=== PATIENT | male | born 1955 | race Caucasian/White ===

== ENCOUNTER 2023-02-17 13:49 | Outpatient (OUT) | payer MEDICARE, BC, SELFPAY ==
--- NOTE | 2023-02-17 | XR_ITS ---
The [place] [id number] Patient Name: PING KAYE MRN: [id number] date: 1955 Sex: M Assigned Patient Location: [facility] Current Patient Location: [facility] Accession/Order Number: [id number] Exam Date: 02/17/2023 14:57 Report Date: 02/17/2023 16:29 At the request of: LETTY GUEVARA Procedure: XR ankle LT min 3V Exam: Radiographs: XR ankle LT min 3V, XR foot LT min 3V Reason for exam: LEFT ANKLE PAIN Comparison: Plain films dated 07/27/2017 XR/XR ankle LT min 3V IMPRESSION: Left ankle soft tissue swelling. Small fragmented Achilles calcaneal spur. Mild degenerative changes scattered throughout the left foot. Remainder of the left foot and ankle radiographs is unremarkable. Electronically authenticated by: FAISAL BIRMINGHAM Date: 02/17/2023 16:29
--- NOTE | 2023-02-17 | XR_ITS ---
The [address] [address] Patient Name: PING KAYE MRN: [id number] date: 1955 Sex: M Assigned Patient Location: [facility] Current Patient Location: [facility] Accession/Order Number: [id number] Exam Date: 02/17/2023 14:57 Report Date: 02/17/2023 16:29 At the request of: LETTY GUVEARA Procedure: XR foot LT min 3V Exam: Radiographs: XR ankle LT min 3V, XR foot LT min 3V Reason for exam: LEFT ANKLE PAIN Comparison: Plain films dated 07/27/2017 XR/XR foot LT min 3V IMPRESSION: Left ankle soft tissue swelling. Small fragmented Achilles calcaneal spur. Mild degenerative changes scattered throughout the left foot. Remainder of the left foot and ankle radiographs is unremarkable. Electronically authenticated by: FAISAL BIRMINGHAM Date: 02/17/2023 16:29
== END 2023-02-17 13:50 | disposition home or self-care (01) ==
PROVIDERS: Visit Provider Podiatrist Foot & Ankle Surgery
DX: M25.572 Pain in left ankle and joints of left foot (principal); M25.472 Effusion, left ankle; M77.32 Calcaneal spur, left foot
CPT/HCPCS: 73610; 73630

== ENCOUNTER 2023-11-10 13:43 | Outpatient (OUT) | payer MEDICARE, BC, SELFPAY ==
--- NOTE | 2023-11-10 | XR_ITS ---
[address] [address] Patient Name: PING KAYE MRN: [id number] date: 1955 Sex: M Assigned Patient Location: Current Patient Location: Accession/Order Number: [id number] Exam Date: 11/10/2023 13:44 Report Date: 11/11/2023 09:33 At the request of: LETTY GUEVARA Procedure: XR ankle LT min 3V PROCEDURE: XR ankle LT min 3V COMPARISON: 02/17/2023 HISTORY: LEFT ANKLE PAIN FINDINGS: BONES:No acute fracture or dislocation. Enthesopathic spurring of the calcaneus at the Achilles insertion. Mild degenerative change SOFT TISSUES:Mild soft tissue swelling EFFUSION:None visible. OTHER: Negative. XR/XR ankle LT min 3V IMPRESSION: Mild soft tissue swelling and degenerative change Electronically authenticated by: CANDIS GILLIAM Date: 11/11/2023 09:33
== END 2023-11-10 13:44 | disposition home or self-care (01) ==
LOC: EC 13:43
PROVIDERS: Visit Provider Podiatrist Foot & Ankle Surgery
DX: M25.572 Pain in left ankle and joints of left foot (principal)
CPT/HCPCS: 73610

== ENCOUNTER 2023-11-23 13:54 | Outpatient (OUT) | payer MEDICARE, BC, SELFPAY ==
--- NOTE | 2023-11-23 13:59 | MR_ITS ---
The [address] [address] Patient Name: PING KAYE MRN: [id number] date: 1955 Sex: M Assigned Patient Location: MRI Current Patient Location: Accession/Order Number: [id number] Exam Date: 11/23/2023 15:00 Report Date: 11/25/2023 09:07 At the request of: LETTY GUEVARA Procedure: MR ankle LT wo con EXAM: MR ankle LT wo con REASON FOR EXAM: Ankle Impingement. TECHNIQUE: Multiplanar, multisequence imaging of the left ankle was performed without contrast COMPARISON: Radiographs 11/10/2023. FINDINGS: Mild fusiform thickening and intermediate signal the Achilles tendon with distal Achilles enthesophytes is consistent with tendinosis. No tear. The plantar fascia is mildly thickened with intermediate signal consistent with fasciopathy. No tear is evident. Laterally, the visualized peroneal tendons demonstrate thickening and intermediate signal consistent with tendinosis. Increased signal within the peroneus longus tendon distal to the peroneal tubercle potentially reflect partial tearing. A complete rupture is not evident. This is incompletely characterized. Thickening and intermediate signal the anterior talofibular and calcaneofibular ligaments is consistent with prior lateral ligamentous injury. No evidence of acute lateral ligamentous injury. Medially, the medial flexor tendons demonstrate normal thickness and signal without tendinosis or tear. The deep deltoid ligament appears grossly intact. The Lisfranc ligament is intact. Anteriorly, the anterior extensor tendons demonstrate normal thickness and signal without tendinosis or tear. The bone marrow signal is without fracture. The talar dome is congruent. The subtalar joints intact. The sinus tarsi is mildly edematous. The midfoot is congruent with mild to moderate osteoarthritis, most notable at the naviculocuneiform articulation. The visualized plantar musculature demonstrates normal bulk and signal. Remaining soft tissues are unremarkable. MR/MR ankle LT wo con IMPRESSION: 1. Peroneal tendinosis with suspicion of intrasubstance partial tearing distal to the peroneal tubercle. This is incompletely imaged. 2. 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 3. Plantar fasciopathy without tear. 4. Sequela of prior lateral ligamentous injury. No evidence of acute ligamentous injury. 5. Moderate midfoot osteoarthritis Electronically authenticated by: MILAGRO CEDILLO Date: 11/25/2023 09:07
== END 2023-11-23 13:55 | disposition home or self-care (01) ==
LOC: MRI 13:54
PROVIDERS: Visit Provider Podiatrist Foot & Ankle Surgery
DX: M25.872 Other specified joint disorders, left ankle and foot (principal); M76.72 Peroneal tendinitis, left leg; M76.62 Achilles tendinitis, left leg; M72.2 Plantar fascial fibromatosis
CPT/HCPCS: 73721

== ENCOUNTER 2024-03-07 10:24 | Outpatient (OUT) | payer MEDICARE, BC, SELFPAY ==
--- NOTE | 2024-03-07 10:33 | XR_ITS ---
The [address] [address] Patient Name: PING KAYE MRN: [id number] date: 1955 Sex: M Assigned [facility] Current Patient Location: Accession/Order Number: [id number] Exam Date: 03/07/2024 11:28 Report Date: 03/08/2024 13:16 At the request of: LETTY GUEVARA Procedure: XR chest 2V EXAMINATION: XR chest 2V HISTORY: Preop exam COMPARISON: XR chest 11/28/2020 FINDINGS: LUNGS: No significant pulmonary parenchymal abnormalities. VASCULATURE: No increased pulmonary vasculature. PLEURA: No pneumothorax, effusion, or pleural thickening. CARDIAC: No cardiomegaly or cardiac silhouette abnormality. MEDIASTINUM: No visible mass or adenopathy. BONES: No fracture or visible bone lesion. OTHER: [Loop recorder projecting over the lower left chest. XR/XR chest 2V IMPRESSION: 1. No acute cardiopulmonary process. Electronically authenticated by: LOYD KAUR Date: 03/08/2024 13:16
--- OUTSIDE RECORDS SUMMARY | 2024-03-07 10:42 | XMS_ITS | CCD ---
Author Organization [facility] [employer] Care Team Providers Care Managed Care Nurse Name Role Phone Da Elmer BCameron Unavailable Unavailable Unavailable Unavailable MARIANELA NORWOOD Unavailable Unavailabl e JOHNSON, ELMER BCameron Unavailable Unavailable DEVI URRUTIA Unavailable Unavailable DA ELMER BCameron Unavailable Unavailable DINESH ELIZABETH Unavailable Unavail able HERNAN FERNÁNDEZ Unavailable Unavailable JOHNSON ELMER BCameron Unavailable Unavailable MICHAELA BLACKWELL Unavailable Unavailable JOHNSON, ELMER BCameron Unavailable Unavailable JOHNSON, ELMER BCameron Unavailable Unavailable Unavailable Primary Care Provider Unavailabl e Da, Elmer BCameron Primary Care Provider [place] DO, Sandro A Primary Care Provider Tiffanie DO, Sandro A Primary Care Provider [phone] Claude Amos MD Unavailable Claude Amos MD Unavailable [place] DO, Sandro A Primary Care Provider Kristen Curtis Primary Care Physician Unavaila Kristen Maya Unavailable Unavailable Kristen Curtis Primary Care Physician Unavaila ble Tiffanie DO, Sandro A Primary Care Provider [phone] Tiffanie DO, Sandro A Primary Care Provider [phone] Markus Ramos MD Attending Unavaila ble Alice SIEGEL, Constantin Quintanilla Referring Unavail able Tiffanie DO, Sandro Hernandez Primary Care Unava ilable Tiffanie DO, Sandro Coronadoony Primary Care Unava ilable Emmanuel SY, Martín Russell Attending Unavailab le [place] DO, Sandro Hernandez Primary Care Unava ilable Emmanuel SY, Martín Russell Attending Unavailab le [place] DO, [facility] Unava ilable Emmanuel DPM, Martín Russell Attending Unavailab le Tiffanie DO, [facility] Care Unava ilable Emmanuel DPM, Martín Russell Attending Unavailab le Tiffanie DO, [facility] Care Unava ilable Emmanuel DPM, Martín Russell Attending Unavailab le [place] DO, [facility] Care Unava ilable Emmanuel DPM, Martín Russell Attending Unavailab le Tiffanie DO, Sandro Hernandez Attending Unava ilable Tiffanie DO, [facility] Unava ilable Emmanuel DPM, Martín Russell Attending Unavailab le Tiffanie DO, [facility] Unava ilable Tiffanie DO, Sandro Hernandez Attending Unava ilable [place] DO, [facility] Unava ilable [place] DO, Sandro Hernandez Attending Unava ilable Tiffanie DO, [facility] Unava ilable Tiffanie DO, Sandro Hernandez Attending Unava ilable [place] [employer] 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, Jacey Castillo Attending Unavailable [place] DO, [facility] Unava ilable [place] DO, Sandro Hernandez Attending Unava ilable [place] DO, [facility] Unava ilable Tiffanie DO, [facility] Unava ilable Tiffanie DO, Sandro Hernandez Attending Unava ilable Tiffanie DO, [facility] Unava ilable Tiffanie DO, Sandro Hernandez Attending Unava ilable Tiffanie DO, [facility] Unava ilable [place] DO, Sandro Hernandez Attending Unava ilable [place] DO, [facility] Primary Care Provider Julian Botello Attending Unavailable [place], Sandro A Referring Unavailable Tiffanie, Sandro A Primary Care Unavailable TIFFANIE, SANDRO A Primary Care Unavailable AUGOSTINCLAUDE Thurston Referring Unavailable AUGOSTINI, CLAUDE Wallace Attending Unavailable TIFFANIE, SANDRO A Primary Care Unavailable SELF, SELF Referring Unavailable AUGOSTINI, CLAUDE Wallace Attending Unavailable TIFFANIE, SANDRO A Primary Care Unavailable SELF, SELF Referring Unavailable AUGOSTINKarena, CLAUDE Wallace Referring Unavailable TIFFANIE, SANDRO A Primary Care Unavailable AUGOSTINI, CLAUDE Wallace Referring Unavailable TIFFANIE, SANDRO A Primary Care Unavailable TIFFANIE, SANDRO A Primary Care Unavailable SELF, SELF Referring Unavailable SCARLETTEKRISTEN K Attending Unavailable MEASEKRISTEN K Attending Unavailable TIFFANIE, SANDRO A Primary Care Unavailable SELF, SELF Referring Unavailable JOHNNIECLAUDE S Referring Unavailable Julian Botello PA-C Unavailable Unavailable TIFFANIE, SANDRO A Primary Care Unavailable JULIAN BOTELLO Referring Unavailable TIFFANIE, SANDRO A Primary Care Unavailable JULIAN BOTELLO Referring Unavailable TIFFANIE, SANDRO A Primary Care Unavailable JULIAN BOTELLO. Referring Unavailable TIFFANIE, SANDRO A Primary Care Unavailable HIGHLANDER, PETER D Referring Unavailable TIFFANIE, SANDRO A Referring Unavailable TIFFANIE, SANDRO A Primary Care Unavailable TIFFANIE, SANDRO A Referring Unavailable TIFFANIE, SANDRO A Primary Care Unavailable TIFFANIE, SANDRO A Primary Care Unavailable [facility] Referring Unavailable HIGHLANDER, PETER D Referring Unavailable TIFFANIE, SANDRO A Primary Care Unavailable TIFFANIE, SANDRO A Primary Care Unavailable JULIAN BOTELLO. Referring Unavailable TIFFANIE, SANDRO A Primary Care Unavailable HIGHLANDER, PETER D Referring Unavailable TIFFANIE, SANDRO A Primary Care Unavailable HIGHLANDER, PETER D Referring Unavailable TIFFANIE, SANDRO A Primary Care Unavailable HIGHLANDER, PETER D Referring Unavailable TIFFANIE, SANDRO A Primary Care Unavailable JULIAN BOTELLO. Referring Unavailable TIFFANIE, SANDRO A Primary Care Unavailable JULIAN BOTELLO. Referring Unavailable TIFFANIE, SANDRO A Primary Care Unavailable JULIAN BOTELLO. Referring Unavailable HIGHLANDER, PETER D Referring Unavailable TIFFANIE, SANDRO A Primary Care Unavailable JULIAN BOTELLO. Referring Unavailable TIFFANIE, SANDRO A Primary Care Unavailable TIFFANIE, SANDRO A Primary Care Unavailable HIGHLANDER, PETER D Referring Unavailable JULIAN BOTELLO. Referring Unavailable TIFFANIE, SANDRO A Primary Care Unavailable JULIAN BOTELLO. Referring Unavailable TIFFANIE, SANDRO A Primary Care Unavailable TIFFANIE, SANDRO A Primary Care Unavailable HIGHLANDER, PETER D Referring Unavailable TIFFANIE, SANDRO A Primary Care Unavailable HIGHLANDER, PETER D Referring Unavailable TIFFANIE, SANDRO A Primary Care Unavailable JULIAN BOTELLO. Referring Unavailable Allergies Allergy Classification Reported Allergen(s) Allergy Type Date of Onset Reaction(s) Facility (20 sources) nitroglycerin; Translations: [NITROGLYCERIN] Propensity to adverse reactions to drug 12-13-19 14 Other (See Comments), Hypotension [facility] (13 sources) Penicillins; Translations: [PENICILLINS] Propensity to adverse reactions to drug 12-13-19 14 [facility] (1 source) Penicillins Propensity to adverse reactions to drug 12-13-19 14 [facility] (9 sources) Nitroglycerin Propensity to adverse reactions to drug 12-13-19 14 Hypotension [facility] Work Phone: (9 sources) Penicillins Propensity to adverse reactions to drug 12-13-19 14 [facility] (20 sources) Penicillins Propensity to adverse reactions to drug 12-13-19 14 [facility] Work Phone: (3 sources) Sulfamethoxazole / Trimethoprim; Translations: [Bactrim] Drug Allergy [facility] (20 sources) Sulfamethoxazole / Trimethoprim Drug Allergy 11-07-19 23 [facility] (1 source) Penicillin; Translations: [penicillin] Drug Allergy [facility] Repository Medications Current Medications Medication Drug Class(es) Dates Sig (Normalized) Sig (Original) allopurinol 300 mg oral tablet (20 sources) Xanthine Oxidase Inhibitor Start: 06-12-2020 take 1 tablet by mouth once daily allopurinol (ZYLOPRIM) 300 MG tablet Take 1 tablet by mouth daily 90 tablet 1 12/20/2023 Active atorvastatin 40 mg oral tablet (20 sources) HMG-CoA Reductase Inhibitor Start: 05-24-2015 take 1 tablet by mouth once daily atorvastatin (LIPITOR) 40 MG tablet Take 1 tablet by mouth daily 07/22/2022 Active clobetasol propionate 0.5 mg/ml medicated shampoo (14 sources) Corticosteroid Start: 09-23-2023 Clobetasol Propionate 0.05 % SHAM apply TO SCALP AND RUB IN WELL LEAVE 3-5 MINUTES BEFORE WASHING OUT 09/23/2023 Active diclofenac sodium 0.01 mg/mg topical gel (14 sources) Nonsteroidal Anti-inflammatory Drug Start: 01-17-2024 ARTHRITIS PAIN RELIEVER 1 % GEL Apply 1 g topically 4 times daily as needed for Pain 01/17/2024 Active doxycycline hyclate 100 mg oral tablet (14 sources) Tetracycline-class Drug Start: 11-23-2023 take 1 tablet by mouth twice daily doxycycline hyclate (VIBRA-TABS) 100 MG tablet Take 1 tablet by mouth 2 times daily 11/23/2023 Active esomeprazole 20 mg delayed release oral capsule (2 sources) Proton Pump Inhibitor esomeprazole (NEXIUM) 20 MG capsule Take 20 mg by mouth. 0 Active glimepiride 2 mg oral tablet (20 sources) Sulfonylurea Start: 06-12-2020 take 1 tablet by mouth once daily glimepiride (AMARYL) 2 MG tablet Take 1 tablet by mouth daily 90 tablet 3 01/17/2024 Active hydroCHLOROthiazide 25 mg / losartan potassium 100 mg oral tablet (20 sources) Thiazide Diuretic, Angiotensin 2 Receptor [place] Start: 05-20-2020 take 1 tablet by mouth once daily losartan-hydroCH LOROthiazide (HYZAAR) 100-25 MG per tablet Take 1 tablet by mouth daily 05/20/2020 Active nitrofurantoin, macrocrystals 25 mg / nitrofurantoin, monohydrate 75 mg oral capsule (1 source) Nitrofuran Antibacterial Start: 01-27-2024 End: 02-03-2024 take 1 capsule by mouth twice daily nitrofurantoin, macrocrystal-mon ohydrate, (MACROBID) 100 MG capsule Take 1 capsule by mouth 2 times daily for 7 days 14 capsule 01/27/2024 02/03/2024 Active oxybutynin chloride 5 mg oral tablet (20 sources) Cholinergic Muscarinic Antagonist Start: 12-27-2023 take 1 tablet by mouth once daily oxyBUTYnin (DITROPAN) 5 MG tablet Take 1 tablet by mouth daily 90 tablet 1 12/27/2023 Active Start: 12-17-2022 take 1 tablet by astrid th once daily oxybutynin (DITROPAN-XL) 10 MG extended release tablet Take 1 tablet by mouth daily 0 12/17/2022 Active take 1 tablet by astrid th once daily oxybutynin chloride ER 5 mg tablet,extended release 24 hr take 1 tablet (5 mg) by oral route once daily phentermine hydrochloride 37.5 mg oral tablet (15 sources) Sympathomimetic Amine Anorectic Start: 02-03-2024 End: 05-03-2024 take 1 tablet by mouth once daily before breakfast phentermine (ADIPEX-P) 37.5 MG tablet Indications: Obesity (BMI 30-39.9) Take 1 tablet by mouth every morning (before breakfast) for 90 days. Max Daily Amount: 37.5 mg 30 tablet 2 02/03/2024 05/03/2024 Active Start: 09-10-2023 take 1 tablet by astrid th once daily before breakfast phentermine (ADIPEX-P) 37.5 MG tablet Take 1 tablet by mouth every morning (before breakfast). 09/10/2023 Active microencapsulated potassium chloride 20 meq extended release oral tablet (20 sources) Start: 11-06-2022 take 1 tablet by mouth once daily potassium chloride (KLOR-CON M) 20 MEQ extended release tablet Take 1 tablet by mouth daily 11/11/2022 Active Start: 07-28-2021 End: 06-14-2022 take 1 tablet by mouth once daily potassium chloride (KLOR-CON M) 20 MEQ extended release tablet Take 1 tablet by mouth daily 11/11/2022 Active Start: 06-17-2020 take 1 tablet by astrid th once daily potassium chloride (KLOR-CON M) 20 MEQ TBCR extended release tablet Take 1 tablet by mouth daily 0 06/17/2020 Active Start: 03-15-2020 take 1 tablet by astrid th once daily potassium chloride 20 MEQ Tab CR tablet Take 1 tablet by mouth daily. 30 tablet 5 03/15/2020 Active rivaroxaban 20 mg oral tablet (20 sources) Factor Xa Inhibitor Start: 03-11-2017 End: 11-05-2023 take 1 tablet by mouth once daily XARELTO 20 MG TABS tablet Take 1 tablet by mouth daily 07/16/2020 Active semaglutide 7 mg oral tablet (5 sources) Start: 12-15-2022 take 1 tablet by mouth once daily RYBELSUS 7 MG TABS TAKE ONE TABLET BY MOUTH EVERY DAY 30 minutes BEFORE FIRST food beverage OR other oral medications 12/15/2022 Active sildenafil 20 mg oral tablet (14 sources) Phosphodiesterase 5 Inhibitor Start: 12-17-2023 take 1 tablet by mouth once daily sildenafil (REVATIO) 20 MG tablet Take 1 tablet by mouth daily 12/17/2023 Active SITagliptin 50 mg oral tablet (20 sources) Dipeptidyl Peptidase 4 Inhibitor Start: 07-16-2020 take 1 tablet by mouth once daily JANUVIA 50 MG tablet Take 1 tablet by mouth daily 07/16/2020 Active take 2 tablets by mouth once richard ly sitaGLIPtin 25 MG Tab Indications: NSVT (nonsustained ventricular tachycardia) , Lightheadedness Take 2 tablets by mouth daily. Active sitagliptin (Feb) 25 MG tablet Take 25 mg by mouth. 0 Active sotalol hydrochloride 160 mg oral tablet (20 sources) Antiarrhythmic Start: 12-24-2023 take 1 tablet by mouth once sotalol 160 MG tablet Indications: Paroxysmal atrial fibrillation , High risk medication use , Encounter for long-term (current) use of medications TAKE ONE TABLET BY MOUTH EVERY TWELVE HOURS 180 tablet 1 12/24/2023 Active Start: 11-08-2023 take 1 tablet by astrid th every twelve hours sotalol 160 MG tablet Indications: Paroxysmal atrial fibrillation , High risk medication use , Encounter for long-term (current) use of medications Take 1 tablet by mouth every 12 hours. 180 tablet 1 11/08/2023 Active Start: 07-02-2023 End: 11-05-2023 take 1 tablet by mouth once sotalol 160 MG tablet Renu cations: Paroxysmal atrial fibrillation , Encounter for long-term (current) use of medications take one tablet by mouth every twelve hours 180 tablet 1 07/02/2023 11/05/2023 Discontinued (Reorder) Start: 07-14-2022 take 1 tablet by astrid th every twelve hours sotalol 160 MG tablet Indications: Paroxysmal atrial fibrillation , Encounter for long-term (current) use of medications Take 1 tablet by mouth every 12 hours. 180 tablet 1 11/06/2022 Active Start: 05-28-2021 take 1 tablet by astrid th every twelve hours sotalol 160 MG tablet Indications: Paroxysmal atrial fibrillation , Encounter for long-term (current) use of medications Take 1 tablet by mouth every 12 hours. 180 tablet 2 05/28/2021 Active Start: 07-10-2020 take 1 tablet by astrid th every twelve hours sotalol 160 MG tablet Indications: Paroxysmal atrial fibrillation , Encounter for long-term (current) use of medications Take 1 tablet by mouth every 12 hours. 180 tablet 1 07/10/2020 Active Start: 07-09-2020 take 1 tablet by astrid th twice daily sotalol (BETAPACE) 160 MG tablet Take 1 tablet by mouth 2 times daily 07/09/2020 Active Start: 03-05-2017 sotalol (BETAP ARABELLA) 120 MG tablet Take 120 mg by mouth. 0 03/05/2017 Active Start: 03-05-2017 sotalol (BETAP ARABELLA) 120 MG tablet Take 120 mg by mouth. 03/05/2017 Active sulfamethoxazole 800 mg / trimethoprim 160 mg oral tablet (2 sources) Dihydrofolate Reductase Inhibitor Antibacterial, Sulfonamide Antimicrobial Start: 10-12-2022 End: 10-22-2022 take 1 tablet by mouth twice daily sulfamethoxazole-trimethoprim (BACTRIM DS;SEPTRA DS) 800-160 MG per tablet Take 1 tablet by mouth 2 times daily for 10 days 20 tablet 0 10/12/2022 10/22/2022 Active Start: 10-12-2022 End: 10-12-2022 sulfamethoxazole-trimethopri m (BACTRIM DS;SEPTRA DS) 800-160 MG per tablet 1 tablet tadalafil (15 sources) Phosphodiesterase 5 Inhibitor Ta dalafil (CIALIS PO) take by mouth as needed. Active Tadalafil (CIALI S PO) take by mouth as needed. 0 Active tamsulosin hydrochloride 0.4 mg oral capsule (20 sources) alpha-Adrenergic [place] Start: 12-20-2023 take 1 capsule by mouth once daily tamsulosin (FLOMAX) 0.4 MG capsule Take 1 capsule by mouth daily 90 capsule 3 12/20/2023 Active Start: 12-15-2022 take 1 capsule by mo ut once daily tamsulosin (FLOMAX) 0.4 MG capsule Take 1 capsule by mouth daily 12/15/2022 Active Start: 07-28-2021 End: 06-14-2022 take 1 capsule by mouth once daily tamsulosin (FLOMAX) 0.4 MG capsule TAKE ONE CAPSULE BY MOUTH EVERY DAY 0 07/28/2021 06/14/2022 Discontinued (LIST CLEANUP) valsartan 160 mg oral tablet (2 sources) Angiotensin 2 Receptor [place] valsartan (DIOVAN) 1 60 MG tablet Take 160 mg by mouth. 0 Active Completed/Discontinued Medications Medication Drug Class(es) Dates Sig (Normalized) Sig (Original) acetaminophen 325 mg / HYDROcodone bitartrate 5 mg oral tablet (1 source) Opioid Agonist Start: 06-14-2022 End: 06-14-2022 HYDROcodone-acetam inophen (NORCO) 5-325 MG per tablet 1 tablet Start: 06-14-2022 End: 06-14-2022 HYDROcodone-acetaminophen (N ORCO) 5-325 MG per tablet 1 tablet fluorouracil 50 mg/ml topical cream (2 sources) Nucleoside Metabolic Inhibitor Start: 02-18-2023 fluorouracil 5 % topical cream 02/18/2023 Apply very small amount to treatment sites on scalp once daily as directed 1000 ml sodium chloride 9 mg/ml injection (1 source) Start: 11-24-2021 End: 11-24-2021 sodium chloride 0.9% IV solution 500 mL Problems Active Problems Problem Classification Problem Date Documented Date Episodic/Chronic Acquired foot deformities (5 sources) Foot drop, left foot; Translations: [Foot drop, left foot] Onset: 01-28-2024 Episodic Allergic reactions (4 sources) Other skin changes due to chronic exposure to nonionizing radiation Onset: 02-15-2023 Episodic Cancer; other and unspecified primary (1 source) Carcinoma in situ, unspecified Onset: 03-25-2023 Chronic Cardiac dysrhythmias (20 sources) Atrial fibrillation; Translations: [Unspecified atrial fibrillation] Onset: 02-14-2014 02-14-2014 Chronic Diabetes mellitus without complication (20 sources) Type 2 diabetes mellitus without complications; Translations: [Diabetes mellitus] Onset: 02-14-2014 02-14-2014 Chronic Disorders of lipid metabolism (6 sources) Hyperlipidemia, unspecified; Translations: [Pure hypercholesterolemia, unspecified] Onset: 06-16-2017 12-14-2023 Chronic Esophageal disorders (2 sources) Gastro-esophageal reflux disease without esophagitis; Translations: [Gastro-esophageal reflux disease without esophagitis] Onset: 03-30-2017 Chronic Essential hypertension (20 sources) Essential (primary) hypertension; Translations: [Hypertensive disorder] Onset: 02-14-2014 02-14-2014 Chronic Genitourinary symptoms and ill-defined conditions (1 source) Urinary incontinence; Translations: [Unspecified urinary incontinence] 01-27-2024 Chronic Genitourinary symptoms and ill-defined conditions (5 sources) Urgent desire to urinate; Translations: [Urgency of urination] Onset: 03-03-2024 03-03-2024 Episodic Gout and other crystal arthropathies (2 sources) Gout, unspecified; Translations: [Gout, unspecified] Onset: 06-16-2017 Chronic Hyperplasia of prostate (4 sources) Benign prostatic hypertrophy with outflow obstruction; Translations: [Benign prostatic hyperplasia with lower urinary tract symptoms] Onset: 03-03-2024 03-03-2024 Chronic Neoplasms of unspecified nature or uncertain behavior (3 sources) Neoplasm of uncertain behavior of skin Onset: 02-15-2023 Episodic Osteoarthritis (17 sources) Degenerative joint disease of ankle AND/OR foot; Translations: [Primary osteoarthritis, left ankle and foot] Onset: 08-27-2022 04-02-2023 Chronic Other aftercare (1 source) Taking high risk medication; Translations: [Other longterm (current) drug therapy] 11-05-2023 Episodic Other aftercare (1 source) Long-term current use of drug therapy; Translations: [Other longterm (current) drug therapy] 11-05-2023 Episodic Other and ill-defined heart disease (3 sources) Heart disease, unspecified Chronic Other and unspecified benign neoplasm (1 source) Melanocytic nevi of trunk Onset: 03-25-2023 Episodic Other connective tissue disease (6 sources) Presence of right artificial knee joint Onset: 08-27-2022 Chronic Other non-traumatic joint disorders (1 source) Impingement syndrome of ankle; Translations: [Other specified joint disorders, left ankle and foot] 04-02-2023 Episodic Other non-traumatic joint disorders (1 source) Impingement of left ankle joint; Translations: [Other specified joint disorders, left ankle and foot] 04-08-2023 Episodic Other non-traumatic joint disorders (2 sources) Pain in left hip Episodic Other non-traumatic joint disorders (2 sources) Pain in left knee Episodic Other nutritional; endocrine; and metabolic disorders (1 source) Morbid obesity; Translations: [Morbid (severe) obesity due to excess calories] Onset: 02-14-2014 02-14-2014 Chronic Other nutritional; endocrine; and metabolic disorders (14 sources) Body mass index 40+ - severely obese; Translations: [Morbid (severe) obesity due to excess calories] Onset: 02-14-2014 02-14-2014 Chronic Other screening for suspected conditions (not mental disorders or infectious disease) (1 source) Patient encounter status; Translations: [Encounter for screening for malignant neoplasm of prostate] 12-14-2023 Episodic Other skin disorders (4 sources) Actinic keratosis Onset: 02-15-2023 Episodic Other skin disorders (1 source) Other seborrheic keratosis Onset: 03-25-2023 Episodic Residual codes; unclassified (15 sources) Obstructive sleep apnea syndrome; Translations: [Obstructive sleep apnea (adult) (pediatric)] Onset: 02-14-2014 02-14-2014 Chronic Spondylosis; intervertebral disc disorders; other back problems (2 sources) Other intervertebral disc degeneration, lumbar region; Translations: [Other intervertebral disc degeneration, lumbar region] Onset: 01-13-2017 Chronic Urinary tract infections (1 source) Acute cystitis; Translations: [Acute cystitis without hematuria] Episodic Past or Other Problems Problem Classification Problem Date Documented Date Episodic/Chronic Cardiac dysrhythmias (15 sources) Tachycardia; Translations: [Tachycardia, unspecified] Onset: 12-11-2013 12-11-2013 Episodic Medical examination/evaluatio n (2 sources) Encounter for other preprocedural examination; Translations: [Encounter for other preprocedural examination] Onset: 03-30-2017 Episodic Other aftercare (2 sources) 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; Translations: [Other longterm (current) drug therapy] Onset: 11-05-2023 Episodic Other and unspecified benign neoplasm (19 sources) History of polyp of colon; Translations: [Personal history of colonic polyps] Onset: 01-05-2023 01-05-2023 Episodic Other connective tissue disease (1 source) Radial styloid tenosynovitis; Translations: [Radial styloid tenosynovitis [de Quervain]] Episodic Other ear and sense organ disorders (2 sources) Tinnitus, bilateral; Translations: [Tinnitus, bilateral] Onset: 05-04-2017 Episodic Other non-traumatic joint disorders (3 sources) Knee pain; Translations: [Pain in right knee] Onset: 01-13-2017 Episodic Other non-traumatic joint disorders (2 sources) Other specified joint disorders, left ankle and foot; Translations: [Other specified joint disorders, left ankle and foot] Onset: 04-08-2023 Episodic Spondylosis; intervertebral disc disorders; other back problems (2 sources) Lumbago with sciatica, right side; Translations: [Lumbago with sciatica, right side] Onset: 01-13-2017 Episodic Unclassified (1 source) Acute midline low back pain with right-sided sciatica Unclassified (14 sources) Onset: 12-20-2023 12-20-2023 Results Test Name Value Interpretation Reference Range Facility Culture, Urineon 03-03-2024 [place] - SOURCE urine, clean catch Normal [facility] Comment on above: Order Comment: [place] - Source of Urine Collection? Urine clean catch\[id number]\Performed by [facility] [address] [place] [address] [place] - Source of Urine Collection? Urine clean catch [place] - Current Antibiotic Therapy? No Answer Given Performed By: #### C UR #### [facility] See Report [place] - URINE CULTURE No significant pathogens isolated. Growth likely represents skin terri or distal urethral terri. Abnormal [facility] Comment on above: Order Comment: [place] - Source of Urine Collection? Urine clean catch\[id number]\Performed by [facility] [address] [place] [address] [place] - Source of Urine Collection? Urine clean catch [place] - Current Antibiotic Therapy? No Answer Given Performed By: #### C UR #### [facility] See Report URINE CULTUREon 03-03-2024 Bacteria identified Cx Nom (U) MICROBIOLOGY REPORT [facility], [address] [place] [address], [id number] PATIENT: KANA HADLEY LOCATION: [facility] - - : 1955 AGE: 69 SEX: M ADM: 03/03/24 Att. Physician: [facility] Order Id: [id number] Req. Physician: [facility] Source: urine, clean catch Site: Collected: 03/03/24 12:36 Current Antibiotics: not stated Antibiotics comment: --------- Sly Elizabeth M M E N T S - [place] - Source of Urine Collection? Urine clean catch STATUS OF ORDERED AND REPORTED TESTS URINE CULTURE FINAL 03/05/24 URINE CULTURE FINAL 03/05/24 07:28 03/05/24 No significant pathogens isolated. Growth likely represents skin terri or distal urethral terri. Organism 00 Growth of Contaminants [facility] Urinalysis with Reflex to Cu ltureon 03-03-2024 BACTERIA, URINE None Seen [facility] Bilirubin, Urine Negative Negative [facility] Blood, Urine Negative Negative [facility] Clarity, UA Clear [facility] Color, UA Yellow [facility] Culture Indicated? No [facility] Glucose, Ur Negative Negative mg/dL [facility] Ketones Ql (U) Negative Negative mg/dL [facility] Leukocyte esterase Test strip Ql (U) Negative Negative [facility] Nitrate, UA Negative Negative [facility] pH (U) 5.5 [pH] 5.0 - 7.0 [facility] Protein, Ur (gm/dL) Negative Negative mg/dL [facility] RBC, UA None Seen #/HPF [facility] Specific [place], UA 1.020 1.005 - 1.030 [facility] Urobilinogen, Urine 0.2 E.U./dL NINF [facility] WBC, UA None Seen #/HPF [facility] Urinalysis, Complete reflex to cultureon 03-03-2024 BACT None Seen Normal [facility] Comment on above: Performed By: #### U COMP/WRCX #### [place] [address] Ph. [phone] CULTIND No Normal [facility] Comment on above: Performed By: #### U COMP/WRCX #### [address] [address] Ph. [phone] UBIL Negative Normal Negative [facility] Comment on above: Performed By: #### U COMP/WRCX #### [address] [place] [address] Ph. [phone] UBLO Negative Normal Negative [facility] Comment on above: Performed By: #### U COMP/WRCX #### [address] [address] Ph. [phone] UCLAR Clear Normal [facility] Comment on above: Performed By: #### U COMP/WRCX #### [place] [id number] Ph. [phone] UCOL Yellow Normal [facility] Comment on above: Performed By: #### U COMP/WRCX #### [address] [address] Ph. [phone] UGLU Negative Normal Negative [facility] Comment on above: Performed By: #### U COMP/WRCX #### [place] [id number] Ph. [phone] UKET Negative Normal Negative [facility] Comment on above: Performed By: #### U COMP/WRCX #### [address] [address] Ph. [phone] ULEU Negative Normal Negative [facility] Comment on above: Performed By: #### U COMP/WRCX #### [place] [id number] Ph. [phone] UNIT Negative Normal Negative [facility] Comment on above: Performed By: #### U COMP/WRCX #### [address] [address] Ph. [phone] UPH 5.5 Normal 5.0-7.0 [facility] Comment on above: Performed By: #### U COMP/WRCX #### [address] [address] Ph. [phone] UPRO Negative Normal Negative [facility] Comment on above: Performed By: #### U COMP/WRCX #### [place] [address] Ph. [phone] URBC None Seen Normal [facility] Comment on above: Performed By: #### U COMP/WRCX #### [place] [address] Ph. [phone] USG 1.020 Normal 1.005-1.030 [facility] Comment on above: Performed By: #### U COMP/WRCX #### [place] [address] Ph. [phone] UURO 0.2 E.U./dL Normal <2.0 [facility] Comment on above: Performed By: #### U COMP/WRCX #### [place] [address] Ph. [phone] UWBC None Seen Normal [facility] Comment on above: Performed By: #### U COMP/WRCX #### [place] [address] Ph. [phone] Culture, Urineon 01-27-2024 [place] - Organism 01 Enterococcus faecalis Abnormal [facility] Comment on above: Order Comment: [place] - Source of Urine Collection? Urine clean catch\[id number]\Performed by [facility] [address] [place] [address] [place] - Source of Urine Collection? Urine clean catch [place] - Current Antibiotic Therapy? No Answer Given Specify (ex-cath, midstream, cysto, etc)?->CCMS urine collection Performed By: #### C UR #### [facility] See Report [place] - SOURCE urine, clean catch Normal [facility] Comment on above: Order Comment: [place] - Source of Urine Collection? Urine clean catch\X0D0A\Performed by [facility] [address] [place] [address] [place] - Source of Urine Collection? Urine clean catch [place] - Current Antibiotic Therapy? No Answer Given Specify (ex-cath, midstream, cysto, etc)?->CCMS urine collection Performed By: #### C UR #### [facility] See Report [place] - URINE CULTURE [place] count: 10,000-50,000 CFU/mL Normal [facility] Comment on above: Order Comment: [place] - Source of Urine Collection? Urine clean catch\X0D0A\Performed by [facility] [address] [place] [id number] [place] - Source of Urine Collection? Urine clean catch [place] - Current Antibiotic Therapy? No Answer Given Specify (ex-cath, midstream, cysto, etc)?->CCMS urine collection Performed By: #### C UR #### [facility] See Report URINE CULTUREon 01-27-2024 Bacteria identified Cx Nom (U) MICROBIOLOGY REPORT [facility], [address] [place] [address], [id number] PATIENT: KANA HADLEY LOCATION: [facility] - - : 1955 AGE: 68 SEX: M ADM: 01/27/24 Att. Physician: PHYSICIAN, NON-STAFF Order Id: [id number] Req. Physician: PHYSICIAN, NON-STAFF Source: urine, clean catch Site: Collected: 01/27/24 14:10 Current Antibiotics: not stated Antibiotics comment: --------- C O M M E N T S - [place] - Source of Urine Collection? Urine clean catch STATUS OF ORDERED AND REPORTED TESTS URINE CULTURE FINAL 01/29/24 URINE CULTURE FINAL 01/29/24 08:06 Organism 01 Enterococcus faecalis - (Group D) [place] count: 10,000-50,000 CFU/mL Organism 01-strfae Antibiotic KILLIAN Intrp *Adult dosage Pk bld level Pk urine lev. Ampicillin <=2 S PO 500mg (fasting) 2.5-4.0 IV 2g q 6 h 100 Penicillin-G 2 S IV 2 MU/q 4-6hr. 20 Vancomycin 1 S IV 1000mg q 12 h 20-50 800 Nitrofurantoin <=16 S PO 100mg <1.0 15-46 S=Susceptible I=Intermediate R=Resistant Susceptibility is determined by comparing the KILLIAN of organism to the achievable blood or urine level of drug. Level at the site of infection should be a minimum of 5-10 times the KILLIAN. KILLIAN and blood and urine levels=mcg/ml.*Standa rd dosages from [place] Guide to Antimicrobial Therapy and assumes moderate infection in normal adult populations. For pts. with renal or liver disease consult PDR or pharmacist. [facility] Podiatry Office/Clinic Noteo n 01-17-2024 Podiatry Office/Clinic Note Chief Complaint DM Foot Care History of Present Illness Patient is a pleasant 68-year-old male who presents for follow-up of bilateral posterior tibial tendon dysfunction and flatfoot pain, left worse than right. Uses AFO and ASO. Relates the braces do help with extended periods of activity and his symptoms. Pain overall seems well-controlled. Sometimes gets up to a 5 out of 10 when he is very activity. He is very pleased with his care thus far. Patient presents follow-up of at risk diabetic footcare and for follow-up of thickened, painful toenails. They are unable to trim them themselves due to the thickness of them. They are getting sore in patient's shoes with ambulating. When the nails become thickened and elongated they are uncomfortable in socks and shoe gear, they are afraid to cut them themselves due to comorbidities and they do not want to create a wound or accidentally make themselves bleed. Patient is requesting that I cut/debride their nails today. No other complaints today. Primary CARE physician Dr. Sandro Moreno. Last visit November 29, 2023 per patient Review of Systems Constitutional Head Nose Mouth Throat Cardio/Respiratory Hematologic Chills: No Headache: No Shortness of Breath: No History of DVT: No Fever: No Sore Throat: No Chest Pain: No History of Claudication: No Ear Pain: No Palpitation: No History of Aneurysm: No History of Gangrene: No Genitourinary Musculoskeletal Psychiatric Vascular Burning: No Muscle Weakness: No Anxiety: No Blood Disorder: No Pain: No Joint Pain: No Depression: No Numbness: Yes Gastrointestinal Dermatology Rheumatologic Problems: No Rash: No History of Rheumatic Arthritis: No Pain: No Pruritus: No History of Gout: No History of Lupus: No Physical Exam Vitals & Measurements HR: 62 (Peripheral) BP: 122/72 HT: 180 cm WT: 129 kg WT: 129 kg (Dosing) BMI: 39.81 Musculoskeletal: Extrinsic and intrinsic musculature of the foot are grossly normal with strengths of 5/5 all movers of the foot and ankle with exception of Posterior Tibial Tendon which was noted to have decreased strength with pain on active inversion of the foot noted. Negative pain on palpation to the navicular tuberosity of bilateral foot. Negative pain to palpation along the course of the posterior tibial tendon infra malleoli bilateral foot. Negative pain on palpation to the bilateral sinus tarsi. No pain on palpation to the bilateral medial or lateral calcaneal tubercle or achilles tendon. No pain on palpation to the lateral squeeze of the bilateral calcaneus. Range of motion of the bilateral ankle Joint was noted to be without pain or crepitus, but contracture of achilles tendon was noted bilateral with 0-5 degrees of dorsiflexion noted and very tight clinically, painful at the Gastrocnemius and Achilles area when foot passed 90 degrees to the leg from 0-5 degrees of ankle dorsiflexion. Range of motion of the bilateral subtalar joint was noted to be decreased without pain or crepitus Calcaneus is in valgus compared to lower leg when weight bearing. Further seen upon weight bearing was decreased height of the medial longitudinal arch of bilateral feet, Positive too many toes sign on bilateral foot. Able to perform double limb heel rise without pain bilateral. Single limb heel rise is difficult and painful bilateral Heels do invert when heel limb rise test done Negative pain to palpation along the course of the plantar fascia and with engagement of windlass mechanism. Negative pain with resisted inversion bilateral. Pain to palpation nail units as below. Vascular: Pulses palpable +2/4 Dorsalis Pedis and Posterior Tibial arteries bilateral. Capillary fill time brisk, approximately 3 seconds bilateral toes. Negative for significant edema in either lower extremity. Skin temp warm to cool proximal to distal bilateral. Neurological: Gross, protective, and epicritic sensation intact bilateral. Achilles and Patellar reflexes within normal limits 2/4 bilateral Negative babinski with hallux downgoing. Negative tinels/valliex upon neural light percussion tibial nerve. Dermatologic: Skin intact in total, no ulcerations or abrasions noted Negative for overt rashes or irregular pigmented lesions. No erythema, ecchymosis, macerations or other lesions. Nails 1 through 5 bilateral are thickened, elongated, discolored yellow with subungual debris. Additional Vitals BP Position/Location: Sitting, Right arm Assessment/Plan 1. Onychomycosis -Evaluation and Management was extensive at this visit with time spent with patient dedicated to discussion of pathogenesis and treatment options for patient's problems including neurologic exam, shoe gear inspection and recommendations, conservative care continuing, antifungal therapy oral vs topical, and problematic nail excision vs matrixectomy -Sharp debridement of painful mycotic nails one through 5 from bilateral (more content not included)... Normal [facility] CBC with Auto Differentialon 12-14-2023 Basophils (Bld) [#/Vol] 0.0 10*3/uL [facility] Basophils/100 WBC (Bld) 0 % 0 - 1 % [facility] Eosinophils Absolute 0.2 [facility] Eosinophils/100 WBC (Bld) 2 % 0 - 5 % [facility] Erythrocyte distribution width (RBC) [Ratio] 13.1 % 11.5 - 14.5 % [facility] Hematocrit (Bld) [Volume fraction] 43.2 % 42.0 - 52.0 % [facility] Hemoglobin (Bld) [Mass/Vol] 14.8 g/dL 13.5 - 17.5 g/dL [facility] Interpretation and review of laboratory results Abnormal [facility] Lymphocytes Absolute 2.0 [facility] Lymphocytes/100 WBC (Bld) 28 % 20 - 40 % [facility] MCH (RBC) [Entitic mass] 32.7 pg 27.0 - 35.0 pg [facility] MCHC (RBC) [Mass/Vol] 34.3 g/dL 32.0 - 36.0 g/dL [facility] MCV (RBC) [Entitic vol] 95.4 fL 80.0 - 100.0 fL [facility] Monocytes Absolute 0.6 [facility] Monocytes/100 WBC (Bld) 9 % 1 - 15 % [facility] Neutrophils Absolute 4.3 [facility] Neutrophils/100 WBC (Bld) 61 % 50 - 70 % [facility] Platelet mean volume (Bld) [Entitic vol] 9.9 fL 9.4 - 12.3 fL [facility] Platelets (Bld) [#/Vol] 157 10*3/uL [facility] RBC (Bld) [#/Vol] 4.53 10*6/uL [facility] WBC (Bld) [#/Vol] 7.1 10*3/uL [facility] Complete Blood Count with Au to Diffon 12-14-2023 BASO# BASO#: 0.0 Normal 0.0-0.1 [facility] Comment on above: Performed By: #### A 1C, CBCAD #### [place] [address] Ph. [phone] BASO% BASO%: 0 Normal 0-1 [facility] Comment on above: Performed By: #### A 1C, CBCAD #### [place] [address] Ph. [phone] Eosinophils (Bld) [#/Vol] 0.2 10*3/uL Normal 0.0-0.5 [facility] Comment on above: Performed By: #### A 1C, CBCAD #### [place] [address] Ph. [phone] Eosinophils/100 WBC (Bld) 2 % Normal 0-5 [facility] Comment on above: Performed By: #### A 1C, CBCAD #### [place] [address] Ph. [phone] Erythrocyte distribution width (RBC) [Ratio] 13.1 % Normal 11.5-14.5 [facility] Comment on above: Performed By: #### A 1C, CBCAD #### [place] [address] Ph. [phone] Hematocrit (Bld) [Volume fraction] 43.2 % Normal 42.0-52.0 [facility] Comment on above: Performed By: #### A 1C, CBCAD #### [place] [address] Ph. [phone] Hemoglobin (Bld) [Mass/Vol] 14.8 g/dL Normal 13.5-17.5 [facility] Comment on above: Performed By: #### A 1C, CBCAD #### [place] [address] Ph. [phone] Lymphocytes (Bld) [#/Vol] 2 10*3/uL Normal 1.0-4.0 [facility] Comment on above: Performed By: #### A 1C, CBCAD #### [place] [address] Ph. [phone] Lymphocytes/100 WBC (Bld) 28 % Normal 20-40 [facility] Comment on above: Performed By: #### A 1C, CBCAD #### [place] [address] Ph. [phone] MCH (RBC) [Entitic mass] 32.7 pg Normal 27.0-35.0 [facility] Comment on above: Performed By: #### A 1C, CBCAD #### [place] [address] Ph. [phone] MCHC (RBC) [Mass/Vol] 34.3 g/dL Normal 32.0-36.0 [facility] Comment on above: Performed By: #### A 1C, CBCAD #### [place] [address] Ph. [phone] MCV (RBC) [Entitic vol] 95.4 fL Normal 80.0-100.0 [facility] Comment on above: Performed By: #### A 1C, CBCAD #### [place] [address] Ph. [phone] Monocytes (Bld) [#/Vol] 0.6 10*3/uL Normal 0.3-1.0 [facility] Comment on above: Performed By: #### A 1C, CBCAD #### [address] [address] Ph. [phone] Monocytes/100 WBC (Bld) 9 % Normal 1-15 [facility] Comment on above: Performed By: #### A 1C, CBCAD #### [address] [address] Ph. [phone] Neutrophils (Bld) [#/Vol] 4.3 10*3/uL Normal 1.8-7.7 [facility] Comment on above: Performed By: #### A 1C, CBCAD #### [address] [address] Ph. [phone] Neutrophils/100 WBC (Bld) 61 % Normal 50-70 [facility] Comment on above: Performed By: #### A 1C, CBCAD #### [address] [address] Ph. [phone] Platelet mean volume (Bld) [Entitic vol] 9.9 fL Normal 9.4-12.3 [facility] Comment on above: Performed By: #### A 1C, CBCAD #### [address] [address] Ph. [phone] Platelets (Bld) [#/Vol] 157 10*3/uL Normal 150-450 [facility] Comment on above: Performed By: #### A 1C, CBCAD #### [address] [address] Ph. [phone] RBC (Bld) [#/Vol] 4.53 10*6/uL Low 4.70-6.10 [facility] Comment on above: Performed By: #### A 1C, CBCAD #### [address] [address] Ph. [phone] WBC (Bld) [#/Vol] 7.1 10*3/uL Normal 3.7-11.0 [facility] Comment on above: Performed By: #### A 1C, CBCAD #### [place] [address] [place] [address] Ph. [phone] Comprehensive Metabolic Pane edouard 12-14-2023 Albumin [Mass/Vol] 4.5 g/dL 3.5 - 5.0 g/dL [facility] ALP (Bld) [Catalytic activity/Vol] 80 U/L 38 - 126 U/L [facility] ALT [Catalytic activity/Vol] 31 U/L 0 - 50 U/L [facility] AST [Catalytic activity/Vol] 32 U/L 17 - 59 U/L [facility] Bilirubin [Mass/Vol] 1.0 mg/dL 0.2 - 1.3 mg/dL [facility] Calcium [Mass/Vol] 9.1 mg/dL 8.4 - 10. 2 mg/dL [facility] Chloride [Moles/Vol] 103 mmol/L [facility] CO2 [Moles/Vol] 30 mmol/L [facility] Creatinine [Mass/Vol] 0.90 mg/dL 0.66 - 1.25 mg/dL [facility] Est, Glom Filt Rate 92 - PINF [facility] Comment on above: GFR calculated using CKD-EPI (2020) formula. Stage 1 Kidney damage (e.g., protein in the urine) with normal GFR >=90 Stage 2 Kidney damage with mild decrease in GFR 60-89 Stage 3a Moderate decrease in GFR 45-59 Stage 3b Moderate decrease in GFR 30-44 Stage 4 Severe reduction in GFR 15-29 Stage 5 Kidney failure <15 Glucose [Mass/Vol] 171 mg/dL High 65 - 100 mg/dL [facility] Potassium [Moles/Vol] 3.8 mmol/L [facility] Protein [Mass/Vol] 7.3 g/dL 6.3 - 8.2 g/dL [facility] Sodium [Moles/Vol] 138 mmol/L [facility] Urea nitrogen (BldV) [Mass/Vol] 21 mg/dL High 9 - 20 mg/dL [facility] Fasting [facility] Albumin [Mass/Vol] 4.5 g/dL Normal 3.5-5.0 [facility] Comment on above: Order Comment: Fasti ng Performed By: #### P SHARDA HORN, CMP #### [place] [id number] Ph. [phone] ALP [Catalytic activity/Vol] 80 U/L Normal 38-126 [facility] Comment on above: Order Comment: Fasti ng Performed By: #### P SA LIPD, CMP #### [place] [address] Ph. [phone] ALT [Catalytic activity/Vol] 31 U/L Normal 0-50 [facility] Comment on above: Order Comment: Fasti ng Performed By: #### P SA LIPD, CMP #### [place] [address] Ph. [phone] AST [Catalytic activity/Vol] 32 U/L Normal 17-59 [facility] Comment on above: Order Comment: Fasti ng Performed By: #### P SA LIPD, CMP #### [place] [id number] Ph. [phone] Bilirubin [Mass/Vol] 1.0 mg/dL Normal 0.2-1.3 [facility] Comment on above: Order Comment: Fasti ng Performed By: #### P SA LIPD, CMP #### [place] [address] Ph. [phone] Calcium [Mass/Vol] 9.1 mg/dL Normal 8.4-10.2 [facility] Comment on above: Order Comment: Fasti ng Performed By: #### P SA LIPD, CMP #### [place] [id number] Ph. [phone] Chloride [Moles/Vol] 103 mmol/L Normal 98-107 [facility] Comment on above: Order Comment: Fasti ng Performed By: #### P SHARDA HORN, CMP #### [place] [address] Ph. [phone] CO2 [Moles/Vol] 30 mmol/L Normal 22-32 [facility] Comment on above: Order Comment: Fasti ng Performed By: #### P SACARMELLAD, CMP #### [place] [address] Ph. [phone] Creatinine [Mass/Vol] 0.90 mg/dL Normal 0.66-1.25 [facility] Comment on above: Order Comment: Fasti ng Performed By: #### P SHARDA HORN, CMP #### [place] [address] Ph. [phone] GFR/1.73 sq M.predicted among non-blacks MDRD (S/P/Bld) [Vol rate/Area] 92 mL/min/{1.73_m2} Normal >60 [facility] Comment on above: Order Comment: Fasti ng Result Comment: GFR calculated using CKD-EPI (2020) formula.\X0D0A\Stage 1 Kidney damage (e.g., protein in the urine) with normal GFR >=90\X0D0A\Stage 2 Kidney damage with mild decrease in GFR 60-89\X0D0A\Stage 3a Moderate decrease in GFR 45-59\X0D0A\Stage 3b Moderate decrease in GFR 30-44\X0D0A\Stage 4 Severe reduction in GFR 15-29\X0D0A\Stage 5 Kidney failure <15 Performed By: #### P SASHARDA, CMP #### [place] [address] Ph. [phone] Glucose [Mass/Vol] 171 mg/dL High 65-100 [facility] Comment on above: Order Comment: Fasti ng Performed By: #### P SA LIPD, CMP #### [place] [address] Ph. [phone] Potassium [Moles/Vol] 3.8 mmol/L Normal 3.6-5.0 [facility] Comment on above: Order Comment: Fasti ng Performed By: #### SHARDA Durán SA, CMP #### [address] [address] Ph. [phone] Protein [Mass/Vol] 7.3 g/dL Normal 6.3-8.2 [facility] Comment on above: Order Comment: Fasti ng Performed By: #### SHARDA Durán SA, CMP #### [address] [address] Ph. [phone] Sodium [Moles/Vol] 138 mmol/L Normal 135-145 [facility] Comment on above: Order Comment: Fasti ng Performed By: #### SHARDA Durán SA, CMP #### [address] [address] Ph. [phone] Urea nitrogen [Mass/Vol] 21 mg/dL High 9-20 [facility] Comment on above: Order Comment: Fasti ng Performed By: #### SHARDA Durán SA, CMP #### [address] [address] Ph. [phone] Hemoglobin A1Con 12-14-2023 Glucose [Mass/Vol] 128 mg/dL [facility] Comment on above: Estimated Average Glucose is a caluculated value from Hemoglobin A1C and is customer development representative of the average blood glucose level in the last 2-3 month period. HbA1c (Bld) [Mass fraction] 6.1 % High 4.0 - 5.6 % [facility] Comment on above: [place] [employer] guidelines indicate that patients with HgbA1C in the range of 5.7-6.4% are at increased risk for development of diabetes, and intervention by lifestyle modification may be beneficial. HgbA1C greater than or equal to 6.5% is considered diagnostic of diabetes. Hemoglobin A1c should not be used in patients with homozygous sickle cell trait, hemolytic anemia, or other hemolytic diseases and recent significant or chronic blood loss or blood transfusions. Alternative forms of testing such as glycated serum protein or glycated albumin should be considered for these patients. EAG 128 mg/dL Normal [facility] Comment on above: Result Comment: Shannan negro Average Glucose is a caluculated value from Hemoglobin A1C and is customer development representative of the average blood glucose level in the last 2-3 month period. Performed By: #### A 1C, CBCAD #### [place] [id number] Ph. [phone] HbA1c (Bld) [Mass fraction] 6.1 % High 4.0-5.6 [facility] Comment on above: Result Comment: [place] [employer] Association guidelines indicate that patients with HgbA1C in the range of 5.7-6.4% are at increased risk for development of diabetes, and intervention by lifestyle modification may be beneficial. HgbA1C greater than or equal to 6.5% is considered diagnostic of diabetes.\[id number]\Hemoglobin A1c should not be used in patients with homozygous sickle cell trait, hemolytic anemia, or other hemolytic diseases and recent significant or chronic blood loss or blood transfusions. Alternative forms of testing such as glycated serum protein or glycated albumin should be considered for these patients. Performed By: #### A 1C, CBCAD #### [place] [id number] Ph. [phone] Lipid Panelon 12-14-2023 Cholesterol [Mass/Vol] 133 mg/dL 100 - 200 mg/dL [facility] Comment on above: <200 mg/dL is recommended cholesterol level. Cholesterol in HDL [Mass/Vol] 40 mg/dL Low 40 - PINF mg/dL [facility] Cholesterol in LDL [Mass/Vol] 67 mg/dL 20 - 100 mg/dL [facility] CHOLESTEROL/HDL RELATIVE RISK 3 [facility] Triglyceride [Mass/Vol] 132 mg/dL 10 - 150 mg/dL [facility] Is Patient Fasting?/ # of Hours->Fasting 8 hrs [facility] Cholesterol [Mass/Vol] 133 mg/dL Normal 100-200 [facility] Comment on above: Order Comment: Is Pa tient Fasting?/# of Hours->Fasting 8 hrs Result Comment: <200 mg/dL is recommended cholesterol level. Performed By: #### P SA, LIPD, CMP #### [place] [address] Ph. [phone] Cholesterol in HDL [Mass/Vol] 40 mg/dL Low >40 [facility] Comment on above: Order Comment: Is Pa tient Fasting?/# of Hours->Fasting 8 hrs Performed By: #### P SA, LIPD, CMP #### [place] [id number] Ph. [phone] Cholesterol in LDL [Mass/Vol] 67 mg/dL Normal 20-100 [facility] Comment on above: Order Comment: Is Pa tient Fasting?/# of Hours->Fasting 8 hrs Performed By: #### P SA, LIPD, CMP #### [place] [address] Ph. [phone] Cholesterol.total/ Cholesterol in HDL [Mass ratio] 3 {ratio} Normal 1-5 [facility] Comment on above: Order Comment: Is Pa tient Fasting?/# of Hours->Fasting 8 hrs Performed By: #### P SA, LIPD, CMP #### [address] [address] Ph. [phone] Triglyceride [Mass/Vol] 132 mg/dL Normal 10-150 [facility] Comment on above: Order Comment: Is Pa tient Fasting?/# of Hours->Fasting 8 hrs Performed By: #### P SA, LIPD, CMP #### [address] [address] Ph. [phone] No Panel Informationon 12-13 Interpretation and review of laboratory results Abnormal [facility] PSA Screeningon 12-14-2023 [facility] CHEM 6 (LYTES, BUN CREA)on 0 11-05-2023 Anion gap [Moles/Vol] 15 mmol/L 7 - 17 mmol/L [facility] Chloride [Moles/Vol] 101 mmol/L 98 - 108 mmol/L [facility] CO2 [Moles/Vol] 31 mmol/L 21 - 31 mmol/L [facility] Creatinine [Mass/Vol] 0.77 mg/dL 0.70 - 1.30 mg/dL [facility] eGFR, CKD-EPI, Male - PINF [facility] Comment on above: Reported eGFR is bas ed on the CKD-EPI 2020 equation using creatinine, age, and sex. Potassium [Moles/Vol] 3.8 mmol/L 3.5 - 5.0 mmol/L [facility] Sodium [Moles/Vol] 143 mmol/L 135 - 145 mmol/L [facility] Urea nitrogen [Mass/Vol] 17 mg/dL 7 - 25 mg/dL [facility] Urea nitrogen/Creatinin e [Mass ratio] 22 mg/mg [facility] Anion gap [Moles/Vol] 15 mmol/L Normal 7-17 [facility] Comment on above: Performed By: #### C HM6 #### [facility] (DEFAULT) [address] [place] [id number] Chloride [Moles/Vol] 101 mmol/L Normal 98-108 [facility] Comment on above: Performed By: #### C HM6 #### [facility] (DEFAULT) [address] [place] [address] CO2 [Moles/Vol] 31 mmol/L Normal 21-31 [facility] Comment on above: Performed By: #### C HM6 #### [facility] (DEFAULT) [address] [place] [address] Creatinine [Mass/Vol] 0.77 mg/dL Normal 0.70-1.30 [facility] Comment on above: Performed By: #### C HM6 #### [facility] (DEFAULT) [address] [place] [address] eGFR, CKD-EPI, Male > Normal >=60 [facility] Comment on above: Result Comment: Repo rted eGFR is based on the CKD-EPI 2020 equation using creatinine, age, and sex. Performed By: #### C HM6 #### [facility] (DEFAULT) [address] [place] [address] Potassium [Moles/Vol] 3.8 mmol/L Normal 3.5-5.0 [facility] Comment on above: Performed By: #### C HM6 #### [facility] (DEFAULT) [address] [place] [address] Sodium [Moles/Vol] 143 mmol/L Normal 135-145 [facility] Comment on above: Performed By: #### C HM6 #### [facility] (DEFAULT) [address] [place] [address] Urea nitrogen [Mass/Vol] 17 mg/dL Normal 7-25 [facility] Comment on above: Performed By: #### C HM6 #### [facility] (DEFAULT) [address] [place] [address] Urea nitrogen/Creatinin e [Mass ratio] 22 mg/mg Normal [facility] Comment on above: Performed By: #### C HM6 #### [facility] (DEFAULT) [address] [place] [address] MAGNESIUMon 11-05-2023 Interpretation and review of laboratory results Normal [facility] Magnesium [Mass/Vol] 1.7 mg/dL 1.6 - 2.6 mg/dL [facility] Magnesium [Mass/Vol] 1.7 mg/dL Normal 1.6-2.6 [facility] Comment on above: Performed By: #### M GO #### [facility] (DEFAULT) [address] [place] [address] No Panel Informationon 11-04 [facility] Podiatry Office/Clinic Noteo n 11-01-2023 Podiatry Office/Clinic Note History of Present Illness Patient is a pleasant 68-year-old male who presents for follow-up of bilateral posterior tibial tendon dysfunction and flatfoot pain, left worse than right. He has obtained AFO. Uses it with extended periods of weightbearing activity. Also uses ASO. Relates most of the time he does not wear his brace. Pain overall seems well-controlled. Sometimes gets up to a 5 out of 10 when he is very activity. He is very pleased with his care thus far. Patient presents follow-up of at risk diabetic footcare and for follow-up of thickened, painful toenails. They are unable to trim them themselves due to the thickness of them. They are getting sore in patient's shoes with ambulating. When the nails become thickened and elongated they are uncomfortable in socks and shoe gear, they are afraid to cut them themselves due to comorbidities and they do not want to create a wound or accidentally make themselves bleed. Patient is requesting that I cut/debride their nails today. No other complaints today. Primary CARE physician Dr. Sandro Moreno. Last visit October 07, 2023 Review of Systems Constitutional Head Nose Mouth Throat Cardio/Respiratory Hematologic Chills: No Headache: No Shortness of Breath: No History of DVT: No Fever: No Sore Throat: No Chest Pain: No History of Claudication: No Ear Pain: No Palpitation: No History of Aneurysm: No History of Gangrene: No Genitourinary Musculoskeletal Psychiatric Vascular Burning: No Muscle Weakness: No Anxiety: No Blood Disorder: No Pain: No Joint Pain: No Depression: No Numbness: No Gastrointestinal Dermatology Rheumatologic Problems: No Rash: No History of Rheumatic Arthritis: No Pain: No Pruritus: No History of Gout: No History of Lupus: No Physical Exam Vitals & Measurements HR: 75 (Peripheral) BP: 134/74 Musculoskeletal: Extrinsic and intrinsic musculature of the foot are grossly normal with strengths of 5/5 all movers of the foot and ankle with exception of Posterior Tibial Tendon which was noted to have decreased strength with pain on active inversion of the foot noted. Negative pain on palpation to the navicular tuberosity of bilateral foot. Negative pain to palpation along the course of the posterior tibial tendon infra malleoli bilateral foot. Negative pain on palpation to the bilateral sinus tarsi. No pain on palpation to the bilateral medial or lateral calcaneal tubercle or achilles tendon. No pain on palpation to the lateral squeeze of the bilateral calcaneus. Range of motion of the bilateral ankle Joint was noted to be without pain or crepitus, but contracture of achilles tendon was noted bilateral with 0-5 degrees of dorsiflexion noted and very tight clinically, painful at the Gastrocnemius and Achilles area when foot passed 90 degrees to the leg from 0-5 degrees of ankle dorsiflexion. Range of motion of the bilateral subtalar joint was noted to be decreased without pain or crepitus Calcaneus is in valgus compared to lower leg when weight bearing. Further seen upon weight bearing was decreased height of the medial longitudinal arch of bilateral feet, Positive too many toes sign on bilateral foot. Able to perform double limb heel rise without pain bilateral. Single limb heel rise is difficult and painful bilateral Heels do invert when heel limb rise test done Negative pain to palpation along the course of the plantar fascia and with engagement of windlass mechanism. Negative pain with resisted inversion bilateral. Pain to palpation nail units as below. Vascular: Pulses palpable +2/4 Dorsalis Pedis and Posterior Tibial arteries bilateral. Capillary fill time brisk, approximately 3 seconds bilateral toes. Negative for significant edema in either lower extremity. Skin temp warm to cool proximal to distal bilateral. Neurological: Gross, protective, and epicritic sensation intact bilateral. Achilles and Patellar reflexes within normal limits 2/4 bilateral Negative babinski with hallux downgoing. Negative tinels/valliex upon neural light percussion tibial nerve. Dermatologic: Skin intact in total, no ulcerations or abrasions noted Negative for overt rashes or irregular pigmented lesions. No erythema, ecchymosis, macerations or other lesions. Nails 1 through 5 bilateral are thickened, elongated, discolored yellow with subungual debris. Additional Vitals No qualifying data available. Assessment/Plan 1. Onychomycosis -Evaluation and Management was extensive at this visit with time spent with patient dedicated to discussion of pathogenesis and treatment options for patient's problems including neurologic exam, shoe gear inspection and recommendations, conservative care continuing, antifungal therapy oral vs topical, and problematic nail excision vs matrixectomy -Sharp debridement of painful mycotic nails one through 5 from bilateral feet in length and thickness. -Due to patient's inability to s (more content not included)... Normal [facility] DEVICE EVALUATION (SCANNED)o n 10-29-2023 [facility] Radiology Study observation (narrative) [facility] Medicine Office/Clini c Noteon 10-07-2023 Family Medicine Office/Clinic Note Chief Complaint Adipex follow up History of Present Illness Jean Pierre presents today for follow-up of his weight loss with Adipex. He unfortunately was not able to lose any weight during this past 3 months. He already had seen a slowing of his weight loss the previous months as well. He did ask if there was an increased dose of the medication. Review of Systems General Adult ROS Fatigue: No Appetite change: No Weakness: No Weight gain: No Weight Loss: No Cardiovascular Chest pain/pressure: No Palpitations: No EENMT Nasal congestion: No Nasal discharge: No Gastrointestinal Abdominal pain: No Nausea: No Vomiting: No Genitourinary Hematologic/Lymphatic Musculoskeletal Neurological Psychiatric Suicidal Ideation: No Respiratory Cough: No Shortness_of_breath: No Skin Physical Exam Vitals & Measurements HR: 76 (Peripheral) BP: 112/72 SpO2: 96 HT: 180 cm WT: 126.5 kg WT: 126.5 kg (Dosing) BMI: 39.04 General: Alert and oriented, well nourished, no acute distress Lungs: Clear to auscultation and percussion, non-labored respiration Heart: Normal rate, regular rhythm, no murmur, gallop or edema Abdomen: Soft, non-tender, non-distended, normal bowel sounds, no masses Skin: Skin is warm, dry and pink, no rashes or lesions Additional Vitals BP Position/Location: Sitting, Left arm Assessment/Plan 1. Obesity Did not lose weight this 3 month cycle, but he did still avoid significant weight gain We discussed continuing for an additional 3 months vs taking a drug holiday and then restarting He would like to try for an additional 3 months and then if still no success will try the drug holiday Ordered: phentermine, 1 tabs, Oral, Daily, before breakfast, # 30 tabs, 2 Refill(s), Pharmacy: [facility] 2. Prediabetes Continue current medications 3. Hypertension Very well controlled Orders: sildenafil, 1 tabs, Oral, Daily, # 30 tabs, 2 Refill(s) Medical Decision Making Chronic conditions NOT treated during this visit that affected my overall medical decision making: [] Treatment plans discussed but not opted for at this time: [] Prescribed medication that requires intensive monitoring for toxicity: [] I have reviewed the patient?s medication list for medication interactions/contrain dications and/or for upcoming procedures: [yes or no] Time Spent with the Patient I have personally spent [] minutes on this date, directly related to today's patient visit, including pre and post visit work, for this date of service. Time listed does not include time spent on separately billable services. Physician Comments Follow-up 3 months or sooner as needed Medications and therapies have been reviewed. Plan of care has been discussed. All questions have been answered to the best of my abilities. Patient has stated understanding to the same. Problem List/Past Medical History Ongoing Atrial fibrillation ED (erectile dysfunction) Hydrocele Hypertension Prediabetes Varicocele Historical No qualifying data Procedure/Surgical History heart ablation APPENDECTOMY (02/08/1970) CARPAL TUNNEL SURGERY (2018) REVISION OF KNEE JOINT- right (2018) Colonoscopy (2019) Medications allopurinol 300 mg oral tablet, See Instructions, 3 refills, TAKE ONE TABLET BY MOUTH EVERY DAY atorvastatin 40 mg oral tablet, 40 mg= 1 tabs, Oral, Daily, 1 refills DME, See Instructions DME, See Instructions DME, See Instructions Durable Medical Equipment, See Instructions glimepiride 2 mg oral tablet, See Instructions, 3 refills, TAKE ONE TABLET BY MOUTH DAILY Januvia 50 mg oral tablet, 30 EA, TAKE ONE TABLET BY MOUTH DAILY Januvia 50 mg oral tablet, 50 mg= 1 tabs, Oral, Daily, 3 refills losartan-hydroCHLOROt hiazide 100 mg-25 mg oral tablet, See Instructions, 3 refills, TAKE 1 TABLET BY MOUTH ONCE DAILY oxybutynin 10 mg/24 hr oral tablet, extended release, 10 mg= 1 tabs, Oral, Daily, 1 refills phentermine 37.5 mg oral tablet, 37.5 mg= 1 tabs, Oral, Daily, 2 refills, before breakfast Potassium Chloride (Zpz-Wubp-Hxh M20) 20 mEq oral tablet, extended release, 20 mEq= 1 tabs, Oral, Daily, 2 refills Rybelsus 7 mg oral tablet, 7 mg= 1 tabs, Oral, Daily, take at least 30 minutes before first food, beverage, or other oral meds sildenafil 20 mg oral tablet, 20 mg= 1 tabs, Oral, Daily, 2 refills sotalol 160 mg oral tablet sulfamethoxazole-trim ethoprim 800 mg-160 mg oral tablet, 20 EA, Take 1 tablet by mouth 2 times daily for 10 days, Not taking tamsulosin 0.4 mg oral capsule, See Instructions, 3 refills, TAKE ONE CAPSULE BY MOUTH EVERY DAY Trimix 30-1-10 , See Instructions, 5 refills, inject 40 units into penis shaft for erectile dysfunction no more that 3/week Voltaren 1% topical gel, 1 fred, Topical, QID, 11 refills, Apply 1g per application Xarelto 20 mg oral tablet, 20 mg= 1 tabs, Oral, qPM Allergies nitroglycerin (drops blood pressure, d) penicillin (Hives) Social History Alcohol C (more content not included)... Normal [facility] Podiatry Office/Clinic Noteo n 08-30-2023 Podiatry Office/Clinic Note Chief Complaint At risk diabetic footcare, painful elongated toenails, follow-up left posterior tibial tendon dysfunction History of Present Illness Patient is a pleasant 68-year-old male who presents for follow-up of bilateral posterior tibial tendon dysfunction and flatfoot pain, left worse than right. He has obtained AFO. Uses it with extended periods of weightbearing activity. Also uses ASO. He relates this is more comfortable. His pain continues to improve he relates. He says he virtually has no pain at this time. He is very pleased with his care thus far. Patient presents follow-up of at risk diabetic footcare and for follow-up of thickened, painful toenails. They are unable to trim them themselves due to the thickness of them. They are getting sore in patient's shoes with ambulating. When the nails become thickened and elongated they are uncomfortable in socks and shoe gear, they are afraid to cut them themselves due to comorbidities and they do not want to create a wound or accidentally make themselves bleed. Patient is requesting that I cut/debride their nails today. No other complaints today. Primary CARE physician Dr. Sandro Moreno. Last visit June per patient Review of Systems Constitutional Head Nose Mouth Throat Cardio/Respiratory Hematologic Chills: No Headache: No Shortness of Breath: No History of DVT: No Fever: No Sore Throat: No Chest Pain: No History of Claudication: No Ear Pain: No Palpitation: No History of Aneurysm: No History of Gangrene: No Genitourinary Musculoskeletal Psychiatric Vascular Burning: No Muscle Weakness: No Anxiety: No Blood Disorder: No Pain: No Joint Pain: No Depression: No Numbness: No Gastrointestinal Dermatology Rheumatologic Problems: No Rash: No History of Rheumatic Arthritis: No Pain: No Pruritus: No History of Gout: No History of Lupus: No Physical Exam Vitals & Measurements HR: 68 (Peripheral) BP: 121/77 WT: 126.0 kg WT: 126.0 kg (Dosing) Musculoskeletal: Extrinsic and intrinsic musculature of the foot are grossly normal with strengths of 5/5 all movers of the foot and ankle with exception of Posterior Tibial Tendon which was noted to have decreased strength with pain on active inversion of the foot noted. Negative pain on palpation to the navicular tuberosity of bilateral foot. Negative pain to palpation along the course of the posterior tibial tendon infra malleoli bilateral foot. Negative pain on palpation to the bilateral sinus tarsi. No pain on palpation to the bilateral medial or lateral calcaneal tubercle or achilles tendon. No pain on palpation to the lateral squeeze of the bilateral calcaneus. Range of motion of the bilateral ankle Joint was noted to be without pain or crepitus, but contracture of achilles tendon was noted bilateral with 0-5 degrees of dorsiflexion noted and very tight clinically, painful at the Gastrocnemius and Achilles area when foot passed 90 degrees to the leg from 0-5 degrees of ankle dorsiflexion. Range of motion of the bilateral subtalar joint was noted to be decreased without pain or crepitus Calcaneus is in valgus compared to lower leg when weight bearing. Further seen upon weight bearing was decreased height of the medial longitudinal arch of bilateral feet, Positive too many toes sign on bilateral foot. Able to perform double limb heel rise without pain bilateral. Single limb heel rise is difficult and painful bilateral Heels do invert when heel limb rise test done Negative pain to palpation along the course of the plantar fascia and with engagement of windlass mechanism. Negative pain with resisted inversion bilateral. Pain to palpation nail units as below. Vascular: Pulses palpable +2/4 Dorsalis Pedis and Posterior Tibial arteries bilateral. Capillary fill time brisk, approximately 3 seconds bilateral toes. Negative for significant edema in either lower extremity. Skin temp warm to cool proximal to distal bilateral. Neurological: Gross, protective, and epicritic sensation intact bilateral. Achilles and Patellar reflexes within normal limits 2/4 bilateral Negative babinski with hallux downgoing. Negative tinels/valliex upon neural light percussion tibial nerve. Dermatologic: Skin intact in total, no ulcerations or abrasions noted Negative for overt rashes or irregular pigmented lesions. No erythema, ecchymosis, macerations or other lesions. Nails 1 through 5 bilateral are thickened, elongated, discolored yellow with subungual debris. Additional Vitals No qualifying data available. Assessment/Plan 1. Onychomycosis -Evaluation and Management was extensive at this visit with time spent with patient dedicated to discussion of pathogenesis and treatment options for patient's problems including neurologic exam, shoe gear inspection and recommendations, conservative care continuing, antifungal therapy oral vs topical, and problematic nail excision vs mat (more content not included)... Normal [facility] XR Ankle 3 Views Lefton 08-09 XR Ankle 3 Views Left 3 weightbearing views left ankle demonstrate: Cystic changes and spurring of the naviculocuneiform joint redemonstrated. Spurring at the posterior calcaneus noted. Decreased calcaneal inclination angle noted. Ankle mortise is well aligned and maintained. No increase in medial clear space. No increase in tib-fib clear space. No foreign bodies noted. No acute fracture dislocations noted. No increase in soft tissue volume, density, or edema noted. No soft tissue calcifications noted. Final Signed by: Martín Benitez DPM Signed (Electronic Signature): 08/30/2023 10:04 am Transcribed DT/TM: 08/30/2023 10:04 (If Report Is Signed, Electronically Signed in Other Vendor System) Normal [facility] XR Foot 3 Views Lefton 08-29 XR Foot 3 Views Left 3 weightbearing views left foot and calcaneal axial view demonstrate: Spurring at the posterior calcaneus noted. Decreased calcaneal inclination angle noted. Decreased Meary's angle noted. Increased talar declination angle noted. Spurring at the dorsal naviculocuneiform joints with joint space narrowing and cystic changes at the naviculocuneiform joint. No foreign bodies noted. No acute fracture dislocations noted. No increase in soft tissue volume, density, or edema noted. Contracture lesser digits noted. Valgus malalignment on axial noted. Final Signed by: Martín Benitez DPM Signed (Electronic Signature): 08/30/2023 10:03 am Transcribed DT/TM: 08/30/2023 10:03 (If Report Is Signed, Electronically Signed in Other Vendor System) Normal [facility] Family Medicine Office/Clini c Noteon 08-27-2023 Family Medicine Office/Clinic Note Chief Complaint patient encounter for rash on groin History of Present Illness Kana Hadley is a 68 Years old Male who presents with a rash to his left groin/left hip region that started 2 days ago. He has been outside working in the heat but not overly sweaty. He states that it is itchy and has a slight discomfort. States he had shingles on his arm in the past and that was itchy and painful. The rash to his left hip feels a little similar but states not as painful. He is concerned he may have shingles now. He has received a shingles vaccine. He has been applying an anti itch cream for symptom management. Review of Systems General: Alert and oriented, well nourished, no acute distress. Skin: Skin is warm, dry and pink. Left hip/ left groin with an erythematous, maculopapular rash. Appears more like heat rash. No vesicles, drainage, crusting or clusters noted. Neurologic: Awake, alert, and oriented X3. Psychiatric: Cooperative, appropriate mood and affect. Physical Exam Vitals & Measurements HR: 66 (Peripheral) BP: 115/74 SpO2: 96 WT: 127.5 kg (Dosing) General: NAD, alert & oriented x 3, well-nourished. Neck: No lymphadenopathy, no enlarged thyroid Lungs: CTA bilaterally Heart: S1, S2 regular, no murmurs Abdomen: Normal appearance, soft, nontender Neuro: Steady gait, no focal deficits, no tremor Additional Vitals No qualifying data available. Assessment/Plan 1. Heat rash Not consistent with appearance of shingles. Discussed if he develops any blisters or worsening pain or other symptoms to call. See #2 Ordered: nystatin topical, 1 fred, Topical, BID, Use for 72 hours after resolution of rash, X 7 days, # 30 g, 0 Refill(s), 09/03/23 12:43:00 EDT, Pharmacy: [facility] 2. Intertrigo Apply topical cream as prescribed. Wash area twice daily with gentle cleansing soap such as baby soap or unscented soap. Dry the area completely. Pat to dry. Daily application of drying powders (Zeasorb). Use a cotton T-shirt in your skin folds to prevent skin to skin contact. Avoid scratching the area as this may spread the rash or cause a secondary bacterial infection. Follow up as needed. Go to the emergency department for any new or worsening symptoms. Ordered: nystatin topical, 1 fred, Topical, BID, Use for 72 hours after resolution of rash, X 7 days, # 30 g, 0 Refill(s), 09/03/23 12:43:00 EDT, Pharmacy: [facility] Medical Decision Making Chronic conditions NOT treated during this visit that affected my overall medical decision making: [] Treatment plans discussed but not opted for at this time: [] Prescribed medication that requires intensive monitoring for toxicity: [] I have reviewed the patient?s medication list for medication interactions/contrain dications and/or for upcoming procedures: [yes] Time Spent with the Patient I have personally spent [15] minutes on this date, directly related to today's patient visit, including pre and post visit work, for this date of service. Time listed does not include time spent on separately billable services. Physician Comments Reviewed assessment and plan as explained above and patient is agreeable. No questions upon discharge. Patient medical history reviewed, vital signs and nurses notes reviewed as documented. Problem List/Past Medical History Ongoing Atrial fibrillation ED (erectile dysfunction) Hydrocele Hypertension Prediabetes Varicocele Historical No qualifying data Procedure/Surgical History heart ablation APPENDECTOMY (02/08/1970) CARPAL TUNNEL SURGERY (2018) REVISION OF KNEE JOINT- right (2018) Colonoscopy (2019) Medications allopurinol 300 mg oral tablet, See Instructions, 3 refills, TAKE ONE TABLET BY MOUTH EVERY DAY atorvastatin 40 mg oral tablet, 40 mg= 1 tabs, Oral, Daily, 1 refills DME, See Instructions DME, See Instructions DME, See Instructions Durable Medical Equipment, See Instructions glimepiride 2 mg oral tablet, See Instructions, 3 refills, TAKE ONE TABLET BY MOUTH DAILY Januvia 50 mg oral tablet, 30 EA, TAKE ONE TABLET BY MOUTH DAILY losartan-hydroCHLOROt hiazide 100 mg-25 mg oral tablet, See Instructions, 3 refills, TAKE 1 TABLET BY MOUTH ONCE DAILY nystatin 100,000 units/g topical cream, 1 fred, Topical, BID, Use for 72 hours after resolution of rash oxybutynin 10 mg/24 hr oral tablet, extended release, 10 mg= 1 tabs, Oral, Daily, 1 refills phentermine 37.5 mg oral tablet, 37.5 mg= 1 tabs, Oral, Daily, 2 refills, before breakfast Potassium Chloride (Pwo-Pxww-Fkv M20) 20 mEq oral tablet, extended release, 20 mEq= 1 tabs, Oral, Daily, 2 refills Rybelsus 7 mg oral tablet, 7 mg= 1 tabs, Oral, Daily, take at least 30 minutes before first food, beverage, or other oral meds sotalol 160 mg oral tablet sulfamethoxazole-trim ethoprim 800 mg-160 mg oral tablet, 20 EA, Take 1 tablet by mouth 2 times daily for 10 days, Not taking tadalafil 20 mg oral tablet, 20 mg= 1 tabs, Oral, Daily, PRN, 5 refills, (more content not included)... Normal [facility] US Testicularon 08-18-2023 US Testicular Scrotal ultrasound o n 08/18/2023 History: Scrotal fullness Comparison: none Findings: The right testicle measures 4.4 x 3.1 x 2.7 cm The left testicle 3.5 x 2.8 x 2.7 cm. Both testes are homogeneous in echotexture without evidence of focal mass. Bilateral hydroceles, worse on the right. Left-sided varicocele. Large cyst in the right-sided epididymal tail measuring 2.5 x 1.3 x 1.8 cm. Possible hernia in the left-sided inguinal canal. IMPRESSION: 1. Unremarkable testicles. 2. Bilateral hydroceles, worse on the right. 3. Left-sided varicocele. 4. Right-sided epididymal cyst. 5. Possible hernia in the left inguinal canal. Consider further evaluation with a CT study of the abdomen and pelvis with and without Valsalva. Final Dictated by: Mindy Rangel MD Dictated DT/TM: 08/18/2023 1:14 pm Signed by: Mindy Rangel MD Signed (Electronic Signature): 08/18/2023 1:20 pm (If Report Is Signed, Electronically Signed in Other Vendor System) Normal [facility] Family Medicine Office/Clini c Noteon 08-17-2023 Family Medicine Office/Clinic Note Chief Complaint Pain in side and lower back History of Present Illness Jean Pierre presents today with concern of a possible hernia. He says he has been having pain in his lower back and side that radiates to his groin. He says this started about 3 weeks ago with what seemed like spasms in his lower back. Then the pain started to radiate to his left side and his scrotum became swollen and hard. He says that the pain has actually gotten better since he called, and the swelling in the scrotum has improved, but the left side still seems swollen a bit. Review of Systems General Adult ROS Fatigue: No Appetite change: No Weakness: No Weight gain: No Weight Loss: No Cardiovascular Chest pain/pressure: No Palpitations: No EENMT Gastrointestinal Abdominal pain: Yes Genitourinary Hematologic/Lymphatic Musculoskeletal Neurological Psychiatric Suicidal Ideation: No Respiratory Cough: No Shortness_of_breath: No Skin Physical Exam Vitals & Measurements HR: 72 (Peripheral) BP: 103/69 SpO2: 94 HT: 180 cm WT: 126.5 kg WT: 126.5 kg (Dosing) BMI: 39.04 General: Alert and oriented, well nourished, no acute distress Lungs: Clear to auscultation and percussion, non-labored respiration Heart: Normal rate, regular rhythm, no murmur, gallop or edema Abdomen: Soft, non-tender, non-distended, normal bowel sounds, no masses Skin: Skin is warm, dry and pink, no rashes or lesions Additional Vitals No qualifying data available. Assessment/Plan 1. Inguinal hernia Exam is potentially concerning for an inguinal hernia Ultrasound has been ordered to further assess the fullness in the scrotum given that he does have a known hydrocele He will call to schedule to have this completed as soon as possible Further referrals will be made based on which is indicated Medical Decision Making Chronic conditions NOT treated during this visit that affected my overall medical decision making: [] Treatment plans discussed but not opted for at this time: [] Prescribed medication that requires intensive monitoring for toxicity: [] I have reviewed the patient?s medication list for medication interactions/contrain dications and/or for upcoming procedures: [yes or no] Time Spent with the Patient I have personally spent [] minutes on this date, directly related to today's patient visit, including pre and post visit work, for this date of service. Time listed does not include time spent on separately billable services. Physician Comments Follow-up as scheduled or sooner as needed Medications and therapies have been reviewed. Plan of care has been discussed. All questions have been answered to the best of my abilities. Patient has stated understanding to the same. Problem List/Past Medical History Ongoing Atrial fibrillation ED (erectile dysfunction) Hydrocele Hypertension Prediabetes Varicocele Historical No qualifying data Procedure/Surgical History heart ablation APPENDECTOMY (02/08/1970) CARPAL TUNNEL SURGERY (2018) REVISION OF KNEE JOINT- right (2018) Colonoscopy (2019) Medications allopurinol 300 mg oral tablet, See Instructions, 3 refills, TAKE ONE TABLET BY MOUTH EVERY DAY atorvastatin 40 mg oral tablet, 40 mg= 1 tabs, Oral, Daily, 1 refills DME, See Instructions DME, See Instructions DME, See Instructions Durable Medical Equipment, See Instructions glimepiride 2 mg oral tablet, See Instructions, 3 refills, TAKE ONE TABLET BY MOUTH DAILY Januvia 50 mg oral tablet, 30 EA, TAKE ONE TABLET BY MOUTH DAILY Januvia 50 mg oral tablet, 50 mg= 1 tabs, Oral, Daily, 3 refills losartan-hydroCHLOROt hiazide 100 mg-25 mg oral tablet, See Instructions, 3 refills, TAKE 1 TABLET BY MOUTH ONCE DAILY oxybutynin 10 mg/24 hr oral tablet, extended release, 10 mg= 1 tabs, Oral, Daily, 1 refills phentermine 37.5 mg oral tablet, 37.5 mg= 1 tabs, Oral, Daily, 2 refills, before breakfast Potassium Chloride (Sxl-Fxxi-Yrb M20) 20 mEq oral tablet, extended release, 20 mEq= 1 tabs, Oral, Daily, 2 refills Rybelsus 7 mg oral tablet, 7 mg= 1 tabs, Oral, Daily, take at least 30 minutes before first food, beverage, or other oral meds sildenafil 20 mg oral tablet, 20 mg= 1 tabs, Oral, Daily, 2 refills sotalol 160 mg oral tablet sulfamethoxazole-trim ethoprim 800 mg-160 mg oral tablet, 20 EA, Take 1 tablet by mouth 2 times daily for 10 days, Not taking tamsulosin 0.4 mg oral capsule, See Instructions, 3 refills, TAKE ONE CAPSULE BY MOUTH EVERY DAY Trimix 30-1-10 , See Instructions, 5 refills, inject 40 units into penis shaft for erectile dysfunction no more that 3/week Voltaren 1% topical gel, 1 fred, Topical, QID, 11 refills, Apply 1g per application Xarelto 20 mg oral tablet, 20 mg= 1 tabs, Oral, qPM Allergies nitroglycerin (drops blood pressure, d) penicillin (Hives) Social History Alcohol Current, Beer, 3-5 times per week Exercise Exercise frequency: 1-2 times/week. Self assessment: Fair condition. Exercise (more content not included)... Normal [facility] Family Medicine Office/Clini c Noteon 07-14-2023 Family Medicine Office/Clinic Note Chief Complaint Adipex History of Present Illness Kana presents today for 43 month follow-up on Adipex. He continues to do very well with it. He says that he has otherwise cut down on snacking and trying to eat more poultry and vegetables. He says that he has not had any side effects worth noting. No changes with his HR or BP. Review of Systems General Adult ROS Fatigue: No Appetite change: No Weakness: No Weight gain: No Weight Loss: No Cardiovascular Chest pain/pressure: No Palpitations: No EENMT Nasal congestion: No Nasal discharge: No Sore_throat: No Gastrointestinal Abdominal pain: No Nausea: No Vomiting: No Genitourinary Hematologic/Lymphatic Musculoskeletal Neurological Psychiatric Suicidal Ideation: No Respiratory Cough: No Shortness_of_breath: No Skin Physical Exam Vitals & Measurements HR: 64 (Peripheral) BP: 116/73 SpO2: 94 HT: 180 cm WT: 124.0 kg WT: 124.0 kg (Dosing) BMI: 38.27 General: Alert and oriented, well nourished, no acute distress Lungs: Clear to auscultation and percussion, non-labored respiration Heart: Normal rate, regular rhythm, no murmur, gallop or edema Abdomen: Soft, non-tender, non-distended, normal bowel sounds, no masses Skin: Skin is warm, dry and pink, no rashes or lesions Additional Vitals BP Position/Location: Sitting, Left arm Assessment/Plan 1. Obesity Continues to do very well with the phentermine OARRS reviewed and no red flags Refills provided for additional 3 months Ordered: phentermine, 1 tabs, Oral, Daily, before breakfast, # 30 tabs, 2 Refill(s), Pharmacy: [facility] 2. Hypertension Well controlled 3. Atrial fibrillation Stable Continues on Sotalol for rate control Medical Decision Making Chronic conditions NOT treated during this visit that affected my overall medical decision making: [] Treatment plans discussed but not opted for at this time: [] Prescribed medication that requires intensive monitoring for toxicity: [] I have reviewed the patient?s medication list for medication interactions/contrain dications and/or for upcoming procedures: [yes or no] Time Spent with the Patient I have personally spent [] minutes on this date, directly related to today's patient visit, including pre and post visit work, for this date of service. Time listed does not include time spent on separately billable services. Physician Comments Follow-up 3 month or sooner as needed Medications and therapies have been reviewed. Plan of care has been discussed. All questions have been answered to the best of my abilities. Patient has stated understanding to the same. Problem List/Past Medical History Ongoing Atrial fibrillation ED (erectile dysfunction) Hydrocele Hypertension Prediabetes Varicocele Historical No qualifying data Procedure/Surgical History heart ablation APPENDECTOMY (02/08/1970) CARPAL TUNNEL SURGERY (2018) REVISION OF KNEE JOINT- right (2018) Colonoscopy (2019) Medications allopurinol 300 mg oral tablet, See Instructions, 3 refills, TAKE ONE TABLET BY MOUTH EVERY DAY atorvastatin 40 mg oral tablet, 40 mg= 1 tabs, Oral, Daily, 1 refills DME, See Instructions DME, See Instructions DME, See Instructions Durable Medical Equipment, See Instructions glimepiride 2 mg oral tablet, See Instructions, 3 refills, TAKE ONE TABLET BY MOUTH DAILY Januvia 50 mg oral tablet, 30 EA, TAKE ONE TABLET BY MOUTH DAILY losartan-hydroCHLOROt hiazide 100 mg-25 mg oral tablet, See Instructions, 3 refills, TAKE 1 TABLET BY MOUTH ONCE DAILY oxybutynin 10 mg/24 hr oral tablet, extended release, 10 mg= 1 tabs, Oral, Daily, 1 refills phentermine 37.5 mg oral tablet, 37.5 mg= 1 tabs, Oral, Daily, 2 refills, before breakfast Potassium Chloride (Dlg-Otww-Vfj M20) 20 mEq oral tablet, extended release, 20 mEq= 1 tabs, Oral, Daily, 2 refills Rybelsus 7 mg oral tablet, 7 mg= 1 tabs, Oral, Daily, take at least 30 minutes before first food, beverage, or other oral meds sotalol 160 mg oral tablet sulfamethoxazole-trim ethoprim 800 mg-160 mg oral tablet, 20 EA, Take 1 tablet by mouth 2 times daily for 10 days, Not taking tadalafil 20 mg oral tablet, 20 mg= 1 tabs, Oral, Daily, PRN, 5 refills, 1 hour before sexual activity tamsulosin 0.4 mg oral capsule, See Instructions, 3 refills, TAKE ONE CAPSULE BY MOUTH EVERY DAY Trimix 30-1-10 , See Instructions, 5 refills, inject 40 units into penis shaft for erectile dysfunction no more that 3/week Voltaren 1% topical gel, 1 fred, Topical, QID, 11 refills, Apply 1g per application Xarelto 20 mg oral tablet, 20 mg= 1 tabs, Oral, qPM Allergies nitroglycerin (drops blood pressure, d) penicillin (Hives) Social History Alcohol Current, Beer, 3-5 times per week Exercise Exercise frequency: 1-2 times/week. Self assessment: Fair condition. Exercise type: yard work. Nutrition/Health Type of diet: Regular diet. Regular, Caffeine intake amount: Couple cups pe (more content not included)... Normal [facility] Podiatry Office/Clinic Noteo n 06-21-2023 Podiatry Office/Clinic Note Chief Complaint Follow up DM foot care History of Present Illness Patient is a pleasant 68-year-old male who presents for follow-up of bilateral posterior tibial tendon dysfunction and flatfoot pain, left worse than right. He has obtained AFO. Uses it with extended periods of weightbearing activity. Go back to using the ASO more so. He relates this is more comfortable. Still gets pain with extended activity but relates that the brace helps. Patient presents follow-up of at risk diabetic footcare and for follow-up of thickened, painful toenails. They are unable to trim them themselves due to the thickness of them. They are getting sore in patient's shoes with ambulating. When the nails become thickened and elongated they are uncomfortable in socks and shoe gear, they are afraid to cut them themselves due to comorbidities and they do not want to create a wound or accidentally make themselves bleed. Patient is requesting that I cut/debride their nails today. No other complaints today. Primary CARE physician Dr. Sandro Moreno. Last visit June per patient Review of Systems Constitutional Head Nose Mouth Throat Cardio/Respiratory Hematologic Chills: No Headache: No Shortness of Breath: No History of DVT: No Fever: No Sore Throat: No Chest Pain: No History of Claudication: No Ear Pain: No Palpitation: No History of Aneurysm: No History of Gangrene: No Genitourinary Musculoskeletal Psychiatric Vascular Burning: No Muscle Weakness: No Anxiety: No Blood Disorder: No Pain: No Joint Pain: No Depression: No Numbness: No Gastrointestinal Dermatology Rheumatologic Problems: No Rash: No History of Rheumatic Arthritis: No Pain: No Pruritus: No History of Gout: No History of Lupus: No Physical Exam Vitals & Measurements HR: 72 (Peripheral) BP: 134/79 HT: 180 cm WT: 128.5 kg WT: 128.5 kg (Dosing) BMI: 39.66 Musculoskeletal: Extrinsic and intrinsic musculature of the foot are grossly normal with strengths of 5/5 all movers of the foot and ankle with exception of Posterior Tibial Tendon which was noted to have decreased strength with pain on active inversion of the foot noted. Negative pain on palpation to the navicular tuberosity of bilateral foot. Negative pain to palpation along the course of the posterior tibial tendon infra malleoli bilateral foot. Negative pain on palpation to the bilateral sinus tarsi. No pain on palpation to the bilateral medial or lateral calcaneal tubercle or achilles tendon. No pain on palpation to the lateral squeeze of the bilateral calcaneus. Range of motion of the bilateral ankle Joint was noted to be without pain or crepitus, but contracture of achilles tendon was noted bilateral with 0-5 degrees of dorsiflexion noted and very tight clinically, painful at the Gastrocnemius and Achilles area when foot passed 90 degrees to the leg from 0-5 degrees of ankle dorsiflexion. Range of motion of the bilateral subtalar joint was noted to be decreased without pain or crepitus Calcaneus is in valgus compared to lower leg when weight bearing. Further seen upon weight bearing was decreased height of the medial longitudinal arch of bilateral feet, Positive too many toes sign on bilateral foot. Able to perform double limb heel rise without pain bilateral. Single limb heel rise is difficult and painful bilateral Heels do invert when heel limb rise test done Negative pain to palpation along the course of the plantar fascia and with engagement of windlass mechanism. Negative pain with resisted inversion bilateral. Pain to palpation nail units as below. Vascular: Pulses palpable +2/4 Dorsalis Pedis and Posterior Tibial arteries bilateral. Capillary fill time brisk, approximately 3 seconds bilateral toes. Negative for significant edema in either lower extremity. Skin temp warm to cool proximal to distal bilateral. Neurological: Gross, protective, and epicritic sensation intact bilateral. Achilles and Patellar reflexes within normal limits 2/4 bilateral Negative babinski with hallux downgoing. Negative tinels/valliex upon neural light percussion tibial nerve. Dermatologic: Skin intact in total, no ulcerations or abrasions noted Negative for overt rashes or irregular pigmented lesions. No erythema, ecchymosis, macerations or other lesions. Nails 1 through 5 bilateral are thickened, elongated, discolored yellow with subungual debris. Additional Vitals BP Position/Location: Sitting, Right arm Assessment/Plan 1. Onychomycosis 2. Toe pain 3. Diabetes mellitus -Evaluation and Management was extensive at this visit with time spent with patient dedicated to discussion of pathogenesis and treatment options for patient's problems including neurologic exam, shoe gear inspection and recommendations, conservative care continuing, antifungal therapy oral vs topical, and problematic nail excision vs matrixectomy -Sharp debridement of painful mycotic law (more content not included)... Normal [facility] Family Medicine Office/Clini c Noteon 06-18-2023 Family Medicine Office/Clinic Note Chief Complaint DM follow up History of Present Illness Jean Pierre presents today for his routine 6 month DM follow-up;. He says s he has been doing well. He was not even sure why he was coming in for. He did also start Adipex 2 months ago and has lost 11 pounds in that time. He needs to lose 4 pounds more to be able to continue. He saw cardiology last month and no recurrence of a. fib even with starting the Adipex. He denies any concerns at this time. Review of Systems General Adult ROS Fatigue: No Appetite change: No Weakness: No Weight gain: No Weight Loss: No Cardiovascular Chest pain/pressure: No Palpitations: No EENMT Nasal congestion: No Nasal discharge: No Sore_throat: No Gastrointestinal Abdominal pain: No Nausea: No Vomiting: No Genitourinary Hematologic/Lymphatic Musculoskeletal Neurological Psychiatric Suicidal Ideation: No Respiratory Cough: No Shortness_of_breath: No Skin Physical Exam Vitals & Measurements HR: 73 (Peripheral) BP: 104/70 SpO2: 96 HT: 180 cm WT: 128.5 kg WT: 128.5 kg (Dosing) BMI: 39.66 General: Alert and oriented, well nourished, no acute distress Lungs: Clear to auscultation and percussion, non-labored respiration Heart: Normal rate, regular rhythm, no murmur, gallop or edema Abdomen: Soft, non-tender, non-distended, normal bowel sounds, no masses Skin: Skin is warm, dry and pink, no rashes or lesions Additional Vitals BP Position/Location: Sitting, Left arm Assessment/Plan 1. Atrial fibrillation Stable Continue current medication Continue to follow with cardiology 2. Diabetes mellitus A1c remains well-controlled at 6.5 Continue current medications Continue lifestyle modifications 3. Hypertension Very well-controlled No changes to medication at this time Orders: atorvastatin, 1 tabs, Oral, Daily, # 90 tabs, 1 Refill(s), Pharmacy: [facility] Medical Decision Making Chronic conditions NOT treated during this visit that affected my overall medical decision making: [] Treatment plans discussed but not opted for at this time: [] Prescribed medication that requires intensive monitoring for toxicity: [] I have reviewed the patient?s medication list for medication interactions/contrain dications and/or for upcoming procedures: [yes or no] Time Spent with the Patient I have personally spent [] minutes on this date, directly related to today's patient visit, including pre and post visit work, for this date of service. Time listed does not include time spent on separately billable services. Physician Comments Follow-up as scheduled or sooner as needed Medications and therapies have been reviewed. Plan of care has been discussed. All questions have been answered to the best of my abilities. Patient has stated understanding to the same. Problem List/Past Medical History Ongoing Atrial fibrillation ED (erectile dysfunction) Hydrocele Hypertension Prediabetes Varicocele Historical No qualifying data Procedure/Surgical History heart ablation APPENDECTOMY (02/08/1970) CARPAL TUNNEL SURGERY (2018) REVISION OF KNEE JOINT- right (2018) Colonoscopy (2019) Medications allopurinol 300 mg oral tablet, See Instructions, 3 refills atorvastatin 40 mg oral tablet, 40 mg= 1 tabs, Oral, Daily, 1 refills DME, See Instructions DME, See Instructions DME, See Instructions Durable Medical Equipment, See Instructions glimepiride 2 mg oral tablet, See Instructions, 3 refills Januvia 50 mg oral tablet losartan-hydroCHLOROt hiazide 100 mg-25 mg oral tablet, See Instructions, 3 refills oxybutynin 10 mg/24 hr oral tablet, extended release, 10 mg= 1 tabs, Oral, Daily, 1 refills phentermine 37.5 mg oral tablet, 37.5 mg= 1 tabs, Oral, Daily, 2 refills Potassium Chloride (Uhn-Hvel-Tcn M20) 20 mEq oral tablet, extended release, 20 mEq= 1 tabs, Oral, Daily, 2 refills Rybelsus 7 mg oral tablet, 7 mg= 1 tabs, Oral, Daily sotalol 160 mg oral tablet sulfamethoxazole-trim ethoprim 800 mg-160 mg oral tablet, Not taking tadalafil 20 mg oral tablet, 20 mg= 1 tabs, Oral, Daily, PRN, 5 refills tamsulosin 0.4 mg oral capsule, See Instructions, 3 refills Trimix 30-1-10 , See Instructions, 5 refills Voltaren 1% topical gel, 1 fred, Topical, QID, 11 refills Xarelto 20 mg oral tablet, 20 mg= 1 tabs, Oral, qPM Allergies nitroglycerin (drops blood pressure, d) penicillin (Hives) Social History Alcohol Current, Beer, 3-5 times per week Exercise Exercise frequency: 1-2 times/week. Self assessment: Fair condition. Exercise type: yard work. Nutrition/Health Type of diet: Regular diet. Regular, Caffeine intake amount: Couple cups per day. Vitamin/Supplements: One a day. Wants to lose weight: No. Sleeping concerns: No. Feels highly stressed: No. Substance Abuse Denies All Tobacco Never (less than 100 in lifetime) Use:. Family History Diabetes: Mother and Father. Heart disease: Father. Kidney stone: Father. St (more content not included)... Normal [facility] CHEM 6 (LYTES, BUN CREA)on 0 05-11-2023 Anion gap [Moles/Vol] 16 mmol/L Normal 7-17 [facility] Comment on above: Performed By: #### C HM6, MGO #### [facility] (DEFAULT) [address] [place] [id number] Chloride [Moles/Vol] 101 mmol/L Normal 98-108 [facility] Comment on above: Performed By: #### C HM6, MGO #### [facility] (DEFAULT) [address] [place] [address] [id number] CO2 [Moles/Vol] 28 mmol/L Normal 21-31 [facility] Comment on above: Performed By: #### C HM6, MGO #### [facility] (DEFAULT) [address] [place] [address] [id number] Creatinine [Mass/Vol] 0.83 mg/dL Normal 0.70-1.30 [facility] Comment on above: Performed By: #### Sly HM6, MGO #### [facility] (DEFAULT) [address] [place] [address] [id number] eGFR, CKD-EPI, Male > Normal >=60 [facility] Comment on above: Result Comment: Repo rted eGFR is based on the CKD-EPI 2020 equation using creatinine, age, and sex. Performed By: #### C HM6, MGO #### [facility] (DEFAULT) [address] [place] [address] [id number] Potassium [Moles/Vol] 4.0 mmol/L Normal 3.5-5.0 [facility] Comment on above: Performed By: #### C HM6, MGO #### [facility] (DEFAULT) [address] [place] [address] [phone] Sodium [Moles/Vol] 141 mmol/L Normal 135-145 [facility] Comment on above: Performed By: #### C HM6, MGO #### [facility] (DEFAULT) [address] [place] [address] 53035 Urea nitrogen [Mass/Vol] 18 mg/dL Normal 7-25 [facility] Comment on above: Performed By: #### C HM6, MGO #### [facility] (DEFAULT) [address] [place] [address] 51262 Urea nitrogen/Creatinin e [Mass ratio] 22 mg/mg Normal [facility] Comment on above: Performed By: #### C HM6, MGO #### [facility] (DEFAULT) [address] [place] [address] [phone] MAGNESIUMon 05-11-2023 Magnesium [Mass/Vol] 1.8 mg/dL Normal 1.6-2.6 [facility] Comment on above: Performed By: #### C HM6, MGO #### [facility] (DEFAULT) [address] [place] [address] [phone] Family Medicine Office/Clini c Noteon 04-13-2023 Family Medicine Office/Clinic Note Chief Complaint Requesting adipex History of Present Illness Jean Iperre present today to discuss getting started on Adipex. He says his has been taking this and has lost 22 pounds. He did not tolerate the Rybelus we started him on, and was not seeing any significant weight loss anyway. Therefore he went back to his [facility]. He would like a refill on the Voltaren gel prescribed by Dr. Benitez as it has mae helpful for his arthritis. He also would like to know if there is something different we can try for his ED. Not seeing any benefit from the daily tadalafil. Review of Systems General Adult ROS Fatigue: No Appetite change: No Weakness: No Weight gain: No Weight Loss: No Cardiovascular Chest pain/pressure: No Palpitations: No EENMT Nasal congestion: No Nasal discharge: No Sore_throat: No Gastrointestinal Abdominal pain: No Nausea: No Vomiting: No Genitourinary Hematologic/Lymphatic Musculoskeletal Neurological Psychiatric Suicidal Ideation: Yes Respiratory Cough: No Shortness_of_breath: No Skin Physical Exam Vitals & Measurements HR: 71 (Peripheral) BP: 116/76 SpO2: 95 HT: 180 cm WT: 133.5 kg WT: 133.5 kg (Dosing) BMI: 41.2 General: Alert and oriented, well nourished, no acute distress Lungs: Clear to auscultation and percussion, non-labored respiration Heart: Normal rate, regular rhythm, no murmur, gallop or edema Abdomen: Soft, non-tender, non-distended, normal bowel sounds, no masses Skin: Skin is warm, dry and pink, no rashes or lesions Additional Vitals BP Position/Location: Sitting, Left arm Assessment/Plan 1. Obesity BMI >30 as well as several weight related comorbidities He does not have a history of CHF Reviewed potential medication interactions and no significant interactions found Did discuss he will need to monitor his HR to make sure the sotalol is still controlling it We will start phentermine at this time Rx sent to pharmacy 3 month follow-up scheduled with goal weight loss of 5% Ordered: phentermine, 1 tabs, Oral, Daily, before breakfast, X 30 days, # 30 tabs, 2 Refill(s), 07/12/23 13:46:00 EDT, Pharmacy: [facility] 2. Hypertension Well controlled 3. Atrial fibrillation Stable 4. ED (erectile dysfunction) Trial 20 mg PRN dose of tadalafil Orders: diclofenac topical, 1 fred, Topical, QID, Apply 1g per application, # 100 g, 11 Refill(s), Pharmacy: [facility] tadalafil, 1 tabs, Oral, Daily, PRN, 1 hour before sexual activity, # 10 tabs, 5 Refill(s) Medical Decision Making Chronic conditions NOT treated during this visit that affected my overall medical decision making: [] Treatment plans discussed but not opted for at this time: [] Prescribed medication that requires intensive monitoring for toxicity: [] I have reviewed the patient?s medication list for medication interactions/contrain dications and/or for upcoming procedures: [yes or no] Time Spent with the Patient I have personally spent [] minutes on this date, directly related to today's patient visit, including pre and post visit work, for this date of service. Time listed does not include time spent on separately billable services. Physician Comments Follow-up 3 months or sooner as needed Medications and therapies have been reviewed. Plan of care has been discussed. All questions have been answered to the best of my abilities. Patient has stated understanding to the same. Problem List/Past Medical History Ongoing Atrial fibrillation ED (erectile dysfunction) Hydrocele Hypertension Prediabetes Varicocele Historical No qualifying data Procedure/Surgical History heart ablation APPENDECTOMY (02/08/1970) CARPAL TUNNEL SURGERY (2018) REVISION OF KNEE JOINT- right (2018) Colonoscopy (2019) Medications allopurinol 300 mg oral tablet, See Instructions, 3 refills atorvastatin 40 mg oral tablet, 40 mg= 1 tabs, Oral, Daily, 1 refills DME, See Instructions DME, See Instructions DME, See Instructions Durable Medical Equipment, See Instructions glimepiride 2 mg oral tablet, See Instructions, 3 refills Januvia 50 mg oral tablet losartan-hydroCHLOROt hiazide 100 mg-25 mg oral tablet, See Instructions, 3 refills oxybutynin 10 mg/24 hr oral tablet, extended release, 10 mg= 1 tabs, Oral, Daily, 1 refills phentermine 37.5 mg oral tablet, 37.5 mg= 1 tabs, Oral, Daily, 2 refills Potassium Chloride (Lye-Lozu-Odk M20) 20 mEq oral tablet, extended release, 20 mEq= 1 tabs, Oral, Daily, 2 refills Rybelsus 7 mg oral tablet, 7 mg= 1 tabs, Oral, Daily sotalol 160 mg oral tablet sulfamethoxazole-trim ethoprim 800 mg-160 mg oral tablet, Not taking tadalafil 20 mg oral tablet, 20 mg= 1 tabs, Oral, Daily, PRN, 5 refills tamsulosin 0.4 mg oral capsule, See Instructions, 3 refills Trimix 30-1-10 , See Instructions, 5 refills Voltaren 1% topical gel, 1 fred, Topical, QID, 11 refills Xarelto 20 mg oral tablet, 20 mg= 1 tabs, Oral, qPM Allergies nitr (more content not included)... Normal [facility] Podiatry Office/Clinic Noteo n 04-05-2023 Podiatry Office/Clinic Note Chief Complaint nail care History of Present Illness Patient is a pleasant 68-year-old male who presents with his . He presents for follow-up of bilateral posterior tibial tendon dysfunction and flatfoot pain, left worse than right. He has obtained AFO. Uses it with extended periods of weightbearing activity. He relates that his pain since last visit of his bilateral/left greater than right foot is greatly improved. He is very pleased with his pain relief at this time. Patient presents with concern of thickened, painful toenails. They are unable to trim them themselves due to the thickness of them. They are getting sore in patient's shoes with ambulating. When the nails become thickened and elongated they are uncomfortable in socks and shoe gear, they are afraid to cut them themselves due to comorbidities and they do not want to create a wound or accidentally make themselves bleed. Patient is requesting that I cut/debride their nails today. No other complaints today. Primary CARE physician Dr. Sandro Moreno. Last visit March 26, 2023 per patient Review of Systems Constitutional Head Nose Mouth Throat Cardio/Respiratory Hematologic Chills: No Headache: No Shortness of Breath: No History of DVT: No Fever: No Sore Throat: No Chest Pain: No History of Claudication: No Ear Pain: No Palpitation: No History of Aneurysm: No History of Gangrene: No Genitourinary Musculoskeletal Psychiatric Vascular Burning: No Muscle Weakness: No Anxiety: No Blood Disorder: No Pain: No Joint Pain: No Depression: No Numbness: No Gastrointestinal Dermatology Rheumatologic Problems: No Rash: No History of Rheumatic Arthritis: No Pain: No Pruritus: No History of Gout: No History of Lupus: No Physical Exam Vitals & Measurements HR: 75 (Peripheral) BP: 131/67 HT: 180 cm WT: 133.5 kg WT: 133.5 kg (Dosing) BMI: 41.2 Musculoskeletal: Extrinsic and intrinsic musculature of the foot are grossly normal with strengths of 5/5 all movers of the foot and ankle with exception of Posterior Tibial Tendon which was noted to have decreased strength with pain on active inversion of the foot noted. Negative pain on palpation to the navicular tuberosity of bilateral foot. Negative pain to palpation along the course of the posterior tibial tendon infra malleoli bilateral foot. Negative pain on palpation to the bilateral sinus tarsi. No pain on palpation to the bilateral medial or lateral calcaneal tubercle or achilles tendon. No pain on palpation to the lateral squeeze of the bilateral calcaneus. Range of motion of the bilateral ankle Joint was noted to be without pain or crepitus, but contracture of achilles tendon was noted bilateral with 0-5 degrees of dorsiflexion noted and very tight clinically, painful at the Gastrocnemius and Achilles area when foot passed 90 degrees to the leg from 0-5 degrees of ankle dorsiflexion. Range of motion of the bilateral subtalar joint was noted to be decreased without pain or crepitus Calcaneus is in valgus compared to lower leg when weight bearing. Further seen upon weight bearing was decreased height of the medial longitudinal arch of bilateral feet, Positive too many toes sign on bilateral foot. Able to perform double limb heel rise without pain bilateral. Single limb heel rise is difficult and painful bilateral Heels do invert when heel limb rise test done Negative pain to palpation along the course of the plantar fascia and with engagement of windlass mechanism. Negative pain with resisted inversion bilateral. Pain to palpation nail units as below. Vascular: Pulses palpable +2/4 Dorsalis Pedis and Posterior Tibial arteries bilateral. Capillary fill time brisk, approximately 3 seconds bilateral toes. Negative for significant edema in either lower extremity. Skin temp warm to cool proximal to distal bilateral. Neurological: Gross, protective, and epicritic sensation intact bilateral. Achilles and Patellar reflexes within normal limits 2/4 bilateral Negative babinski with hallux downgoing. Negative tinels/valliex upon neural light percussion tibial nerve. Dermatologic: Skin intact in total, no ulcerations or abrasions noted Negative for overt rashes or irregular pigmented lesions. No erythema, ecchymosis, macerations or other lesions. Nails 1 through 5 bilateral are thickened, elongated, discolored yellow with subungual debris. Additional Vitals BP Position/Location: Sitting Assessment/Plan 1. Plantar fasciitis 2. Contracture of left Achilles tendon 3. Arthritis of left midfoot 4. Acquired valgus deformity of left foot 5. Acquired varus deformity of left foot 6. Posterior tibial tendon dysfunction (PTTD) of left lower extremity 7. Prediabetes 8. Onychomycosis -Evaluation and Management was extensive at this visit with time spent with patient dedicated to discussion of pathogenesis and treatment options for patient's problems including (more content not included)... Normal [facility] No Panel Informationon 02-15 Tobacco smoking status Non-Smoker Invalid Interpretation Code [employer] DEVICE EVALUATION (SCANNED)o n 10-29-2022 [facility] Study observation (narrative) [facility] DEVICE EVALUATION (SCANNED)o n 10-14-2022 [facility] Study observation (narrative) [facility] BMP w/ Reflex to MGon 2022 Calcium [Mass/Vol] 8.8 mg/dL 8.4 - 10. 2 mg/dL [facility] Chloride [Moles/Vol] 101 mmol/L [facility] CO2 [Moles/Vol] 31 mmol/L [facility] Creatinine [Mass/Vol] 0.92 mg/dL 0.66 - 1.25 mg/dL [facility] GFR, Estimated 90 - PINF [facility] Comment on above: GFR calculated using CKD-EPI (2020) formula. Stage 1 Kidney damage (e.g., protein in the urine) with normal GFR >=90 Stage 2 Kidney damage with mild decrease in GFR 60-89 Stage 3a Moderate decrease in GFR 45-59 Stage 3b Moderate decrease in GFR 30-44 Stage 4 Severe reduction in GFR 15-29 Stage 5 Kidney failure <15 Glucose [Mass/Vol] 162 mg/dL High 65 - 100 mg/dL [facility] Interpretation and review of laboratory results Abnormal [facility] Potassium [Moles/Vol] 4.1 mmol/L [facility] Sodium [Moles/Vol] 140 mmol/L [facility] T Urea nitrogen (BldV) [Mass/Vol] 21 mg/dL High 9 - 20 mg/dL [facility] CBC with Auto Differentialon 10-12-2022 Basophils (Bld) [#/Vol] 0.1 10*3/uL [facility] Basophils/100 WBC (Bld) 0 % 0 - 1 % [facility] Eosinophils Absolute 0.0 [facility] Eosinophils/100 WBC (Bld) 0 % 0 - 5 % [facility] Erythrocyte distribution width (RBC) [Ratio] 13.3 % 11.5 - 14.5 % [facility] Hematocrit (Bld) [Volume fraction] 39.5 % Low 42.0 - 52.0 % [facility] Hemoglobin (Bld) [Mass/Vol] 14.0 g/dL 13.5 - 17.5 g/dL [facility] Interpretation and review of laboratory results Abnormal [facility] Lymphocytes Absolute 1.9 [facility] Lymphocytes/100 WBC (Bld) 12 % Low 20 - 40 % [facility] MCH (RBC) [Entitic mass] 34.1 pg 27.0 - 35.0 pg [facility] MCHC (RBC) [Mass/Vol] 35.4 g/dL 32.0 - 36.0 g/dL [facility] MCV (RBC) [Entitic vol] 96.1 fL 80.0 - 100.0 fL [facility] Monocytes Absolute 1.5 High [facility] T Monocytes/100 WBC (Bld) 10 % 1 - 15 % [facility] Neutrophils Absolute 12.3 High [facility] Neutrophils/100 WBC (Bld) 77 % High 50 - 70 % [facility] Platelet mean volume (Bld) [Entitic vol] 9.4 fL 9.4 - 12.3 fL [facility] Platelets (Bld) [#/Vol] 150 10*3/uL [facility] RBC (Bld) [#/Vol] 4.11 10*6/uL Low [facility] WBC (Bld) [#/Vol] 16.0 10*3/uL High [facility] CT ABDOMEN PELVIS WO CONTRAS T Additional Contrast? Noneon 10-12-2022 No obstructing nephro or ureterolithiasis visualized. No hydronephrosis. Mild circumferential thickening of the urinary bladder wall, which may correlate to the degree of distention, with cystitis not excluded in the proper clinical scenario. Stable appearing colonic diverticulosis without acute diverticulitis. Additional chronic findings as above. [facility] CON[facility] EXAMINATION: CT ABDOMEN PELVIS WO CONTRAST, 10/12/2022 11:20 AM CDT HISTORY: low back pain and urinary symptoms COMPARISON: None. TECHNIQUE: CT scan of the abdomen and pelvis was performed without IV contrast. CT dose reduction technique was used, including Automated Exposure Control. FINDINGS: Lower Chest: No acute findings. Partially visualized likely coronary artery calcifications. Mild bibasilar atelectasis. Peritoneal: No free air. No free fluid. Liver: Well-circumscribed low-density region in the anteromedial aspect left hepatic lobe, favoring a benign cysts. Diffuse hepatic steatosis. Hepatomegaly. Subtle hepatic granulomas. Gallbladder: Allowing for degree of distention, no obvious acute or suspicious findings. Bile ducts: No biliary ductal dilation. Pancreas: Fatty atrophy. Spleen: Splenic granulomas. Adrenal Glands: Normal. Kidneys and Ureters: Mild bilateral perinephric stranding, which may be chronic in nature. Similar-appearing phleboliths within the pelvis. Allowing for this no ureterolithiasis. Punctate cortical stone along the region of the superior pole of the right kidney.. No hydronephrosis. Urinary Bladder: Mild circumferential wall thickening of the urinary bladder. Colon/Appendix: Redemonstrated colonic diverticulosis, most notably along the sigmoid colon. Allowing for degree of distention, no acute diverticulitis. No secondary signs of appendicitis. Esophagus/Stomach: Small hiatal hernia. Small Bowel: No acute or suspicious pathology. No obvious signs of obstruction. Reproductive Organs: Prostamegaly. Vascular: Atherosclerosis without aneurysm. LAD: No lymphadenopathy. Soft Tissues: No acute or suspicious pathology. Bones: No acute or suspicious process. Report electronically signed by: Dr. Julian Foley [facility] Julian Foley MD - 10/12/2022 EXAMINATION: CT ABDOMEN PELVIS WO CONTRAST, 10/12/2022 11:20 AM CDT HISTORY: low back pain and urinary symptoms COMPARISON: None. TECHNIQUE: CT scan of the abdomen and pelvis was performed without IV contrast. CT dose reduction technique was used, including Automated Exposure Control. FINDINGS: Lower Chest: No acute findings. Partially visualized likely coronary artery calcifications. Mild bibasilar atelectasis. Peritoneal: No free air. No free fluid. Liver: Well-circumscribed low-density region in the anteromedial aspect left hepatic lobe, favoring a benign cysts. Diffuse hepatic steatosis. Hepatomegaly. Subtle hepatic granulomas. Gallbladder: Allowing for degree of distention, no obvious acute or suspicious findings. Bile ducts: No biliary ductal dilation. Pancreas: Fatty atrophy. Spleen: Splenic granulomas. Adrenal Glands: Normal. Kidneys and Ureters: Mild bilateral perinephric stranding, which may be chronic in nature. Similar-appearing phleboliths within the pelvis. Allowing for this no ureterolithiasis. Punctate cortical stone along the region of the superior pole of the right kidney.. No hydronephrosis. Urinary Bladder: Mild circumferential wall thickening of the urinary bladder. Colon/Appendix: Redemonstrated colonic diverticulosis, most notably along the sigmoid colon. Allowing for degree of distention, no acute diverticulitis. No secondary signs of appendicitis. Esophagus/Stomach: Small hiatal hernia. Small Bowel: No acute or suspicious pathology. No obvious signs of obstruction. Reproductive Organs: Prostamegaly. Vascular: Atherosclerosis without aneurysm. LAD: No lymphadenopathy. Soft Tissues: No acute or suspicious pathology. Bones: No acute or suspicious process. Report electronically signed by: Dr. Julian Foley IMPRESSION: No obstructing nephro or ureterolithiasis visualized. No hydronephrosis. Mild circumferential thickening of the urinary bladder wall, which may correlate to the degree of distention, with cystitis not excluded in the proper clinical scenario. Stable appearing colonic diverticulosis without acute diverticulitis. Additional chronic findings as above. [employer] Work Phone: Radiology Study observation (narrative) [employer] Work Phone: CT ABDOMEN PELVIS WO CONTRAS T Additional Contrast? NoneOrdered By: Julian Foley on 10-12-2022 [employer] Work Phone: Lactic Acidon 10-12-2022 Lactate [Moles/Vol] 2.1 mmol/L 1.0 - 2.2 mmol/L [facility] Urinalysis with Reflex to Cu ltureon 10-12-2022 BACTERIA, URINE None Seen [facility] Bilirubin, Urine Negative Negative [facility] Blood, Urine Trace-intact Abnormal Negative [facility] Clarity, UA Clear [facility] Color (U) Yellow [facility] Culture Indicated? No [facility] T Glucose, Ur Negative Negative mg/dL [facility] Interpretation and review of laboratory results Abnormal [facility] Ketones Ql (U) Negative Negative mg/dL [facility] Leukocyte esterase Test strip Ql (U) Negative Negative [facility] MUCUS, URINE None Seen [facility] Nitrate, UA Negative Negative [facility] pH (U) 5.0 [pH] 5.0 - 7.0 [facility] Protein, Ur (gm/dL) Trace Abnormal Negative mg/dL [facility] RBC, UA 0-2 #/HPF [facility] Specific [place], Urine 1.020 1.005 - 1.030 [facility] Squam Epithel, UA None Seen #/LPF [facility] Urobilinogen, Urine 0.2 E.U./dL NINF [facility] WBC, UA 0-5 #/HPF [facility] DEVICE EVALUATION (SCANNED)o n 07-30-2022 [facility] Study observation (narrative) [facility] XR WRIST LEFT (MIN 3 VIEWS)o n 06-14-2022 FINDINGS/IMPRESSION: 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 No fracture identified. Normal soft tissues. [facility] EXAM: XR WRIST LEFT (MIN 3 VIEWS) INDICATION: pain, decreased ROM, no injury COMPARISON: None. TECHNIQUE: Radiographs as described above Report electronically signed by: Dr. Darryl Latif [facility] Darryl Latif MD - 06/14/2022 EXAM: XR WRIST LEFT (MIN 3 VIEWS) INDICATION: pain, decreased ROM, no injury COMPARISON: None. TECHNIQUE: Radiographs as described above Report electronically signed by: Dr. 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 No fracture identified. Normal soft tissues. [employer] Work Phone: Radiology Study observation (narrative) [employer] Work Phone: XR WRIST LEFT (MIN 3 VIEWS)O rdered By: Darryl Latif on 06-14-2022 [employer] Work Phone: NOVEL CORONAVIRUS NASOPHARYN GEAL - U SPECIMEN ONLYon 02-04-2021 SARS-CoV-2 (COVID-19) RNA ISAIAS+probe Ql (Unsp spec) Not detected Normal NOT DETECTED [facility] Comment on above: Order Comment: This test was performed using [employer] Mediated Amplification and has been approved as Emergency Use Authorization (EUA) for the qualitative detection of SARS-CoV-2 nucleic acid. Result Comment: [facility] Negative results do not preclude SARS-CoV-2 infection and should not be used as the sole basis for treatment or other patient management decisions. Optimum specimen types and timing for peak viral levels during infections caused by SARS-CoV-2 has not been determined. The possibility of a false negative result should especially be considered if the patient's recent exposures or clinical presentation suggest that SARS-CoV-2 infection is probable, and diagnostic tests for other causes of illness (e.g., other respiratory illness) are negative. Collection of a new specimen and re-testing may be necessary if the patient is critically ill or clinically deteriorating. Performed By: #### L [id number] #### [facility] (DEFAULT) [address] [address] NOVEL CORONAVIRUS NASOPHARYN GEAL - [facility] SPECIMEN ONLYon 01-03-2021 SARS-CoV-2 (COVID-19) RNA ISAIAS+probe Ql (Unsp spec) Not detected Normal NOT DETECTED [facility] Comment on above: Order Comment: This test was performed using real time PCR for the qualitative detection of SARS-CoV-2 nucleic acid. The test has been reviewed by the FDA and given emergency use authorization. This test was developed and its performance characteristics determined by [facility] at [facility]. This test is used for clinical purposes. It should not be regarded as investigational or for research. Result Comment: [facility] Negative results do not preclude SARS-CoV-2 infection and should not be used as the sole basis for treatment or other patient management decisions. Optimum specimen types and timing for peak viral levels during infections caused by SARS-CoV-2 has not been determined. The possibility of a false negative result should especially be considered if the patient's recent exposures or clinical presentation suggest that SARS-CoV-2 infection is probable, and diagnostic tests for other causes of illness (e.g., other respiratory illness) are negative. Collection of a new specimen and re-testing may be necessary if the patient is critically ill or clinically deteriorating. Performed By: #### L [id number] #### [facility] (DEFAULT) [address] [address] Vital Signs Date Time Vital Sign Value Performing Clinician [facility] 01-28-2024 09:07-0500 Body weight 126.1 kg Julian Botello PA-C [facility] 11-05-2023 10: Body mass index (BMI) [Ratio] 38.63 kg/m2 Claude Amos MD Work Phone: [facility] 11-05-2023 10: Body weight 125.65 kg Claude Amos MD Work Phone: [facility] 11-05-2023 09:10-0400 Body height 180.3 cm Claude Amos MD Work Phone: [facility] 11-05-2023 09:10-0400 Diastolic blood pressure 56 mm[Hg] Claude Amos MD Work Phone: [facility] 11-05-2023 09:10-0400 Heart rate 60 /min Claude Amos MD Work Phone: [facility] 11-05-2023 09:10-0400 Respiratory rate 18 /min Claude Amos MD Work Phone: [facility] 11-05-2023 09:10-0400 Systolic blood pressure 119 mm[Hg] Claude Amos MD Work Phone: [facility] 10-12-2022 13:21-0400 SaO2% (BldA) [Mass fraction] 92 % Zuly Bonde DO Work Phone: [facility] 10-12-2022 12:15-0400 Diastolic blood pressure 69 mm[Hg] Zuly Bonde DO Work Phone: [facility] 10-12-2022 12:15-0400 Systolic blood pressure 139 mm[Hg] Zuly Bonde DO Work Phone: [facility] 10-12-2022 10:34-0400 Body height 180.3 cm Zuly Bonde DO Work Phone: [facility] 10-12-2022 10:34-0400 Body mass index (BMI) [Ratio] 40.45 kg/m2 Zuly Bonde DO Work Phone: [facility] 10-12-2022 10:34-0400 Body temperature 98.4 [degF] Zuly Bonde DO Work Phone: [employer] 10-12-2022 10:34-0400 Body weight 131.54 kg Zuly Bonde DO Work Phone: [employer] 10-12-2022 10:34-0400 Heart rate 82 /min Zuly Bonde DO Work Phone: [employer] 10-12-2022 10:34-0400 Respiratory rate 18 /min Zuly Bonde DO Work Phone: [employer] 06-14-2022 10:31-0400 Body height 180.3 cm Мария Baxter MD Work Phone: [employer] 06-14-2022 10:31-0400 Body mass index (BMI) [Ratio] 41.14 kg/m2 Мария Baxter MD Work Phone: [employer] 06-14-2022 10:31-0400 Body temperature 97.81 [degF] Мария Baxter MD Work Phone: [employer] 06-14-2022 10:31-0400 Body weight 133.81 kg Мария Baxter MD Work Phone: [employer] 06-14-2022 10:31-0400 Diastolic blood pressure 74 mm[Hg] Мария Baxter MD Work Phone: [employer] 06-14-2022 10:31-0400 Heart rate 66 /min Мария Baxter MD Work Phone: [employer] 06-14-2022 10:31-0400 Respiratory rate 16 /min Мария Baxter MD Work Phone: [employer] 06-14-2022 10:31-0400 SaO2% (BldA) [Mass fraction] 95 % Мария Baxter MD Work Phone: [facility] 06-14-2022 10:31-0400 Systolic blood pressure 116 mm[Hg] Мария Baxter MD Work Phone: [employer] 11-24-2021 11:25-0400 Body temperature 97.7 [degF] Claude Amos MD Work Phone: [facility] 11-24-2021 11:25-0400 Diastolic blood pressure 58 mm[Hg] Claude Amos MD Work Phone: [facility] 11-24-2021 11:25-0400 Heart rate 55 /min Claude Amos MD Work Phone: [facility] 11-24-2021 11:25-0400 Respiratory rate 20 /min Claude Amos MD Work Phone: [facility] 11-24-2021 11:25-0400 SaO2% (BldA) [Mass fraction] 96 % Claude Amos MD Work Phone: [facility] 11-24-2021 11:25-0400 Systolic blood pressure 125 mm[Hg] Claude Amos MD Work Phone: [facility] Encounters Encounter Date Encounter Type Care Provider Facility Start: 03-27-2024 ambulatory Martín Benitez DPM F acility:[facility] Start: 03-03-2024 ambulatory JULIAN FaizaCameron BOTELLO [facility] Start: 03-03-2024 ambulatory [facility] Start: 03-03-2024 End: 03-03-2024 Subsequent hospital visit by physician Aleksandra MARTIN Laboratory Comment on above: Urgency of micturiti on; Benign prostatic hyperplasia with incomplete bladder emptying Start: 03-01-2024 ambulatory [facility] Start: 03-01-2024 End: 03-01-2024 Subsequent hospital visit by physician Aleksandra Villarreal [facility] Start: 02-28-2024 ambulatory [facility] Start: 02-28-2024 End: 02-28-2024 Subsequent hospital visit by physician Marion Whitehead [facility] Start: 02-25-2024 ambulatory [facility] Start: 02-25-2024 End: 02-25-2024 Subsequent hospital visit by physician Aleksandra Villarreal [facility] Start: 2024 ambulatory [facility] Start: 2024 End: 2024 Subsequent hospital visit by physician Tashi Wang [facility] Start: 02-21-2024 ambulatory [facility] Start: 02-21-2024 End: 02-21-2024 Subsequent hospital visit by physician Tashi Wang [facility] Start: 02-17-2024 ambulatory [facility] Start: 02-17-2024 End: 02-17-2024 Subsequent hospital visit by physician Kamini Melendrez PTA [facility] Start: 02-14-2024 End: 02-14-2024 Subsequent hospital visit by physician Tashi Wang [facility] Start: 02-14-2024 ambulatory [facility] Start: 02-08-2024 ambulatory [facility] Start: 02-08-2024 End: 02-08-2024 Subsequent hospital visit by physician Tashi Wang [facility] Start: 02-07-2024 ambulatory [facility] Start: 02-07-2024 End: 02-07-2024 Subsequent hospital visit by physician Tashi Wang [facility] Physical [facility] Start: 02-04-2024 End: 02-04-2024 ambulatory JULIAN [facility] Start: 02-04-2024 End: 02-04-2024 Subsequent hospital visit by physician Marion Whitehead [facility] Start: 01-28-2024 End: 01-28-2024 Office outpatient visit 40 minutes Julian Faiza Ayan Work Phone: [facility] Start: 01-28-2024 ambulatory Julian Botello [facility] Orth [facility]ics Start: 01-27-2024 ambulatory SANDRO Feng TIFFANIE [facility] ty:[facility] Start: 01-27-2024 End: 01-27-2024 Subsequent hospital visit by physician Sandro Moreno DO Work Phone: [facility] Laboratory Comment on above: Urinary incontinence , unspecified type Start: 01-27-2024 End: 01-27-2024 Subsequent hospital visit by physician [facility] Remote Device Check Work Phone: [facility] Start: 01-17-2024 End: 01-17-2024 ambulatory Sandro David Tiffanie RIVERA Facility:[facility] Start: 01-12-2024 ambulatory Sandro Moreno DO Facility:[facility] Start: 12-14-2023 ambulatory SANDRO Feng TIFFANIE [facility] Start: 12-14-2023 End: 12-14-2023 Patient encounter status Sandro Moreno DO Work Phone: [facility] Start: 12-14-2023 End: 12-14-2023 Subsequent hospital visit by physician Sandro Moreno DO Work Phone: [facility] Laboratory Comment on above: Well adult exam; Type 2 diabetes mellitus without complication, without long-term current use of insulin (HCC); HTN (hypertension), benign; Screening for prostate cancer; Mixed hyperlipidemia Start: 11-05-2023 ambulatory CLAUDE S ANDREZOSTINI Facil ity:[facility] Start: 11-05-2023 End: 11-05-2023 Office outpatient visit 15 minutes Claude Amos MD Work Phone: [facility] Comment on above: Paroxysmal atrial fi brillation (Primary Dx); High risk medication use; Encounter for long-term (current) use of medications Start: 11-05-2023 ambulatory CLAUDE S ANDREZOSTINI Facil it:[facility] Start: 11-01-2023 End: 11-01-2023 ambulatory Sandro Moreno DO Facility:[facility] Start: 10-29-2023 ambulatory CLAUDE S AUGOSTINI Facil ity:[facility] Start: 10-29-2023 End: 10-29-2023 Subsequent hospital visit by physician [facility] Pacemaker Remote Device Check Work Phone: [facility] Comment on above: Arrived Start: 10-07-2023 End: 10-07-2023 ambulatory Sandro Moreno DO Facility:[facility] Start: 09-20-2023 End: 09-20-2023 ambulatory Columba Cameron RN [facility] Start: 08-30-2023 End: 08-30-2023 ambulatory Sandro Moreno DO Facility:[facility] Start: 08-27-2023 End: 08-27-2023 ambulatory Jaceychari Jaimewhitley Hoover 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 Facility:[facility] Start: 08-18-2023 End: 08-18-2023 ambulatory Sandro Hernandez Tiffanie DO Facility:[facility] Start: 08-17-2023 End: 08-17-2023 ambulatory Sandro Croonadomayco Moreno DO Facility:[facility] Start: 08-02-2023 ambulatory CLAUDE S AUGOSTINI Facil ity:[facility] Start: 08-02-2023 End: 08-02-2023 Subsequent hospital visit by physician [facility] Remote Device Check Work Phone: [facility] Comment on above: Arrived Start: 07-14-2023 End: 07-14-2023 ambulatory Sandro Hernandez Tiffanie RIVERA Facility:[facility] Start: 06-21-2023 End: 06-21-2023 ambulatory Sandro Hernandez Manistique DO Facility:[facility] Start: 06-18-2023 End: 06-18-2023 ambulatory Sandro Hernandez Tiffanie DO Facility:[facility] Start: 05-11-2023 ambulatory SANDRO Fongi ty:[facility] Start: 05-11-2023 ambulatory KRISTEN BANUELOS Facility: [facility] Start: 05-07-2023 ambulatory LETTY GUEVARA [facility] Start: 05-05-2023 ambulatory SANDRO MORENO [facility] Start: 05-05-2023 End: 05-05-2023 Subsequent hospital visit by physician Kamini Melendrez PTA [facility] Physical [facility] Start: 05-04-2023 ambulatory CLAUDE S AUGOSTINI Facil ity:[facility] Start: 05-04-2023 End: 05-04-2023 [facility] Work Phone: [facility] Comment on above: Arrived Start: 04-20-2023 End: 04-20-2023 Subsequent hospital visit by physician Tashi Wang [facility] Start: 04-20-2023 ambulatory [facility] Start: 04-16-2023 ambulatory Sandro Hernandez Manist[place] DO Facility:[facility] Start: 04-15-2023 ambulatory [facility] Start: 04-13-2023 End: 04-13-2023 ambulatory Sandro Moreno DO Facility:[facility] Start: 04-12-2023 ambulatory [facility] Start: 04-08-2023 End: 04-08-2023 Subsequent hospital visit by physician Marion Whitehead [facility] Physical Therapy Comment on above: Impingement of left ankle joint (Primary Dx) Start: 04-08-2023 ambulatory [facility] Start: 04-06-2023 ambulatory [facility] Start: 04-05-2023 End: 04-05-2023 ambulatory Sandro Danielsketemmy RIVERA [facility] Start: 04-02-2023 End: 04-02-2023 Subsequent hospital visit by physician Marion Whitehead [facility] Physical Therapy Comment on above: Ankle impingement sy ndrome, left (Primary Dx); 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, left Start: 04-02-2023 ambulatory LETTY [facility] Start: 03-30-2023 End: 03-30-2023 ambulatory [facility] Start: 03-25-2023 Office outpatient vi sit 15 minutes Kristen Curtis Other [facility] Office Start: 02-15-2023 Office Services Kristen mckeon Other [facility] Office Start: 01-21-2023 ambulatory Markus Ramos MD Facility[facility] Start: 10-29-2022 End: 10-29-2022 Subsequent hospital visit by physician [facility] Pacemaker Remote Device Check Work Phone: [facility] Comment on above: Arrived Start: 10-14-2022 End: 10-14-2022 Subsequent hospital visit by physician [facility] Remote Device Check Work Phone: [facility] Comment on above: Arrived Start: 10-12-2022 End: 10-12-2022 Emergency department patient visit Zuly Fields Work Phone: [facility] Emergency Department Comment on above: Acute cystitis witho ut hematuria (Primary Dx) Start: 10-07-2022 End: 10-07-2022 Subsequent hospital visit by physician Aleksandra Villarreal [facility] Physical Therapy Start: 10-05-2022 End: 10-05-2022 Subsequent hospital visit by physician Tashi Wang [facility] Start: 09-21-2022 End: 09-21-2022 Subsequent hospital visit by physician Tone Solo [facility] Start: 09-09-2022 End: 09-09-2022 Subsequent hospital visit by physician Rodrigo Auguste [facility] Start: 08-27-2022 End: 08-27-2022 Office outpatient visit 15 minutes Julian Botello Work Phone: [facility] Start: 07-30-2022 End: 07-30-2022 Subsequent hospital visit by physician [facility] Pacemaker Remote Device Check Work Phone: [facility] Start: 06-14-2022 End: 06-14-2022 Emergency department patient visit Мария Baxter MD Work Phone: [facility] Emergency Department Comment on above: De Quervain's diseas e (tenosynovitis) (Primary Dx) Start: 05-01-2022 End: 05-01-2022 Subsequent hospital visit by physician [facility] Pac[facility] Remote Device Check Work Phone: [facility] Start: 04-30-2022 End: 04-30-2022 Subsequent hospital visit by physician [facility] Pacemaker Remote Device Check Work Phone: [facility] Start: 01-29-2022 End: 01-29-2022 Subsequent hospital visit by physician [facility] Pac[facility] Remote Device Check Work Phone: [facility] Start: 11-24-2021 End: 11-24-2021 Subsequent hospital visit by physician Claude Amos MD Work Phone: [facility] Comment on above: Paroxysmal atrial fi brillation Start: 11-17-2021 End: 11-17-2021 Subsequent hospital visit by physician [facility] Remote Device Check Work Phone: [facility] Comment on above: Arrived Start: 09-01-2020 End: 09-01-2020 Subsequent hospital visit by physician Claude Amos MD Work Phone: [facility] Comment on above: Arrived Start: 03-18-2020 End: 03-18-2020 Orders Only Aurora Souza Geronimo Work Phone: [facility] Start: 12-19-2019 End: 12-19-2019 Subsequent hospital visit by physician MARIO Laboratory Start: 06-16-2017 End: 06-16-2017 Ambulatory DEVI FLORES [facility] Start: 05-04-2017 End: 05-04-2017 Ambulatory ELMER JOHNSON [facility] Start: 05-04-2017 Office consultation Elmer hoang Work Phone: [facility] Start: 03-30-2017 End: 03-30-2017 Ambulatory MARIANELA POWELL [facility] Start: 01-30-2017 Ambulatory Dinesh Elizabeth Work Phone: [facility] Start: 01-13-2017 End: 01-14-2017 Ambulatory DINESH ELIZABETH [facility] Start: 01-13-2017 Office outpatient ne w 20 minutes Dinesh Elizabeth Work Phone: [facility] Procedures Date Procedure Procedure Detail Performing Clinician Start: 03-03-2024 Urnls dip stick/tabl et rgnt auto w/o microscopy Bimal Heart MD Work Phone: Start: 01-28-2024 End: 01-28-2024 Arthrocentesis aspir&/inj major jt/bursa w/us Julian Botello PA-C Start: 01-28-2024 End: 01-28-2024 Bupivicaine Injection 0.5 mg Julian Botello PA-C Start: 01-28-2024 End: 01-28-2024 Radex hip unilateral with pelvis 2-3 views Julian Botello PA-C Start: 01-28-2024 End: 01-28-2024 Triamcinolone acet inj NOS Julian Botello PA-C Start: 12-14-2023 PSA screening Sandro gustafson DO Work Phone: Comment on above: [facility] UTILIZES ORTHO VITROS PSA METHODOLOGY. DIFFERENT TEST METHODS CANNOT BE USED INTERCHANGEABLY. PSA RESULTS IN A GIVEN PATIENT SAMPLE DETERMINED WITH DIFFERENT TESTS AND FROM DIFFERENT MANUFACTURERS CAN VARY DUE TO DIFFERENCES IN TEST METHODS AND REAGENTS. Start: 12-14-2023 Comprehensive metabo lic panel Sandro Moreno DO Work Phone: Comment on above: Result Comment: [facility] UTILIZES ORTHO VITROS PSA METHODOLOGY. DIFFERENT TEST METHODS CANNOT BE USED INTERCHANGEABLY. PSA RESULTS IN A GIVEN PATIENT SAMPLE DETERMINED WITH DIFFERENT TESTS AND FROM DIFFERENT MANUFACTURERS CAN VARY DUE TO DIFFERENCES IN TEST METHODS AND REAGENTS. Performed By: #### P SA, LIPD, CMP #### [place] [address] Ph. [phone] Start: 12-14-2023 Lipid panel Sandro tejeda DO Work Phone: Start: 11-05-2023 Creatinine blood Claude Amos MD Work Phone: Start: 10-29-2023 DEVICE EVALUATION Other Other Start: 03-25-2023 Docrev cur meds by e lig clin Kristen Schloemer Start: 02-15-2023 Biopsy of penis Kristen cortez Start: 02-15-2023 Docrev cur meds by e lig clin Kristen Schloemandreia Start: 02-12-2023 Colonoscopy Marion Hernandez nam Start: 10-29-2022 DEVICE EVALUATION Other Other Start: 10-14-2022 DEVICE EVALUATION Other Other Start: 10-12-2022 End: 10-12-2022 Assay of lactate Zuly Fields DO Work Phone: Start: 10-12-2022 Ct abdomen & pelvis w/o contrast material Zuly Fields DO Work Phone: Start: 10-12-2022 BASIC METABOLIC PANE L W/ REFLEX TO MG FOR LOW K Zuly S Bondmerissa DO Work Phone: Start: 10-12-2022 Urnls dip stick/tabl et rgnt auto w/o microscopy Zuly Fields DO Work Phone: Start: 08-27-2022 End: 08-27-2022 Radex hip unilateral with pelvis 2-3 views Julian Botello PA-C Start: 07-30-2022 DEVICE EVALUATION Other Other Start: 06-14-2022 Radex wrist complete minimum 3 views Мария Baxter MD Work Phone: Plan of Treatment Date Care Activity Detail Author Start: 02-12-2033 Screening for malign ant neoplasm of colon [facility] Start: 2029 Respiratory Syncytia l Virus (RSV) or age 60 yrs+ (1 - 1-dose 75+ series) Respiratory Syncytial Virus (RSV) or age 60 yrs+ (1 - 1-dose 75+ series) [facility] Start: 12-20-2024 Annual Wellness Visi t (Medicare) Annual Wellness Visit (Medicare) [facility] Start: 12-20-2024 End: 12-20-2024 Patient encounter procedure 12/20/2024 8:40 AM EST Office Visit [facility] [address] [place] [address] Sandro Moreno DO [address] [place] [address] [address] [place] [address] [facility] [place] Start: 12-19-2024 Depression Screen Depression Screen [facility] Start: 12-13-2024 GFR test (Diabetes, CKD 3-4, OR last GFR 15-59) GFR test (Diabetes, CKD 3-4, OR last GFR 15-59) [facility] Start: 12-13-2024 Hemoglobin A1c measurement A1C test (Diabetic or Prediabetic) [facility] Start: 12-13-2024 Lipid panel Lipids [facility] Start: 11-03-2024 End: 11-03-2024 Patient encounter procedure 11/03/2024 10:30 AM EDT Office Visit [facility] [place] [id number] [place] [phone] Claude Amos MD [address] [place] [phone] [facility] Start: 09-12-2024 End: 09-12-2024 Patient encounter procedure 09/12/2024 8:30 AM EDT Office Visit [facility] [address] [address] Jer Kim MD [address] [place] [address] [phone] 1 year CPAP [facility] Comment on above: 1 year CPAP Start: 06-16-2024 End: 06-16-2024 Patient encounter procedure 06/16/2024 8:00 AM EDT Office Visit [facility] [address] [place] [address] Sandro Moreno DO [address] [facility] [address] [place] [address] 6M F/U [facility] [place] Comment on above: 6M F/U Start: 05-05-2024 End: 05-05-2024 Patient encounter procedure 05/05/2024 9:00 AM EDT Office Visit [facility] [address] [place] [address] [phone] Bimal Heart Jr., MD [address] [place] [address] [id number] [facility] Comment on above: 2m Start: 04-10-2024 End: 04-10-2024 Patient encounter procedure 04/10/2024 10:00 AM EST Office Visit [facility] [address] [place] [phone] Cydney Morales, 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 [address] [place] [phone] [facility] Start: 03-03-2024 Subsequent hospital visit by physician 03/03/2024 1:00 PM EST Hospital Encounter [facility] Physical Therapy [address] [place] [id number] Aleksandra Villarreal [facility] Start: 03-03-2024 End: 03-03-2024 Patient encounter procedure 03/03/2024 9:00 AM EST Office Visit [facility] [address] [id number] Bimal Heart Jr., MD [address] [place] [address] R30.0 (ICD-10-CM) - Difficult or painful urination [facility] Comment on above: R30.0 (ICD-10-CM) - Difficult or painful urination Start: 03-01-2024 End: 03-01-2024 Patient encounter procedure 03/01/2024 1:00 PM EST Appointment [facility] [address] [place] [phone] Aleksandra Villarreal [facility] Start: 02-28-2024 End: 02-28-2024 Patient encounter procedure [facility] Start: 02-25-2024 End: 02-25-2024 Patient encounter procedure 02/25/2024 8:40 AM EST Appointment [facility] [address] [place] [phone] Marion Whitehead [facility] Start: 2024 Subsequent hospital visit by physician 2024 8:40 AM EST Hospital Encounter [facility] Therapy [address] [place] [address] Tashi Wang [facility] Start: 02-21-2024 End: 02-21-2024 Patient encounter procedure 02/21/2024 8:00 AM EST Appointment [facility] [address] [place] [address] Tashi Wang [facility] Start: 02-17-2024 End: 02-17-2024 Patient encounter procedure 02/17/2024 8:40 AM EST Appointment [facility] [address] [place] [address] Tashi Wang [facility] Start: 02-14-2024 End: 02-14-2024 Patient encounter procedure 02/14/2024 8:40 AM EST Appointment [facility] [address] [place] [address] Tashi Wang [facility] Start: 02-11-2024 End: 02-11-2024 Patient encounter procedure 02/11/2024 8:40 AM EST Appointment [facility] [address] [place] [address] Tashi Wang [facility] Start: 02-08-2024 End: 02-08-2024 Patient encounter procedure 02/08/2024 8:40 AM EST Appointment [facility] [address] [place] [address] Tashi Wang [facility] Start: 02-07-2024 End: 02-07-2024 Patient encounter procedure 02/07/2024 8:00 AM EST Appointment [facility] [address] [place] [address] Tashi Wang [facility] Start: 12-20-2023 End: 12-20-2023 Patient encounter procedure 12/20/2023 8:00 AM EST Office Visit [facility] [address] [place] [address] Sandro Moreno [address] [place] [address] wellness [facility] [place] Comment on above: wellness Start: 11-05-2023 End: 11-05-2023 Patient encounter procedure 11/05/2023 9:30 AM EDT Office Visit [facility] [address] [place] [phone] Claude Amos MD [address] [place] [phone] [facility] Start: 10-10-2023 COVID-19 Vaccine ( season) COVID-19 Vaccine ( season) [facility] Start: 10-10-2023 COVID-19 VACCINE ( season) COVID-19 VACCINE ( season) [facility] Start: 10-10-2023 COVID-19 VACCINE ( season) COVID-19 VACCINE ( season) [facility] Start: 10-10-2023 Influenza vaccination INFLUENZA VACC INE (#1) [facility] Start: 09-14-2023 End: 09-14-2023 Patient encounter procedure [facility] [address] [place] Comment on above: 1 yr cpap Start: 09-09-2023 Influenza vaccination Flu vaccine (# 1) [facility] Start: 05-11-2023 End: 05-11-2023 Patient encounter procedure [facility] Start: 05-07-2023 End: 05-07-2023 Patient encounter procedure 05/07/2023 8:00 AM EDT Appointment [facility] [address] [place] [address] T[facility] Start: 05-04-2023 End: 05-04-2023 Patient encounter procedure 05/04/2023 Appointment [facility] [address] [place] [phone] [facility] Start: 04-20-2023 End: 04-20-2023 Patient encounter procedure 04/20/2023 3:20 PM EDT Appointment [facility] Physical [facility] [address] [place] [address] Tashi Wang [facility] Start: 04-15-2023 COVID-19 VACCINE () COVID[facility]19 VACCINE () [facility] Start: 04-15-2023 End: 04-15-2023 Patient encounter procedure 04/15/2023 8:40 AM EST Appointment [facility] Physical Therapy [address] [place] [address] Kamini 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, [employer]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 [facility] Start: 04-12-2023 End: 04-12-2023 Patient encounter procedure 04/12/2023 8:40 AM EST Appointment [facility] Physical [facility] [address] [place] [address] Billy Sandhu, PT [facility] Start: 04-08-2023 End: 04-08-2023 Patient encounter procedure 04/08/2023 8:00 AM EST Appointment [facility] Physical Therapy [address] [place] [address] Marion Whitehead [facility] Start: 04-06-2023 End: 04-06-2023 Patient encounter procedure 04/06/2023 8:00 AM EST Appointment [facility] Physical [facility] [address] [place] [address] Kamini 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, [employer]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 [facility] Start: 01-04-2023 Annual Wellness Visi t (Medicare) Annual Wellness Visit (Medicare) [facility] Start: 11-06-2022 End: 11-06-2022 Patient encounter procedure [facility] Brian KendallCameron [facility] Start: 11-06-2022 End: 11-06-2022 Patient encounter procedure [facility] Start: 10-15-2022 End: 10-15-2022 Patient encounter procedure 10/15/2022 Appointment Physical Therapy Tashi Wang [facility] Start: 10-13-2022 End: 10-13-2022 Patient encounter procedure [facility] Start: 10-09-2022 Influenza vaccination INFLUENZA VACC INE (#1) [facility] Start: 10-07-2022 End: 10-07-2022 Patient encounter procedure 10/07/2022 Appointment Physical Therapy Aleksandra Villarreal [facility] Start: 09-24-2022 End: 09-24-2022 Patient encounter procedure 09/24/2022 Appointment Physical Therapy Aleksandra Villarreal [facility] Start: 09-23-2022 End: 09-23-2022 Patient encounter procedure 09/23/2022 Appointment Physical Therapy Tone Solo [facility] Start: 09-15-2022 End: 09-15-2022 Patient encounter procedure 09/15/2022 Office Visit Pulmonology Jer Kim MD [address] [place] [address] [facility] [place] Start: 09-14-2022 End: 09-14-2022 Patient encounter procedure 09/14/2022 Appointment Physical Therapy Tashi Wang [facility] Start: 09-11-2022 End: 09-11-2022 Patient encounter procedure [facility] Start: 09-08-2022 Influenza vaccination Flu vaccine (# 1) [facility] Start: 04-22-2022 COVID-19 VACCINE (2 - Pfizer series) COVID-19 VACCINE (2 - Pfizer series) [facility] Start: 01-13-2022 COVID-19 VACCINE (2 - Pfizer series) COVID-19 VACCINE (2 - Pfizer series) [facility] Start: 10-09-2021 Influenza vaccination INFLUENZA VACC INE (#1) [facility] Start: 04-06-2021 End: 04-06-2021 Patient encounter procedure 04/06/2021 Appointment Cardiovascular Medicine [facility] Start: 01-15-2021 End: 01-15-2021 Patient encounter procedure 01/15/2021 Office Visit Pharm[facility] Brian Vitale [facility] Start: 01-05-2021 End: 01-05-2021 Patient encounter procedure 01/05/2021 Appointment Cardiovascular Medicine [facility] Start: 11-19-2020 Annual Wellness Visi t (AWV) Annual Wellness Visit (AWV) [facility] Start: 10-09-2020 Influenza vaccination INFLUENZA VACC INE (#1) [facility] Start: 10-04-2020 End: 10-04-2020 Patient encounter procedure [facility] Start: 07-23-2020 End: 07-23-2020 Office Visit 07/23/2020 Office Visit Pulmonology Jer Kim MD [address] [place], [place] [id number] [facility] Start: 10-10-2019 Influenza vaccination Flu vaccine (# 1) [place], [place] Start: 10-10-2019 Influenza vaccinatio n given Sequential Influenza Vaccine (#1) [facility] Start: 2019 Pneumococcal 65+ yea rs Vaccine (1 - PCV) Pneumococcal 65+ years Vaccine (1 - PCV) [facility] Start: 2019 Pneumococcal 65+ yea rs Vaccine (1 of 1 - PCV) Pneumococcal 65+ years Vaccine (1 of 1 - PCV) [facility] Start: 2019 Pneumococcal 65+ yea rs Vaccine (1 of 1 - PPSV23) Pneumococcal 65+ years Vaccine (1 of 1 - PPSV23) [place] Start: 2019 Pneumococcal vaccination [facility] Start: 07-14-2017 CLASS III : OFFICE VISIT CLASS III : OFFICE VISIT [facility] Start: 10-09-2016 Influenza vaccination SEQUENTI AL INFLUENZA VACCINE (#1) [facility] Work Phone: Start: 2014 Respiratory Syncytia l Virus (RSV) or age 60 yrs+ (1 - 1-dose 60+ series) Respiratory Syncytial Virus (RSV) or age 60 yrs+ (1 - 1-dose 60+ series) [facility] Start: 2014 RSV VACCINE (1 - 1-d ose 60+ series) RSV VACCINE (1 - 1-dose 60+ series) [facility] Start: 2014 Zoster vacc, sc ZOSTER VACCINE [facility] Work Phone: Start: 2009 Prostate specific antigen measurement PROSTATE CANCER SCREENING DISCUSSION [facility] Start: 02-24-2004 Administration of herpes zoster vaccine Zoster Vaccines (1 of 2) [facility] Start: 02-24-2004 Prostate specific antigen measurement PROSTATE CANCER SCREENING DISCUSSION [facility] Start: 02-24-2004 Screening for malign ant neoplasm of colon [place], [place] Start: 02-24-2004 Shingles Vaccine (1 of 2) Shingles Vaccine (1 of 2) [facility] Start: 02-24-2004 Zoster vaccine hzv l genaro for subcutaneous use ZOSTER (SHINGLES) VACCINE (1 of 2) [facility] Start: 1999 Colonoscopy COLORECTAL CAN CER SCREENING DISCUSSION [facility] Start: 1999 Screening for malign ant neoplasm of colon [facility] Start: 1994 Fasting lipid profile LIPID SCREENIN G [facility] Start: 1994 Lipid panel [facility] Start: 1989 Diabetes screen Diabetes screen [facility] Start: 1973 DTaP/Tdap/Td vaccine (1 - Tdap) DTaP/Tdap/Td vaccine (1 - Tdap) [facility] Start: 1973 Third diphtheria, tetanus and acellular pertussis (DTaP) vaccination TDAP (ADULT) [facility] Start: 02-24-1972 Glaucoma screening Diabetic retinal exam [facility] Start: 02-24-1972 Hepatitis C antibody , confirmatory test Hepatitis C Screening [facility] Start: 02-24-1972 Hepatitis C screening Hepatitis C sc reen [facility] Start: 02-24-1972 Tetanus vaccination TETANUS [facility] Start: 02-24-1972 Urine screening for protein Diabetic Alb to Cr ratio (uACR) test [facility] Start: 1970 COVID-19 Vaccine (1 of 2) COVID-19 Vaccine (1 of 2) [facility] Start: 1969 HIV screening HIV screen [facility] [place] [place] Start: 1966 Adolescent depressio n screening assessment Depression Screening (PHQ9) [facility] Start: 1966 COVID-19 VACCINE (1) COVID-19 VACCIN E (1) [facility] Start: 1966 Depression Screen Depression Screen [facility] Start: 02-24-1964 Diabetic foot examination (regime/therapy) [facility] Start: 02-24-1964 Lipid panel Lipids [facility] Start: 02-24-1964 Ophthalmic examinati on and evaluation OPHTHALMOLOGY EXAM [facility] Start: 02-24-1964 Urine, microalbumin URINE MICROALBUM IN [facility] Start: 02-24-1960 Pneumococcal 65+ yea rs Vaccine (1 of 2 - PCV) Pneumococcal 65+ years Vaccine (1 of 2 - PCV) [facility] Start: 1957 History and physical examination, annual for health maintenance Wellness Visit [facility] Start: 1954 COVID-19 VACCINE (#1) COVID-19 VACCI NE (#1) [facility] Start: 1954 CLASS III : CREATININE CLASS III : C REATININE [facility] Start: 1954 CLASS III : EKG CLASS III : EKG [facility] Start: 1954 CLASS III : MAGNESIUM CLASS III : MA GNESIUM [facility] Start: 1954 CLASS III : POTASSIUM CLASS III : PO TASSIUM [facility] Start: 1954 Class III: Magnesium Class III: Magn esium [facility] Start: 1954 Fall risk assessment Falls Risk Asse ssment [facility] Start: 1954 HbA1c HEMOGLOBIN A1C [facility] Start: 1954 Hepatitis B vaccination HEP B VACCINE (1 of 3 - 3-dose series) [facility] Start: 1954 Hepatitis C antibody , confirmatory test HEPATITIS C VIRUS SCREENING [facility] Start: 1954 HEPATITIS C SCREENING HEPATITIS C SC AUGUST [facility] Work Phone: Start: 1954 Hepatitis C screening [facility] Start: 1954 Prostate specific antigen measurement PSA Level [facility] Start: 1954 Screening colonoscopy [facility]OSCOPY [facility] Work Phone: Start: 1954 [facility] electi ve arrhythmia external CARDIOVERSION (EP LAB) Paroxysmal atrial fibrillation [facility] End: 05-05-2018 Comprehensive hearing test Comprehensive hearing test Routine Tinnitus of both ears 1 Occurrences starting 05/04/2017 until 05/05/2018 [facility] End: 12-19-2019 COVID-19 COVID-19 Lab Routine Once for 1 Occurrences starting 12/19/2019 until 12/19/2019 [facility] [place], [place] Comment on above: Once for 1 Occurrenc es starting 12/19/2019 until 12/19/2019 End: 10-12-2022 Culture, Blood 1 [facility] Work Phone: Comment on above: One Time for 1 Occur rences starting 10/12/2022 until 10/12/2022 End: 10-12-2022 Culture, Blood 2 [facility] Work Phone: Comment on above: One Time for 1 Occur rences starting 10/12/2022 until 10/12/2022 End: 01-27-2024 Culture, Urine [facility] Work Phone: Comment on above: 1 Occurrences starti ng 01/27/2024 until 01/27/2024 End: 03-03-2024 Culture, Urine [facility] Work Phone: Comment on above: Once for 1 Occurrenc es starting 03/03/2024 until 03/03/2024 1 Occurrences starti ng 03/03/2024 until 03/03/2024 End: 11-19-2021 External electrode cardioversion EP CARDIOVERSION EXTERNAL Electrophysiology Routine Paroxysmal atrial fibrillation One Time for 1 Occurrences starting 11/19/2021 until 11/19/2021 [facility] Work Phone: Comment on above: One Time for 1 Occur rences starting 11/19/2021 until 11/19/2021 End: 01-13-2018 MR Knee Right Without Contrast MR Knee Right Without Contrast Routine Acute pain of right knee 1 Occurrences starting 01/13/2017 until 01/13/2018 [facility] Work Phone: End: 01-13-2018 MR Lumbar Spine Without Contrast MR Lumbar Spine Without Contrast Routine Acute midline low back pain with right-sided sciatica 1 Occurrences starting 01/13/2017 until 01/13/2018 [facility] Work Phone: End: 11-24-2021 Standard ECG ECG ECG STAT One Time for 1 Occurrences starting 11/24/2021 until 11/24/2021 [facility] Work Phone: Comment on above: One Time for 1 Occur rences starting 11/24/2021 until 11/24/2021 Standard ECG ECG ECG Routine Paroxysmal atrial fibrillation 11/05/2023 9:25 AM EDT [facility] End: 03-03-2024 Urinalysis with Microscopic Urinalysis with Microscopic Lab Routine Urgency of micturition Benign prostatic hyperplasia with incomplete bladder emptying 1 Occurrences starting 03/03/2024 until 03/03/2024 [facility] Work Phone: Comment on above: 1 Occurrences starti ng 03/03/2024 until 03/03/2024 Immunizations Immunization Date Immunization Notes Care Provider Karina colby 12-15-2022 Influenza, FLUZONE H igh Dose (age 65 y+), IM, Quadv, 0.7mL Sandro Tiffanie DO Work Phone: [facility] Work Phone: 12-15-2022 influenza virus vaccine, unspecified formulation Columba Cameron RN [facility] 12-08-2021 Influenza, FLUZONE H igh Dose (age 65 y+), IM, Quadv, 0.7mL Sandro Manistique DO Work Phone: [facility] Work Phone: 12-08-2021 influenza virus vaccine, unspecified formulation [facility] Pacemaker Remote Device Check Work Phone: [facility] 11-11-2020 Influenza, FLUZONE H igh Dose (age 65 y+), IM, Quadv, 0.7mL Sandro Tiffanie DO Work Phone: [facility] Work Phone: 11-11-2020 influenza virus vaccine, unspecified formulation [facility] [employer] Remote Device Check Work Phone: [facility] Payers Date Payer Category Payer Medicare MEDICARE MEDICAR E A AND B [id number] 2019-Present [address] [place] [address] [id number]. [id number] 2019 Medicare [id number] 1.13.172.2.7.3. [id number] 2019 Unknown GENERIC PAYOR ME DICARE SUPPLEMENT [id number] 2019-Present [phone] [address] [place] [address] [id number] 1.2.840.545474.1.13.172.2.7.3. [id number] 2019 Unknown 1.2.840.248787. 1.13.172.2.7.3. [id number] 2019 Medicare [id number] 1.2.840.704194.1.13.239.2.7.3. [id number] 2019 Unknown [id number] 1.2.840.554876.1.13.239.2.7.3. [id number] 2010 Unknown [id number] 2.16.840.1.719673.3.249.13 2010 Unknown ANTHEM BCBS OUT OF STATE [facility] [id number] 2010-Present [id number] 1.2.840.586448.1.13.385.2.7.3. 456475.315 1954 Unknown [id number] 2.16.840.1.168230.3.579.2.196 1954 Unknown [id number] 2.16.840.1.219619.3.579.2.196 1954 Unknown [id number] 2.16.840.1.373351.3.579.2.196 1954 Unknown [id number] 2.16.840.1.149471.3.579.2.196 1954 Unknown [id number] 2.16.840.1.744090.3.579.2.196 1954 Unknown [id number] 2.16.840.1.070639.3.579.2.196 1954 Unknown [id number] 2.16.840.1.817589.3.579.2.196 1954 Unknown [id number] 2.16.840.1.474732.3.579.2.196 1954 Unknown [id number] 2.16.840.1.657987.3.579.2.196 1954 Unknown [id number] 2.16.840.1.410106.3.579.2.196 1954 Unknown [id number] 2.16.840.1.966852.3.579.2.196 1954 Unknown [id number] 2.16.840.1.394341.3.579.2.196 1954 Unknown [id number] 2.16.840.1.549251.3.579.2.196 1954 Unknown [id number] 2.16.840.1.109369.3.579.2.196 1954 Unknown [id number] 2.16.840.1.885658.3.579.2.196 1954 Unknown [id number] 2.16.840.1.911997.3.579.2.196 1954 Unknown [id number] 2.16.840.1.884888.3.579.2.196 1954 Unknown [id number] 2.16.840.1.946220.3.579.2.1314 1954 Unknown [id number] 2.16.840.1.828967.3.579.2.594 1954 Unknown [id number] 2.16.840.1.697623.3.579.2.594 1954 Unknown [id number] 2.16.840.1.468634.3.579.2.594 1954 Unknown [id number] 2.16.840.1.267475.3.579.2.594 1954 Unknown [id number] 2.16.840.1.863506.3.579.2.594 1954 Unknown [id number] 2.16.840.1.569174.3.579.2.594 1954 Unknown [id number] 2.16.840.1.665860.3.579.2.594 1954 Unknown [id number] 2.16.840.1.342428.3.579.2.594 1954 Unknown [id number] 2.16.840.1.833741.3.579.2.754 1954 Unknown [id number] 2.16.840.1.255540.3.579.2.754 1954 Unknown [id number] 2.16.840.1.675234.3.579.2.754 1954 Unknown [id number] 2.16.840.1.627855.3.579.2.754 1954 Unknown [id number] 2.16.840.1.834490.3.579.2.754 1954 Unknown [id number] 2.16.840.1.870472.3.579.2. 1954 Unknown [id number] 2.16.840.1.492727.3.579.2. 1954 Unknown [id number] 2.16.840.1.203222.3.579.2. 1954 Unknown [id number] 2.16.840.1.948777.3.579.2 1954 Unknown [id number] 2.16.840.1.942211.3.579.2. 1954 Unknown [id number] 2.16.840.1.564177.3.579. 1954 Unknown [id number] 2.16.840.1.867828.3.579.2 1954 Unknown [id number] 2.16.840.1.010150.3.579.2 1954 Unknown [id number] 2.16.840.1.966046.3.579.2 1954 Unknown [id number] 2.16.840.1.586342.3.579.2 1954 Unknown [id number] 2.16.840.1.828146.3.579.2 1954 Unknown [id number] 2.16.840.1.379985.3.579.2 1954 Unknown [id number] 2.16.840.1.273484.3.579.2. 1954 Unknown [id number] 2.16.840.1.721841.3.579.2 1954 Unknown [id number] 2.16.840.1.186895.3.579.2. 1954 Unknown [id number] 2.16.840.1.654634.3.579.2 1954 Unknown [id number] 2.16.840.1.019256.3.579.2.754 1954 Unknown [id number] 2.16.840.1.102782.3.579.2.754 1954 Unknown [id number] 2.16.840.1.146112.3.579.2.754 Unknown [id number] 2.16.840.1.174629.3.249.13 Social History Date Type Detail Facility Start: 05-04-2017 End: 09-11-2021 Tobacco smoking status NHIS Never smoker [facility] Start: 1955 Sex Assigned At Not on file [facility] Work Phone: Start: 01-13-2017 End: 01-30-2017 Tobacco smoking status MEIS Unknown if ever smoked [facility] Work Phone: Start: 05-04-2017 End: 09-11-2021 Tobacco use and exposure Never used [facility] Start: 05-04-2017 End: 03-03-2024 Alcohol intake Current drinker of alcohol (finding) [facility] Start: 05-04-2017 Alcohol Comment 3 per week [facility] History of tobacco use Cigar Smoker [facility] Start: 03-15-2020 End: 10-12-2022 Alcohol intake [facility] Start: 12-13-2013 Tobacco Comment occsional ciga r years ago [facility] Start: 12-13-2013 Alcohol Comment occasional [facility] Exposure to SARS-CoV-2 (event) Unable to assess [facility] Start: 11-14-2021 End: 11-24-2021 Exposure to SARS-CoV-2 (event) Not sure [facility] Start: 04-07-2021 End: 10-12-2022 Tobacco use panel [facility] Gender identity Identifies as ma le gender (finding) [facility] Start: 07-23-2020 Alcohol Comment occasionally [facility] Phone: Start: 01-28-2024 *Tobacco [facility] Read-Only, Retired: Physical Abuse Denies [facility] (I/We) worried whether (my/our) food would run out before (I/we) got money to buy more. Never true [facility] Work Phone: At any time in the past 12 months, were you homeless or living in residential [including now]? No [facility] Work Phone: Sex Assigned At Male [facility] Work Phone: Start: 08-30-2020 Sexual Orientation Choose not to disclose [facility] NEGATED: Highlighted rowStart: 01-28-2024 Tobacco smoking status NHIS Never smoker [facility] NEGATED: Highlighted row Alcohol intake Alcohol Use Details [facility] Procedure Code Equipment Code Equipment Origin al Text Equipment Identifier Dates Icm Reveal Linq - [id number] FDA Start: 04-02-2017 System Assembly Machine Feeder Insertable Reveal Linq - [id number] Start: 01-07-2021 Clinical Notes 11-24-2021 to 02-28-2024 Marion Whitehead, PT - 02/28/2024 8:40 AM Tashi Gonsales, [employer]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 - 02/14/2024 8:40 AM Marion Lloyd, PT - 02/04/2024 9:00 AM EST Note Date & Type Note Facility 02-28-2024 History of Present illness Narrative Images from the original note were not included. [facility] Physical Therapy Outpatient Daily Note & Discharge Patient: Kana Hadley (69 y.o. male) Examination Date: 02/28/2024 : 1955 CSN: [id number] Insurance: Payor: MEDICARE / Plan: MEDICARE PART A AND B / Product Type: *No Product type* / - (Medicare) Secondary Insurance (if applicable): [place] Referring Physician: Julian Botello PA-C Wolf, Bradley M., PA-C PCP: Sandro Moreno DO Medical Diagnosis: M21.372 (ICD-10-CM) - Foot drop, left foot M17.12 (ICD-10-CM) - Unilateral primary osteoarthritis, left knee Treatment Diagnosis: M21.372 (ICD-10-CM) - Foot drop, left foot M17.12 (ICD-10-CM) - Unilateral primary osteoarthritis, left knee Episode Name: left foot drop, left knee OA PERTINENT MEDICAL HISTORY Past Medical History: Diagnosis Date A-fib (HCC) Atrial fibrillation (HCC) Diabetes mellitus (HCC) Gout Hypertension Sleep apnea MEDICATIONS Current Outpatient Medications: phentermine (ADIPEX-P) 37.5 MG tablet, Take 1 tablet by mouth every morning (before breakfast) for 90 days. Max Daily Amount: 37.5 mg, Disp: 30 tablet, Rfl: 2 ARTHRITIS PAIN RELIEVER 1 % GEL, Apply 1 g topically 4 times daily as needed for Pain, Disp: , Rfl: glimepiride (AMARYL) 2 MG tablet, Take 1 tablet by mouth daily, Disp: 90 tablet, Rfl: 3 oxyBUTYnin (DITROPAN) 5 MG tablet, Take 1 tablet by mouth daily, Disp: 90 tablet, Rfl: 1 sildenafil (REVATIO) 20 MG tablet, Take 1 tablet by mouth daily, Disp: , Rfl: doxycycline hyclate (VIBRA-TABS) 100 MG tablet, Take 1 tablet by mouth 2 times daily, Disp: , Rfl: Clobetasol Propionate 0.05 % SHAM, apply TO SCALP AND RUB IN WELL LEAVE 3-5 MINUTES BEFORE WASHING OUT, Disp: , Rfl: allopurinol (ZYLOPRIM) 300 MG tablet, Take 1 tablet by mouth daily, Disp: 90 tablet, Rfl: 1 tamsulosin (FLOMAX) 0.4 MG capsule, Take 1 capsule by mouth daily, Disp: 90 capsule, Rfl: 3 potassium chloride (KLOR-CON M) 20 MEQ extended release tablet, Take 1 tablet by mouth daily, Disp: , Rfl: atorvastatin (LIPITOR) 40 MG tablet, Take 1 tablet by mouth daily, Disp: , Rfl: losartan-hydroCHLOROthiazide (HYZAAR) 100-25 MG per tablet, Take 1 tablet by mouth daily, Disp: , Rfl: XARELTO 20 MG TABS tablet, Take 1 tablet by mouth daily, Disp: , Rfl: JANUVIA 50 MG tablet, Take 1 tablet by mouth daily, Disp: , Rfl: sotalol (BETAPACE) 160 MG tablet, Take 1 tablet by mouth 2 times daily, Disp: , Rfl: ALLERGIES Nitroglycerin, Penicillins, and Sulfamethoxazole-trimethoprim SUBJECTIVE EXAMINATION PT VISIT INFORMATION Onset Date: 02/04/24 Total # of Visits to Date: 9 Plan of Care/Certification Expiration Date: 03/03/24 Subjective Subjective: pt rpeorts the ankle is stiff but doing well, states Surgery on the ankle is scheduled for Mar 20. Pain Screening Patient Currently in Pain: Yes Pain Level: 2 Pain Type: Chronic pain Pain Location: Ankle Pain Orientation: Left Pain Descriptors: Aching;Dull OBJECTIVE EXAMINATION Strength LLE L Hip Flexion: 4/5 L Hip ABduction: 4/5 L Knee Extension: 4+/5 L Ankle Dorsiflexion: 5/5 (neutral/90 degrees with MMT) L Ankle Plantar Flexion: 4+/5 (bilateral toe raise 4+/5, single toe raise 4/5) L Ankle Inversion: 5/5 L Ankle Eversion: 4+/5 L Great Toe Extension: 5/5 AROM RLE (degrees) R Ankle Dorsiflexion (0-20): 2 R Ankle Plantar Flexion (0-45): 52 AROM LLE (degrees) L Knee Flexion (0-145): 120 L Knee Extension (0): 0 L Ankle Dorsiflexion (0-20): 0 L Ankle Plantar Flexion (0-45): 35 PHYSICAL THERAPY TREATMENT COMPLETED THERAPEUTIC EXERCISE Exercise 1: Nustep seat #12, L5 x 6 min Exercise 6: inv/ev x 15 Exercise 9: self PF stretch in sitting 3x 30sec Exercise 13: calf stretch wall 3x 30 sec Exercise 14: marching no UE x 20 Exercise 15: 3 way hip BF x15 Exercise 16: standing HR x 15, staggered left and right TR x 15 each Limitations addressed: Mobility;Pain modulation;Flexibility Therapist provided: Verbal cuing;Assistance THERAPEUTIC ACTIVITY Ther Act Exercise 1: SL shuttle press 2 x15 31#, katia HR/heel drop 31# x 15 Ther Act Exercise 2: step ups 6 inch with UE support x 10 each leg leading Ther Act Exercise 4: anterior small lunges, 1 UE support x 10 each ASSESSMENT Body Structures, Functions, Activity Limitations Requiring Skilled Therapeutic Intervention: Decreased functional mobility ;Decreased ADL status;Decreased body mechanics;Decreased ROM;Decreased tolerance to work activity;Decreased balance;Decreased endurance;Decreased strength;Decreased high-level IADLs;Decreased posture;Increased pain PT re-eval for end of POC completed this date. Pt has completed 9/12 visits per POC. Pt referred to PT wiht diagnosis of left foot/ankle pain, drop foot and left knee pain/OA. Based on re-eval of goals pt has demonstrated progress/improvement or met goals (see goal section) with PT intervention. Pt has had consult with surgeon regarding arthroscopic surgery left ankle and plans to proceed with this on 03-20-24 once all pre-op testing completed. Pt is also getting custom orthotics- will be picking up on 02-29-24. Pt has 2 more PT visits scheduled at this time. Per discussion with pt plan complete schedueld visits then discharge. HEP has been established for left ankle and knee and pt demonstrates compliance and ability to continue with HEP. 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 Clerk Goal 1: Pt report decrease anterior right ankle pain 0-2/10 to improve ankle ROM and actiivty tolerance LTG 1 Current Status:: 02-28-24: Pt reports pain 2-3/10 with daily activities: dull ache at all times Partially met Fpc Goal 2: Improve AROM left ankle DF 2-4 degrees and PF 50 degrees (within 2 degrees of right) to normalize gait and improve functional mobility 02-28-24: AROM left ankle 0-35 degrees Not Met (improved) Fpc Goal 3: Pt ambulate with improved heel to toe gait/normal gait pattern for ease with community ambulation 02-28-24: Pt demonstrated improved ankle DF ROM and strength to clear left foot/toes with ambulation and demonsrates improved heel to toe gait pattern. Mild antalgic gait due to ankle pain and stiffness. Partially met Fpc Goal 4: Improve left ankle DF 4+/5/5 to improve DF during gait 02-28-24: DF strength 5/5 at neutral/90 degrees and PF 5/5 with MMT and 4/5 with single toe raise Met TREATMENT PLAN 3 X 4 Current Treatment Recommendations: Strengthening;ROM;Functional mobility training;Balance training;Manual;Neuromuscular re-education;Stair training;Gait training;Endurance training;Pain management;Home exercise program;Positioning;Modalities;S afety education & training;Aquatics;Therapeutic activities Modalities: Heat/Cold;Ultrasound;E-stim - unattended;Vasopneumatic Device Additional Comments: 02-28-24: pt to finish last 2 scheduled appointments and D/C per re-eval completed today Specific Instructions for Next Treatment progress with left knee and ankle strengthening exercises, modalities and manual as indicated OUTCOME MEASURES LOWER EXTREMITY FUNCTIONAL SCALE Any of your usual work, housework, or school activities: Moderate Difficulty Your usual hobbies, recreational, or sporting activities: Moderate Difficulty Getting into or out of the bath: A Little Bit of Difficulty Walking between rooms: A Little Bit of Difficulty Putting on your shoes or socks: A Little Bit of Difficulty Squatting: Moderate Difficulty Lifting an object, like a bag of groceries from the floor: A Little Bit of Difficulty Performing light activities around your home: A Little Bit of Difficulty Performing heavy activities around your home: Moderate Difficulty Getting into or out of a car: Moderate Difficulty Walking 2 blocks: Moderate Difficulty Walking a mile: Quite a Bit of Difficulty Going up or down 10 stairs (about 1 flight of stairs): Moderate Difficulty Standing for 1 hour: Quite a Bit of Difficulty Sitting for 1 hour: A Little Bit of Difficulty Running on even ground : Quite a Bit of Difficulty Running on uneven ground : Quite a Bit of Difficulty Making sharp turns while running fast : Quite a Bit of Difficulty Hopping: Quite a Bit of Difficulty Rolling over in bed: Moderate Difficulty LEFS Total Score: 40 THERAPY TIME/CHARGES Time In 0820 Time Out 0916 Minutes 56 Charges Units Minutes Re-Evaluation 1 18 PT Vasopneumatic Device Manual Therapy Therapeutic Exercise 3 38 CARBON COATER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 Neuro Re-education Electrical Stimulation, Unattended Mechanical Traction Iontophoresis Ultrasound Therapeutic Activity IDN Gait Training Aquatics Moist Hot Pack Cold Pack Electronically signed by: Tashi Wang, CARBON COATER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 [id number] [address] Whitehead [place] [id number] If you have any questions or concerns, please don't hesitate to call. Thank you for your referral. Physician Signature: Date: _ By signing above, therapist's plan is approved by physician documented in this encounter [facility] Work Phone: 02-14-2024 History of Present illness Narrative Images from the original note were not included. [facility] PHYSICAL THERAPY Physical Therapy Outpatient Daily Note Patient: Kana Hadley (68 y.o. male) Examination Date: 02/14/2024 : 1955 CSN: [id number] Insurance: Payor: MEDICARE / Plan: MEDICARE PART A AND B / Product Type: *No Product type* / - (Medicare) Secondary Insurance (if applicable): Referring Physician: Julian Botello PA-C Wolf, Bradley M., PA-C PCP: Sandro Moreno DO Medical Diagnosis: M21.372 (ICD-10-CM) - Foot drop, left foot M17.12 (ICD-10-CM) - Unilateral primary osteoarthritis, left knee Treatment Diagnosis: M21.372 (ICD-10-CM) - Foot drop, left foot M17.12 (ICD-10-CM) - Unilateral primary osteoarthritis, left knee Episode Name: left foot drop, left knee OA SUBJECTIVE EXAMINATION PT VISIT INFORMATION Onset Date: 02/04/24 Total # of Visits to Date: 4 Plan of Care/Certification Expiration Date: 03/03/24 NOTE COUNTER 05/20 Subjective: pt rpeorts the foot has felt better since he as been keeping it moving, even when sitting for prolonged periods of time he performing AROM ex's which seems to help reduce stiffness and pain. Pain Screening Patient Currently in Pain: Yes Pain Level: 3 Pain Type: Chronic pain Pain Location: Ankle;Foot Pain Orientation: Right Pain Descriptors: Tightness;Aching OBJECTIVE EXAMINATION PHYSICAL THERAPY TREATMENT COMPLETED THERAPEUTIC EXERCISE Exercise 1: Nustep L5 x 10 min Exercise 5: ankle circles 15x ea way Exercise 6: 4 way ankle x 15 Exercise 7: rocker board 2 min for/back, 3x 30 sec DF stretch Exercise 8: gastroc/soleus stretch with towel 3x 30 sec each Exercise 9: self PF stretch in sitting 3x 30sec Exercise 10: seated HR 2x15 Exercise 11: seated TR 2x15 Exercise 12: SL shuttle press 3x10 31# Exercise 13: calf stretch wall 3x 20 sec Exercise 14: marching on BF x 15 Limitations addressed: Mobility;Pain modulation;Flexibility Therapist provided: Verbal cuing;Assistance ASSESSMENT Body Structures, Functions, Activity Limitations Requiring Skilled Therapeutic Intervention: Decreased functional mobility ;Decreased ADL status;Decreased body mechanics;Decreased ROM;Decreased tolerance to work activity;Decreased balance;Decreased endurance;Decreased strength;Decreased high-level IADLs;Decreased posture;Increased pain progressing well, pt ntoed AROM ex's seem to help in keeping the paindiscomfort manageable throughout the day. Added foam activity today to increase ankle stability, minimal ankle strategy noted when standing on LLE. GOALS Patient Goals : decrease ankle pain SHORT TERM GOALS Completed by Time Frame for Short Term Goals: 2 weeks CURRENT STATUS GOAL STATUS Short Term Goal 1: Pt independent and compliant with issued HEP to improve left ankle/knee ROM and strength 02-14-24 compliance noted In progress Short Term Goal 2: Improve AROM left ankle DF 0 and PF 40 degrees to normalize gait pattern 02-08-24 stretching performed to improve ROM In progress SHELTER GOALS Completed by Time Frame for Dividend Deposit Voucher Clerk Goals : 4 weeks CURRENT STATUS GOAL STATUS Dividend Deposit Voucher Clerk Goal 1: Pt report decrease anterior right ankle pain 0-2/10 to improve ankle ROM and actiivty tolerance 02-14-2404/17 In progress Dividend Deposit Voucher Clerk Goal 2: Improve AROM left ankle DF 2-4 degrees and PF 50 degrees (within 2 degrees of right) to normalize gait and improve functional mobility In progress Dividend Deposit Voucher Clerk Goal 3: Pt ambulate with improved heel to toe gait/normal gait pattern for ease with community ambulation In progress Fpc Goal 4: Improve left ankle DF 4+/5/5 to improve DF during gait In progress TREATMENT PLAN Plan Frequency: 3 Plan weeks: 4 Specific Instructions for Next Treatment: progress with left knee and ankle strengthening exercises, modalities and manual as indicated THERAPY TIME/CHARGES Time In 0835 Time Out 0915 Minutes 40 Charges Units Minutes Vasopneumatic Device Manual Therapy Therapeutic Exercise 3 40 Neuro Re-education Electrical Stimulation, Unattended Mechanical Traction Iontophoresis Ultrasound Therapeutic Activity IDN Gait Training Aquatics Moist Hot Pack Cold Pack Tashi Wang, [employer] COATER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 [id number] documented in this encounter [facility] Work Phone: 02-04-2024 History of Present illness Narrative Images from the original note were not included. [facility] PHYSICAL THERAPY Physical Therapy Outpatient Orthopaedic Evaluation Patient: Kana Hadley (68 y.o. male) Examination Date: 02/04/2024 : 1955 CSN: [id number] Insurance: Payor: MEDICARE / Plan: MEDICARE PART A AND B / Product Type: *No Product type* / - (Medicare) Secondary Insurance (if applicable): Referring Physician: Julian Botello PA-C Wolf, Bradley M., PA-C PCP: Sandro Moreno DO MEDICAL DIAGNOSIS: M21.372 (ICD-10-CM) - Foot drop, left foot M17.12 (ICD-10-CM) - Unilateral primary osteoarthritis, left knee TREATMENT DIAGNOSIS: M21.372 (ICD-10-CM) - Foot drop, left foot M17.12 (ICD-10-CM) - Unilateral primary osteoarthritis, left knee PERTINENT MEDICAL HISTORY Past Medical History: Diagnosis Date A-fib (HCC) Atrial fibrillation (HCC) Diabetes mellitus (HCC) Gout Hypertension Sleep apnea MEDICATIONS Current Outpatient Medications: phentermine (ADIPEX-P) 37.5 MG tablet, Take 1 tablet by mouth every morning (before breakfast) for 90 days. Max Daily Amount: 37.5 mg, Disp: 30 tablet, Rfl: 2 ARTHRITIS PAIN RELIEVER 1 % GEL, Apply 1 g topically 4 times daily as needed for Pain, Disp: , Rfl: glimepiride (AMARYL) 2 MG tablet, Take 1 tablet by mouth daily, Disp: 90 tablet, Rfl: 3 oxyBUTYnin (DITROPAN) 5 MG tablet, Take 1 tablet by mouth daily, Disp: 90 tablet, Rfl: 1 sildenafil (REVATIO) 20 MG tablet, Take 1 tablet by mouth daily, Disp: , Rfl: doxycycline hyclate (VIBRA-TABS) 100 MG tablet, Take 1 tablet by mouth 2 times daily, Disp: , Rfl: Clobetasol Propionate 0.05 % SHAM, apply TO SCALP AND RUB IN WELL LEAVE 3-5 MINUTES BEFORE WASHING OUT, Disp: , Rfl: allopurinol (ZYLOPRIM) 300 MG tablet, Take 1 tablet by mouth daily, Disp: 90 tablet, Rfl: 1 tamsulosin (FLOMAX) 0.4 MG capsule, Take 1 capsule by mouth daily, Disp: 90 capsule, Rfl: 3 potassium chloride (KLOR-CON M) 20 MEQ extended release tablet, Take 1 tablet by mouth daily, Disp: , Rfl: atorvastatin (LIPITOR) 40 MG tablet, Take 1 tablet by mouth daily, Disp: , Rfl: losartan-hydroCHLOROthiazide (HYZAAR) 100-25 MG per tablet, Take 1 tablet by mouth daily, Disp: , Rfl: XARELTO 20 MG TABS tablet, Take 1 tablet by mouth daily, Disp: , Rfl: JANUVIA 50 MG tablet, Take 1 tablet by mouth daily, Disp: , Rfl: sotalol (BETAPACE) 160 MG tablet, Take 1 tablet by mouth 2 times daily, Disp: , Rfl: ALLERGIES Nitroglycerin, Penicillins, and Sulfamethoxazole-trimethoprim SUBJECTIVE EXAMINATION PT VISIT INFORMATION Onset Date: 02/04/24 Total # of Visits to Date: 1 Plan of Care/Certification Expiration Date: 03/03/24 NOTE COUNTER 02/19 ADDITIONAL PERTINENT HISTORY JOINT REPLACEMENT Right partial kneeDiabetes mellitus (HCC) Hypertension A-fib (HCC) Atrial fibrillation (HCC) Gout Patient Reported Sleep apnea History obtained from:: Patient;Chart Review Family/Caregiver Present: No Does the patient/guardian have any barriers to learning?: No barriers Will there be a co-learner?: No What is the preferred language of the patient/guardian?: Irish Is an mat sewer required?: No Chart Reviewed: Yes Patient Assessed for Rehabilitation Services: Yes DIAGNOSIS M21.372 (ICD-10-CM) - Foot drop, left foot M17.12 (ICD-10-CM) - Unilateral primary osteoarthritis, left knee REFERRING PROVIDER Julian Botello PA-C SUBJECTIVE Pt reports left knee pain onset aprox 1 year ago and recently had cortisone shot 2 weeks ago which helped. States recent x-ray bone on bone. Pt reports he saw Dr Solo in [place] and had injections to bilateral heels 3 weeks ago. Also measeured for new orthotics at Dr Jo office and to get these soon. Pt reports he got custom AFO for left drop foot 1 year ago and he did not like so does not use. Consult with ortho at [facility] aprox 6 mo ago and told he had significant arthritis in ankle and needs a scope to clean out arthritis. Got cortisone shot in ankle at that time and this helped but has worn off. Pt has not yet proceeded with this and plans to contact surgeon in the near future regarding this. Pt reports pain mainly anterior ankle 9-11/17. Also gets some arch pain and states he has plantar fasciitis. Pt is not currenlty wearing inserts until he gets his new ones. Occasionally gets leg cramps. Difficutly getting in/out car due to difficulty bending knee and ankle. 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 Any changes to allergies, medications, or have you had any medical procedures/ER visits since your last visit?: No Previous treatments prior to current episode?: Outpatient PT (03-30-23: left ankle) Pain Screening Patient Currently in Pain: Yes Pain Assessment: 0-10 Pain Level: 4 Pain Type: Chronic pain Pain Location: Ankle Pain Orientation: Anterior Pain Descriptors: Aching OBJECTIVE EXAMINATION SENSATION Overall Sensation Status: WNL OBSERVATION Description: mild pronation bilateral ankles, moderate tenderness with palpation left anterior ankle at joint line, negative edema noted AMBULATION Ambulation Surface: Carpet Device: No Device Assistance: Independent Quality of Gait: limited DF left ankle with decreased heel strike/toe off, mild pronation bilateral ankles TRANSFERS Sit to Stand: Independent Stand to Sit: Independent Car Transfer: Independent KNEE ASSESSMENT Strength Testing (MMT) R Ankle Dorsiflexion: 5/5 L Hip Flexion: 4/5 L Hip ABduction: 4/5 L Knee Flexion: 4+/5 L Knee Extension: 4+/5 L Ankle Dorsiflexion: 4-/5 AROM Knee (Degrees) L Knee Flexion (0-145): 118 L Knee Extension (0): 0 FOOT/ANKLE ASSESSMENT AROM Ankle (Degrees) R Ankle Dorsiflexion (0-20): 2 R Ankle Plantar Flexion (0-45): 52 R Ankle Forefoot Inversion (0-40): 22 R Ankle Forefoot Eversion (0-20): 20 L Ankle Dorsiflexion (0-20): -4 L Ankle Plantar Flexion (0-45): 35 L Ankle Forefoot Inversion (0-40): 8 L Ankle Forefoot Eversion (0-20): 15 Ankle Strength Testing (MMT) R Ankle Dorsiflexion: 5/5 R Ankle Plantar flexion: 4/5 (bilateral toe raise 4/5, single toe raise 3+/5) R Ankle Inversion: 5/5 R Ankle Eversion: 5/5 R Great Toe Extension: 5/5 L Ankle Dorsiflexion: 4-/5 L Ankle Plantar Flexion: 4/5 (bilateral toe raise 4/5, single toe raise 3+/5) L Ankle Inversion: 5/5 L Ankle Eversion: 4+/5 L Great Toe Extension: 5/5 PHYSICAL THERAPY TREATMENT COMPLETED THERAPEUTIC EXERCISE Therapeutic exercise to increase left LE strength and decrease tightness for improved functional strength and mobility. Exercise 1: AROM DF/PF, INV/EV 10x ea Exercise 2: QS 15x left Exercise 3: SLR 10x left Exercise 4: LAQ 10x left Exercise 5: ankle circles 10x e[address] way Exercise 6: calf stretch wall 3x 20 sec Exercise 7: rocker board 10x for/back, 3x 20 sec DF stretch Exercise 8: DF stretch with towel 2x 20 sec Exercise 9: self PF stretch in sitting 3x 20sec Limitations addressed: Mobility;Pain modulation;Flexibility Therapist provided: Verbal cuing;Assistance Functional ability(s) targeted: Tolerance to age appropriate activities;Ambulating community distances ASSESSMENT Conditions Requiring Skilled Therapeutic Intervention Body Structures, Functions, Activity Limitations Requiring Skilled Therapeutic Intervention: Decreased functional mobility ;Decreased ADL status;Decreased body mechanics;Decreased ROM;Decreased tolerance to work activity;Decreased balance;Decreased endurance;Decreased strength;Decreased high-level IADLs;Decreased posture;Increased pain Assessment: 68 yo male referred to PT with diagnosis of left foot drop and left knee OA. Referral notes: increase flexion/extension, routine knee exercises left LE, left ankle DF. Based on PT eval pt presents with decreased ROM and strength left ankle, abnormal gait and impaired functional mobilty. Decreased left knee pain and imprved mobility per pt report after recent cortisone injeciton aprox 3 weeks ago. Pt requires skilled PT interventions to improve his ability to complete ADLs including standing/walking activity, normalize gait pattern and imrpove acitivity tolerance. Treatment Diagnosis: M21.372 (ICD-10-CM) - Foot drop, left foot M17.12 (ICD-10-CM) - Unilateral primary osteoarthritis, left knee Therapy Prognosis: Good Decision Making: Medium Complexity History: Personal Factors and/or Comorbidities Impacting POC: Medium History: see chart for pertinent PMH Examination of body system(s) including body structures and functions, activity limitations, and/or participation restrictions: Medium Exam: ROM, strength, posture, gait , palpation, balance, edema, step ambulation, functional mobility. special testing: TUG, FGA, 5x sit to stand, 30 sec sit to stand , TInetti gait/balance Clinical Presentation: evolving Clinical Decision Making : Medium Complexity Overall Evaluation : Medium Barriers impacting rehab : Medical co-morbidities Requires PT Follow-Up: Yes Treatment Initiated : Ther-ex as charted PT Education: Goals;PT Role;Plan of Care;Evaluative findings;Home Exercise Program Barriers impacting rehab : Medical co-morbidities STATEMENT OF MEDICAL NECESSITY Physical Therapy is both indicated and medically necessary as outlined in the POC to increase the likelihood of meeting the functionally related goals stated below. PATIENT'S REHABILITATION POTENTIAL/PROGNOSIS Good FACTORS WHICH MAY IMPACT REHABILITATION POTENTIAL Medical co-morbidities GOALS Patient Goals : decrease ankle pain SHORT TERM GOALS Completed by Time Frame for Short Term Goals: 2 weeks CURRENT STATUS GOAL STATUS Short Term Goal 1: Pt independent and compliant with issued HEP to improve left ankle/knee ROM and strength STG Goal 1 Status:: New Short Term Goal 2: Improve AROM left ankle DF 0 and PF 40 degrees to normalize gait pattern STG Goal 2 Status:: New SHELTER GOALS Completed by Time Frame for Fpc Goals : 4 weeks CURRENT STATUS GOAL STATUS Dividend Deposit 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 Clerk Goal 1: Pt report decrease anterior right ankle pain 0-2/10 to improve ankle ROM and actiivty tolerance LTG Goal 1 Status:: New Fpc Goal 2: Improve AROM left ankle DF 2-4 degrees and PF 50 degrees (within 2 degrees of right) to normalize gait and improve functional mobility LTG Goal 2 Status:: New Dividend Deposit Voucher Clerk Goal 3: Pt ambulate with improved heel to toe gait/normal gait pattern for ease with community ambulation LTG Goal 3 Status:: New Fpc Goal 4: Improve left ankle DF 4+/5/5 to improve DF during gait LTG Goal 4 Status:: New TREATMENT PLAN 3 X 4 Current Treatment Recommendations: Strengthening;ROM;Functional mobility training;Balance training;Manual;Neuromuscular re-education;Stair training;Gait training;Endurance training;Pain management;Home exercise program;Positioning;Modalities;S afety education & training;Aquatics;Therapeutic activities Modalities: Heat/Cold;Ultrasound;E-stim - unattended;Vasopneumatic Device Specific Instructions for Next Treatment issue HEP, progress with left knee and ankle strengthening exercises, modalities and manual as indicated PATIENT ACTIVELY INVOLVED IN ESTABLISHING PLAN OF CARE AND GOALS Yes PATIENT/CAREGIVER EDUCATION AND INSTRUCTION Goals;PT Role;Plan of Care;Evaluative findings;Home Exercise Program TREATMENT MAY INCLUDE ANY COMBINATION OF THE FOLLOWING Strengthening;ROM;Functional mobility training;Balance training;Manual;Neuromuscular re-education;Stair training;Gait training;Endurance training;Pain management;Home exercise program;Positioning;Modalities;S afety education & training;Aquatics;Therapeutic activities OUTCOME MEASURES LOWER EXTREMITY FUNCTIONAL SCALE Any of your usual work, housework, or school activities: Moderate Difficulty Your usual hobbies, recreational, or sporting activities: Moderate Difficulty Getting into or out of the bath: A Little Bit of Difficulty Walking between rooms: Moderate Difficulty Putting on your shoes or socks: Moderate Difficulty Squatting: Quite a Bit of Difficulty Lifting an object, like a bag of groceries from the floor: A Little Bit of Difficulty Performing light activities around your home: Moderate Difficulty Performing heavy activities around your home: Quite a Bit of Difficulty Getting into or out of a car: Quite a Bit of Difficulty Walking 2 blocks: Moderate Difficulty Walking a mile: Quite a Bit of Difficulty Going up or down 10 stairs (about 1 flight of stairs): Moderate Difficulty Standing for 1 hour: Quite a Bit of Difficulty Sitting for 1 hour: A Little Bit of Difficulty Running on even ground : Moderate Difficulty Running on uneven ground : Quite a Bit of Difficulty Making sharp turns while running fast : Quite a Bit of Difficulty Hopping: Quite a Bit of Difficulty Rolling over in bed: Moderate Difficulty LEFS Total Score: 35 THERAPY TIME/CHARGES Time In 0900 Time Out 0950 Minutes 50 Charges Units Minutes Low Complexity Evaluation Moderate Complexity Evaluation 1 25 High Complexity Evaluation Vasopneumatic Device Manual Therapy Therapeutic Exercise 2 25 Neuro Re-education Electrical Stimulation, Unattended Mechanical Traction Iontophoresis Ultrasound Therapeutic Activity IDN Gait Training Moist Hot Pack Cold Pack Electronically signed by: Marion Whitehead, [id number] If you have any questions or concerns, please don't hesitate to call. Thank you for your referral. Physician Signature: Date: _ By signing above, therapist's plan is approved by physician documented in this encounter [facility] Work Phone: 02-03-2024 Evaluation note Type assessment assessment assessment assessment assessment [facility] Work Phone: 1(811) 696-446412-20-2024 History of Present illness Narrative* Encounter Date Complaint History Of Prese nt Illness New patient Left Knee/Left Hip [age] year old male presents to the office for left knee and left hip evaluation. They present to the office complaining of intermittent left knee and left hip pain. They state the pain has been present for at least a year however, the pain has increased over the last few months and is impeding their ability to perform their activities of daily life and is impacting their quality of life. They complain of increased pain with standing/walking long distance. They describe the pain as stabbing sensation. They describe the pain as mild with radiation down to the foot, located medial left knee and rate the pain 10/10. They have some hip pain, although no radiation into the groin. They state that standing/walking makes the pain worse. The patient also states that sitting helps relieve some of the pain. They state that they have been diagnosed by Dr. Martín Benitez, Orthopedic in [place], [place] with a foot drop and has been ordered an AFO brace, that he is not currently wearing. He states that he has also been having problems with his ankle, that causes referred hip pain at times. In the past, they have been treated with Tylenol/Voltaren gel/Cortisone injection which provided some relief initially. He has a history of Right knee unicompartmental arthroplasty done by Dr. Carmona in 2018. He currently denies any chest pain, shortness of breath, numbness/tingling or calf tenderness. They have a PMH of DM last A1C 6.1, atrial fibrillation on xarelto, Sleep apnea (on CPAP), HTN, GERD, palpitations, HLD. They have the following allergies: PCN, NTG. They deny any GLP-1 or GLP-1 agonist. [facility] Work Phone: [phone] 836-696509-27-2024 History of Present illness Narrative* Aminata Luu RN - 11/05/2023 9:30 AM EDT Patient Education Patient education regarding the following topic(s) was provided on 11/05/2023: diagnostic tesing (labs). Those in attendance for the education included: patient and spouse. Barriers in providing the education included: none. The following methods were used in providing the education: explanation and handout. OSUM handoutsgiven included: After visit summary and labs and med mgt . The response of those in attendance was: applies knowledge and states/identifies education topic. The following Clinical Intervention(s) occurred during today s visit: Extensive teaching provided to patient and or support team regarding labs and med mgt * Claude Amos MD - 11/05/2023 9:30 AM EDT It was my pleasure to see Kana Hadley for follow-up on 11/05/2023. He presents with a history of atrial fibrillation, atrial flutter, NSVT, hypertension, hyperlipidemia, morbid obesity, NILESH using CPAP, GERD, gout, and BPH. His NSVT was initially found during a stress test and an ILR was placed. The ILR found episodes of atrial fibrillation and he underwent a left atrial ablation (WACA for PVI) in 2020. His sotalol was stopped after his procedure but he did have reoccurrence so the medication was restarted. Today his ILR shows an episode of sinus rhythm with PACs but no further atrial arrhythmia episodes since last fall. He is on Xarelto due to his CHADS-VASc score of 2. He has had modest we ight loss of 11 lbs since last year. BP 119/56 mm Hg (BP Location: Left arm, BP Position: Sitting) Pulse 64 Resp 18 Ht 1.803 m (5'11 ) Wt 125.6 kg (277 lb) SpO2 96% BMI 38.63 kg/m Smoking Status Never ECG today: Sinus bradycardia (QT/QTc 468/459ms) Nuclear stress testing 08/30: No evidence of ischemia. LVEF normal ILR remote interrogations over the past year were reviewed today: This represents a session summary from 07/15/23 to 10/29/23 The presenting rhythm is consistent with sinus arrhythmia. There have been no events triggered by the patient or auto-saved by the device since the last evaluation. Battery status remains good. This represents a session summary from 14-Apr-2023 to 15-Jul-2023 . Presenting rhythm is sinus bradycardia/rhythm. Battery: OK. There were 0 reported symptomatic patient activations. Since 14-Apr-2023, there were 4 AF episodes detected, 0.1% AF burden. No true AF noted. A review ofavailable ECGs (4 of 4) shows sinus with PACs and artifact. This represents a session summary [id number] to 14-Apr-2023 The presenting rhythm is consistent with sinus arrhythmia. There have been no events triggered by the patient or auto-saved by the device since the last evaluation. Battery status remains good. This represents a session summary from 04-Nov-2022 to 01-Feb-2023 . Presenting rhythm is sinus rhythm. Battery: OK. There were 0 reported symptomatic patient activations. Since 11.04.22, there were 200 AF episodes detected, 4.5% AF burden (avg. V rate ~70 bpm). A review of available ECGs (3 of 200) shows AFL with baseline artifact, cannot completely rule out sinus with PACs d/t artifact. The longest episode lasted 4 hours, 46 minutes on 12.08.22. The most recent episode lasted 1 hour, 12 minutes on 12.15.22. Pt prescribed Xarelto and Sotalol. ASSESSMENT/PLAN: From an arrhythmia standpoint Mr. Hadley is doing well with limited AF following AF ablation and marked improvement after restarting sotalol. He will continue on his current medications and have lab work today. Follow up in six months for sotalol surveillance. Once again, it was my pleasure to participate in the care of your patient Kana Hadley. Please feel free to contact me if any questions or problems arise. Sincerely, Claude Amos M.D., [facility], [facility] Margie Yousif Chair in Cardiac Electrophysiology Professor of Internal Medicine [facility] [email or web address] ph [phone] fax [phone] Chief Complaint Patient presents with Follow-up Past Medical History: Diagnosis Date Arrhythmia Diabetes mellitus Family history of premature coronary artery disease GERD (gastroesophageal reflux disease) Hyperlipidemia Hypertension NSVT (nonsustained ventricular tachycardia) ILR 01/2014 Palpitations Paroxysmal ventricular tachycardia Sleep apnea cpap averages 6 hours nightly Past Surgical History: Procedure Laterality Date EGD DIAGNOSTIC N/A 01/08/2021 Laterality: N/A; Surgeon: Sonia Knox MD; Location: [facility] ENDOSCOPY LOOP RECORDER IMPLANTATION 01/15/2014 Surgeon: Claude Amos MD; Location: [facility] ECHOCARDIOGRAM TREADMILL STRESS TEST 12/01/13 [facility] MYOCARDIAL PERFUSION NM 12/01/13 [facility] ECHOCARDIOGRAM (OUTSIDE) 11/30/13 [facility] HOLTER MONITOR (OUTSIDE) 11/29/13 CARDIAC CATH (OUTSIDE) 08/04/00 [facility] APPENDECTOMY KNEE SURGERY Right Family History Problem Relation Age of Onset Diabetes Mother Cancer- Other Mother stomach Heart Disease - Other Mother Dysrhythmia Mother pacer Myocardial Infarction Father 42 Diabetes Father Current Outpatient Medications Medication Sig Rivaroxaban (Xarelto) 20 MG tablet Take 1 tablet by mouth daily with dinner. sotalol 160 MG tablet Take 1 tablet by mouth every 12 hours. allopurinol 300 MG Tab Take 1 tablet by mouth daily. Atorvastatin 40 MG tablet Take 1 tablet by mouth daily. gliMEPIride 2 MG tablet Take 1 tablet by mouth daily every morning. losartan-hydrochlorothiazide 100-25 MG tablet Take 1 tablet by mouth daily. Oxybutynin 5 MG tablet Take 1 tablet by mouth daily. Potassium chloride 20 MEQ Tab CR tablet Take 1 tablet by mouth daily. SITagliptin 50 MG tablet Take 1 tablet by mouth daily. Tadalafil (CIALIS PO) take by mouth as needed. Tamsulosin HCl 0.4 MG capsule Take 1 capsule by mouth daily. Review of Systems - General ROS: negative for - chills, fatigue or fever Psychological ROS: negative for - anxiety or depression ENT ROS: negative for - headaches or sore throat Endocrine ROS: negative for - malaise/lethargy Respiratory ROS: no cough, shortness of breath, or wheezing Cardiovascular ROS: no chest pain or dyspnea on exertion Gastrointestinal ROS: negative for - abdominal pain or nausea/vomiting Musculoskeletal ROS: negative for - muscular weakness Neurological ROS: no TIA or stroke symptoms Dermatological ROS: negative for - rash Physical Exam BP 119/56 (BP Location: Right arm, BP Position: Sitting) Pulse 60 Resp 18 Ht 1.803 m (5' 11 ) Wt 125.6 kg (277 lb) BMI 38.63 kg/m Smoking Status Never General appearance: alert, cooperative, appears stated age Head: Normocephalic, without obvious abnormality, atraumatic Eyes: conjunctivae/corneas clear. EOM's intact. Nose: Nares normal. Mucosa normal. Neck: supple, symmetrical, trachea midline, no adenopathy, thyroid: not enlarged, symmetric, no tenderness/mass/nodules, no carotid bruit and no JVD Lungs: clear to auscultation bilaterally Heart: regular rate and rhythm, S1, S2 normal, no murmur, click, rub or gallop Abdomen: soft, non-tender. Bowel sounds normal. No masses, no organomegaly Extremities: extremities normal, atraumatic, no cyanosis or edema Pulses: 2+ and symmetric Skin: Skin color, texture, turgor normal. No rashes or lesions. Neurologic: Grossly normal documented in this encounterMer[facility]09-27-2024 Instructions* Patient Instructions* Aminata Luu RN - 11/05/2023 9:30 AM EDT Continue current medications\ Continue sotalol, need labs if not completed. Rx to pt. Follow-up appointment may be scheduled/determined in 6 months and one year Thank you for choosing [facility] for your Heart Care. Smallable is an available tool to securely access your online medical information. Please ask to enroll during any [facility] appointment. Once enrolled, your MD reviewed test results will be available for you to review at your convenience. [employer]ars messaging is reserved for non urgent messages and responses may take a few days. Call the [facility] at [phone] option 6, option 3 for urgent EP questions/concerns M-F 8 to 4:00 Call Scheduling for any appointment/procedure verification or changes [phone] If we are sending you an Event monitor and you have not received it when expected, please call the office. For any questions/problems with your monitor please call [employer] at [phone]. [facility] testing and procedure patient Instructions may be obtained at: [email or web address] Insurance Concerns: [email or web address] documented in this encounterOSU [facility] Telephone encounter Note* Telephone Encounter - Columba Cameron RN - 09/20/2023 11:51 AM EDT Images from the original note were not included. Claude Amos MD You56 minutes ago (10:54 AM) He has not had any AF on ILR so ok to hold both Xarelto and lipitor while on Paxlovid for 5 days. Thanks, Claude Spoke with patient and relayed above message. Pt agreeable. He also asked about sotalol. Explained that he should ask PCP if there is a DDI with Paxlovid and let us know before stopping any other medications. [facility]08-12-2024 Miscellaneous Notes* Telephone Encounter - Columba Cameron RN - 09/20/2023 11:51 AM EDT Images from the original note were not included. Claude Amos MD You56 minutes ago (10:54 AM) He has not had any AF on ILR so ok to hold both Xarelto and lipitor while on Paxlovid for 5 days. Thanks, Claude Spoke with patient and relayed above message. Pt agreeable. He also asked about sotalol. Explained that he should ask PCP if there is a DDI with Paxlovid and let us know before stopping any other medications. * Telephone Encounter - Columba Cameron RN - 09/20/2023 8:24 AM EDT Patient calls in and reports he tested positive for Covid on Wednesday. He is having multiple cold symptoms. His PCP, Dr. Moreno, wants him to start Paxlovid but wanted to have him check with us to make surehe could discontinue Xarelto and Lipitor while on the medication. Pt is unsure of duration but reports his was given 5 days with her Covid infection. Routed to Kalie Webber RN, and EP [facility] [employer]. documented in this encounterOS[facility] Telephone encounter Note* Telephone Encounter - Columba Cameron RN - 09/20/2023 8:24 AM EDT Patient calls in and reports he tested positive for Covid on Wednesday. He is having multiple cold symptoms. His PCP, Dr. Moreno, wants him to start Paxlovid but wanted to have him check with us to make surehe could discontinue Xarelto and Lipitor while on the medication. Pt is unsure of duration but reports his was given 5 days with her Covid infection. Routed to Kalie Webber, RN, and EP [employer]. [facility]02-29-2024 History of Present illness Narrative* Marion Whitehead, PT - 04/08/2023 8:00 AM EST Images from the original note were not included. [facility] PHYSICAL THERAPY Physical Therapy Outpatient Daily Note Patient: Kana Hadley (68 y.o. male) Examination Date: 04/08/2023 : 1955 CSN: [id number] Insurance: Payor: MEDICARE / Plan: MEDICARE PART A AND B / Product Type: *No Product type* / - (Medicare) Secondary Insurance (if applicable): BCBS Referring Physician: Letty Guevara DPM [place] PCP: Sandro Moreno DO MEDICAL DIAGNOSIS: M25.872 (ICD-10-CM) - Impingement of left ankle joint M19.072 (ICD-10-CM) - Degenerative joint disease of left midfoot TREATMENT DIAGNOSIS: M25.872 (ICD-10-CM) - Impingement of left ankle joint M19.072 (ICD-10-CM) - Degenerative joint disease of left midfoot SUBJECTIVE EXAMINATION PT VISIT INFORMATION Total # of Visits Approved: 12 Total # of Visits to Date: 4 POC 2x6 SUBJECTIVE Pt rating pain 1-2/10 in the ankle. States yesterday his arch/bootom pf foot felt tight but feel okrigh tnow. Pt reports compliance with HEP and states he built his own rocker board for home use Pain Screening Pain Level: 2 Pain Location: Ankle Pain Orientation: Left Pain Descriptors: Aching OBJECTIVE EXAMINATION PHYSICAL THERAPY TREATMENT COMPLETED THERAPEUTIC EXERCISE Therapeutic exercise to increase left ankle strength/stability, proprioception and ROM. Decrease plantar fascia tightness for improved functional strength and mobility. Limitations addressed: Mobility;Strength;Flexibility;Pain modulation Therapist provided: Assistance;Verbal cuing Progressed: Complexity of movement;Resistance Functional ability(s) targeted: Ambulating community distances;Tolerance to age appropriate activities Exercise CPTs: Therapeutic exercise (CPT 98983) Exercise 1: seated EOB ankle circles 2x 10 CW/CCW (cues for slow max ROM) Exercise 2: AROM PF/DF and INV/EV 10x Exercise 3: standing gastroc stretch wall support 3x 20 sec Exercise 6: seated arch lifts 2x10 Exercise 7: 4way ankle with t-band blue 10x Exercise 8: toe raises 1x 10, 2x10 with tennis ball between heels Exercise 9: rocker board 2 min DF/PF 3 sec hold at end ranges, INV/EVR 2 min Exercise 12: PF stretch edge of step 3x 20 sec Exercise 13: SLS 5x 10 sec VASOPNEUMATIC DEVICE Patient Position: Seated Vasopneumatic Specified Location: left ankle heat 10 min with L1 compression prior to exercise to warm up tissue and decrease pain Post treatment skin assessment: Intact Limitations addressed: Tissue extensibility;Joint mobility (warm tiisue prior to exercise) ASSESSMENT Body Structures, Functions, Activity Limitations Requiring Skilled Therapeutic Intervention: Decreased functional mobility ;Decreased ADL status;Decreased ROM;Decreased body mechanics;Decreased strength;Decreased endurance;Decreased balance;Increased pain;Decreased posture Pt repoorting good compliance with HEP and noting overall decrease in pain and tightness ankle and plantar fascia. Added PF stretch edge of step, SLS, toe raises with tennis ball to improve strengh and proprioception. Pt reporting mild increase toshia pain with resisted inv during t-band exercises, no other pain reported with exercises this date- good tolerance. Improve AROM noted with ankle circles. GOALS Patient Goals : decrease arch and PF pain, improve ankle ROM and walking SHORT TERM GOALS Completed by 2 weeks CURRENT STATUS GOAL STATUS establish HEP for ankle ROM/flexibility and plantar fascia stretching 04-06-23: Pt stated compliant with HEP since issued to him. In progress Pt report decrease arch pain by 50% for ease with ambulation In progress Improve AROM DF to -5 degrees eval -10 degrees from neutral In progress SHELTER GOALS Completed by 6 weeks CURRENT STATUS GOAL STATUS Improve AROM DF to neutral (0), PF 40 degrees, INV/EV 15 degrees to improve gait pattern In progress Decrease left arch and plantar fascia pain 0-2/10 to improve gait pattern In progress Improve left PF strength with single toe raise to complete 10 single toe raise with 4/4/5 strength to improve gait pattern In progress TREATMENT PLAN Plan Frequency: 2 Plan weeks: 6 possible trial of manual/MFR plantar fascia next visit, update HEP, progress with laft ankle ROM, strengtheing, modalities as indicated, manual/STM plantar fascia to address tightness THERAPY TIME/CHARGES Time In 0800 Time Out 0838 Minutes 38 Charges Units Minutes Vasopneumatic Device 1 10 Manual Therapy Therapeutic Exercise 2 28 Neuro Re-education Electrical Stimulation, Unattended Mechanical Traction Iontophoresis Ultrasound Therapeutic Activity IDN Gait Training Aquatics Moist Hot Pack Cold Pack Marion Whitehead PT [id number] documented in this encounterWYANDOT Work Phone: 1(763) 245-693402-23-2024 History of Present illness Narrative* Marion Whitehead PT - 04/02/2023 8:00 AM EST Images from the original note were not included. [facility] PHYSICAL THERAPY Physical Therapy Outpatient Daily Note Patient: Kana Hadley (68 y.o. male) Examination Date: 04/02/2023 : 1955 CSN: [id number] Insurance: Payor: MEDICARE / Plan: MEDICARE PART A AND B / Product Type: *No Product type* / - (Medicare) Secondary Insurance (if applicable): BCBS Referring Physician: Letty Guevara DPM [place] PCP: Sandro Moreno DO MEDICAL DIAGNOSIS: M25.872 (ICD-10-CM) - Impingement of left ankle joint M19.072 (ICD-10-CM) - Degenerative joint disease of left midfoot TREATMENT DIAGNOSIS: M25.872 (ICD-10-CM) - Impingement of left ankle joint M19.072 (ICD-10-CM) - Degenerative joint disease of left midfoot SUBJECTIVE EXAMINATION PT VISIT INFORMATION Total # of Visits Approved: 12 Total # of Visits to Date: 2 POC 2x6 SUBJECTIVE Pt reports ankle/foot are feeling a little better. Doing HEP with good tolerance Pain Screening Patient Currently in Pain: No OBJECTIVE EXAMINATION PHYSICAL THERAPY TREATMENT COMPLETED THERAPEUTIC EXERCISE Therapeutic exercise to increase left foot/ankle strength/ROM and decrease tightness for improved functional strength and mobility. Limitations addressed: Mobility;Strength;Flexibility;Pain modulation Therapist provided: Assistance;Verbal cuing Progressed: Complexity of movement;Resistance Progressed: 4 way ankel with blue t-ban, standing toe raises, rocker board Functional ability(s) targeted: Ambulating community distances;Tolerance to age appropriate activities Exercise CPTs: Therapeutic exercise (CPT 52423) Exercise 1: seated EOB ankle circles 2x 10 CW/CCW (cues for slow max ROM) Exercise 2: ankle pumps supine 15x Exercise 3: standing gastroc stretch wall support 3x 20 sec Exercise 4: seated DF stretch with strap and foot on stool 3x 20 sec Exercise 5: seated self plantar fascia stretch- pull on toes 5x 10 sec Exercise 6: seated arch lifts 2x10 Exercise 7: 4way ankle with t-band blue 10x Exercise 8: toe raises 2x 10 Exercise 9: rocker board 3 min DF/PF 3 sec hold at end ranges MOIST HEAT PACK Patient Position: Seated Moist heat location: Left Moist heat specified location: left ankle/foot using cervial HP for 10 min prior to ROM/stretching exercises to improve tiisue/joint mobility Limitations addressed: Tissue extensibility;Joint mobility ASSESSMENT Body Structures, Functions, Activity Limitations Requiring Skilled Therapeutic Intervention: Decreased functional mobility ;Decreased ADL status;Decreased ROM;Decreased body mechanics;Decreased strength;Decreased endurance;Decreased balance;Increased pain;Decreased posture Progressed with exercises as charted with good tolerance: ankle t-band, rocker board, toe raises. No increased pain during or post treatment reported. Pt compliant with HEP issued last visit and noting some improvement-ot using [employer] fred and HEP updated on fred this date with new exercises added during treatment GOALS Patient Goals : decrease arch and PF pain, improve ankle ROM and walking SHORT TERM GOALS Completed by 2 weeks CURRENT STATUS GOAL STATUS establish HEP for ankle ROM/flexibility and plantar fascia stretching New Pt report decrease arch pain by 50% for ease with ambulation New Improve AROM DF to -5 degrees eval -10 degrees from neutral DIRECTOR OF RECRUITMENT AND ADMISSIONS GOALS Completed by 6 weeks CURRENT STATUS GOAL STATUS Improve AROM DF to neutral (0), PF 40 degrees, INV/EV 15 degrees to improve gait pattern New Decrease left arch and plantar fascia pain 0-2/10 to improve gait pattern New Improve left PF strength with single toe raise to complete 10 single toe raise with 4/4/5 strength to improve gait pattern New TREATMENT PLAN Plan Frequency: 2 Plan weeks: 6 Progress with laft ankle ROM, strengtheing, modalities as indicated, manual/STM plantar fascia to address tightness THERAPY TIME/CHARGES Time In 0800 Time Out 0840 Minutes 40 Charges Units Minutes Vasopneumatic Device Manual Therapy Therapeutic Exercise 2 30 Neuro Re-education Electrical Stimulation, Unattended Mechanical Traction Iontophoresis Ultrasound Therapeutic Activity IDN Gait Training Aquatics Moist Hot Pack x 10 Cold Pack Marion Whitehead PT [id number] documented in this encounterWYANDOT Work Phone: 1(954) 193-509309-04-2023 Hospital Discharge instructions* Discharge Instructions* Zuly Fields DO - 10/12/2022 1:08 PM EDT Take your next dose of Bactrim with either dinner or at bedtime and continue twice daily for the next 10 days. You may take Tylenol as needed for fever. Drink 6 to 8 cups of water daily. Return for any worsening symptoms. Call your primary care physician tomorrow for follow-up within the next 72 hours. * Attachments The following attachments cannot be sent through Care Everywhere. * UTI (Urinary Tract Infection): Male (Irish) documented in this encounterWYANDOT Work Phone: 1(112) 113-823108-30-2023 History of Present illness Narrative* Neha Villarreal, MARCIA - 10/07/2022 9:20 AM EDT Images from the original note were not included. [facility] PHYSICAL THERAPY Physical Therapy Outpatient Daily Note Patient: Kana Hadley (67 y.o. male) Examination Date: 10/07/2022 : 1955 CSN: [id number] Insurance: Payor: MEDICARE / Plan: MEDICARE PART A AND B / Product Type: *No Product type* / - (Medicare) Secondary Insurance (if applicable): [facility] Referring Physician: Julian Botello PCP: Sandro Moreno DO MEDICAL DIAGNOSIS: R knee OA TREATMENT DIAGNOSIS: R knee OA SUBJECTIVE EXAMINATION PT VISIT INFORMATION Total # of Visits Approved: 12 Total # of Visits to Date: 9 VISIT COUNT: 9 SUBJECTIVE pt said minimal pain, more stiffness than anything Pain Screening Patient Currently in Pain: Yes Pain Assessment: 0-10 Pain Level: 4 OBJECTIVE EXAMINATION PHYSICAL THERAPY TREATMENT COMPLETED THERAPEUTIC EXERCISE Therapeutic exercise to increase right LE strength and decrease tightness for improved functional strength and mobility. Limitations addressed: Mobility;Strength;Flexibility Limitations addressed: knee EXT ROM and quad strength Exercise 2: reumbent bike seat #13 L3 x 8 min Exercise 5: SLR 2# x 15, VMO SLR 2# x 15 Exercise 6: right standing gastroc stretch 3x 20 sec Exercise 7: LAQ with ball squeeze x 2/10, 2# Exercise 8: shuttle DL squats 81# 3 x 15, with ball squeeze Exercise 9: shuttle SL squats 56# 2/15 Exercise 10: standing HS stretch on 8 in step 3 x 20 Exercise 11: ball squeeze x 20 Exercise 12: TKE green x 20 Exercise 13: sit to stands rogue 20 , with ball squeeze x 10 Exercise 14: right tband hip flex SLR and VMO SLR x 15 each, green tband Exercise 17: prone knee extension hang with 4# over heel x 2 min MANUAL THERAPY Manual Therapy (CPT 64924) Joint Mobilization: manual patellar mobs infra<>supra, lateral/medial, lateral retinculum stretch, medial tilt to stretch lateral retinaculum x 5 min Soft Tissue Mobilizaton: STM to medial/posterior knee x 5 min ASSESSMENT pt gaining knee extension ROM, in prone with 4# on heel is able to get to zero knee extension, pt tender with STM to medial posterior right knee, patellar mobility improved after STM to this area GOALS Patient Goals : improve knee EXT ROM for normalized gait SHORT TERM GOALS Completed by 2 weeks CURRENT STATUS GOAL STATUS Pt to be I and compliant with HEP: eval initial HEP instruction provided In progress Pt to improve R knee ROM to 0-120 deg FL to improve mobility: eval R knee AROM 15-108 deg FL pain at end range. in prone with 4# oon heel at zero degrees In progress SHELTER GOALS Completed by 4 weeks CURRENT STATUS GOAL STATUS Pt to report decreased pain <2/10 to walk long distances: eval pain 0-9/10 10/07/22 pt said no pain just tightness In progress Pt to improve R knee strength to 4+/5 to improve activity tolerance: eval R knee strength 4-/5 painwith EXT In progress Pt to improve LEFS score to >68/80 to return to PLOF: eval LEFS score 58/80 In progress TREATMENT PLAN Plan Frequency: 3 Plan weeks: 4 RA next THERAPY TIME/CHARGES Time In 919 Time Out 1000 Minutes 40 Charges Units Minutes Vasopneumatic Device Manual Therapy 1 10 Therapeutic Exercise 2 30 Neuro Re-education Electrical Stimulation, Unattended Mechanical Traction Iontophoresis Ultrasound Therapeutic Activity IDN Gait Training Aquatics Moist Hot Pack Cold Pack Neha Villarreal [id number] documented in this encounterWYANDOT Work Phone: 1(676) 992-874508-02-2023 History of Present illness Narrative* Rodrigo Auguste, PT - 09/09/2022 9:00 AM EDT Images from the original note were not included. [facility] PHYSICAL THERAPY Physical Therapy Outpatient Daily Note Patient: Kana Hadley (67 y.o. male) Examination Date: 09/09/2022 : 1955 CSN: [id number] Insurance: Payor: MEDICARE / Plan: MEDICARE PART A AND B / Product Type: *No Product type* / - (Medicare) Secondary Insurance (if applicable): BCBS Referring Physician: Julian Botello PCP: Sandro Moreno DO MEDICAL DIAGNOSIS: R knee OA TREATMENT DIAGNOSIS: R knee OA SUBJECTIVE EXAMINATION PT VISIT INFORMATION Onset Date: 09/08/22 Total # of Visits Approved: 12 Total # of Visits to Date: 2 VISIT COUNT: 2 SUBJECTIVE Pt notes his thigh is a little sore from stretches yesterday but not bad. Pain Screening Patient Currently in Pain: Yes Pain Assessment: 0-10 Pain Level: 3 Pain Type: Chronic pain Pain Location: Knee Pain Orientation: Right Pain Descriptors: Aching OBJECTIVE EXAMINATION PHYSICAL THERAPY TREATMENT COMPLETED THERAPEUTIC EXERCISE Therapeutic exercise to increase right LE strength and decrease tightness for improved functional strength and mobility. Limitations addressed: Mobility;Strength;Flexibility Limitations addressed: knee EXT ROM and quad strength Therapist provided: Verbal cuing Progressed: Complexity of movement Progressed: added shuttle squats, HS stretch and rocker board stretch to progress knee EXT ROM and quad strength. Exercise 2: nustep L4 x 6' Exercise 3: QS 2 x 10 Exercise 4: heel slides x 10 Exercise 5: SLR x 10 Exercise 6: towel gastroc stretch 3 x 20 Exercise 7: LAQ x 15 Exercise 8: shuttle DL squats 62# 2 x 15 Add additional exercise rows?: Yes Exercise 9: shuttle SL squats 31# x 15 Exercise 10: standing HS stretch on step 3 x 20 Exercise 11: rockerbord stretch 3 x 20 Exercise 12: TKE blue x 15 Exercise 13: sit to stands rogue 20 2 x 5 Exercise 14: 3 way hip x 10 ea ASSESSMENT Body Structures, Functions, Activity Limitations Requiring Skilled Therapeutic Intervention: Decreased functional mobility ;Decreased strength;Increased pain;Decreased posture;Decreased high-level IADLs;Decreased ROM Added shuttle squats, sit to stands and HS stretching today to progress knee EXT ROM and quad strength. Pt did well with added exercises noting improved ROM after stretching. GOALS Patient Goals : improve knee EXT ROM for normalized gait SHORT TERM GOALS Completed by 2 weeks CURRENT STATUS GOAL STATUS Pt to be I and compliant with HEP: eval initial HEP instruction provided In progress Pt to improve R knee ROM to 0-120 deg FL to improve mobility: eval R knee AROM 15-108 deg FL pain at end range. In progress SHELTER GOALS Completed by 4 weeks CURRENT STATUS GOAL STATUS Pt to report decreased pain <2/10 to walk long distances: eval pain 0-9/10 In progress Pt to improve R knee strength to 4+/5 to improve activity tolerance: eval R knee strength 4-/5 painwith EXT In progress TREATMENT PLAN Plan Frequency: 3 Plan weeks: 4 Focus on knee EXT ROM and quad strengthening. manual and modalities as needed to decrease pain. THERAPY TIME/CHARGES Time In 0857 Time Out 0937 Minutes 40 Charges Units Minutes Vasopneumatic Device Manual Therapy Therapeutic Exercise 3 40 Neuro Re-education Electrical Stimulation, Unattended Mechanical Traction Iontophoresis Ultrasound Therapeutic Activity IDN Gait Training Aquatics Moist Hot Pack Cold Pack Rodrigo Auguste, [place] [id number] documented in this encounterWYANDOT Work Phone: [phone]) 128-605505-07-2023 Hospital Discharge instructions* Discharge Instructions* Мария Baxter MD - 06/14/2022 12:02 PM EDT Wear the splint as needed to help with pain * Attachments The following attachments cannot be sent through Care Everywhere. * De Quervain's: Tenosynovitis (Irish) * Wrist Tendinitis Exercises (Irish) * RICE: General Info (Irish) documented in this encounterWYANDOT Work Phone: 1(272) 660-321710-17-2022 History of Present illness Narrative* Marisa Cheung, PALMER-KEYUR - 11/24/2021 11:44 AM EDT Vitals: 11/24/21 1125 BP: 125/58 Pulse: 55 Resp: 20 Temp: 97.7 F (36.5 C) patient arrived in NSR, stable and asymptomatic. He has been compliant with his blood thinner and sotalol 160mg PO BID. He arrived in NSR. EKG in NSR reviewed with Dr. Amos. QT stable. Discharged home in stable condition. Continue home medication regime and F/U with EP and device clinic as scheduled. [facility]* Nursing Notes - Reyna Matthews RN - 11/24/2021 11:21 AM EDT Pt arrives to room 2420 in IPR for [facility]. ECG completed and shows NSR. Marisa SOCIAL MEDIA DEVELOPER notified. Reyna Matthews RN [facility]10-17-2022 Miscellaneous Notes* Nursing Notes - Reyna Matthews RN - 11/24/2021 11:21 AM EDT Pt arrives to room 2420 in [facility] for [facility]. ECG completed and shows NSR. Marisa SOCIAL MEDIA DEVELOPER notified. Reyna Matthews RN documented in [facility] encounterMer[facility] HealthCons[facility]* Clinical Note Date No Information [facility] Work Phone: Discharge summary* Clinical Note Date No Information [facility] Work Phone: Evaluation note* Diagnosis Paroxysmal atrial fibrillation Atrial fibrillation [facility]* Diagnosis Acute cystitis without hematuria- Primary Acute cystitis documented in this encounter [facility] Phone: evaluation note* Diagnosis Ankle impingement syndrome, left- Primary 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, left documented in this encounter [employer] Phone: evaluation note* Diagnosis Impingement of left ankle joint- Primary documented in this encounter [employer] Phone: evaluation note* Diagnosis Afib- Primary Atrial fibrillation Afib Atrial fibrillation NILESH on CPAP Obstructive sleep apnea (adult) (pediatric) HTN (hypertension) Unspecified essential hypertension DM (diabetes mellitus) Type II or unspecified type diabetes mellitus without mention of complication, not stated as uncontrolled Obesity, Class III, BMI 40-49.9 (morbid obesity) Morbid obesity Paroxysmal atrial fibrillation- Primary Atrial fibrillation High risk medication use Encounter for long-term (current) use of other medications Encounter for long-term (current) use of medications Encounter for long-term (current) use of other medications [facility]* Diagnosis Well adult exam Routine general medical examination at a health care facility Type 2 diabetes mellitus without complication, without long-term current use of insulin (HCC) HTN (hypertension), benign Essential hypertension, benign Screening for prostate cancer Special screening for malignant neoplasm of prostate Mixed hyperlipidemia documented in this encounter [facility] Work Phone: evaluation note* Diagnosis De Quervain's disease (tenosynovitis)- Primary Radial styloid tenosynovitis documented in this encounter [facility] Work Phone: evaluation note* Diagnosis Urinary incontinence, unspecified type documented in this encounter [facility] Work Phone: evaluation note* Diagnosis Urgency of micturition Benign prostatic hyperplasia with incomplete bladder emptying documented in this encounter [facility] Work Phone: History and physical note* Clinical Note Date No Information [facility] Phone: Instructions* Date Instruction Additional Infor mation No Information [facility] Phone: Progress note* Clinical Note Date No Information [facility] Phone: Reason for referral (narrative)* Reason For Referral No Information [facility] Phone: Reason for visit Narrative* Auth/Cert Specialty Diagnoses / Procedures Referred By José Luis t Referred To Contact Diagnoses Paroxysmal atrial fibrillation Paroxysmal atrial fibrillation [I48.0] Procedures [place] CARDIOVERSION ELECTIVE ARRHYTHMIA EXTERNAL CARDIOVERSION (EP LAB) Claude Amos MD [address] [place] [phone] [facility] [address] [place] [id number] Referral ID Status Reason Start Date Expiration Date Visits Re quested Visits Authorized [id number] 1 1 [facility] Assessments Diagnosis Tinnitus of both ears Unspecified tinnitus Diagnosis Acute midline low back pain with right-sided sciatica - Primary Acute pain of right knee Summary Purpose Family History No Family History Records Found Family Member Type Diagnosis Age At Onset No Information Advance Directives No Advanced Directives Records FoundLatest Code Status on File Code Status Date Activated Date Inactivated Comments Full Code 12/22/2019 10:01 AM Full Code-Unverified 01/15/2014 1:01 PM 01/15/2014 7:21 PM Latest Code Status on File Code Status Date Activated Date Inactivated Comments Full Code 01/07/2021 4:26 PM Code Status History Code Status Date Activated Date Inactivated Comments Full Code 12/22/2019 10:01 AM 01/07/2021 4:26 PM Full Code-Unverified 01/15/2014 1:01 PM 01/15/2014 7:21 PM Latest Code Status on File Code Status Date Activated Date Inactivated Comments Full Code 01/07/2021 4:26 PM Code Status History Code Status Date Activated Date Inactivated Comments Full Code 12/22/2019 10:01 AM 01/07/2021 4:26 PM Full Code-Unverified 01/15/2014 1:01 PM 01/15/2014 7:21 PM Latest Code Status on File Code Status Date Activated Date Inactivated Comments Full Code 02/12/2023 9:26 AM 02/12/2023 1:00 PM Date Activated Date Inactivated Comments 01/07/2021 4:26 PM Date Activated Date Inactivated Comments 12/22/2019 10:01 AM 01/07/2021 4:26 PM Date Activated Date Inactivated Comments 01/15/2014 1:01 PM 01/15/2014 7:21 PM Date Activated Date Inactivated Comments 01/07/2021 4:26 PM Date Activated Date Inactivated Comments 12/22/2019 10:01 AM 01/07/2021 4:26 PM Date Activated Date Inactivated Comments 01/15/2014 1:01 PM 01/15/2014 7:21 PM Date Activated Date Inactivated Comments 02/12/2023 9:26 AM 02/12/2023 1:00 PM Date Activated Date Inactivated Comments 02/12/2023 9:26 AM 02/12/2023 1:00 PM Directive Yes / No Effective Date File Name No Information Reason for Referral Specialty Diagnoses / Procedures Referred By Contac t Referred To Contact Procedures ECG Madhuri Moran APRN-[employer] WORK[employer] [address] [place] [address] Referral ID Status Reason Start Date Expiration Date V isits Requested Visits Authorized [id number] New Request 11/24/2021 12/19/2022 1 1 Specialty Diagnoses / Procedures Referred By Contac t Referred To Contact Diagnoses Paroxysmal atrial fibrillation Procedures ECG Claued Amos MD [address] [place] [address] [place] [address] Referral ID Status Reason Start Date Expiration Date V isits Requested Visits Authorized [id number] New Request 11/03/2023 11/27/2024 1 1 Additional Source Comments (unrecognized sect ion and content) No Status Records FoundNo Status Records FoundNo Status Records FoundNo Status Records FoundNo Status Records FoundNo Status Records FoundNo Status Records FoundNo Status Records FoundNo Status Records Found INFORMATION SOURCE (unrecogn ized section and content) DATE CREATED AUTHOR 07/28/2017 [facility] DATE CREATED AUTHOR AUTHOR'S ORGANIZ ATION 08/03/2017 [facility] DATE CREATED AUTHOR AUTHOR'S ORGANIZ ATION 08/12/2017 [facility] DATE CREATED AUTHOR AUTHOR'S ORGANIZ ATION 02/05/2021 [facility] DATE CREATED AUTHOR AUTHOR'S ORGANIZ ATION 01/20/2024 [facility] DATE CREATED AUTHOR AUTHOR'S ORGANIZ ATION 01/31/2024 [facility] DATE CREATED AUTHOR AUTHOR'S ORGANIZ ATION 02/05/2024 [facility] DATE CREATED AUTHOR AUTHOR'S ORGANIZ ATION 03/05/2024 [facility] DATE CREATED AUTHOR AUTHOR'S ORGANIZ ATION 03/05/2024 [facility] Care Teams (unrecognized sec tion and content) Managed Care Nurse Relationship Specialty Start Date End Date Sandro Moreno DO [address] [place] [address] PCP - General Family Medicine 11/23/19 11/22/21 Managed Care Nurse Relationship Specialty Start Date End Date Sandro Moreno DO [address] [place] [address] PCP - General Family Medicine 11/23/19 11/22/21 Claude Amos MD [address] [place] [address] PCP - Referring 1 Clinical Cardiac Electrophysiology 12/27/20 Managed Care Nurse Relationship Specialty Start Date End Date SepClaude conroy MD [address] [place] [phone] PCP - Referring 1 Clinical Cardiac Electrophysiology 12/27/20 Managed Care Nurse Relationship Specialty Start Date End Date SepClaude conroy MD [address] [place] [phone] PCP - Referring 1 Clinical Cardiac Electrophysiology 12/27/20 Managed Care Nurse Relationship Specialty Start Date End Date SepClaude conroy MD [address] [place] [phone] PCP - Referring 1 Clinical Cardiac Electrophysiology 12/27/20 Managed Care Nurse Relationship Specialty Start Date End Date Sandro Moreno, [address] [place] [address] PCP - General Family Medicine 02/04/21 Managed Care Nurse Relationship Specialty Start Date End Date Sandro Moreno DO [address] [place] [address] PCP - General Family Medicine 02/04/21 Managed Care Nurse Relationship Specialty Start Date End Date Sandro Moreno DO [address] [place] [address] PCP - General Family Medicine 02/04/21 Managed Care Nurse Relationship Specialty Start Date End Date Sandro Moreno DO [address] [place] [address] PCP - General Family Medicine 02/04/21 Managed Care Nurse Relationship Specialty Start Date End Date Claude Amos MD [address] [place] [phone] PCP - Referring 1 Clinical Cardiac Electrophysiology 12/27/20 Managed Care Nurse Relationship Specialty Start Date End Date Sandro Moreno DO [address], [place] [id number] PCP - General Family Medicine 02/04/21 Managed Care Nurse Relationship Specialty Start Date End Date Sandro Moreno DO [address], [place] [id number] PCP - General Family Medicine 02/04/21 Managed Care Nurse Relationship Specialty Start Date End Date Sandro Moreno DO [address] [place] [address] PCP - General Family Medicine 02/04/21 Managed Care Nurse Relationship Specialty Start Date End Date Sandro Moreno DO [address] [place] [address] PCP - General Family Medicine 02/04/21 Managed Care Nurse Relationship Specialty Start Date End Date Claude Amos MD [address] [place] [phone] PCP - Referring 1 Clinical Cardiac Electrophysiology 12/27/20 Managed Care Nurse Relationship Specialty Start Date End Date Claude Amos MD [address] [place] [address] PCP - Referring 1 Clinical Cardiac Electrophysiology 12/27/20 Sandro Moreno DO [address] [place] [address] PCP - General Family Medicine 05/11/23 Managed Care Nurse Relationship Specialty Start Date End Date Claude Amos MD [address] [place] [phone] PCP - Referring 1 Clinical Cardiac Electrophysiology 12/27/20 Sandro Moreno DO [address] [place] [address] PCP - General Family Medicine 05/11/23 Managed Care Nurse Relationship Specialty Start Date End Date SepClaude conroy MD [address] [place] [phone] PCP - Referring 1 Clinical Cardiac Electrophysiology 12/27/20 Sandro Moreno DO [address] [place] [address] PCP - General Family Medicine 05/11/23 Managed Care Nurse Relationship Specialty Start Date End Date Claude Amos MD [address] [place] [phone] PCP - Referring 1 Clinical Cardiac Electrophysiology 12/27/20 Sandro Moreno DO [address] [place] [address] PCP - General Family Medicine 05/11/23 Managed Care Nurse Relationship Specialty Start Date End Date Sandro Moreno DO PCP - General Family Medicine 02/04/21 Managed Care Nurse Relationship Specialty Start Date End Date Sandro Moreno DO [address] [place] [address] PCP - General Family Medicine 02/04/21 Managed Care Nurse Relationship Specialty Start Date End Date Sandro Moreno DO PCP - General Family Medicine 02/04/21 Managed Care Nurse Relationship Specialty Start Date End Date SepmarbinClaude MD [address] [place] [address] PCP - Referring 1 Clinical Cardiac Electrophysiology 12/27/20 Sandro Moreno DO [address] [place] [address] PCP - General Family Medicine 05/11/23 Managed Care Nurse Relationship Specialty Start Date End Date Sandro Moreno DO PCP - General Family Medicine 02/04/21 Name Effective Dates (start - stop) Status Members No Information Managed Care Nurse Relationship Specialty Start Date End Date Sandro Moreno DO PCP - General Family Medicine 02/04/21 Managed Care Nurse Relationship Specialty Start Date End Date Sandro Moreno DO PCP - General Family Medicine 02/04/21 Managed Care Nurse Relationship Specialty Start Date End Date Sandro Moreno DO PCP - General Family Medicine 02/04/21 Managed Care Nurse Relationship Specialty Start Date End Date Sandro Moreno DO PCP - General Family Medicine 02/04/21 PRN Active and Recently Administ ered Medications (unrecognized section and content) Medication Order 11/22/2021 11/23/2021 11/24/2021 sodium chloride 0.9% IV solution 500 mL Intravenous, at 20 mL/hr, ADMINISTER DIRECTED, Starting on Wed11/24/21 at 1105, Until Wed11/24/21 at 1425, Per treatment plan, Start the morning of procedure., Pre-op/Pre-Proc No Frequency Medication Order 11/22/2021 11/23/2021 11/24/2021 sodium chloride 0.9% IV solution 1 dose, Starting on 11/24/21 at 1104, Until Tu11/25/21 at 1115, Created by cabinet override [id number] (Canceled Entry - Provider: System Discharge - Comment: Automatically canceled at discontinue of medication order) Scheduled Medication Order 10/10/2022 10/11/2022 10/12/2022 sulfamethoxazole-trimethoprim (BACTRIM DS;SEPTRA DS) 800-160 MG per tablet 1 tablet (COMPLETED) 1 tablet, Oral, ONCE, 1 dose, On 10/12/22 at 1315, Antimicrobial Indications: Urinary Tract Infection 1317 (Given - Provid er: Jenni Vargas RN) Scheduled Medication Order 06/12/2022 06/13/2022 06/14/2022 HYDROcodone-acetaminophen (NORCO) 5-325 MG per tablet 1 tablet (COMPLETED) 1 tablet, Oral, ONCE, 1 dose, On 06/14/22 at 1215, Maximum dose of acetaminophen is 4000 mg from all sources in 24 hours. 1213 (Given - Provid er: Peg Padilla RN) Reason for Visit (unrecogniz ed section and content) Reason Comments Back Pain Dysuria Reason Onset Date Comments Condition Update 09/20/2023 Reason Comments Follow-up Reason Comments Wrist Pain Specialty Diagnoses / Procedures Referred By Contac t Referred To Contact Physical Therapy Diagnoses Foot drop, left foot Unilateral primary osteoarthritis, left knee Procedures PT EVAL AND TREAT Julian Botello PACoby [address] [place] [address] Marion Whitehead Referral ID Status Reason Start Date Expiration Date V isits Requested Visits Authorized [id number] Auth Not Required 02/04/2024 02/28/2024 1 1 Ordered Prescriptions (unrec ognized section and content) Prescription Sig Dispensed Refills Start Date End Da te sulfamethoxazole-trimetho prim (BACTRIM DS;SEPTRA DS) 800-160 MG per tablet Take 1 tablet by mouth 2 times daily for 10 days 20 tablet 0 10/12/2022 10/22/2022 FOR RECORDS PERTAINING TO PATIENTS WHO ARE OR HAVE BEEN ENROLLED IN A CHEMICAL DEPENDENCY/SUBSTANCEABUSE PROGRAM, SOME INFORMATION MAY BE OMITTED. This clinical summary was aggregated from multiple sources. Caution should be exercised in using it in the provision of clinical care. This summary normalizes information from multiple sources, and as a consequence, information in this document may materially change the coding, format and clinical context of patient data. In addition, data may be omitted in some cases. CLINICAL DECISIONS SHOULD BE BASED ON THE PRIMARY CLINICAL RECORDS. [facility]. provides no warranty or guarantee of the accuracy or completeness of information in this document.
--- NOTE | 2024-03-07 11:25 | P.GSHP_ITS ---
History of Present Illness History of Present Illness Chief complaint: primary osteoarthrosis left ankle Narrative: Patient presents for presurgical testing. Please see HPI from Dr. Vo dated February 22, 2024. Review of Systems ROS Narrative REVIEW OF SYSTEMS: Negative except as stated in HPI, ten or more systems reviewed. Constitutional: No fever, chills, weakness ENT: No sore throat or epistaxis Cardiovascular: No edema, chest pain, palpitations, or activity intolerance Respiratory: No shortness of breath, cough, or wheezing Gastrointestinal: No abdominal pain, constipation, diarrhea, or vomiting Genitourinary: No dysuria or hematuria Neurological: No numbness, tingling, weakness, or headache Psychiatric: No mood changes PFSH [facility], [facility] Medical History (Updated 03/07/24 @ 11:27 by Marlene Jain NP) Left ankle pain ?M25.572 - Pain in left ankle and joints of left foot (ICD-10) Achilles tendinitis, left leg ?M76.62 - Achilles tendinitis, left leg (ICD-10) Contracture, left ankle ?M24.572 - Contracture, left ankle (ICD-10) Plantar fascial fibromatosis ?M72.2 - Plantar fascial fibromatosis (ICD-10) Primary osteoarthritis, left ankle and foot ?M19.072 - Primary osteoarthritis, left ankle and foot (ICD-10) Status post placement of implantable loop recorder ?Z95.818 - Presence of other cardiac implants and grafts (ICD-10) BPH (benign prostatic hyperplasia) ?N40.0 - Benign prostatic hyperplasia without lower urinary tract symptoms (ICD-10) Gout ?M10.9 - Gout, unspecified (ICD-10) Arthritis ?M19.90 - Unspecified osteoarthritis, unspecified site (ICD-10) 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 (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-10) Sleep apnea ?G47.30 - Sleep apnea, unspecified (ICD-10) High cholesterol ?E78.00 - Pure hypercholesterolemia, unspecified (ICD-10) Hypertension ?I10 - Essential (primary) hypertension (ICD-10) Atrial fibrillation ?I48.91 - Unspecified atrial fibrillation (ICD-10) Diabetes ?E11.9 - Type 2 diabetes mellitus without complications (ICD-10) Surgical History (Updated 03/07/24 @ 11:05 by Marlene Jain NP) History of colonoscopy ?Z98.890 - Other specified postprocedural states (ICD-10) History of appendectomy ?Z90.49 - Acquired absence of other specified parts of digestive tract (ICD- 10) History of carpal tunnel release ?Z98.890 - Other specified postprocedural states (ICD-10) History of cardiac radiofrequency ablation ?Z98.890 - Other specified postprocedural states (ICD-10) History of cardiac catheterization ?Z98.890 - Other specified postprocedural states (ICD-10) History of arthroplasty of knee ?Z96.659 - Presence of unspecified artificial knee joint (ICD-10) Family History (Updated 03/07/24 @ 11:01 by Marlene Jain NP) Other Family history of cancer Family history of diabetes mellitus Family history of hypertension Family history of myocardial infarction Family history of stroke Social History (Updated 03/07/24 @ 10:56 by Marlene Jain NP) Within the past year, how often did you have a drink containing alcohol: 4 or more times a week Smoking status: Never smoker Non-prescribed substance use: denies use Highest level of school completed/degree received: some college, no degree Meds Home Medications and Allergies Home Medications ?Medication ?Instructions ?Recorded ?Confirmed ?Type allopurinol 300 mg tablet 300 mg PO DAILY 03/07/24 03/07/24 History atorvastatin 40 mg tablet 40 mg PO DAILY 03/07/24 03/07/24 History glimepiride 2 mg tablet 2 mg PO DAILY 03/07/24 03/07/24 History losartan 100 1 tab PO DAILY 03/07/24 03/07/24 History mg-hydrochlorothiazide 25 mg tablet oxybutynin chloride 5 mg tablet 5 mg PO Q12H 03/07/24 03/07/24 History phentermine 37.5 mg tablet 37.5 mg PO DAILY 03/07/24 03/07/24 History potassium chloride 20 mEq 20 meq PO DAILY 03/07/24 03/07/24 History tablet,extended release(part/cryst) rivaroxaban 20 mg tablet (Xarelto) 20 mg PO DAILY 03/07/24 03/07/24 History sitagliptin phosphate 50 mg tablet 50 mg PO DAILY 03/07/24 03/07/24 History (Januvia) sotalol 160 mg tablet 160 mg PO Q12H 03/07/24 03/07/24 History tamsulosin 0.4 mg capsule 0.4 mg PO Q24H 03/07/24 03/07/24 History Allergies Allergy/AdvReac Type Severity Reaction Status Date / Time nitroglycerin (From Allergy Hypotension Verified 03/07/24 10:48 Nitro-Bid) Penicillins Allergy Hives Verified 03/07/24 10:48 Exam Narrative Exam Narrative: Constitutional: Awake, alert, comfortable, well-appearing, nontoxic, interactive, vital signs as charted Head: Normocephalic, atraumatic Neck: Supple, normal appearance, normal range of motion, no meningeal signs, no lymphadenopathy Respiratory: No respiratory distress, breath sounds clear Cardiovascular: Regular rate and rhythm, strong and regular heart tones Skin: No rashes or induration, no lesions, only visible skin inspected Neuro: No neurological deficits, normal sensation Psychiatric: Oriented ?3, normal affect Assessment and Plan Assessment and Plan (1) Achilles tendinitis, left leg: (2) Contracture, left ankle: (3) Plantar fascial fibromatosis: (4) Primary osteoarthritis, left ankle and foot: (5) Left ankle pain: Plan Left ankle arthroscopy, endoscopic plantar fasciotomy, Nima gastrocnemius recession scheduled with Dr. Vo March 20, 2024.
[2024-03-07 11:28] LABS: Basophils Absolute Auto 0.1 10^3/uL (0.0-0.1); Basophils Percent Auto 0.7 % (0.2-2.0); Eosinophils Absolute Auto 0.1 10^3/uL (0.0-0.7); Eosinophils Percent Auto 1.6 % (0.9-7.0); Hematocrit 43.3 % (42.0-54.0); Hemoglobin 15.1 g/dL (14.0-18.0); Immature Granulocytes Abs Auto 0.02 10^3/uL (0.00-0.03); Immature Granulocytes Pct Auto 0.3 % (0.0-0.5); Lymphocytes Percent Auto 27.3 % (20.5-60.0); Mean Corpuscular HGB Conc 34.9 g/dL (29.9-35.2); Mean Corpuscular Hemoglobin 32.8 pg (25.9-34.0); Mean Corpuscular Volume 94.1 fL (80.0-94.0); Mean Platelet Volume 9.7 fL (9.5-13.5); Monocytes Absolute Auto 0.8 10^3/uL (0.3-0.8); Monocytes Percent Auto 10.4 % (1.7-12.0); Neutrophils Absolute Auto 4.4 10^3/uL (1.4-6.5); Neutrophils Percent Auto 59.7 % (43.0-75.0); Platelet Count 174 10^3/uL (150-450); Red Cell Distribution Width 13.3 % (11.0-15.0); White Blood Count 7.4 10^3/uL (4.0-11.0)
[2024-03-07 11:35] LABS: BUN Creatinine Ratio 22.8; Calcium 8.8 mg/dL (8.5-10.1); Carbon Dioxide 31.9 mmol/L (21.0-32.0); Chloride 102 mmol/L (98-107); Estimated GFR (African America >60 (>=60 mL/min/1.73m^2); Estimated GFR (Non-African Ame >60 (>=60 mL/min/1.73m^2); Glucose 126 mg/dL (74-106); Potassium 3.9 mmol/L (3.5-5.1); Sodium 138 mmol/L (136-145)
[2024-03-07 11:41] LABS: INR 1.34; Partial Thromboplastin Time 30.5 sec (22.3-36.2); Prothrombin Time 13.8 sec (9.0-11.6)
== END 2024-03-07 10:25 | disposition home or self-care (01) ==
LOC: PST 10:26
PROVIDERS: Visit Provider Podiatrist Foot & Ankle Surgery
DX: Z01.810 Encounter for preprocedural cardiovascular examination (principal); Z01.812 Encounter for preprocedural laboratory examination; Z01.818 Encounter for other preprocedural examination; M19.072 Primary osteoarthritis, left ankle and foot
CPT/HCPCS: 36415; 71046; 80048; 85025; 85610; 85730; G0463

== ENCOUNTER 2024-03-20 20:17 | Observation (INO) | payer MEDICARE, BC, SELFPAY ==
[2024-03-07 11:20] VITALS: BP 125/73; PULSE 63; TEMP 36.2; O2SAT 96; BMI 39.0
[2024-03-20] VITALS (23 sets, daily range): BP systolic 79–133; BP diastolic 29–78; PULSE 36–85; TEMP 36.3–36.5; O2SAT 91–98; BMI 39.0; BMI 38.8
[2024-03-20 11:36] LABS: Basophils Absolute Auto 0.1 10^3/uL (0.0-0.1); Eosinophils Absolute Auto 0.2 10^3/uL (0.0-0.7); Eosinophils Percent Auto 2.5 % (0.9-7.0); Hematocrit 42.7 % (42.0-54.0); Hemoglobin 15.2 g/dL (14.0-18.0); Immature Granulocytes Abs Auto 0.02 10^3/uL (0.00-0.03); Immature Granulocytes Pct Auto 0.3 % (0.0-0.5); Lymphocytes Absolute Auto 1.8 10^3/uL (1.2-3.8); Lymphocytes Percent Auto 26.7 % (20.5-60.0); Mean Corpuscular HGB Conc 35.6 g/dL (29.9-35.2); Mean Corpuscular Volume 92.6 fL (80.0-94.0); Mean Platelet Volume 9.6 fL (9.5-13.5); Monocytes Absolute Auto 0.5 10^3/uL (0.3-0.8); Monocytes Percent Auto 7.8 % (1.7-12.0); Neutrophils Absolute Auto 4.3 10^3/uL (1.4-6.5); Neutrophils Percent Auto 61.7 % (43.0-75.0); Platelet Count 162 10^3/uL (150-450); Red Blood Count 4.61 10^6/uL (4.70-6.10); Red Cell Distribution Width 13.6 % (11.0-15.0); White Blood Count 6.9 10^3/uL (4.0-11.0)
--- OUTSIDE RECORDS SUMMARY | 2024-03-20 11:44 | XMS_ITS | CCD ---
Author Organization [facility] CliniSyor Care Team Providers Care District Claims Manager Name Role Phone Da Elmer BCameron Unavailable Unavailable Unavailable Unavailable MARIANELA NORWOOD Unavailable Unavailabl e JOHNSON, ELMER BCameron Unavailable Unavailable DEVI URRTUIA Unavailable Unavailable DA ELMER BCameron Unavailable Unavailable IDNESH ELIZABETH Unavailable Unavail able HERNAN FERNÁNDEZ Unavailable Unavailable JOHNSON, ELMER BCameron Unavailable Unavailable MICHAELA BLACKWELL Unavailable Unavailable JOHNSON, ELMER BCameron Unavailable Unavailable JOHNSON, ELMER BCameron Unavailable Unavailable Unavailable Primary Care Provider Unavailabl e Da, Elmer BCameron Primary Care Provider [place] DO, Sandro A Primary Care Provider [phone] [place] DO, Sandro A Primary Care Provider Claude Amos MD Unavailable [phone] Claude Amos MD Unavailable Tiffanie DO, Sandro A Primary Care Provider Kristen Curtis Primary Care Physician Unavaila Kristen Maya Unavailable Unavailable Kristen Curtis Primary Care Physician Unavaila ble Tiffanie DO, Sandro A Primary Care Provider [phone] [place] DO, Sandro A Primary Care Provider Markus Ramos MD Attending Unavaila ble Alice SIEGEL, Constantin Quintanilla Referring Unavail able Tiffanie DO, Sandro Hernandez Primary Care Unava ilable [place] DO, Sandro Coronadoony Primary Care Unava ilable Emmanuel SY, Martín Russell Attending Unavailab le Tiffanie DO, Sandro Hernandez Primary Care Unava ilable Emmanuel SY, Martín Russell Attending Unavailab le [place] DO, [facility] Primary Care Unava ilable Emmanuel DPM, Martín Russell Attending Unavailab le Tiffanie DO, [facility] Primary Care Unava ilable Emmanuel DPM, Martín Russell Attending Unavailab le [place] DO, [facility] Primary Care Unava ilable Emmanuel DPM, Martín Russell Attending Unavailab le [place] DO, [facility] Primary Care Unava ilable Emmanuel DPM, Martín Russell Attending Unavailab le Tiffanie DO, Sandro Hernandez Attending Unava ilable Tiffanie DO, [facility] Primary Care Unava ilable Emmanuel DPM, Martín Russell Attending Unavailab le [place] DO, [facility] Primary Care Unava ilable Tiffanie DO, Sandro Hernandez Attending Unava ilable [place] DO, [facility] Primary [facility] Unava ilable Tiffanie DO, Sandro Hernandez Attending Unava ilable [place] DO, [facility] Unava ilable [place] DO, Sandro Hernandez Attending Unava ilable [place] ENGINEERING TECHNICIAN PARKING-STORE TEAM LEADER, Jacey Castillo Attending Unavailable [place] DO, [facility] Primary [facility] Unava ilable Tiffanie DO, Sandro Hernandez Attending Unava ilable Tiffanie DO, [facility] Unava ilable Tiffanie DO, [facility] Unava ilable [place] DO, Sandro Hernandez Attending Unava ilable [place] DO, [facility] Unava ilable [place] DO, Sandro Hernandez Attending Unava ilable [place] DO, [facility] Unava ilable Tiffanie DO, Sandro Hernandez Attending Unava ilable Tiffanie DO, [facility] Primary Care Provider Julian Botello Attending Unavailable Tiffanie, Sandro A Referring Unavailable Tiffanie, Sandro A Primary Care Unavailable TIFFANIE, SANDRO A Primary Care Unavailable AUGOSTINCLAUDE Thurston Referring Unavailable AUGOSTINI, CLAUDE Wallace Attending Unavailable TIFFANIE, SANDRO A Primary Care Unavailable SELF, SELF Referring Unavailable AUGOSTINI, CLAUDE Wallace Attending Unavailable TIFFANIE, SANDRO A Primary Care Unavailable SELF, SELF Referring Unavailable AUGOSTINKarena, CLAUDE Wallace Referring Unavailable TIFFANIE, SANDRO A Primary Care Unavailable AUGOSTINI, CLAUDE Walalce Referring Unavailable TIFFANIE, SANDRO A Primary Care Unavailable TIFFANIE, SANDRO A Primary Care Unavailable SELF, SELF Referring Unavailable SCARLETTEKRISTEN K Attending Unavailable MEASE, KRISTEN K Attending Unavailable TIFFANIE, SANDRO A Primary [...] SANDRO A Primary Care Unavailable [facility] Referring Unavailable HIGHLANDER, PETER D Referring Unavailable [...] Primary Care Unavailable JULIAN BOTELLO Referring Unavailable HIGHLANDER, PETER D Referring Unavailable TIFFANIE, SANDRO A Primary Care Unavailable TIFFANIE, SANDRO A Primary Care Unavailable JULIAN BOTELLO Referring Unavailable TIFFANIE, SANDRO A Primary Care Unavailable JULIAN BOTELLO Referring Unavailable JULIAN BOTELLO Referring Unavailable TIFFANIE, SANDRO [...] Care Unavailable HIGHLANDER, PETER D Referring Unavailable Allergies Allergy Classification Reported Allergen(s) Allergy Type Date of Onset Reaction(s) Facility (20 sources) nitroglycerin; Translations: [NITROGLYCERIN] Propensity to adverse reactions to drug 12-13-19 14 Other (See Comments), Hypotension [facility] (13 sources) Penicillins; Translations: [PENICILLINS] Propensity to adverse reactions to drug 12-13-19 14 [facility] (1 source) Penicillins Propensity to adverse reactions to drug 12-13-19 14 Hives [facility] (9 sources) Nitroglycerin Propensity to adverse reactions to drug 12-13-19 14 Hypotension [facility] Work Phone: (9 sources) Penicillins Propensity to adverse reactions to drug 12-13-19 14 [facility] (20 sources) Penicillins Propensity to adverse reactions to drug 12-13-19 14 [facility]: (3 sources) Sulfamethoxazole / Trimethoprim; Translations: [Bactrim] Drug Allergy [facility] (20 sources) Sulfamethoxazole / Trimethoprim Drug Allergy 11-07-19 23 [facility] (1 source) Penicillin; Translations: [penicillin] Drug Allergy [facility] Repository Medications Current Medications Medication Drug [...] Start: 12-15-2022 take 1 capsule by mo uth once daily tamsulosin (FLOMAX) 0.4 MG capsule [...] source) Taking high risk medication; Translations: [Other care home (current) drug therapy] 11-05-2023 Episodic Other aftercare (1 source) Long-term current use of drug therapy; Translations: [Other pharmacy technician assistant (current) drug therapy] 11-05-2023 Episodic Other and [...] 03-30-2017 Episodic Other aftercare (2 sources) Other pharmacy technician assistant (current) drug therapy; Translations: [Other pharmacy technician assistant (current) drug therapy] Onset: 11-05-2023 Episodic Other [...] Translations: [Lumbago with sciatica, right side] Onset: 12-06-2017 Episodic Unclassified (1 source) Acute midline low back pain with right-sided sciatica Unclassified (14 sources) Onset: 12-20-2023 12-20-2023 Results Test Name Value Interpretation Reference Range Facility Culture, Urineon 03-03-2024 [place] - SOURCE urine, clean catch Normal [facility] Comment on above: Order Comment: NV - Source of Urine Collection? Urine clean catch\X0D0A\Performed by [facility] [address] [place] [address] [place] - Source of Urine Collection? Urine clean catch [place] - Current Antibiotic Therapy? No Answer Given Performed By: #### C UR #### [facility] See Report [place] - URINE CULTURE No significant pathogens isolated. Growth likely represents skin terri or distal urethral terri. Abnormal [facility] Comment on above: Order Comment: NV - Source of Urine Collection? Urine clean catch\X0D0A\Performed by [facility] [address] [place] [address] [place] - Source of Urine Collection? Urine clean catch [place] - Current Antibiotic Therapy? No Answer Given Performed By: #### C UR #### [facility] See Report URINE CULTUREon 03-03-2024 Bacteria identified Cx Nom (U) MICROBIOLOGY REPORT [facility], [address] [place] [address], [address] PATIENT: KANA HADLEY LOCATION: [facility] - - : 1955 AGE: 69 SEX: M ADM: 03/03/24 Att. Physician: [facility] Order Id: [id number] Req. Physician: [facility] Source: urine, clean [...] terri. Organism 00 Growth of Contaminants Normal [facility] Urinalysis with Reflex to Cu ltureon 03-03-2024 BACTERIA, URINE None Seen [facility] Bilirubin, Urine Negative Negative [facility] Blood, Urine Negative Negative [facility] Clarity, UA Clear [facility] Color, UA Yellow [facility] Culture Indicated? No [facility] Glucose, Ur Negative Negative mg/dL [facility] Ketones Ql (U) Negative Negative mg/dL [facility] Leukocyte esterase Test strip Ql (U) Negative Negative [facility] Nitrate, UA Negative Negative [facility] pH (U) 5.5 [pH] 5.0 - 7.0 [facility] Protein, Ur (gm/dL) Negative Negative mg/dL [facility] RBC, UA None Seen #/HPF [facility] Specific [place], UA 1.020 1.005 - 1.030 [facility] Urobilinogen, Urine 0.2 E.U./dL NINF [facility] WBC, UA None Seen #/HPF [facility] Urinalysis, Complete reflex to cultureon 03-03-2024 BACT None Seen Normal [facility] Comment on above: Performed By: #### U COMP/WRCX #### [place] [address] Ph. [phone] CULTIND No Normal [facility] Comment on above: Performed By: #### U COMP/WRCX #### [place] [address] Ph. [phone] UBIL Negative Normal Negative [facility] Comment on above: Performed By: #### U COMP/WRCX #### [place] [address] [address] Ph. [phone] UBLO Negative Normal Negative [facility] Comment on above: Performed By: #### U COMP/WRCX #### [address] [address] Ph. [phone] UCLAR Clear Normal [facility] Comment on above: Performed By: #### U COMP/WRCX #### [address] [address] Ph. [phone] UCOL Yellow Normal [facility] Comment on above: Performed By: #### U COMP/WRCX #### [address] [address] Ph. [phone] UGLU Negative Normal Negative [facility] Comment on above: Performed By: #### U COMP/WRCX #### [address] [address] Ph. [phone] UKET Negative Normal Negative [facility] Comment on above: Performed By: #### U COMP/WRCX #### [address] [address] Ph. [phone] ULEU Negative Normal Negative [facility] Comment on above: Performed By: #### U COMP/WRCX #### [address] [address] Ph. [phone] UNIT Negative Normal Negative [facility] Comment on above: Performed By: #### U COMP/WRCX #### [address] [address] Ph. [phone] UPH 5.5 Normal 5.0-7.0 [facility] Comment on above: Performed By: #### U COMP/WRCX #### [address] [address] Ph. [phone] UPRO Negative Normal Negative [facility] Comment on above: Performed By: #### U COMP/WRCX #### [place] [id number] Ph. [phone] URBC None Seen Normal [facility] Comment on above: Performed By: #### U COMP/WRCX #### [place] [address] Ph. [phone] USG 1.020 Normal 1.005-1.030 [facility] Comment on above: Performed By: #### U COMP/WRCX #### [place] [address] Ph. [phone] UURO 0.2 E.U./dL Normal <2.0 [facility] Comment on above: Performed By: #### U COMP/WRCX #### [place] [address] Ph. [phone] UWBC None Seen Normal [facility] Comment on above: Performed By: #### U COMP/WRCX #### [place] [address] Ph. [phone] Culture, Urineon 01-27-2024 [place] - Organism 01 Enterococcus faecalis Abnormal [facility] Comment on above: Order Comment: NV - Source of Urine Collection? Urine clean catch\X0D0A\Performed by [facility] [address] [place] [address] [place] - Source of Urine Collection? Urine clean catch NV - Current Antibiotic Therapy? No Answer Given Specify (ex-cath, midstream, cysto, etc)?->CCMS urine collection Performed By: #### C UR #### [facility] See Report [place] - SOURCE urine, clean catch Normal [facility] Comment on above: Order Comment: NV - Source of Urine Collection? Urine clean catch\X0D0A\Performed by [facility] [address] [place] [address] [place] - Source of Urine Collection? Urine clean catch NV - Current Antibiotic Therapy? No Answer Given Specify (ex-cath, midstream, cysto, etc)?->CCMS urine collection Performed By: #### C UR #### [facility] See Report [place] - URINE CULTURE [place] count: 10,000-50,000 CFU/mL Normal [facility] Comment on above: Order Comment: NV - Source of Urine Collection? Urine clean catch\X0D0A\Performed by [facility] [address] [place] [id number] [place] - Source of Urine Collection? Urine clean catch NV - Current Antibiotic Therapy? No Answer Given Specify (ex-cath, midstream, cysto, etc)?->CCMS urine collection Performed By: #### C UR #### [facility] See Report URINE CULTUREon 01-27-2024 Bacteria identified Cx Nom (U) MICROBIOLOGY REPORT [facility], [address] [place] [address], [address] PATIENT: KANA HADLEY LOCATION: [facility] - - : 1955 AGE: 68 SEX: M ADM: 01/27/24 Att. Physician: PHYSICIAN, NON-STAFF Order Id: [id number] Req. Physician: PHYSICIAN, NON-STAFF Source: urine, clean catch Site: Collected: 01/27/24 14:10 Current Antibiotics: not stated Antibiotics comment: --------- C O M M E N T S - [place] - Source of Urine Collection? Urine clean catch STATUS OF ORDERED AND REPORTED TESTS URINE CULTURE FINAL 01/29/24 URINE CULTURE FINAL 01/29/24 08:06 Organism 01 Enterococcus faecalis - (Group D) [place] count: 10,000-50,000 CFU/mL Organism 01-strfae Antibiotic KILLIAN [...] blood and urine levels=mcg/ml.*Standa rd dosages from [place] Guide to Antimicrobial Therapy and assumes moderate infection in normal adult populations. For pts. with renal or liver disease consult PDR or pharmacist. Normal [facility] Podiatry Office/Clinic Noteo n 01-17-2024 Podiatry Office/Clinic [...] from bilateral (more content not included)... Normal [facility] CBC with Auto Differentialon 12-14-2023 Basophils (Bld) [#/Vol] 0.0 10*3/uL [facility] Basophils/100 WBC (Bld) 0 % 0 - 1 % [facility] Eosinophils Absolute 0.2 [facility] Eosinophils/100 WBC (Bld) 2 % 0 - 5 % [facility] Erythrocyte distribution width (RBC) [Ratio] 13.1 % 11.5 - 14.5 % [facility] Hematocrit (Bld) [Volume fraction] 43.2 % 42.0 - 52.0 % [facility] Hemoglobin (Bld) [Mass/Vol] 14.8 g/dL 13.5 - 17.5 g/dL [facility] Interpretation and review of laboratory results Abnormal [facility] Lymphocytes Absolute 2.0 [facility] Lymphocytes/100 WBC (Bld) 28 % 20 - 40 % [facility] MCH (RBC) [Entitic mass] 32.7 pg 27.0 - 35.0 pg [facility] MCHC (RBC) [Mass/Vol] 34.3 g/dL 32.0 - 36.0 g/dL [facility] MCV (RBC) [Entitic vol] 95.4 fL 80.0 - 100.0 fL [facility] Monocytes Absolute 0.6 [facility] Monocytes/100 WBC (Bld) 9 % 1 - 15 % [facility] Neutrophils Absolute 4.3 [facility] Neutrophils/100 WBC (Bld) 61 % 50 - 70 % [facility] Platelet mean volume (Bld) [Entitic vol] 9.9 fL 9.4 - 12.3 fL [facility] Platelets (Bld) [#/Vol] 157 10*3/uL [facility] RBC (Bld) [#/Vol] 4.53 10*6/uL Low [facility] WBC (Bld) [#/Vol] 7.1 10*3/uL [facility] Complete Blood Count with Au to Diffon 12-14-2023 BASO# BASO#: 0.0 Normal 0.0-0.1 [facility] Comment on above: Performed By: #### A 1C, CBCAD #### [place] [address] Ph. [phone] BASO% BASO%: 0 Normal 0-1 [facility] Comment on above: Performed By: #### A 1C, CBCAD #### [place] [address] Ph. [phone] Eosinophils (Bld) [#/Vol] 0.2 10*3/uL Normal 0.0-0.5 [facility] Comment on above: Performed By: #### A 1C, CBCAD #### [place] [address] Ph. [phone] Eosinophils/100 WBC (Bld) 2 % Normal 0-5 [facility] Comment on above: Performed By: #### A 1C, CBCAD #### [place] [address] Ph. [phone] Erythrocyte distribution width (RBC) [Ratio] 13.1 % Normal 11.5-14.5 [facility] Comment on above: Performed By: #### A 1C, CBCAD #### [place] [address] Ph. [phone] Hematocrit (Bld) [Volume fraction] 43.2 % Normal 42.0-52.0 [facility] Comment on above: Performed By: #### A 1C, CBCAD #### [place] [address] Ph. [phone] Hemoglobin (Bld) [Mass/Vol] 14.8 g/dL Normal 13.5-17.5 [facility] Comment on above: Performed By: #### A 1C, CBCAD #### [place] [address] Ph. [phone] Lymphocytes (Bld) [#/Vol] 2 10*3/uL Normal 1.0-4.0 [facility] Comment on above: Performed By: #### A 1C, CBCAD #### [place] [address] Ph. [phone] Lymphocytes/100 WBC (Bld) 28 % Normal 20-40 [facility] Comment on above: Performed By: #### A 1C, CBCAD #### [place] [address] Ph. [phone] MCH (RBC) [Entitic mass] 32.7 pg Normal 27.0-35.0 [facility] Comment on above: Performed By: #### A 1C, CBCAD #### [place] [address] Ph. [phone] MCHC (RBC) [Mass/Vol] 34.3 g/dL Normal 32.0-36.0 [facility] Comment on above: Performed By: #### A 1C, CBCAD #### [place] [address] Ph. [phone] MCV (RBC) [Entitic vol] 95.4 fL Normal 80.0-100.0 [facility] Comment on above: Performed By: #### A 1C, CBCAD #### [place] [address] Ph. [phone] Monocytes (Bld) [#/Vol] 0.6 10*3/uL Normal 0.3-1.0 [facility] Comment on above: Performed By: #### A 1C, CBCAD #### [address] [address] Ph. [phone] Monocytes/100 WBC (Bld) 9 % Normal 1-15 [facility] Comment on above: Performed By: #### A 1C, CBCAD #### [address] [address] Ph. [phone] Neutrophils (Bld) [#/Vol] 4.3 10*3/uL Normal 1.8-7.7 [facility] Comment on above: Performed By: #### A 1C, CBCAD #### [address] [address] Ph. [phone] Neutrophils/100 WBC (Bld) 61 % Normal 50-70 [facility] Comment on above: Performed By: #### A 1C, CBCAD #### [address] [address] Ph. [phone] Platelet mean volume (Bld) [Entitic vol] 9.9 fL Normal 9.4-12.3 [facility] Comment on above: Performed By: #### A 1C, CBCAD #### [address] [address] Ph. [phone] Platelets (Bld) [#/Vol] 157 10*3/uL Normal 150-450 [facility] Comment on above: Performed By: #### A 1C, CBCAD #### [address] [address] Ph. [phone] RBC (Bld) [#/Vol] 4.53 10*6/uL Low 4.70-6.10 [facility] Comment on above: Performed By: #### A 1C, CBCAD #### [address] [address] Ph. [phone] WBC (Bld) [#/Vol] 7.1 10*3/uL Normal 3.7-11.0 [facility] Comment on above: Performed By: #### A 1C, CBCAD #### [place] [address] [place] [address] Ph. [phone] Comprehensive Metabolic Pane edouard 12-14-2023 Albumin [Mass/Vol] 4.5 g/dL 3.5 - 5.0 g/dL [facility] ALP (Bld) [Catalytic activity/Vol] 80 U/L 38 - 126 U/L [facility] ALT [Catalytic activity/Vol] 31 U/L 0 - 50 U/L [facility] AST [Catalytic activity/Vol] 32 U/L 17 - 59 U/L [facility] Bilirubin [Mass/Vol] 1.0 mg/dL 0.2 - 1.3 mg/dL [facility] Calcium [Mass/Vol] 9.1 mg/dL 8.4 - 10. 2 mg/dL [facility] Chloride [Moles/Vol] 103 mmol/L [facility] CO2 [Moles/Vol] 30 mmol/L [facility] Creatinine [Mass/Vol] 0.90 mg/dL 0.66 - 1.25 mg/dL [facility] Est, Glom Filt Rate 92 - PINF [facility] Comment on above: GFR calculated using CKD-EPI [...] 171 mg/dL High 65 - 100 mg/dL [facility] Potassium [Moles/Vol] 3.8 mmol/L [facility] Protein [Mass/Vol] 7.3 g/dL 6.3 - 8.2 g/dL [facility] Sodium [Moles/Vol] 138 mmol/L [facility] Urea nitrogen (BldV) [Mass/Vol] 21 mg/dL High 9 - 20 mg/dL [facility] Fasting [facility] Albumin [Mass/Vol] 4.5 g/dL Normal 3.5-5.0 [facility] Comment on above: Order Comment: Fasti ng Performed By: #### P SHARDA HORN, CMP #### [place] [address] Ph. [phone] ALP [Catalytic activity/Vol] 80 U/L Normal 38-126 [facility] Comment on above: Order Comment: Fasti ng Performed By: #### P SA LIPD, CMP #### [place] [address] Ph. [phone] ALT [Catalytic activity/Vol] 31 U/L Normal 0-50 [facility] Comment on above: Order Comment: Fasti ng Performed By: #### P SA LIPD, CMP #### [place] [address] Ph. [phone] AST [Catalytic activity/Vol] 32 U/L Normal 17-59 [facility] Comment on above: Order Comment: Fasti ng Performed By: #### P SA LIPD, CMP #### [place] [address] Ph. [phone] Bilirubin [Mass/Vol] 1.0 mg/dL Normal 0.2-1.3 [facility] Comment on above: Order Comment: Fasti ng Performed By: #### P SA LIPD, CMP #### [place] [address] Ph. [phone] Calcium [Mass/Vol] 9.1 mg/dL Normal 8.4-10.2 [facility] Comment on above: Order Comment: Fasti ng Performed By: #### P SA, LIPD, CMP #### [place] [address] Ph. [phone] Chloride [Moles/Vol] 103 mmol/L Normal 98-107 [facility] Comment on above: Order Comment: Fasti ng Performed By: #### P SACARMELLAD, CMP #### [place] [address] Ph. [phone] CO2 [Moles/Vol] 30 mmol/L Normal 22-32 [facility] Comment on above: Order Comment: Fasti ng Performed By: #### P SA LIPD, CMP #### [place] [address] Ph. [phone] Creatinine [Mass/Vol] 0.90 mg/dL Normal 0.66-1.25 [facility] Comment on above: Order Comment: Fasti ng Performed By: #### P CARMELLA HORND, CMP #### [place] [address] Ph. [phone] GFR/1.73 sq M.predicted among non-blacks MDRD (S/P/Bld) [Vol rate/Area] 92 mL/min/{1.73_m2} Normal >60 [facility] Comment on above: Order Comment: Fasti ng Result Comment: GFR calculated using CKD-EPI (2020) formula.\X0D0A\Stage 1 Kidney damage (e.g., protein in the urine) with normal GFR >=90\X0D0A\Stage 2 Kidney damage with mild decrease in GFR 60-89\X0D0A\Stage 3a Moderate decrease in GFR 45-59\X0D0A\Stage 3b Moderate decrease in GFR 30-44\X0D0A\Stage 4 Severe reduction in GFR 15-29\X0D0A\Stage 5 Kidney failure <15 Performed By: #### P SA, CARMELLAD, CMP #### [place] [address] Ph. [phone] Glucose [Mass/Vol] 171 mg/dL High 65-100 [facility] Comment on above: Order Comment: Fasti ng Performed By: #### P SA, LIPD, CMP #### [place] [address] Ph. [phone] Potassium [Moles/Vol] 3.8 mmol/L Normal 3.6-5.0 [facility] Comment on above: Order Comment: Fasti ng Performed By: #### P SHARDA HORN, CMP #### [place] [address] Ph. [phone] Protein [Mass/Vol] 7.3 g/dL Normal 6.3-8.2 [facility] Comment on above: Order Comment: Fasti ng Performed By: #### SHARDA Durán SA, CMP #### [place] [address] Ph. [phone] Sodium [Moles/Vol] 138 mmol/L Normal 135-145 [facility] Comment on above: Order Comment: Fasti ng Performed By: #### SHARDA Durán SA, CMP #### [place] [address] Ph. [phone] Urea nitrogen [Mass/Vol] 21 mg/dL High 9-20 [facility] Comment on above: Order Comment: Fasti ng Performed By: #### SHARDA Durán SA, CMP #### [place] [address] Ph. [phone] Hemoglobin A1Con 12-14-2023 Glucose [Mass/Vol] 128 mg/dL [facility] Comment on above: Estimated Average Glucose is a caluculated value from Hemoglobin A1C and is territory account representative of the average blood glucose level in the last 2-3 month period. HbA1c (Bld) [Mass fraction] 6.1 % High 4.0 - 5.6 % [facility] Comment on above: [place] [employer] guidelines indicate that patients with [...] for these patients. EAG 128 mg/dL Normal [facility] Comment on above: Result Comment: Shannan negro Average Glucose is a caluculated value from Hemoglobin A1C and is territory account representative of the average blood glucose level in the last 2-3 month period. Performed By: #### A 1C, CBCAD #### [place] [id number] Ph. [phone] HbA1c (Bld) [Mass fraction] 6.1 % High 4.0-5.6 [facility] Comment on above: Result Comment: Amer ican [...] Performed By: #### A 1C, CBCAD #### [place] [id number] Ph. [phone] Lipid Panelon 12-14-2023 Cholesterol [Mass/Vol] 133 mg/dL 100 - 200 mg/dL [facility] Comment on above: <200 mg/dL is recommended cholesterol level. Cholesterol in HDL [Mass/Vol] 40 mg/dL Low 40 - PINF mg/dL [facility] Cholesterol in LDL [Mass/Vol] 67 mg/dL 20 - 100 mg/dL [facility] CHOLESTEROL/HDL RELATIVE RISK 3 [facility] Triglyceride [Mass/Vol] 132 mg/dL 10 - 150 mg/dL [facility] Is Patient Fasting?/ # of Hours->Fasting 8 hrs [facility] Cholesterol [Mass/Vol] 133 mg/dL Normal 100-200 [facility] Comment on above: Order Comment: Is Pa tient Fasting?/# of Hours->Fasting 8 hrs Result Comment: <200 mg/dL is recommended cholesterol level. Performed By: #### P SA LIPD, CMP #### [place] [address] Ph. [phone] Cholesterol in HDL [Mass/Vol] 40 mg/dL Low >40 [facility] Comment on above: Order Comment: Is Pa tient Fasting?/# of Hours->Fasting 8 hrs Performed By: #### P SA, LIPD, CMP #### [place] [address] Ph. [phone] Cholesterol in LDL [Mass/Vol] 67 mg/dL Normal 20-100 [facility] Comment on above: Order Comment: Is Pa tient Fasting?/# of Hours->Fasting 8 hrs Performed By: #### P SA, LIPD, CMP #### [place] [address] Ph. [phone] Cholesterol.total/ Cholesterol in HDL [Mass ratio] 3 {ratio} Normal 1-5 [facility] Comment on above: Order Comment: Is Pa tient Fasting?/# of Hours->Fasting 8 hrs Performed By: #### P SA, LIPD, CMP #### [address] [address] Ph. [phone] Triglyceride [Mass/Vol] 132 mg/dL Normal 10-150 [facility] Comment on above: Order Comment: Is Pa tient Fasting?/# of Hours->Fasting 8 hrs Performed By: #### P SA, LIPD, CMP #### [place] [address] Ph. [phone] No Panel Informationon 12-13 Interpretation and review of laboratory results Abnormal [facility] PSA Screeningon 12-14-2023 [facility] CHEM 6 (LYTES, BUN CREA)on 0 11-05-2023 Anion gap [Moles/Vol] 15 mmol/L 7 - 17 mmol/L [facility] Chloride [Moles/Vol] 101 mmol/L 98 - 108 mmol/L [facility] CO2 [Moles/Vol] 31 mmol/L 21 - 31 mmol/L [facility] Creatinine [Mass/Vol] 0.77 mg/dL 0.70 - 1.30 mg/dL [facility] eGFR, CKD-EPI, Male - PINF [facility] Comment on above: Reported eGFR is bas ed on the CKD-EPI 2020 equation using creatinine, age, and sex. Potassium [Moles/Vol] 3.8 mmol/L 3.5 - 5.0 mmol/L [facility] Sodium [Moles/Vol] 143 mmol/L 135 - 145 mmol/L [facility] Urea nitrogen [Mass/Vol] 17 mg/dL 7 - 25 mg/dL [facility] Urea nitrogen/Creatinin e [Mass ratio] 22 mg/mg [facility] Anion gap [Moles/Vol] 15 mmol/L Normal 7-17 [facility] Comment on above: Performed By: #### C HM6 #### [facility] (DEFAULT) [address] [place] [address] Chloride [Moles/Vol] 101 mmol/L Normal 98-108 [facility] Comment on above: Performed By: #### C HM6 #### [facility] (DEFAULT) [address] [place] [address] CO2 [Moles/Vol] 31 mmol/L Normal 21-31 [facility] Comment on above: Performed By: #### C HM6 #### [facility] (DEFAULT) [address] [place] [address] Creatinine [Mass/Vol] 0.77 mg/dL Normal 0.70-1.30 [facility] Comment on above: Performed By: #### C HM6 #### [facility] (DEFAULT) [address] [place] [address] eGFR, CKD-EPI, Male > Normal >=60 [facility] Comment on above: Result Comment: Repo rted eGFR is based on the CKD-EPI 2020 equation using creatinine, age, and sex. Performed By: #### C HM6 #### [facility] (DEFAULT) [address] [place] [address] Potassium [Moles/Vol] 3.8 mmol/L Normal 3.5-5.0 [facility] Comment on above: Performed By: #### C HM6 #### [facility] (DEFAULT) [address] [place] [address] Sodium [Moles/Vol] 143 mmol/L Normal 135-145 [facility] Comment on above: Performed By: #### C HM6 #### [facility] (DEFAULT) [address] [place] [address] Urea nitrogen [Mass/Vol] 17 mg/dL Normal 7-25 [facility] Comment on above: Performed By: #### C HM6 #### [facility] (DEFAULT) [address] [place] [address] Urea nitrogen/Creatinin e [Mass ratio] 22 mg/mg Normal [facility] Comment on above: Performed By: #### C HM6 #### [facility] (DEFAULT) [address] [place] [address] MAGNESIUMon 11-05-2023 Interpretation and review of laboratory results Normal [facility] Magnesium [Mass/Vol] 1.7 mg/dL 1.6 - 2.6 mg/dL [facility] Magnesium [Mass/Vol] 1.7 mg/dL Normal 1.6-2.6 [facility] Comment on above: Performed By: #### M GO #### [facility] (DEFAULT) [address] [place] [address] No Panel Informationon 11-04 [facility] Podiatry Office/Clinic Noteo n 11-01-2023 Podiatry Office/Clinic [...] to s (more content not included)... Normal [facility] DEVICE EVALUATION (SCANNED)o n 10-29-2023 [facility] Radiology Study observation (narrative) [facility] Family Medicine Office/Clini c Noteon 10-07-2023 Family Medicine [...] breakfast, # 30 tabs, 2 Refill(s), Pharmacy: [facility] 2. Prediabetes Continue current medications 3. [...] Daily, 2 refills, before breakfast Potassium Chloride (Ewp-Lsyf-Mdk M20) 20 mEq oral tablet, extended release, [...] Alcohol C (more content not included)... Normal [facility] Podiatry Office/Clinic Noteo n 08-30-2023 Podiatry [...] vs mat (more content not included)... Normal [facility] XR Ankle 3 Views Lefton 08-09 [...] Electronically Signed in Other Vendor System) Normal [facility] XR Foot 3 Views Lefton 08-29 [...] Electronically Signed in Other Vendor System) Normal [facility] Family Medicine Office/Clini c Noteon 08-27-2023 [...] g, 0 Refill(s), 09/03/23 12:43:00 EDT, Pharmacy: [facility] 2. Intertrigo Apply topical cream as [...] g, 0 Refill(s), 09/03/23 12:43:00 EDT, Pharmacy: [facility] Medical Decision Making Chronic conditions NOT [...] Daily, 2 refills, before breakfast Potassium Chloride (Sdu-Sybt-Ppq M20) 20 mEq oral tablet, extended release, [...] 5 refills, (more content not included)... Normal [facility] US Testicularon 08-18-2023 US Testicular Scrotal [...] with and without Valsalva. Final Dictated by: Claire ESPINOZA, Mindy Johnson Dictated DT/TM: 08/18/2023 1:14 pm Signed by: Claire ESPINOZA, Mindy Johnson Signed (Electronic Signature): 08/18/2023 1:20 pm (If Report Is Signed, Electronically Signed in Other Vendor System) Normal [facility] Family Medicine Office/Clini c Noteon 08-17-2023 [...] Daily, 2 refills, before breakfast Potassium Chloride (Nja-Wkzy-Kej M20) 20 mEq oral tablet, extended release, [...] condition. Exercise (more content not included)... Normal [facility] Family Medicine Office/Clini c Noteon 07-14-2023 [...] breakfast, # 30 tabs, 2 Refill(s), Pharmacy: [facility] 2. Hypertension Well controlled 3. Atrial [...] Daily, 2 refills, before breakfast Potassium Chloride (Nob-Kfrf-Vgn M20) 20 mEq oral tablet, extended release, [...] cups pe (more content not included)... Normal [facility] Podiatry Office/Clinic Noteo n 06-21-2023 Podiatry [...] mycotic law (more content not included)... Normal [facility] Family Medicine Office/Clini c Noteon 06-18-2023 [...] Daily, # 90 tabs, 1 Refill(s), Pharmacy: [facility] Medical Decision Making Chronic conditions NOT [...] tabs, Oral, Daily, 2 refills Potassium Chloride (Qhi-Dodn-Rmf M20) 20 mEq oral tablet, extended release, [...] Father. St (more content not included)... Normal [facility] CHEM 6 (LYTES, BUN CREA)on 0 05-11-2023 Anion gap [Moles/Vol] 16 mmol/L Normal 7-17 [facility] Comment on above: Performed By: #### C HM6, MGO #### [facility] (DEFAULT) [address] [place] [address] Chloride [Moles/Vol] 101 mmol/L Normal 98-108 [facility] Comment on above: Performed By: #### C HM6, MGO #### [facility] (DEFAULT) [address] [place] [address] CO2 [Moles/Vol] 28 mmol/L Normal 21-31 [facility] Comment on above: Performed By: #### C HM6, MGO #### [facility] (DEFAULT) [address] [place] [address] Creatinine [Mass/Vol] 0.83 mg/dL Normal 0.70-1.30 [facility] Comment on above: Performed By: #### C HM6, MGO #### [facility] (DEFAULT) [address] [place] [address]402 eGFR, CKD-EPI, Male > Normal >=60 [facility] Comment on above: Result Comment: Repo rted eGFR is based on the CKD-EPI 2020 equation using creatinine, age, and sex. Performed By: #### C HM6, MGO #### [facility] (DEFAULT) [address] [place] [address] Potassium [Moles/Vol] 4.0 mmol/L Normal 3.5-5.0 [facility] Comment on above: Performed By: #### C HM6, MGO #### [facility] (DEFAULT) [address] [place] [address] Sodium [Moles/Vol] 141 mmol/L Normal 135-145 [facility] Comment on above: Performed By: #### C HM6, MGO #### [facility] (DEFAULT) [address] [place] [address] Urea nitrogen [Mass/Vol] 18 mg/dL Normal 7-25 [facility] Comment on above: Performed By: #### C HM6, MGO #### [facility] (DEFAULT) [address] [place] [address] Urea nitrogen/Creatinin e [Mass ratio] 22 mg/mg Normal [facility] Comment on above: Performed By: #### C HM6, MGO #### [facility] (DEFAULT) [address] [place] [address] MAGNESIUMon 05-11-2023 Magnesium [Mass/Vol] 1.8 mg/dL Normal 1.6-2.6 [facility] Comment on above: Performed By: #### C HM6, MGO #### [facility] (DEFAULT) [address] [place] [address] Family Medicine Office/Clini c Noteon 04-13-2023 Family Medicine Office/Clinic Note Chief Complaint Requesting adipex History of Present Illness Jean Pierre present today to discuss getting started on Adipex. He says his has been taking this and has lost 22 pounds. He did not tolerate the Rybelus we started him on, and was not seeing any significant weight loss anyway. Therefore he went back to his [facility]. He would like a refill on the [...] tabs, 2 Refill(s), 07/12/23 13:46:00 EDT, Pharmacy: [facility] 2. Hypertension Well controlled 3. Atrial fibrillation Stable 4. ED (erectile dysfunction) Trial 20 mg PRN dose of tadalafil Orders: diclofenac topical, 1 fred, Topical, QID, Apply 1g per application, # 100 g, 11 Refill(s), Pharmacy: [facility] tadalafil, 1 tabs, Oral, Daily, PRN, [...] tabs, Oral, Daily, 2 refills Potassium Chloride (Gmo-Wqbp-Cdy M20) 20 mEq oral tablet, extended release, [...] Allergies nitr (more content not included)... Normal [facility] Podiatry Office/Clinic Noteo n 04-05-2023 Podiatry [...] problems including (more content not included)... Normal [facility] No Panel Informationon 02-15 Tobacco smoking status Non-Smoker Invalid Interpretation Code [employer] DEVICE EVALUATION (SCANNED)o n 10-29-2022 [facility] Radiology Study observation (narrative) [facility] DEVICE EVALUATION (SCANNED)o n 10-14-2022 [facility] Radiology Study observation (narrative) [facility] BMP w/ Reflex to MGon 2022 Calcium [...] acute diverticulitis. Additional chronic findings as above. [facility] RIS CONSOLIDATED EXAMINATION: CT ABDOMEN PELVIS WO [...] Report electronically signed by: Dr. Julian Foley [facility] Julian Foley MD - 10/12/2022 EXAMINATION: CT [...] acute diverticulitis. Additional chronic findings as above. [employer] Work Phone: Radiology Study observation (narrative) [employer] Work Phone: CT ABDOMEN PELVIS WO CONTRAS T Additional Contrast? NoneOrdered By: Julian Foley on 10-12-2022 [employer] Work Phone: Lactic Acidon 10-12-2022 Lactate [Moles/Vol] [...] [place] RBC, UA 0-2 #/HPF [place] Specific [place], Urine 1.020 1.005 - 1.030 [place] Squam Epithel, UA None Seen #/LPF [place] Urobilinogen, Urine 0.2 E.U./dL NINF [place] WBC, UA 0-5 #/HPF [facility] CENTERJinkoSolar HoldingDIGNITY HEALTH ST. JOSEPH'S WESTGATE MEDICAL CENTERIni3 Digital DEVICE EVALUATION (SCANNED)o n 07-30-2022 [facility] Radiology Study observation (narrative) [facility] XR WRIST LEFT (MIN 3 VIEWS)o n 06-14-2022 FINDINGS/IMPRESSION: 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 No fracture identified. Normal soft tissues. [facility] CONSOLIDATED EXAM: XR WRIST LEFT (MIN 3 VIEWS) INDICATION: pain, decreased ROM, no injury COMPARISON: None. TECHNIQUE: Radiographs as described above Report electronically signed by: Dr. Darryl Latif [facility] CONSOLIDATED Darryl Latif MD - 06/14/2022 EXAM: XR WRIST LEFT (MIN 3 VIEWS) INDICATION: pain, decreased ROM, no injury COMPARISON: None. TECHNIQUE: Radiographs as described above Report electronically signed by: Dr. 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 No fracture identified. Normal soft tissues. [employer] Work Phone: Radiology Study observation (narrative) [employer] Work Phone: XR WRIST LEFT (MIN 3 VIEWS)O rdered By: Darryl Latif on 06-14-2022 [employer] Work Phone: NOVEL CORONAVIRUS NASOPHARYN GEAL - U SPECIMEN ONLYon 02-04-2021 SARS-CoV-2 (COVID-19) RNA ISAIAS+probe Ql (Unsp spec) Not detected Normal NOT DETECTED [facility] Comment on above: Order Comment: This test was performed using [employer] Mediated Amplification and has been approved as Emergency Use Authorization (EUA) for the qualitative detection of SARS-CoV-2 nucleic acid. Result Comment: [facility] Negative results do not preclude [...] or clinically deteriorating. Performed By: #### L [id number] #### [facility] (DEFAULT) [address] [place] [address] NOVEL CORONAVIRUS NASOPHARYN GEAL - [facility] SPECIMEN ONLYon 01-03-2021 SARS-CoV-2 (COVID-19) RNA ISAIAS+probe Ql (Unsp spec) Not detected Normal NOT DETECTED [facility] Comment on above: Order Comment: This test was performed using real time PCR for the qualitative detection of SARS-CoV-2 nucleic acid. The test has been reviewed by the FDA and given emergency use authorization. This test was developed and its performance characteristics determined by The [facility] at [facility]. This test is used for clinical purposes. It should not be regarded as investigational or for research. Result Comment: [facility] Negative results do not preclude [...] or clinically deteriorating. Performed By: #### L [id number] #### [facility] (DEFAULT) [address] [place] [address] Vital Signs Date Time Vital Sign Value Performing Clinician [facility] 01-28-2024 09:07-0500 Body weight 126.1 kg Julian Botello PA-C [facility] 11-05-2023 10: Body mass index (BMI) [Ratio] 38.63 kg/m2 Claude Amos MD Work Phone: [facility] 11-05-2023 10: Body weight 125.65 kg Claude Amos MD Work Phone: [facility] 11-05-2023 09:10-0400 Body height 180.3 cm Claude Amos MD Work Phone: [facility] 11-05-2023 09:10-0400 Diastolic blood pressure 56 mm[Hg] Claude Amos MD Work Phone: [facility] 11-05-2023 09:10-0400 Heart rate 60 /min Claude Amos MD Work Phone: [facility] 11-05-2023 09:10-0400 Respiratory rate 18 /min Claude Amos MD Work Phone: [facility] 11-05-2023 09:10-0400 Systolic blood pressure 119 mm[Hg] Claude Amos MD Work Phone: [facility] 10-12-2022 13:21-0400 SaO2% (BldA) [Mass fraction] 92 % Zuly Bonde DO Work Phone: [facility] 10-12-2022 12:15-0400 Diastolic blood pressure 69 mm[Hg] Zuly Bonde DO Work Phone: [facility] 10-12-2022 12:15-0400 Systolic blood pressure 139 mm[Hg] Zuly Bonde DO Work Phone: [facility] 10-12-2022 10:34-0400 Body height 180.3 cm Zuly Bonde DO Work Phone: [facility] 10-12-2022 10:34-0400 Body mass index (BMI) [Ratio] 40.45 kg/m2 Zuly Bonde DO Work Phone: [facility] 10-12-2022 10:34-0400 Body temperature 98.4 [degF] Zuly Bonde DO Work Phone: [facility] 10-12-2022 10:34-0400 Body weight 131.54 kg Zuly Bonde DO Work Phone: [employer] 10-12-2022 10:34-0400 Heart rate 82 /min Zuly Bonde DO Work Phone: [employer] 10-12-2022 10:34-0400 Respiratory rate 18 /min Zuly Bonde DO Work Phone: [employer] 06-14-2022 10:31-0400 Body height 180.3 cm Мария Baxter MD Work Phone: [employer] 06-14-2022 10:31-0400 Body mass index (BMI) [Ratio] 41.14 kg/m2 Мария Baxter MD Work Phone: [employer] 06-14-2022 10:31-0400 Body temperature 97.81 [degF] Мария Baxter MD Work Phone: [employer] 06-14-2022 10:31-0400 Body weight 133.81 kg Мария Baxter MD Work Phone: [employer] 06-14-2022 10:31-0400 Diastolic blood pressure 74 mm[Hg] Мария Baxter MD Work Phone: [employer] 06-14-2022 10:31-0400 Heart rate 66 /min Мария Baxter MD Work Phone: [employer] 06-14-2022 10:31-0400 Respiratory rate 16 /min Мария Baxter MD Work Phone: [facility] 06-14-2022 10:31-0400 SaO2% (BldA) [Mass fraction] 95 % Мария Baxter MD Work Phone: [facility] 06-14-2022 10:31-0400 Systolic blood pressure 116 mm[Hg] Мария Baxter MD Work Phone: [facility] 11-24-2021 11:25-0400 Body temperature 97.7 [degF] Claude Amos MD Work Phone: [facility] 11-24-2021 11:25-0400 Diastolic blood pressure 58 mm[Hg] Claude Amos MD Work Phone: [facility] 11-24-2021 11:25-0400 Heart rate 55 /min Claude Amos MD Work Phone: [facility] 11-24-2021 11:25-0400 Respiratory rate 20 /min Claude Amos MD Work Phone: [facility] 11-24-2021 11:25-0400 SaO2% (BldA) [Mass fraction] 96 % Claude Amos MD Work Phone: [facility] 11-24-2021 11:25-0400 Systolic blood pressure 125 mm[Hg] Claude Amos MD Work Phone: [facility] Encounters Encounter Date Encounter Type Care Provider Facility Start: 03-27-2024 ambulatory Martín ARCEOM F acility:[facility] Start: 03-03-2024 ambulatory JULIAN FaizaCameron BOTELLO [facility] Start: 03-03-2024 ambulatory [facility] Start: 03-03-2024 End: 03-03-2024 Subsequent hospital visit by physician Aleksandra MARTIN Laboratory Comment on above: Urgency of micturiti on; Benign prostatic hyperplasia with incomplete bladder emptying Start: 03-01-2024 ambulatory [facility] Start: 03-01-2024 End: 03-01-2024 Subsequent hospital visit by physician Aleksandra Villarreal [facility] Start: 02-28-2024 ambulatory [facility] Start: 02-28-2024 End: 02-28-2024 Subsequent hospital visit by physician Mraion Whitehead [facility] Start: 02-25-2024 ambulatory [facility] Start: 02-25-2024 End: 02-25-2024 Subsequent hospital visit by physician Aleksandra Villarreal [facility] Start: 2024 ambulatory [facility] Start: 2024 End: 2024 Subsequent hospital visit by physician Tashi Wang [facility] Start: 02-21-2024 ambulatory [facility] Start: 02-21-2024 End: 02-21-2024 Subsequent hospital visit by physician Tashi Wang [facility] Start: 02-17-2024 ambulatory [facility] Start: 02-17-2024 End: 02-17-2024 Subsequent hospital visit by physician Kamini Melendrez PTA [facility] Start: 02-14-2024 End: 02-14-2024 Subsequent hospital visit by physician Tashi Wang [facility] Start: 02-14-2024 ambulatory [facility] Start: 02-08-2024 End: 02-08-2024 ambulatory [facility] Start: 02-08-2024 End: 02-08-2024 Subsequent hospital visit by physician Tashi Wang [facility] Start: 02-07-2024 End: 02-07-2024 [facility] [place] [facility]: 02-07-2024 End: 02-07-2024 Subsequent hospital visit by physician Tashi Wang [facility] Start: 02-04-2024 End: 02-04-2024 ambulatory [facility] Start: 02-04-2024 End: 02-04-2024 Subsequent hospital visit by physician Marion Whitehead [facility] Start: 01-28-2024 End: 01-28-2024 Office outpatient visit 40 minutes Julian Faiza Ayan Work Phone: [facility] Start: 01-28-2024 ambulatory Julian Botello [facility] Start: 01-27-2024 [facility] Start: 01-27-2024 End: 01-27-2024 Subsequent hospital visit by physician Sandro Moreno DO Work Phone: [facility] Laboratory Comment on above: Urinary incontinence , unspecified type Start: 01-27-2024 End: 01-27-2024 Subsequent hospital visit by physician [facility] Pacemaker Remote Device Check Work Phone: [facility] Start: 01-17-2024 End: 01-17-2024 ambulatory Sandro Moreno DO Facility:[facility] Start: 01-12-2024 ambulatory Sadnro Moreno DO Facility:[facility] Start: 12-14-2023 ambulatory SANDRO Feng TIFFANIE [facility] Start: 12-14-2023 End: 12-14-2023 Patient encounter status Sandro Moreno DO Work Phone: [facility] Start: 12-14-2023 End: 12-14-2023 Subsequent hospital visit by physician Sandro Moreno DO Work Phone: [facility] Comment on above: Well adult exam; Type 2 diabetes mellitus without complication, without long-term current use of insulin (HCC); HTN (hypertension), benign; Screening for prostate cancer; Mixed hyperlipidemia Start: 11-05-2023 ambulatory CLAUDE S AUGOSTINI Facil ity:[facility] Start: 11-05-2023 End: 11-05-2023 Office outpatient visit 15 minutes Claude Amos MD Work Phone: [facility] Comment on above: Paroxysmal atrial fi brillation (Primary Dx); High risk medication use; Encounter for long-term (current) use of medications Start: 11-05-2023 ambulatory CLAUDE S AUGOSTINI Facil ity:[facility] Start: 11-01-2023 End: 11-01-2023 ambulatory Sandro Moreno DO Facility:[facility] Start: 10-29-2023 ambulatory CLAUDE S AUGOSTINI Facil ity:[facility] Start: 10-29-2023 End: 10-29-2023 Subsequent hospital visit by physician [facility] Pacemaker Remote Device Check Work Phone: [facility] Comment on above: Arrived Start: 10-07-2023 End: 10-07-2023 ambulatory Sandro Moreno DO Facility:[facility] Start: 09-20-2023 End: 09-20-2023 ambulatory Columba Cameron RN Industrial Design Engineer [facility] Start: 08-30-2023 End: 08-30-2023 ambulatory Sandro Hernandez Tiffanie DO [facility] Start: 08-27-2023 End: 08-27-2023 ambulatory Jacey Hoover ENGINEERING TECHNICIAN 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 Pacemaker Remote Device Check Work Phone: [facility] Comment on above: Arrived Start: 07-14-2023 End: 07-14-2023 ambulatory Sandro Hernandez Tiffanie DO Facility:[facility] Start: 06-21-2023 End: 06-21-2023 ambulatory Sandro Moreno DO Facility:[facility] Start: 06-18-2023 End: 06-18-2023 ambulatory Sandro Hernandez Tiffanie DO Facility:[facility] Start: 05-11-2023 ambulatory SANDRO Jung TIFFANIE Facili ty:[facility] Start: 05-11-2023 ambulatory KRISTEN BANUELOS Facility: [facility] Start: 05-07-2023 ambulatory LETTY GUEVARA [facility] Start: 05-05-2023 ambulatory SANDRO MORENO [facility] Start: 05-05-2023 End: 05-05-2023 Subsequent hospital visit by physician Kamini Melendrez PTA [facility] Start: 05-04-2023 ambulatory CLAUDE S AUGOSTINI Facil ity:[facility] Start: 05-04-2023 End: 05-04-2023 Subsequent hospital visit by physician Sarah Pacemaker Remote Device Check Work Phone: [facility] Comment on above: Arrived Start: 04-20-2023 End: 04-20-2023 Subsequent hospital visit by physician Tashi Wang [facility] Start: 04-20-2023 ambulatory [facility] Start: 04-16-2023 ambulatory [facility] Facility:[facility] Start: 04-15-2023 ambulatory [facility] Start: 04-13-2023 End: 04-13-2023 ambulatory [place] David Tiffanie Facility:[facility] Start: 04-12-2023 ambulatory [facility] Start: 04-08-2023 End: 04-08-2023 Subsequent hospital visit by physician Marion Whitehead [facility] Physical Therapy Comment on above: Impingement of left ankle joint (Primary Dx) Start: 04-08-2023 ambulatory [facility] Start: 04-06-2023 ambulatory [facility] Start: 04-05-2023 End: 04-05-[address] 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, left Start: 04-02-2023 ambulatory LETTY Adonay [facility] Start: 03-30-2023 End: 03-30-2023 ambulatory [facility] Start: 03-25-2023 Office outpatient vi sit 15 minutes Kristen Curtis Other [facility] Start: 02-15-2023 Office Services Kristen mckeon Other [facility] Start: 01-21-2023 ambulatory Markus Ramos MD Facility[facility] Start: 10-29-2022 End: 10-29-2022 Subsequent hospital visit by physician [facility] Pacemaker Remote Device Check Work Phone: [facility] Comment on above: Arrived Start: 10-14-2022 End: 10-14-2022 Subsequent hospital visit by physician [facility] Pacemaker Remote Device Check Work Phone: [facility] Comment on above: Arrived Start: 10-12-2022 End: 10-12-2022 Emergency department patient visit Zuly Fields Work Phone: [facility] Emergency Department Comment on above: Acute cystitis witho ut hematuria (Primary Dx) Start: 10-07-2022 End: 10-07-2022 Subsequent hospital visit by physician Aleksandra Villarreal [facility] Physical Therapy Start: 10-05-2022 End: 10-05-2022 Subsequent hospital visit by physician Tashi Wang [facility] Physical Therapy Start: 09-21-2022 End: 09-21-2022 Subsequent hospital visit by physician Tone Solo [facility] Physical Therapy Start: 09-09-2022 End: 09-09-2022 Subsequent hospital visit by physician Rodrigo Auguste [facility] Physical Therapy Start: 08-27-2022 End: 08-27-2022 Office outpatient visit 15 minutes Julian Botello Work Phone: [facility] Start: 07-30-2022 End: 07-30-2022 Subsequent hospital visit by physician [facility] Pacemaker Remote Device Check Work Phone: [facility] Start: 06-14-2022 End: 06-14-2022 Emergency department patient visit Мария Baxter MD Work Phone: [facility] Emergency Department Comment on above: De Quervain's diseas e (tenosynovitis) (Primary Dx) Start: 05-01-2022 End: 05-01-2022 Subsequent hospital visit by physician [facility] Pacemaker Remote Device Check Work Phone: [facility] Start: 04-30-2022 End: 04-30-2022 Subsequent hospital visit by physician [facility] Pacemaker Remote Device Check Work Phone: [facility] Start: 01-29-2022 End: 01-29-2022 Subsequent hospital visit by physician [facility] Pacemaker Remote Device Check Work Phone: [facility] Start: 11-24-2021 End: 11-24-2021 Subsequent hospital visit by physician Claude Amos MD Work Phone: [facility] Comment on above: Paroxysmal atrial fi brillation Start: 11-17-2021 End: 11-17-2021 Subsequent hospital visit by physician [facility] Pacemaker Remote Device Check Work Phone: [facility] Comment on above: Arrived Start: 09-01-2020 End: 09-01-2020 Subsequent hospital visit by physician Claude Amos MD Work Phone: [facility] Comment on above: Arrived Start: 03-18-2020 End: 03-18-2020 Orders Only Aurora Souza Geronimo Work Phone: [facility] Start: 12-19-2019 End: 12-19-2019 Subsequent hospital visit by physician [facility] Start: 06-16-2017 End: 06-16-2017 Ambulatory DEVI FLORES [facility] Start: 05-04-2017 End: 05-04-2017 Ambulatory ELMER JOHNSON [facility] Start: 05-04-2017 Office consultation Elmer hoang Work Phone: [facility] Start: 03-30-2017 End: 03-30-2017 Ambulatory MARIANELA POWELL [facility] Start: 01-30-2017 Ambulatory Dinesh Elizabeth Work Phone: [facility] Start: 01-13-2017 End: 01-14-2017 Ambulatory DINESH ELIZABETH [facility] Start: 01-13-2017 Office outpatient ne w 20 minutes Dinesh Elizabeth Work Phone: [facility] Procedures Date Procedure Procedure [...] Work Phone: Comment on above: Result Comment: [facility] UTILIZES ORTHO VITROS PSA METHODOLOGY. DIFFERENT TEST METHODS CANNOT BE USED INTERCHANGEABLY. PSA RESULTS IN A GIVEN PATIENT SAMPLE DETERMINED WITH DIFFERENT TESTS AND FROM DIFFERENT MANUFACTURERS CAN VARY DUE TO DIFFERENCES IN TEST METHODS AND REAGENTS. Performed By: #### P SA, LIPD, CMP #### [address] [phone] Start: 12-14-2023 Lipid panel Sandro tejeda DO Work Phone: Start: 11-05-2023 Creatinine blood Claude Amos MD Work Phone: Start: 10-29-2023 DEVICE EVALUATION Other Other Start: 03-25-2023 Docrev cur meds by e lig clin Kristen Schloemer Start: 02-15-2023 Biopsy of penis Kristen cortez Start: 02-15-2023 Docrev cur meds by e lig clin Kristen Schloemer Start: 02-12-2023 Colonoscopy Marion Hernandez nas Start: 10-29-2022 DEVICE EVALUATION Other Other Start: 10-14-2022 DEVICE EVALUATION Other Other Start: 10-12-2022 End: 10-12-2022 Assay of lactate Zuly Fields DO Work Phone: Start: 10-12-2022 Ct abdomen & pelvis w/o contrast material Zuly Fields DO Work Phone: Start: 10-12-2022 BASIC METABOLIC PANE L W/ REFLEX TO MG FOR LOW K Zuly Fields DO Work Phone: Start: 10-12-2022 Urnls dip [...] Screening for malign ant neoplasm of colon [facility] Start: 2029 Respiratory Syncytia l Virus (RSV) or age 60 yrs+ (1 - 1-dose 75+ series) Respiratory Syncytial Virus (RSV) or age 60 yrs+ (1 - 1-dose 75+ series) [facility] Start: 12-20-2024 Annual Wellness Visi t (Medicare) Annual Wellness Visit (Medicare) [facility] Start: 12-20-2024 End: 12-20-2024 Patient encounter procedure 12/20/2024 8:40 AM EST Office Visit [facility] [address] [place] [address] Sandro Moreno DO [address] [place] [address] [address] [place] [address] [facility] [place] Start: 12-19-2024 Depression Screen Depression Screen [facility] Start: 12-13-2024 GFR test (Diabetes, CKD 3-4, OR last GFR 15-59) GFR test (Diabetes, CKD 3-4, OR last GFR 15-59) [facility] Start: 12-13-2024 Hemoglobin A1c measurement A1C test (Diabetic or Prediabetic) [facility] Start: 12-13-2024 Lipid panel Lipids [facility] Start: 11-03-2024 End: 11-03-2024 Patient encounter procedure 11/03/2024 10:30 AM EDT Office Visit [facility] [address] [place] [phone] Claude Amos MD [address] [place] [address] [facility] Start: 09-12-2024 End: 09-12-2024 Patient encounter procedure 09/12/2024 8:30 AM EDT Office Visit [facility] [address] [address] Jer Kim MD [address] [place] [id number] 1 year CPAP [facility] Comment on above: 1 year CPAP Start: 06-16-2024 End: 06-16-2024 Patient encounter procedure 06/16/2024 8:00 AM EDT Office Visit [facility] [address] [place] [address] Sandro Moreno DO [address] [place] [address] [address] [place] [address] 6M F/U [facility] [place] Comment on above: 6M F/U Start: 05-05-2024 End: 05-05-2024 Patient encounter procedure 05/05/2024 9:00 AM EDT Office Visit [facility] [address] [id number] Bimal Heart Jr., MD [address] [place] [phone] 2m [facility] Comment on above: 2m Start: 04-10-2024 End: 04-10-2024 Patient encounter procedure 04/10/2024 10:00 AM EST Office Visit [facility] [address] [place] [address] Cydney Morales, ENGINEERING TECHNICIAN PARKING-STORE TEAM LEADER [address] [place] [phone] [facility] Start: 03-03-2024 Subsequent hospital visit by physician 03/03/2024 1:00 PM EST Hospital Encounter [facility] Physical Therapy [address] [place] [phone] Aleksandra Villarreal [facility] Start: 03-03-2024 End: 03-03-2024 Patient encounter procedure 03/03/2024 9:00 AM EST Office Visit [facility] [address] [address] Bimal Heart Jr., MD [address] [place] [address] R30.0 (ICD-10-CM) - Difficult or painful urination [facility] Comment on above: R30.0 (ICD-10-CM) - Difficult or painful urination Start: 03-01-2024 End: 03-01-2024 Patient encounter procedure 03/01/2024 1:00 PM EST Appointment [facility] [address] [place] [phone] Aleksandra Villarreal [facility] Start: 02-28-2024 End: 02-28-2024 Patient encounter procedure [facility] Start: 02-25-2024 End: 02-25-2024 Patient encounter procedure 02/25/2024 8:40 AM EST Appointment [facility] Therapy [address] [place] [address] Marion Whitehead [facility] Start: 2024 Subsequent hospital visit by physician 2024 8:40 AM EST Hospital Encounter [facility] Therapy [address] [place] [address] Tashi Wang [facility] Start: 02-21-2024 End: 02-21-2024 Patient encounter procedure 02/21/2024 8:00 AM EST Appointment [facility] [address] [place] [address] Tashi Wang [facility] Start: 02-17-2024 End: 02-17-2024 Patient encounter procedure 02/17/2024 8:40 AM EST Appointment [facility] [address] [place] [address] Tashi Wang [facility] Start: 02-14-2024 End: 02-14-2024 Patient encounter procedure 02/14/2024 8:40 AM EST Appointment [facility] [address] [place] [address] Tashi Wang [facility] Start: 02-11-2024 End: 02-11-2024 Patient encounter procedure 02/11/2024 8:40 AM EST Appointment [facility] [address] [place] [address] Tashi Wang [facility] Start: 02-08-2024 End: 02-08-2024 Patient encounter procedure 02/08/2024 8:40 AM EST Appointment [facility] Therapy [address] [place] [address] Tashi Wang [facility] Start: 02-07-2024 End: 02-07-2024 Patient encounter procedure 02/07/2024 8:00 AM EST Appointment [facility] Therapy [address] [place] [address] Tashi Wang [facility] Start: 12-20-2023 End: 12-20-2023 Patient encounter procedure 12/20/2023 8:00 AM EST Office Visit [facility] [address] [place] [address] Sandro Moreno DO [address] [facility] [address] [place] [address] wellness [facility] [place] Comment on above: wellness Start: 11-05-2023 End: 11-05-2023 Patient encounter procedure 11/05/2023 9:30 AM EDT Office Visit [facility] [address] [place] [phone] Claude Amos MD [address] [place] [address] [facility] Start: 10-10-2023 COVID-19 Vaccine ( season) COVID-19 Vaccine ( season) [facility] Start: 10-10-2023 COVID-19 VACCINE ( season) COVID-19 VACCINE ( season) [facility] Start: 10-10-2023 COVID-19 VACCINE ( season) COVID-19 VACCINE ( season) [facility] Start: 10-10-2023 Influenza vaccination INFLUENZA VACC INE (#1) [facility] Start: 09-14-2023 End: 09-14-2023 Patient encounter procedure [facility] [address] [place] Comment on above: 1 yr cpap Start: 09-09-2023 Influenza vaccination Flu vaccine (# 1) [facility] Start: 05-11-2023 End: 05-11-2023 Patient encounter procedure [facility] Start: 05-07-2023 End: 05-07-2023 Patient encounter procedure 05/07/2023 8:00 AM EDT Appointment [facility] Therapy [address] [place] [address] Tashi Wang [facility] Start: 05-04-2023 End: 05-04-2023 Patient encounter procedure 05/04/2023 Appointment [facility] [address] [place] [address] [facility] Start: 04-20-2023 End: 04-20-2023 Patient encounter procedure 04/20/2023 3:20 PM EDT Appointment [facility] [address] [place] [address] Tashi Wang [facility] Start: 04-15-2023 COVID-19 VACCINE () COVID-19 VACCINE () [facility] Start: 04-15-2023 End: 04-15-2023 Patient encounter procedure 04/15/2023 8:40 AM EST Appointment [facility] [address] [place] [address] Kamini Melendrez, LOAD BUILDER [facility] Start: 04-12-2023 End: 04-12-2023 Patient encounter procedure 04/12/2023 8:40 AM EST Appointment [facility] [address] [place] [address] Billy Sandhu, PT [facility] Start: 04-08-2023 End: 04-08-2023 Patient encounter procedure 04/08/2023 8:00 AM EST Appointment [facility] Therapy [address] [place] [address] Marion Whitehead [facility] Start: 04-06-2023 End: 04-06-2023 Patient encounter procedure 04/06/2023 8:00 AM EST Appointment [facility] Therapy [address] [place] [address] Kamini Melendrez, LOAD BUILDER [facility] Start: 01-04-2023 Annual Wellness Visi t (Medicare) Annual Wellness Visit (Medicare) [facility] Start: 11-06-2022 End: 11-06-2022 Patient encounter procedure [facility] KendallCameron [facility] Start: 11-06-2022 End: 11-06-2022 Patient encounter procedure [facility] Start: 10-15-2022 End: 10-15-2022 Patient encounter procedure 10/15/2022 Appointment Physical Therapy Tashi Wang [facility] Start: 10-13-2022 End: 10-13-2022 Patient encounter procedure [facility] Start: 10-09-2022 Influenza vaccination INFLUENZA VACC INE (#1) [facility] Start: 10-07-2022 End: 10-07-2022 Patient encounter procedure 10/07/2022 Appointment Physical Therapy Aleksandra Villarreal [facility] Start: 09-24-2022 End: 09-24-2022 Patient encounter procedure 09/24/2022 Appointment Physical Therapy Aleksandra Villarreal [facility] Start: 09-23-2022 End: 09-23-2022 Patient encounter procedure 09/23/2022 Appointment Physical Therapy Tone Solo [facility] Start: 09-15-2022 End: 09-15-2022 Patient encounter procedure 09/15/2022 Office Visit Pulmonology Jer Kim MD [address] [place] [address] [facility] [address] [place] Start: 09-14-2022 End: 09-14-2022 Patient encounter procedure 09/14/2022 Appointment Physical Therapy Tashi Wang [facility] Start: 09-11-2022 End: 09-11-2022 Patient encounter procedure [facility] Start: 09-08-2022 Influenza vaccination Flu vaccine (# 1) [facility] Start: 04-22-2022 COVID-19 VACCINE (2 - Pfizer series) COVID-19 VACCINE (2 - Pfizer series) [facility] Start: 01-13-2022 COVID-19 VACCINE (2 - Pfizer series) COVID-19 VACCINE (2 - Pfizer series) [facility] Start: 10-09-2021 Influenza vaccination INFLUENZA VACC INE (#1) [facility] Start: 04-06-2021 End: 04-06-2021 Patient encounter procedure 04/06/[address] [facility] Start: 01-15-2021 End: 01-15-2021 Patient encounter procedure 01/15/2021 Office Visit Pharmacy [facility] Brian Vitale [facility] Start: 01-05-2021 End: 01-05-2021 Patient encounter procedure 01/05/2021 Appointment Cardiovascular Medicine [facility] Start: 11-19-2020 Annual Wellness Visi t (AWV) Annual Wellness Visit (AWV) [facility] Start: 10-09-2020 Influenza vaccination INFLUENZA VACC INE (#1) [facility] Start: 10-04-2020 End: 10-04-2020 Patient encounter procedure [facility] Start: 07-23-2020 End: 07-23-2020 Office Visit 07/23/2020 Office Visit Pulmonology Jer Kim MD [address] [place], [place] [id number] [phone] [facility] Start: 10-10-2019 Influenza vaccination Flu vaccine (# 1) [place] Start: 10-10-2019 Influenza vaccinatio n given Sequential Influenza Vaccine (#1) [facility] Start: 2019 Pneumococcal 65+ yea rs Vaccine (1 - PCV) Pneumococcal 65+ years Vaccine (1 - PCV) [facility] Start: 2019 Pneumococcal 65+ yea rs Vaccine (1 of 1 - PCV) Pneumococcal 65+ years Vaccine (1 of 1 - PCV) [facility] Start: 2019 Pneumococcal 65+ yea rs Vaccine (1 of 1 - PPSV23) Pneumococcal 65+ years Vaccine (1 of 1 - PPSV23) [place], [place] Start: 2019 Pneumococcal vaccination [facility] Start: 07-14-2017 CLASS III : OFFICE VISIT CLASS III : OFFICE VISIT [facility] Start: 10-09-2016 Influenza vaccination SEQUENTI AL INFLUENZA VACCINE (#1) [facility] Work Phone: Start: 2014 Respiratory Syncytia l Virus (RSV) or age 60 yrs+ (1 - 1-dose 60+ series) Respiratory Syncytial Virus (RSV) or age 60 yrs+ (1 - 1-dose 60+ series) [facility] Start: 2014 RSV VACCINE (1 - 1-d ose 60+ series) RSV VACCINE (1 - 1-dose 60+ series) [facility] Start: 2014 Zoster vacc, sc ZOSTER VACCINE [facility] Work Phone: Start: 2009 Prostate specific antigen measurement PROSTATE CANCER SCREENING DISCUSSION [facility] Start: 02-24-2004 Administration of herpes zoster vaccine Zoster Vaccines (1 of 2) [facility] Start: 02-24-2004 Prostate specific antigen measurement PROSTATE CANCER SCREENING DISCUSSION [facility] Start: 02-24-2004 Screening for malign ant neoplasm of colon [place], [place] Start: 02-24-2004 Shingles Vaccine (1 of 2) Shingles Vaccine (1 of 2) [facility] Start: 02-24-2004 Zoster vaccine hzv l genaro for subcutaneous use ZOSTER (SHINGLES) VACCINE (1 of 2) [facility] Start: 1999 Colonoscopy COLORECTAL CAN CER SCREENING DISCUSSION [facility] Start: 1999 Screening for malign ant neoplasm of colon [facility] Start: 1994 Fasting lipid profile LIPID SCREENIN G [facility] Start: 1994 Lipid panel [facility] Start: 1989 Diabetes screen Diabetes screen [facility] Start: 1973 DTaP/Tdap/Td vaccine (1 - Tdap) DTaP/Tdap/Td vaccine (1 - Tdap) [facility] Start: 1973 Third diphtheria, tetanus and acellular pertussis (DTaP) vaccination TDAP (ADULT) [facility] Start: 02-24-1972 Glaucoma screening Diabetic retinal exam [facility] Start: 02-24-1972 Hepatitis C antibody , confirmatory test Hepatitis C Screening [facility] Start: 02-24-1972 Hepatitis C screening Hepatitis C sc reen [facility] Start: 02-24-1972 Tetanus vaccination TETANUS [facility] Start: 02-24-1972 Urine screening for protein Diabetic Alb to Cr ratio (uACR) test [facility] Start: 1970 COVID-19 Vaccine (1 of 2) COVID-19 Vaccine (1 of 2) [facility] Start: 1969 HIV screening HIV screen [facility] [place], [place] Start: 1966 Adolescent depressio n screening assessment Depression Screening (PHQ9) [facility] Start: 1966 COVID-19 VACCINE (1) COVID-19 VACCIN E (1) [facility] Start: 1966 Depression Screen Depression Screen [facility] Start: 02-24-1964 Diabetic foot examination (regime/therapy) [facility] Start: 02-24-1964 Lipid panel Lipids [facility] Start: 02-24-1964 Ophthalmic examinati on and evaluation OPHTHALMOLOGY EXAM [facility] Start: 02-24-1964 Urine, microalbumin URINE MICROALBUM IN [facility] Start: 02-24-1960 Pneumococcal 65+ yea rs Vaccine (1 of 2 - PCV) Pneumococcal 65+ years Vaccine (1 of 2 - PCV) [facility] Start: 1957 History and physical examination, annual for health maintenance Wellness Visit [facility] Start: 1954 COVID-19 VACCINE (#1) COVID-19 VACCI NE (#1) [facility] Start: 1954 CLASS III : CREATININE CLASS III : C REATININE [facility] Start: 1954 CLASS III : EKG CLASS III : EKG [facility] Start: 1954 CLASS III : MAGNESIUM CLASS III : MA GNESIUM [facility] Start: 1954 CLASS III : POTASSIUM CLASS III : PO TASSIUM [facility] Start: 1954 Class III: Magnesium Class III: Magn esium [facility] Start: 1954 Fall risk assessment Falls Risk Asse ssment [facility] Start: 1954 HbA1c HEMOGLOBIN A1C [facility] Start: 1954 Hepatitis B vaccination HEP B VACCINE (1 of 3 - 3-dose series) [facility] Start: 1954 Hepatitis C antibody , confirmatory test HEPATITIS C VIRUS SCREENING [facility] Start: 1954 HEPATITIS C SCREENING HEPATITIS C SC AUGUST [facility] Work Phone: Start: 1954 Hepatitis C screening [facility] Start: 1954 Prostate specific antigen measurement PSA Level [facility] Start: 1954 Screening colonoscopy COLONOSCOPY [facility] Work Phone: Start: 1954 Tetanus vaccination [facility] Cardioversion electi ve arrhythmia external CARDIOVERSION (EP LAB) Paroxysmal atrial fibrillation [facility] EP End: 05-05-2018 Comprehensive hearing test Comprehensive hearing test Routine Tinnitus of both ears 1 Occurrences starting 05/04/2017 until 05/05/2018 [facility] End: 12-19-2019 COVID-19 COVID-19 Lab Routine Once for 1 Occurrences starting 12/19/2019 until 12/19/2019 [facility] [place] [place] Comment on above: Once for 1 Occurrenc es starting 12/19/2019 until 12/19/2019 End: 10-12-2022 Culture, Blood 1 [employer] Work Phone: Comment on above: One Time for 1 Occur rences starting 10/12/2022 until 10/12/2022 End: 10-12-2022 Culture, Blood 2 [employer] Work Phone: Comment on above: One Time for 1 Occur rences starting 10/12/2022 until 10/12/2022 End: 01-27-2024 Culture, Urine [facility] Work Phone: Comment on above: 1 Occurrences starti ng 01/27/2024 until 01/27/2024 End: 03-03-2024 Culture, Urine [facility] Work Phone: Comment on above: Once for 1 Occurrenc es starting 03/03/2024 until 03/03/2024 1 Occurrences starti ng 03/03/2024 until 03/03/2024 End: 11-19-2021 External electrode cardioversion EP CARDIOVERSION EXTERNAL Electrophysiology Routine Paroxysmal atrial fibrillation One Time for 1 Occurrences starting 11/19/2021 until 11/19/2021 [facility] Work Phone: Comment on above: One Time for 1 Occur rences starting 11/19/2021 until 11/19/2021 End: 01-13-2018 MR Knee Right Without Contrast MR Knee Right Without Contrast Routine Acute pain of right knee 1 Occurrences starting 01/13/2017 until 01/13/2018 [facility] Work Phone: End: 01-13-2018 MR Lumbar Spine Without Contrast MR Lumbar Spine Without Contrast Routine Acute midline low back pain with right-sided sciatica 1 Occurrences starting 01/13/2017 until 01/13/2018 [facility] Work Phone: End: 11-24-2021 Standard ECG ECG ECG STAT One Time for 1 Occurrences starting 11/24/2021 until 11/24/2021 [facility] Work Phone: Comment on above: One Time for 1 Occur rences starting 11/24/2021 until 11/24/2021 Standard ECG ECG ECG Routine Paroxysmal atrial fibrillation 11/05/2023 9:25 AM EDT [facility] End: 03-03-2024 Urinalysis with Microscopic Urinalysis with Microscopic Lab Routine Urgency of micturition Benign prostatic hyperplasia with incomplete bladder emptying 1 Occurrences starting 03/03/2024 until 03/03/2024 [facility] Work Phone: Comment on above: 1 Occurrences starti ng 03/03/2024 until 03/03/2024 Immunizations Immunization Date Immunization Notes Care Provider Karina colby 12-15-2022 Influenza, FLUZONE H igh Dose (age 65 y+), IM, Quadv, 0.7mL Sandro Old Bennington DO Work Phone: [facility] Work Phone: 12-15-2022 influenza virus vaccine, unspecified formulation Columba Cameron RN [facility] 12-08-2021 Influenza, FLUZONE H igh Dose (age 65 y+), IM, Quadv, 0.7mL Sandro Old Bennington DO Work Phone: [facility] Work Phone: 12-08-2021 influenza virus vaccine, unspecified formulation [facility] Pacemaker Remote Device Check Work Phone: [facility] 11-11-2020 Influenza, FLUZONE H igh Dose (age 65 y+), IM, Quadv, 0.7mL Sandro Moreno DO Work Phone: [facility] Work Phone: 11-11-2020 influenza virus vaccine, unspecified formulation [facility] Pacemaker Remote Device Check Work Phone: [facility] Payers Date Payer Category Payer Medicare MEDICARE MEDICAR E A AND B [id number] 2019-Present [address] [place] [address] [id number]. [id number] 2019 Medicare [id number] 1.13.172.2.7.3. [id number] 2019 Unknown GENERIC PAYOR ME DICARE SUPPLEMENT [id number] 2019-Present [phone] [address] [place] [address] [id number] 1.2.840.116915.1.13.172.2.7.3. [id number] 2019 Unknown [id number]. 1.13.172.2.7.3. [id number] 2019 Medicare [id number] 1.2.840.955883.1.13.239.2.7.3. 372194.315 2019 Unknown [id number] 1.2.840.840140.1.13.239.2.7.3. 889942.315 2010 Unknown [id number] 2.16.840.1.818242.3.249.13 2010 Unknown [place] [facility] [id number] 2010-Present [id number] 1.2.840.532470.1.13.385.2.7.3. 628666.315 1954 Unknown [id number] 2.16.840.1.952807.3.579.2.196 1954 Unknown [id number] 2.16.840.1.332481.3.579.2.196 1954 Unknown [id number] 2.16.840.1.081788.3.579.2.196 1954 Unknown [id number] 2.16.840.1.684275.3.579.2.196 1954 Unknown [id number] 2.16.840.1.395348.3.579.2.196 1954 Unknown [id number] 2.16.840.1.482418.3.579.2.196 1954 Unknown [id number] 2.16.840.1.835225.3.579.2.196 1954 Unknown [id number] 2.16.840.1.590725.3.579.2.196 1954 Unknown [id number] 2.16.840.1.008929.3.579.2.196 1954 Unknown [id number] 2.16.840.1.951884.3.579.2.196 1954 Unknown [id number] 2.16.840.1.367251.3.579.2.196 1954 Unknown [id number] 2.16.840.1.335431.3.579.2.196 1954 Unknown [id number] 2.16.840.1.427987.3.579.2.196 1954 Unknown [id number] 2.16.840.1.270186.3.579.2.196 1954 Unknown [id number] 2.16.840.1.627873.3.579.2.196 1954 Unknown [id number] 2.16.840.1.706590.3.579.2.196 1954 Unknown [id number] 2.16.840.1.224936.3.579.2.196 1954 Unknown [id number] 2.16.840.1.344391.3.579.2.1314 1954 Unknown [id number] 2.16.840.1.966650.3.579.2.594 1954 Unknown [id number] 2.16.840.1.135160.3.579.2.594 1954 Unknown [id number] 2.16.840.1.766087.3.579.2.594 1954 Unknown [id number] 2.16.840.1.335908.3.579.2.594 1954 Unknown [id number] 2.16.840.1.068445.3.579.2.594 1954 Unknown [id number] 2.16.840.1.101211.3.579.2.594 1954 Unknown [id number] 2.16.840.1.881874.3.579.2.594 1954 Unknown [id number] 2.16.840.1.756269.3.579.2.594 1954 Unknown [id number] 2.16.840.1.396137.3.579.2.754 1954 Unknown [id number] 2.16.840.1.679349.3.579.2.754 1954 Unknown [id number] 2.16.840.1.457991.3.579.2.754 1954 Unknown [id number] 2.16.840.1.685397.3.579.2.754 1954 Unknown [id number] 2.16.840.1.948132.3.579.2.754 1954 Unknown [id number] 2.16.840.1.893183.3.579.2.75 1954 Unknown [id number] 2.16.840.1.470810.3.579.2. 1954 Unknown [id number] 2.16.840.1.029896.3.579.2. 1954 Unknown [id number] 2.16.840.1.393942.3.579.2 1954 Unknown [id number] 2.16.840.1.746738.3.579.2. 1954 Unknown [id number] 2..840.1.275715.3.579.2 1954 Unknown [id number] 2..840.1.953968.3.579.2 1954 Unknown [id number] 2.16.840.1.021163.3.579.2 1954 Unknown [id number] 2.16.840.1.924740.3.579.2 1954 Unknown [id number] 2.16.840.1.028173.3.579.2 1954 Unknown [id number] 2.16.840.1.626308.3.579.2 1954 Unknown [id number] 2.16.840.1.935722.3.579.2. 1954 Unknown [id number] 2.16.840.1.749907.3.579.2. 1954 Unknown [id number] 2.16.840.1.434904.3.579.2 1954 Unknown [id number] 2.16.840.1.960283.3.579.2. 1954 Unknown [id number] 2.16.840.1.419046.3.579.2.754 1954 Unknown [id number] 2..840.1.602632.3.579.2.754 1954 Unknown [id number] 2.16.840.1.751945.3.579.2.754 1954 Unknown [id number] 2..840.1.891937.3.579.2.754 Unknown [id number] 2..840.1.977826.3.249.13 Social History Date Type Detail Facility Start: 05-04-2017 End: 09-11-2021 Tobacco smoking status DEIS Never smoker [facility] Start: 1955 Sex Assigned At Not on file [facility] [employer] Work Phone: Start: 01-13-2017 End: 01-30-2017 Tobacco smoking status [facility] Unknown if ever smoked [facility] Work Phone: Start: 05-04-2017 End: 09-11-2021 Tobacco use and exposure Never used [facility] Start: 05-04-2017 End: 03-03-2024 Alcohol intake Current drinker of alcohol (finding) [facility] Start: 05-04-2017 Alcohol Comment 3 per week [facility] History of tobacco use Cigar Smoker [facility] Start: 03-15-2020 End: 10-12-2022 Alcohol intake [facility] Start: 12-13-2013 Tobacco Comment occsional ciga r years ago [facility] Start: 12-13-2013 Alcohol Comment occasional [facility] Exposure to SARS-CoV-2 (event) Unable to assess [facility] Start: 11-14-2021 End: 11-24-2021 Exposure to SARS-CoV-2 (event) Not sure [facility] Start: 04-07-2021 End: 10-12-2022 Tobacco use panel [facility] Gender identity Identifies as ma le gender (finding) [facility] Start: 07-23-2020 Alcohol Comment occasionally [employer] Work Phone: Start: 01-28-2024 *Tobacco [facility] Read-Only, Retired: Physical Abuse Denies [facility] (I/We) worried whether (my/our) food would run out before (I/we) got money to buy more. Never true [facility] Work Phone: At any time in the past 12 months, were you homeless or living in fdc [including now]? No [facility] Work Phone: Sex Assigned At Male [facility] Work Phone: Start: 08-30-2020 Sexual Orientation Choose not to disclose [facility] NEGATED: Highlighted rowStart: 01-28-2024 Tobacco smoking status NHIS Never smoker [facility] NEGATED: Highlighted row Alcohol intake Alcohol Use Details [facility] Procedure Code Equipment Code Equipment Origin al Text Equipment Identifier Dates Icm Reveal Linq - [id number], [id number] FDA Start: 04-02-2017 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 [facility] Physical Therapy Outpatient Daily Note & Discharge Patient: Kana Hadley (69 y.o. 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 for Construction Rep Goals : 4 weeks CURRENT STATUS GOAL STATUS Construction Rep Goal 1: Pt report decrease anterior right ankle pain 0-2/10 to improve ankle ROM and actiivty tolerance LTG 1 Current Status:: 02-28-24: Pt reports pain 2-3/10 with daily activities: dull ache at all times Partially met Prison Goal 2: Improve AROM left ankle DF 2-4 degrees and PF 50 degrees (within 2 degrees of right) to normalize gait and improve functional mobility 02-28-24: AROM left ankle 0-35 degrees Not Met (improved) Prison Goal 3: Pt ambulate with improved heel to toe gait/normal gait pattern for ease with community ambulation 02-28-24: Pt demonstrated improved ankle DF ROM and strength to clear left foot/toes with ambulation and demonsrates improved heel to toe gait pattern. Mild antalgic gait due to ankle pain and stiffness. Partially met Construction Rep Goal 4: Improve left ankle DF 4+/5/5 [...] Device Manual Therapy Therapeutic Exercise 3 38 LOAD BUILDER Neuro Re-education Electrical Stimulation, Unattended Mechanical Traction Iontophoresis Ultrasound Therapeutic Activity IDN Gait Training Aquatics Moist Hot Pack Cold Pack Electronically signed by: Tashi Wang, LOAD BUILDER [id number] Marion Whitehead [place] [id number] If you have any questions or concerns, please don't hesitate to call. Thank you for your referral. Physician Signature: Date: _ By signing above, therapist's plan is approved by physician documented in this encounter [facility] Work Phone: 02-14-2024 History of Present illness Narrative Images from the original note were not included. [facility] Physical Therapy Outpatient Daily Note Patient: Kana Hadley (68 y.o. male) Examination Date: 02/14/2024 : 1955 CSN: [id number] Insurance: Payor: MEDICARE / Plan: MEDICARE PART [...] stretching performed to improve ROM In progress SOFTWARE IMPLEMENTATION PROJECT MANAGER GOALS Completed by Time Frame for Construction Rep Goals : 4 weeks CURRENT STATUS GOAL STATUS Prison Goal 1: Pt report decrease anterior right ankle pain 0-2/10 to improve ankle ROM and actiivty tolerance 02-14-2410 In progress Prison Goal 2: Improve AROM left ankle DF 2-4 degrees and PF 50 degrees (within 2 degrees of right) to normalize gait and improve functional mobility In progress Prison Goal 3: Pt ambulate with improved heel to toe gait/normal gait pattern for ease with community ambulation In progress Construction Rep Goal 4: Improve left ankle DF 4+/5/5 [...] Aquatics Moist Hot Pack Cold Pack Tashi Carol Wang, LOAD BUILDER [id number] documented in this encounter [facility] Work Phone: 02-04-2024 History of Present illness Narrative Images from the original note were not included. [facility] Physical Therapy Outpatient Orthopaedic Evaluation Patient: Kana Hadley (68 y.o. male) Examination Date: 02/04/2024 : 1955 CSN: [id number] Insurance: Payor: MEDICARE / Plan: MEDICARE PART [...] is the preferred language of the patient/guardian?: Peruvian Is an control room technician required?: No Chart Reviewed: Yes Patient Assessed for Rehabilitation Services: Yes DIAGNOSIS M21.372 (ICD-10-CM) - Foot drop, left foot M17.12 (ICD-10-CM) - Unilateral primary osteoarthritis, left knee REFERRING PROVIDER Julian Botello, PAGabrielC SUBJECTIVE Pt reports left knee pain onset aprox 1 year ago and recently had cortisone shot 2 weeks ago which helped. States recent x-ray bone on bone. Pt reports he saw Dr Solo in [place] and had injections to bilateral heels 3 weeks ago. Also measeured for new orthotics at Dr Jo office and to get these soon. Pt reports he got custom AFO for left drop foot 1 year ago and he did not like so does not use. 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 [employer], standing and walking aggrevate both knee [...] gait pattern STG Goal 2 Status:: New LONG-TERM GOALS Completed by Time Frame for Prison Goals : 4 weeks CURRENT STATUS GOAL STATUS Construction Rep Goal 1: Pt report decrease anterior right ankle pain 0-2/10 to improve ankle ROM and actiivty tolerance LTG Goal 1 Status:: New Construction Rep Goal 2: Improve AROM left ankle DF 2-4 degrees and PF 50 degrees (within 2 degrees of right) to normalize gait and improve functional mobility LTG Goal 2 Status:: New Prison Goal 3: Pt ambulate with improved heel to toe gait/normal gait pattern for ease with community ambulation LTG Goal 3 Status:: New Construction Rep Goal 4: Improve left ankle DF 4+/5/5 [...] Cold Pack Electronically signed by: Marion Whitehead, [id number] If you have any questions or concerns, please don't hesitate to call. Thank you for your referral. Physician Signature: Date: _ By signing above, therapist's plan is approved by physician documented in this encounter [facility] Work Phone: 02-03-2024 Evaluation note Type assessment assessment assessment assessment assessment [facility] Work Phone: [phone] History of Present illness Narrative* Encounter Date [...] diagnosed by Dr. Martín Benitez, Orthopedic in [place], [place] with a foot drop and has [...] any GLP-1 or GLP-1 agonist. Knee [facility] Work Phone: [phone] History of Present illness Narrative* Aminata Luu RN - 11/05/2023 9:30 AM EDT Patient Education Patient education regarding the following topic(s) was provided on 11/05/2023: diagnostic tesing (labs). Those in attendance for the education included: patient and spouse. Barriers in providing the education included: none. The following methods were used in providing the education: explanation and handout. [facility] handoutsgiven included: After visit summary and labs [...] and artifact. This represents a session summary [id number] to 14-Apr-2023 The presenting rhythm is consistent [...] or problems arise. Sincerely, Claude Amos M.D., [facility] Margie Yousif Chair in Cardiac Electrophysiology Professor of Internal Medicine [facility] [email or web address] [phone] fax [phone] Chief Complaint Patient presents with Follow-up Past Medical History: Diagnosis Date Arrhythmia Diabetes mellitus Family history of premature coronary artery disease GERD (gastroesophageal reflux disease) Hyperlipidemia Hypertension NSVT (nonsustained ventricular tachycardia) ILR 01/2014 Palpitations Paroxysmal ventricular tachycardia Sleep apnea cpap averages 6 hours nightly Past Surgical History: Procedure Laterality Date EGD DIAGNOSTIC N/A 01/08/2021 Laterality: N/A; Surgeon: Sonia Knox MD; Location: [facility] ENDOSCOPY LOOP RECORDER IMPLANTATION 01/15/2014 Surgeon: Claude Amos MD; Location: [facility] ECHOCARDIOGRAM TREADMILL STRESS TEST 12/01/13 [facility] MYOCARDIAL PERFUSION NM 12/01/13 [facility] ECHOCARDIOGRAM (OUTSIDE) 11/30/13 [facility] HOLTER MONITOR (OUTSIDE) 11/29/13 CARDIAC CATH (OUTSIDE) 08/04/00 [facility] APPENDECTOMY KNEE SURGERY Right Family History [...] lesions. Neurologic: Grossly normal [facility]* Patient Instructions* Aminata Luu RN - 11/05/2023 9:30 AM EDT Continue current medications\ Continue sotalol, need labs if not completed. Rx to pt. Follow-up appointment may be scheduled/determined in 6 months and one year Thank you for choosing [facility] for your Heart Care. [email or web address] is an available tool to securely access your online medical information. Please ask to enroll during any [facility] appointment. Once enrolled, your MD reviewed test results will be available for you to review at your convenience. [facility] messaging is reserved for non urgent messages and responses may take a few days. Call the [facility] at [phone] option 6, option 3 for urgent EP questions/concerns M-F 8 to 4:00 Call Scheduling for any appointment/procedure verification or changes [phone] If we are sending you an Event monitor and you have not received it when expected, please call the office. For any questions/problems with your monitor please call Danita at [phone]. [facility] testing and procedure patient Instructions may be obtained at: [email or web address] Insurance Concerns: [email or web address] centermediselect medical [email or web address]/patient-care/yaozdta-jxk-yrllhiq-guide/insurances-w e-accept [facility] Tele[facility] encounter Note* Telephone Encounter - [...] us know before stopping any other medications. [facility]08-12-2024 Miscellaneous Notes* Telephone Encounter - Columba Cameron [...] to Kalie Webber RN, and EP FRED [employer]. [facility] Telephone encounter Note* Telephone Encounter - [...] to Kalie Webber, RN, and EP FRED pool. [facility]02-29-2024 History of Present illness Narrative* Marion Whitehead, PT - 04/08/2023 8:00 AM EST Images from the original note were not included. [facility] Physical Therapy Outpatient Daily Note Patient: Kana Hadley (68 y.o. male) Examination Date: 04/08/2023 : 1955 CSN: [id number] Insurance: Payor: MEDICARE / Plan: MEDICARE PART [...] appropriate activities Exercise CPTs: Therapeutic exercise (CPT 35774) Exercise 1: seated EOB ankle circles 2x [...] eval -10 degrees from neutral In progress LONG-TERM GOALS Completed by 6 weeks CURRENT STATUS [...] Hot Pack Cold Pack Marion Whitehead PT [id number] documented in this encounterWYANDOT Work Phone: 1(684) 333-237702-23-2024 History of Present illness Narrative* Marion Whitehead PT - 04/02/2023 8:00 AM EST Images from the original note were not included. [facility] Physical Therapy Outpatient Daily Note Patient: Kana Hadley (68 y.o. male) Examination Date: 04/02/2023 : 1955 CSN: [id number] Insurance: Payor: MEDICARE / Plan: MEDICARE PART [...] appropriate activities Exercise CPTs: Therapeutic exercise (CPT 07455) Exercise 1: seated EOB ankle circles 2x [...] last visit and noting some improvement-ot using Frontstart fred and HEP updated on fred this [...] -5 degrees eval -10 degrees from neutral SOFTWARE IMPLEMENTATION PROJECT MANAGER GOALS Completed by 6 weeks CURRENT STATUS [...] x 10 Cold Pack Marion Whitehead PT [id number] documented in this encounterWYANDOT Work Phone: 1(784) 989-971409-04-2023 Hospital Discharge instructions* Discharge Instructions* Zuly Fields [...] Everywhere. * UTI (Urinary Tract Infection): Male (Peruvian) documented in this encounterWYANDOT Work Phone: 1(500) 831-639408-30-2023 History of Present illness Narrative* Neha Villarreal, MARCIA - 10/07/2022 9:20 AM EDT Images from the original note were not included. [facility] Physical Therapy Outpatient Daily Note Patient: Kana Hadley (67 y.o. male) Examination Date: 10/07/2022 : 1955 CSN: [id number] Insurance: Payor: MEDICARE / Plan: MEDICARE PART A AND B / Product Type: *No Product type* / - (Medicare) Secondary Insurance (if applicable): [facility] Referring Physician: Julian Botello PCP: Sandro Moreno [...] 2 min MANUAL THERAPY Manual Therapy (CPT 89483) Joint Mobilization: manual patellar mobs infra<>supra, lateral/medial, [...] oon heel at zero degrees In progress SOFTWARE IMPLEMENTATION PROJECT MANAGER GOALS Completed by 4 weeks CURRENT STATUS [...] Moist Hot Pack Cold Pack Neha Villarreal [id number] documented in this encounterWYANDOT Work Phone: 1(317) 519-813408-02-2023 History of Present illness Narrative* Rodrigo Auguste, PT - 09/09/2022 9:00 AM EDT Images from the original note were not included. [facility] Physical Therapy Outpatient Daily Note Patient: Kana Hadley (67 y.o. male) Examination Date: 09/09/2022 : 1955 CSN: [id number] Insurance: Payor: MEDICARE / Plan: MEDICARE PART [...] FL pain at end range. In progress LONG-TERM GOALS Completed by 4 weeks CURRENT STATUS [...] Hot Pack Cold Pack Rodrigo Auguste, [place] [id number] documented in this encounterWYANDOT Work Phone: 1(933) 835-645705-07-2023 Hospital Discharge instructions* Discharge Instructions* Мария Baxter MD - 06/14/2022 12:02 PM EDT Wear the splint as needed to help with pain * Attachments The following attachments cannot be sent through Care Everywhere. * De Quervain's: Tenosynovitis (Peruvian) * Wrist Tendinitis Exercises (Peruvian) * RICE: General Info (Peruvian) documented in this encounterWYANDOT Work Phone: 1(269) 777-643510-17-2022 History of Present illness Narrative* Marisa Cheung APRN-KEYUR - 11/24/2021 11:44 AM EDT Vitals: 11/24/21 [...] device clinic as scheduled. [facility]* Nursing Notes - Reyna Matthews RN - 11/24/2021 11:21 AM EDT Pt arrives to room 2420 in [facility] for [facility]. ECG completed and shows NSR. Marisa CUTTING MACHINE TENDER notified. Reyna Matthews RN [facility]10-17-2022 Miscellaneous Notes* Nursing Notes - Reyna Matthews RN - 11/24/2021 11:21 AM EDT Pt arrives to room 2420 in [facility] for [facility]. ECG completed and shows NSR. Marisa CUTTING MACHINE TENDER notified. Reyna Matthews RN [facility]* Clinical Note Date No Information [facility] Work Phone: Discharge summary* Clinical Note Date No Information [facility] Work Phone: Evaluation note* Diagnosis Paroxysmal atrial fibrillation Atrial fibrillation [facility] Diagnosis Acute cystitis without hematuria- Primary Acute cystitis documented in this encounter [facility] Phone: evaluation note* Diagnosis Ankle impingement syndrome, left- Primary 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, left documented in this encounter [facility] Phone: evaluation note* Diagnosis Impingement of left ankle joint- Primary documented in this encounter [facility] Phone: evaluation note* Diagnosis Afib- Primary Atrial [...] of other medications [facility] Diagnosis Well adult exam Routine general medical examination at a health care facility Type 2 diabetes mellitus without complication, without long-term current use of insulin (HCC) HTN (hypertension), benign Essential hypertension, benign Screening for prostate cancer Special screening for malignant neoplasm of prostate Mixed hyperlipidemia documented in this encounter [facility] Work Phone: evaluation note* Diagnosis De Quervain's disease (tenosynovitis)- Primary Radial styloid tenosynovitis documented in this encounter [facility] Work Phone: evaluation note* Diagnosis Urinary incontinence, unspecified type documented in this encounter [facility] Work Phone: evaluation note* Diagnosis Urgency of micturition Benign prostatic hyperplasia with incomplete bladder emptying documented in this encounter [facility] Work Phone: History and physical note* Clinical Note Date No Information [facility] Phone: Instructions* Date Instruction Additional Infor mation No Information [facility] Phone: Progress note* Clinical Note Date No Information [facility] Phone: Reason for referral (narrative)* Reason For Referral No Information [facility] Phone: Reason for visit Narrative* Auth/Cert Specialty Diagnoses / Procedures Referred By José Luis booth Referred To Contact Diagnoses Paroxysmal atrial fibrillation Paroxysmal atrial fibrillation [I48.0] Procedures [place] C[facility]ERS[facility] ELECTIVE ARRHYTHMIA EXTERNAL CARDIOVERSION (EP LAB) Claude Amos MD [address] [place] [address] [facility] [address] [place] [address] Referral ID Status Reason Start Date Expiration Date Visits Re quested Visits Authorized [id number] 1 1 [facility] Assessments Diagnosis Tinnitus of both ears Unspecified [...] t Referred To Contact Procedures ECG Madhuri Moran, ENGINEERING TECHNICIAN PARKING-STORE TEAM LEADER [address] [place] [address] Referral ID Status Reason Start Date Expiration Date V isits Requested Visits Authorized [id number] New Request 11/24/2021 12/19/2022 1 1 Specialty Diagnoses / Procedures Referred By Contac t Referred To Contact Diagnoses Paroxysmal atrial fibrillation Procedures ECG Claude Amos MD [address] [place] [address] Referral ID Status Reason Start Date Expiration Date V isits Requested Visits Authorized [id number] New Request 11/03/2023 11/27/2024 1 1 Additional Source Comments (unrecognized sect ion and content) No Status Records FoundNo Status Records FoundNo Status Records FoundNo Status Records FoundNo Status Records FoundNo Status Records FoundNo Status Records FoundNo Status Records FoundNo Status Records Found INFORMATION SOURCE (unrecogn ized section and content) DATE CREATED AUTHOR 07/28/2017 [facility] DATE CREATED AUTHOR AUTHOR'S ORGANIZ ATION 08/03/2017 [facility] DATE CREATED AUTHOR AUTHOR'S ORGANIZ ATION 08/12/2017 [facility] DATE CREATED AUTHOR AUTHOR'S ORGANIZ ATION 02/05/2021 [facility] DATE CREATED AUTHOR AUTHOR'S ORGANIZ ATION 01/20/2024 [facility] DATE CREATED AUTHOR AUTHOR'S ORGANIZ ATION 01/31/2024 [facility] DATE CREATED AUTHOR AUTHOR'S ORGANIZ ATION 02/05/2024 [facility] DATE CREATED AUTHOR AUTHOR'S ORGANIZ ATION 03/05/2024 [facility] DATE CREATED AUTHOR AUTHOR'S ORGANIZ ATION 03/08/2024 [facility] Care Teams (unrecognized sec tion and content) District Claims Manager Relationship Specialty Start Date End Date Sandro Moreno DO [address] [place] [address] PCP - General Family Medicine 11/23/19 11/22/21 District Claims Manager Relationship Specialty Start Date End Date Sandro Moreno DO [address] [place] [address] PCP - General Family Medicine 11/23/19 11/22/21 Claude Amos MD [address] [place] [address] PCP - Referring 1 Clinical Cardiac Electrophysiology 12/27/20 District Claims Manager Relationship Specialty Start Date End Date SepClaude conroy MD [address] [place] [address], [place] [address] PCP - Referring 1 Clinical Cardiac Electrophysiology 12/27/20 District Claims Manager Relationship Specialty Start Date End Date SepClaude conroy MD [address] [place] [address], [place] [address] PCP - Referring 1 Clinical Cardiac Electrophysiology 12/27/20 District Claims Manager Relationship Specialty Start Date End Date Claude Amos MD [address] [place] [address], [place] [address] PCP - Referring 1 Clinical Cardiac Electrophysiology 12/27/20 District Claims Manager Relationship Specialty Start Date End Date Sandro Moreno, DO [address] [place] [address] PCP - General Family Medicine 02/04/21 District Claims Manager Relationship Specialty Start Date End Date Sandro Moreno DO [address] [place] [address] PCP - General Family Medicine 02/04/21 District Claims Manager Relationship Specialty Start Date End Date Sandro Moreno DO [address] [place] [address] PCP - General Family Medicine 02/04/21 District Claims Manager Relationship Specialty Start Date End Date Sandro Moreno DO [address] [place] [address] PCP - General Family Medicine 02/04/21 District Claims Manager Relationship Specialty Start Date End Date Claude Amos MD [address] [place] [address], [place] [address] PCP - Referring 1 Clinical Cardiac Electrophysiology 12/27/20 District Claims Manager Relationship Specialty Start Date End Date Sandro Moreno DO [address] [place] [address] PCP - General Family Medicine 02/04/21 District Claims Manager Relationship Specialty Start Date End Date Sandro Moreno DO [address] [place] [address] PCP - General Family Medicine 02/04/21 District Claims Manager Relationship Specialty Start Date End Date Sandro Moreno DO [address] [place] [address] PCP - General Family Medicine 02/04/21 District Claims Manager Relationship Specialty Start Date End Date Sandro Moreno DO [address] [place] [address] PCP - General Family Medicine 02/04/21 District Claims Manager Relationship Specialty Start Date End Date Claude Amos MD [address] [place] [address] PCP - Referring 1 Clinical Cardiac Electrophysiology 12/27/20 District Claims Manager Relationship Specialty Start Date End Date Claude Amos MD [address] [place] [address] PCP - Referring 1 Clinical Cardiac Electrophysiology 12/27/20 Sandro Moreno DO [address] [place] [address] PCP - General Family Medicine 05/11/23 District Claims Manager Relationship Specialty Start Date End Date AugClaude conroy MD [address] [place] [address] PCP - Referring 1 Clinical Cardiac Electrophysiology 12/27/20 Sandro Moreno DO [address] [place] [address] PCP - General Family Medicine 05/11/23 District Claims Manager Relationship Specialty Start Date End Date SepClaude conroy MD [address] [place] [address] PCP - Referring 1 Clinical Cardiac Electrophysiology 12/27/20 Sandro Moreno DO [address] [place] [address] PCP - General Family Medicine 05/11/23 District Claims Manager Relationship Specialty Start Date End Date SepClaude conroy MD [address] [place] [phone] PCP - Referring 1 Clinical Cardiac Electrophysiology 12/27/20 Sandro Moreno DO [address] [place] [address] PCP - General Family Medicine 05/11/23 District Claims Manager Relationship Specialty Start Date End Date Sandro Moreno DO PCP - General Family Medicine 02/04/21 District Claims Manager Relationship Specialty Start Date End Date Sandro Moreno DO [address] [place] [address] PCP - General Family Medicine 02/04/21 District Claims Manager Relationship Specialty Start Date End Date Sandro Moreno DO PCP - General Family Medicine 02/04/21 District Claims Manager Relationship Specialty Start Date End Date Claude Amos MD [address] [place] [address] PCP - Referring 1 Clinical Cardiac Electrophysiology 12/27/20 Sandro Moreno DO [address] [place] , [place] [id number] PCP - General Family Medicine 05/11/23 District Claims Manager Relationship Specialty Start Date End Date Sandro Moreno DO PCP - General Family Medicine 02/04/21 Name Effective Dates (start - stop) Status Members No Information District Claims Manager Relationship Specialty Start Date End Date Sandro Moreno DO PCP - General Family Medicine 02/04/21 District Claims Manager Relationship Specialty Start Date End Date Sandro Moreno DO PCP - General Family Medicine 02/04/21 District Claims Manager Relationship Specialty Start Date End Date Sandro Moreno DO PCP - General Family Medicine 02/04/21 District Claims Manager Relationship Specialty Start Date End Date Sandro [...] 0.9% IV solution 1 dose, Starting on Wed11/24/21 at 1104, Until Wed11/25/21 at 1115, Created by cabinet override 1115 [...] knee Procedures PT EVAL AND TREAT Julian Botello, PA-C [address] [place] [address] Marion Whitehead Referral ID Status Reason Start Date Expiration Date V isits Requested Visits Authorized [id number] Auth Not Required 02/04/2024 02/28/2024 1 1 [...] BE BASED ON THE PRIMARY CLINICAL RECORDS. [facility] [employer] [facility]. provides no warranty or guarantee of the accuracy or completeness of information in this document.
[2024-03-20 11:58] LABS: Glucometer 138 mg/dL (74-106)
[2024-03-20] MEDS: LACTATED RINGER'S SOLUTION 1,000 ML 50 ML IV ×3 (12:11→18:59)
--- NOTE | 2024-03-20 15:34 | P.ORON_ITS ---
Brief Operative Note Date of procedure: 03/20/24 Pre-op diagnosis general: Left ankle arthritis, plantar fasciitis, Achilles te ndinitis and equinus Post-op diagnosis: same as pre-op Procedure: Procedure performed: Left ankle arthroscopy, endoscopic plantar fasciotomy and gastrocnemius recession Indications for procedure: Patient is a 69-year-old male who is known to my practice and has been dealing with left ankle pain over the last year. He has also been dealing with plantar fasciitis and Achilles tendinitis. He initially was treated nonsurgically by Dr. Solo with a corticosteroid injection in his ankle approximately 2 months ago as well as custom orthotics and physical therapy. Unfortunately patient did not respond to nonsurgical treatment and an MRI confirmed plantar fasciitis and Achilles tendinitis. We discussed the risks and benefits of surgical versus continued nonsurgical treatment and patient wished to undergo surgical correction. Intraoperative findings: Ankle arthroscopy revealed significant amount of acute and chronic synovitis and soft tissue impingement. Mild to moderate degenerative changes of the tibiotalar joint but no osteochondral defect was observed. Medial band of the plantar fascia was thickened and taut consistent with chronic plantar fasciitis. Ankle joint dorsiflexion was to neutral but not past. Mild Achilles tendon thickening Procedure in detail: Patient was identified in preoperative holding by myself w the [facility] time correct side and site were marked and consent was obtained. Regional anesthesia was performed by the anesthesia team and patient was brought back to the operating theater placed on table in supine position. Preoperative antibiotics were started and general anesthesia was administered. The left lower extremity was prepped and draped in usual sterile fashion with a thigh tourniquet. Formal timeout was performed and the left lower extremity was exsanguinated and tourniquet was inflated. Standard anterior medial and anterior lateral ankle portals were created and blunt dissection was taken down to the capsule of the ankle joint. Trocar and cannula were placed into the anterior medial portal and into the ankle joint. Trocar was removed and replaced by an arthroscope. Inspection of the ankle joint revealed acute and chronic synovitis and soft tissue impingement as well as mild to moderate degenerative changes of the tibiotalar joint. A 3.5 mm aggressive shaver was inserted into the anterior lateral portal. All impingement tissue was resected. Arthroscopic instrumentation was then removed. Portals were closed with skin suture. Incision was placed over the medial leg over the medial aspect of the gastroc aponeurosis. Combination of sharp and blunt dissection gained access to the gastrocnemius aponeurosis which was isolated bluntly and a speculum was inserted for adequate visualization and to protect the sural nerve and vein. The ankle was dorsiflexed maximally and the gastrocnemius aponeurosis was incised transversely and fully releasing which allowed ankle joint dorsiflexion to increase to 10 degrees past neutral. The surgical site was irrigated with copious saline and the incision was closed in layers. Stab incision over the medial aspect of the left in-step at the glabrous skin junction was used followed by blunt dissection and the medial band of the plantar fascia was identified. Trochar and cannula were then placed medial to lateral. A lateral stab incision was made to allow passage of the trochar and cannula. Camera was inserted into the lateral portal and a hook blade was placed into the medial portal. 50% of the plantar fascia was released and healthy muscle was noted. The site was flushed with saline and instrumentation was removed. Closure with nylon suture was then undertaken. The tourniquet was deflated with a prompt hyperemic response. A dry sterile dressing was placed followed by CAM boot. Postoperative plan: Discharge home under 's care Weightbearing as tolerated in cam boot. Patient should sleep in cam boot Patient may change surgical dressing in 1 to 3 days and wash incisions with soap and water Ice and elevation Prescriptions were sent to his pharmacy using my office EMR and a prescription for Taft 5/325 1 by mouth as needed for pain every 4 hours dispense #30 was written on a paper prescription to 2 issues with the EMR in sending this controlled substance. Follow-up in 1 week for incision check Implants: none Anesthesia: regional and General-LMA Surgeon: Thomas Vo Assistant Purchasing Manager: Kaycee Chanel Estimated blood loss (mL): 10 Pathology: none sent Condition: stable Disposition: PACU
[2024-03-20] MEDS: CLINDAMYCIN PHOSPHATE/D5W 900 MG/50 ML PREMIX 100 MG IV (15:35)
--- NOTE | 2024-03-20 15:49 | PC.NURSE ---
1525-Final timeout completed. Pateint placed on monitor and O2 at 2l/min via nc. Left propped on pillows. 1528- Left popliteal site landmarked with Ultrasound. 1530- Site injected. 1531- Block completed. Patient tolerated it well. See posted vital signs.
[2024-03-20] MEDS: BETAMETHASONE ACE/BETAMETHASONE SOD PHOS 30 MG/5 ML 12 MG INJ (16:24)
[2024-03-20 16:54] LABS: Glucometer 117 mg/dL (74-106)
[2024-03-20] MEDS: GLYCOPYRROLATE 0.4 MG/2 ML VIAL 0.2 MG IV (17:20)
--- NOTE | 2024-03-20 17:38 | PC.NURSE ---
Denies dizziness, SOB,chest pain; anesthesia made aware of low heart rate
--- NOTE | 2024-03-20 17:42 | PC.NURSE ---
Dr. Guzman present and examines pt; now c/o dizziness; HOB flat and IV wide open and order received
--- NOTE | 2024-03-20 17:44 | PC.NURSE ---
Medicated with [place] as ordered
--- NOTE | 2024-03-20 17:47 | PC.NURSE ---
HOB remains flat and no further c/o dizziness
--- NOTE | 2024-03-20 18:09 | PC.NURSE ---
Manual BP 98/70. States pain at bottom of foot and is tolerable at this time. HOB remains flat.
--- NOTE | 2024-03-20 19:05 | PC.NURSE ---
States he feels dizzy; HOB lowered; no c/o chest pain SOB;skin color pink and warm; Bradly from anesthesia present and wants a 500ml fluid bolus given; pt states that he just feels tired; drank large cup of H2O and drinking coffee; has eaten peanut butter crackers and granola bar
--- NOTE | 2024-03-20 19:15 | PC.NURSE ---
Lying flat; fluid bolus continues; no further c/o dizziness
[2024-03-20 19:28] LABS: Glucometer 159 mg/dL (74-106)
--- NOTE | 2024-03-20 19:37 | PC.NURSE ---
Bradly from anesthesia speaks with pt and his and wants to keep the patient overnight for observation
[2024-03-20] MEDS: HYDROCODONE/ACET 5-325 MG TABLET 1 TAB PO (19:51)
--- NOTE | 2024-03-20 20:54 | PC.NURSE ---
Medicated with [place] for c/o pain at bottom of operative foot rated 3 on 1-10 pain; pain pill requested by patient
[2024-03-20] MEDS: ACETAMINOPHEN 500 MG TABLET 1000 MG PO (21:08)
[2024-03-20] MEDS: TAMSULOSIN HCL 0.4 MG CAPSULE PO (21:09)
[2024-03-20] MEDS: 0.9 % SODIUM CHLORIDE 1,000 ML 100 ML IV (21:11)
[2024-03-21] VITALS (10 sets, daily range): BP systolic 101–130; BP diastolic 55–77; PULSE 63–78; TEMP 36.6; O2SAT 83–93
[2024-03-21] MEDS: ACETAMINOPHEN 500 MG TABLET 1000 MG PO ×2 (01:10→08:14)
--- NOTE | 2024-03-21 05:38 | P.PN_ITS ---
Progress Note: Subjective Subjective Interval history: Patient with hypertension and mild hypoxia after surgery, blood pressure improved overnight, still little bit soft this morning however Patient without specific complaint Exam Constitutional Vital Signs, click to edit/add: Last Vital Signs Temp 97.9 F 03/21/24 04:00 Pulse 78 03/21/24 04:00 Resp 18 03/21/24 04:00 BP 130/77 03/21/24 04:00 Pulse Ox 93 L 03/21/24 04:00 O2 Del Method Room Air 03/21/24 04:00 O2 Flow Rate 3 03/21/24 01:31 Documenting provider has reviewed patient's vital signs: yes Common normals: no apparent distress Chest Common normals: inspection of chest normal Respiratory Common normals: normal respiratory effort and no retractions Cardio Common normals: regular rate and regular rhythm GI Common normals: negative for Normal to inspection, nondistended, normoactive bowel sounds present (Obese) Progress Note: Objective Labs Labs: Short CBC 03/20/24 Range/Units 11:33 WBC 6.9 (4.0-11.0) 10^3/uL Hgb 15.2 (14.0-18.0) g/dL Hct 42.7 (42.0-54.0) % Plt Count 162 (150-450) 10^3/uL Progress Note: A&P Assessment and Plan (1) GERD (gastroesophageal reflux disease): (2) Atrial flutter: (3) Hypertension: Plan Consultation for hypotension postoperatively. Blood pressure is improved overnight. Is a little bit low this morning so we will hold a.m. medications, if blood pressure begins to elevate as I would expect we can restart his home medications at that time. Patient feels back to his normal self, medically stable for discharge Poorly controlled diabetes mellitus-patient not checking sugars at home encouraged him to check them closely, wound healing of primary importance BPH-continue with home medications Atrial flutter-continue with home medications So far this morning patient is stable and he is medically stable for discharge to home unless condition changes
[2024-03-21 05:49] LABS: Alanine Aminotransferase 31 U/L (16-63); Albumin Level 3.2 g/dL (3.4-5.0); Alkaline Phosphatase 70 U/L (46-116); Anion Gap 16.3; Aspartate Amino Transferase 18 U/L (15-37); BUN Creatinine Ratio 18.3; Bilirubin Total 0.7 mg/dL (0.2-1.0); Calcium 8.6 mg/dL (8.5-10.1); Carbon Dioxide 26.7 mmol/L (21.0-32.0); Chloride 102 mmol/L (98-107); Estimated GFR (African America >60 (>=60 mL/min/1.73m^2); Estimated GFR (Non-African Ame >60 (>=60 mL/min/1.73m^2); Globulin 3.2 g/dL; Glucose 225 mg/dL (74-106); Magnesium 1.6 mg/dL (1.8-2.4); Sodium 141 mmol/L (136-145); Total Protein 6.4 g/dL (6.4-8.2)
[2024-03-21] MEDS: 0.9 % SODIUM CHLORIDE 1,000 ML 100 ML IV (07:07)
--- OUTSIDE RECORDS SUMMARY | 2024-03-21 07:20 | XMS_ITS | CCD ---
Author Organization [facility] CliniSyor Care Team Providers Care Caisson Worker Name Role Phone Da Elmer BCameron Unavailable [...] e Da, Elmer BCameron Primary Care Provider [place] DO, Sandro A Primary Care Provider [place] DO, Sandro A Primary Care Provider Claude Amos MD Unavailable [phone] Claude Amos MD Unavailable [phone] Tiffanie DO, Sandro A Primary Care Provider Kristen Curtis Primary Care Physician Unavaila Kristen Maya Unavailable Unavailable Kristen Curtis Primary Care Physician Unavaila ble Tiffanie DO, Sandro A Primary Care Provider [phone] [place] DO, Sandro A Primary Care Provider Markus Ramos MD Attending Unavaila ble Alice SIEGEL, Constantin Quintanilla Referring Unavail able Tiffanie DO, Sandro Hernandez Primary Care Unava ilable [place] DO, Sandro [place] Primary Care Unava ilable Emmanuel SY, Martín Russell Attending Unavailab le Tiffanie DO, Sandro Hernandez Primary Care Unava ilable Emmanuel SY, Martín Russell Attending Unavailab le [place] DO, [facility] Primary Care Unava ilable Emmanuel DPM, Martín Russell Attending Unavailab le Tiff[place] DO, [facility] Primary Care Unava ilable Emmanuel DPM, Martín Russell Attending Unavailab le [place] DO, [facility] Primary Care Unava ilable Emmanuel DPM, Martín Russell Attending Unavailab le [place] DO, [facility] Primary Care Unava ilable Emmanuel DPM, Martín Russell Attending Unavailab le Tiffanie DO, Sandro Hernandez Attending Unava ilable T[place] DO, [facility] Primary Care Unava ilable Emmanuel DPM, Martín Russell Attending Unavailab le [place] DO, [facility] Primary Care Unava ilable Tiffanie DO, Sandro Hernandez Attending Unava ilable [place] DO, [facility] Primary [facility] Unava ilable Tiffanie DO, Sandro Hernandez Attending Unava ilable [place] DO, [facility] Unava ilable [place] DO, Sandro Hernandez Attending Unava ilable [place] 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, Jacey Castillo Attending Unavailable [place] DO, [facility] Primary [facility] Unava ilable T[place] DO, Sandro Hernandez Attending Unava ilable Tiffanie DO, [facility] Unava ilable Tiffanie DO, [facility] Unava ilable [place] DO, Sandro Hernandez Attending Unava ilable [place] DO, [facility] Unava ilable [place] DO, Sandro Hernandez Attending Unava ilable [place] DO, [facility] Unava ilable Tiffanie DO, Sandro Hernandez Attending Unava ilable Tiffanie DO, [facility] Primary Care Provider Julian [...] Referring Unavailable AUGOSTINKarena, CLAUDE Wallace Referring Unavailable ITFFANIE, SANDRO A Primary Care Unavailable AUGOSTINI, CLAUDE [...] Unavailable TIFFANIE, SANDRO A Primary Care Unavailable JUILAN BOTELLO. Referring Unavailable TIFFANIE, SANDRO A Primary Care Unavailable HIGHLANDER, PETER D Referring Unavailable Allergies Allergy Classification Reported Allergen(s) Allergy Type Date of Onset Reaction(s) Facility (20 sources) nitroglycerin; Translations: [NITROGLYCERIN] Propensity to adverse reactions to drug 12-13-19 14 Other (See Comments), Hypotension [facility] (13 sources) Penicillins; Translations: [PENICILLINS] Propensity to adverse reactions to drug 12-13-19 14 [facility] (1 source) Penicillins Propensity to adverse reactions to drug 12-13-19 14 Hives [facility] (9 sources) Nitroglycerin Propensity to adverse reactions to drug 12-13-19 14 Hypotension [facility] Work Phone: (9 sources) Penicillins Propensity to adverse reactions to drug 12-13-19 14 [facility] (20 sources) Penicillins Propensity to adverse reactions to drug 12-13-19 14 [facility] (3 sources) Sulfamethoxazole / Trimethoprim; Translations: [Bactrim] Drug Allergy [facility] (20 sources) Sulfamethoxazole / Trimethoprim Drug Allergy 11-07-19 23 [facility] (1 source) Penicillin; Translations: [penicillin] Drug Allergy [facility] Repository Medications Current Medications Medication Drug Class(es) [...] current use of drug therapy; Translations: [Other technician terminal and repeater (current) drug therapy] 11-05-2023 Episodic Other and [...] 03-30-2017 Episodic Other aftercare (2 sources) Other technician terminal and repeater (current) drug therapy; Translations: [Other technician terminal and repeater (current) drug therapy] Onset: 11-05-2023 Episodic Other [...] [place] - SOURCE urine, clean catch Normal [facility] Comment on above: Order Comment: [place] - Source of Urine Collection? Urine clean catch\[id number]\Performed by [facility] [address] [place] [address] [place] - Source of Urine Collection? Urine clean catch [place] - Current Antibiotic Therapy? No Answer Given Performed By: #### C UR #### [facility] See Report [place] - URINE CULTURE No significant pathogens isolated. Growth likely represents skin terri or distal urethral terri. Abnormal [facility] Comment on above: Order Comment: NV - Source of Urine Collection? Urine clean catch\[id number]\Performed by [facility] [address] [place] [address] [place] - Source of Urine Collection? Urine clean catch [place] - Current Antibiotic Therapy? No Answer Given Performed By: #### C UR #### [facility] See Report URINE CULTUREon 03-03-2024 Bacteria identified Cx Nom (U) MICROBIOLOGY REPORT [facility], [address] [place] [address], [address] PATIENT: KANA HADLEY LOCATION: [facility] - - : 1955 AGE: 69 SEX: M ADM: 03/03/24 Att. Physician: BIMAL HEART Order Id: [id number] Req. Physician: BIMAL HEART Source: urine, clean [...] terri. Organism 00 Growth of Contaminants Normal [facility] Urinalysis with Reflex to Cu ltureon 03-03-2024 BACTERIA, URINE None Seen [facility] Bilirubin, Urine Negative Negative [facility] Blood, Urine Negative Negative [facility] Clarity, UA Clear [facility] Color, UA Yellow [facility] Culture Indicated? No [facility] Glucose, Ur Negative Negative mg/dL [facility] Ketones Ql (U) Negative Negative mg/dL [facility] Leukocyte esterase Test strip Ql (U) Negative Negative [facility] Nitrate, UA Negative Negative [facility] pH (U) 5.5 [pH] 5.0 - 7.0 [facility] Protein, Ur (gm/dL) Negative Negative mg/dL [facility] RBC, UA None Seen #/HPF [facility] Specific [place], UA 1.020 1.005 - 1.030 [facility] Urobilinogen, Urine 0.2 E.U./dL NINF [facility] WBC, UA None Seen #/HPF [facility] Urinalysis, Complete reflex to cultureon 03-03-2024 BACT None Seen Normal [facility] Comment on above: Performed By: #### U COMP/WRCX #### [place] [address] Ph. [phone] CULTIND No Normal [facility] Comment on above: Performed By: #### U COMP/WRCX #### [place] [address] Ph. [phone] UBIL Negative Normal Negative [facility] Comment on above: Performed By: #### U COMP/WRCX #### [place] [address] [address] Ph. [phone] UBLO Negative Normal Negative [facility] Comment on above: Performed By: #### U COMP/WRCX #### [address] [address] Ph. [phone] UCLAR Clear Normal [facility] Comment on above: Performed By: #### U COMP/WRCX #### [address] [address] Ph. [phone] UCOL Yellow Normal [facility] Comment on above: Performed By: #### U COMP/WRCX #### [address] [address] Ph. [phone] UGLU Negative Normal Negative [facility] Comment on above: Performed By: #### U COMP/WRCX #### [address] [address] Ph. [phone] UKET Negative Normal Negative [facility] Comment on above: Performed By: #### U COMP/WRCX #### [address] [address] Ph. [phone] ULEU Negative Normal Negative [facility] Comment on above: Performed By: #### U COMP/WRCX #### [address] [address] Ph. [phone] UNIT Negative Normal Negative [facility] Comment on above: Performed By: #### U COMP/WRCX #### [address] [address] Ph. [phone] UPH 5.5 Normal 5.0-7.0 [facility] Comment on above: Performed By: #### U COMP/WRCX #### [address] [address] Ph. [phone] UPRO Negative Normal Negative [facility] Comment on above: Performed By: #### U COMP/WRCX #### [place] [id number] Ph. [phone] URBC None Seen Normal [facility] Comment on above: Performed By: #### U COMP/WRCX #### [place] [address] Ph. [phone] USG 1.020 Normal 1.005-1.030 [facility] Comment on above: Performed By: #### U COMP/WRCX #### [place] [address] Ph. [phone] UURO 0.2 E.U./dL Normal <2.0 [facility] Comment on above: Performed By: #### U COMP/WRCX #### [place] [address] Ph. [phone] UWBC None Seen Normal [facility] Comment on above: Performed By: #### U COMP/WRCX #### [place] [address] Ph. [phone] Culture, Urineon 01-27-2024 NV - Organism 01 Enterococcus faecalis Abnormal [facility] Comment on above: Order Comment: NV - Source of Urine Collection? Urine clean catch\X0D0A\Performed by [facility] [address] [place] [address] [place] - Source of Urine Collection? Urine clean catch NV - Current Antibiotic Therapy? No Answer Given Specify (ex-cath, midstream, cysto, etc)?->CCMS urine collection Performed By: #### C UR #### [facility] See Report [place] - SOURCE urine, clean catch Normal [facility] Comment on above: Order Comment: NV - Source of Urine Collection? Urine clean catch\X0D0A\Performed by [facility] [address] [place] [address] [place] - Source of Urine Collection? Urine clean catch NV - Current Antibiotic Therapy? No Answer Given Specify (ex-cath, midstream, cysto, etc)?->CCMS urine collection Performed By: #### C UR #### [facility] See Report [place] - URINE CULTURE [place] count: 10,000-50,000 CFU/mL Normal [facility] Comment on above: Order Comment: NV - Source of Urine Collection? Urine clean catch\X0D0A\Performed by [facility] [address] [place] [id number] [place] - Source of Urine Collection? Urine clean catch NV - Current Antibiotic Therapy? No Answer Given Specify (ex-cath, midstream, cysto, etc)?->CCMS urine collection Performed By: #### C UR #### [facility] See Report URINE CULTUREon 01-27-2024 Bacteria identified Cx Nom (U) MICROBIOLOGY REPORT [facility], [address] [place] [address], [address] PATIENT: KANA HADLEY LOCATION: [facility] - - : 1955 AGE: 68 SEX: M ADM: 01/27/24 Att. Physician: PHYSICIAN, NON-STAFF Order Id: [id number] Req. Physician: PHYSICIAN, NON-STAFF Source: urine, clean catch Site: Collected: 01/27/24 14:10 Current Antibiotics: not stated Antibiotics comment: --------- C O M M E N T S - [place] - Source of Urine Collection? Urine clean catch STATUS OF ORDERED AND REPORTED TESTS URINE CULTURE FINAL 01/29/24 URINE CULTURE FINAL 01/29/24 08:06 Organism 01 Enterococcus faecalis - (Group D) [place] count: 10,000-50,000 CFU/mL Organism 01-strfae Antibiotic KILLIAN [...] blood and urine levels=mcg/ml.*Standa rd dosages from [place] Guide to Antimicrobial Therapy and assumes moderate infection in normal adult populations. For pts. with renal or liver disease consult PDR or pharmacist. Normal [facility] Podiatry Office/Clinic Noteo n 01-17-2024 Podiatry Office/Clinic [...] from bilateral (more content not included)... Normal [facility] CBC with Auto Differentialon 12-14-2023 Basophils (Bld) [#/Vol] 0.0 10*3/uL [facility] Basophils/100 WBC (Bld) 0 % 0 - 1 % [facility] Eosinophils Absolute 0.2 [facility] Eosinophils/100 WBC (Bld) 2 % 0 - 5 % [facility] Erythrocyte distribution width (RBC) [Ratio] 13.1 % 11.5 - 14.5 % [facility] Hematocrit (Bld) [Volume fraction] 43.2 % 42.0 - 52.0 % [facility] Hemoglobin (Bld) [Mass/Vol] 14.8 g/dL 13.5 - 17.5 g/dL [facility] Interpretation and review of laboratory results Abnormal [facility] Lymphocytes Absolute 2.0 [facility] Lymphocytes/100 WBC (Bld) 28 % 20 - 40 % [facility] MCH (RBC) [Entitic mass] 32.7 pg 27.0 - 35.0 pg [facility] MCHC (RBC) [Mass/Vol] 34.3 g/dL 32.0 - 36.0 g/dL [facility] MCV (RBC) [Entitic vol] 95.4 fL 80.0 - 100.0 fL [facility] Monocytes Absolute 0.6 [facility] Monocytes/100 WBC (Bld) 9 % 1 - 15 % [facility] Neutrophils Absolute 4.3 [facility] Neutrophils/100 WBC (Bld) 61 % 50 - 70 % [facility] Platelet mean volume (Bld) [Entitic vol] 9.9 fL 9.4 - 12.3 fL [facility] Platelets (Bld) [#/Vol] 157 10*3/uL [facility] RBC (Bld) [#/Vol] 4.53 10*6/uL Low [facility] WBC (Bld) [#/Vol] 7.1 10*3/uL [facility] Complete Blood Count with Au to Diffon 12-14-2023 BASO# BASO#: 0.0 Normal 0.0-0.1 [facility] Comment on above: Performed By: #### A 1C, CBCAD #### [place] [address] Ph. [phone] BASO% BASO%: 0 Normal 0-1 [facility] Comment on above: Performed By: #### A 1C, CBCAD #### [place] [address] Ph. [phone] Eosinophils (Bld) [#/Vol] 0.2 10*3/uL Normal 0.0-0.5 [facility] Comment on above: Performed By: #### A 1C, CBCAD #### [place] [address] Ph. [phone] Eosinophils/100 WBC (Bld) 2 % Normal 0-5 [facility] Comment on above: Performed By: #### A 1C, CBCAD #### [place] [address] Ph. [phone] Erythrocyte distribution width (RBC) [Ratio] 13.1 % Normal 11.5-14.5 [facility] Comment on above: Performed By: #### A 1C, CBCAD #### [place] [address] Ph. [phone] Hematocrit (Bld) [Volume fraction] 43.2 % Normal 42.0-52.0 [facility] Comment on above: Performed By: #### A 1C, CBCAD #### [place] [id number] Ph. [phone] Hemoglobin (Bld) [Mass/Vol] 14.8 g/dL Normal 13.5-17.5 [facility] Comment on above: Performed By: #### A 1C, CBCAD #### [place] [address] Ph. [phone] Lymphocytes (Bld) [#/Vol] 2 10*3/uL Normal 1.0-4.0 [facility] Comment on above: Performed By: #### A 1C, CBCAD #### [place] [address] Ph. [phone] Lymphocytes/100 WBC (Bld) 28 % Normal 20-40 [facility] Comment on above: Performed By: #### A 1C, CBCAD #### [place] [address] Ph. [phone] MCH (RBC) [Entitic mass] 32.7 pg Normal 27.0-35.0 [facility] Comment on above: Performed By: #### A 1C, CBCAD #### [place] [address] Ph. [phone] MCHC (RBC) [Mass/Vol] 34.3 g/dL Normal 32.0-36.0 [facility] Comment on above: Performed By: #### A 1C, CBCAD #### [place] [address] Ph. [phone] MCV (RBC) [Entitic vol] 95.4 fL Normal 80.0-100.0 [facility] Comment on above: Performed By: #### A 1C, CBCAD #### [place] [address] Ph. [phone] Monocytes (Bld) [#/Vol] 0.6 10*3/uL Normal 0.3-1.0 [facility] Comment on above: Performed By: #### A 1C, CBCAD #### [address] [address] Ph. [phone] Monocytes/100 WBC (Bld) 9 % Normal 1-15 [facility] Comment on above: Performed By: #### A 1C, CBCAD #### [address] [address] Ph. [phone] Neutrophils (Bld) [#/Vol] 4.3 10*3/uL Normal 1.8-7.7 [facility] Comment on above: Performed By: #### A 1C, CBCAD #### [address] [address] Ph. [phone] Neutrophils/100 WBC (Bld) 61 % Normal 50-70 [facility] Comment on above: Performed By: #### A 1C, CBCAD #### [address] [address] Ph. [phone] Platelet mean volume (Bld) [Entitic vol] 9.9 fL Normal 9.4-12.3 [facility] Comment on above: Performed By: #### A 1C, CBCAD #### [address] [address] Ph. [phone] Platelets (Bld) [#/Vol] 157 10*3/uL Normal 150-450 [facility] Comment on above: Performed By: #### A 1C, CBCAD #### [address] [address] Ph. [phone] RBC (Bld) [#/Vol] 4.53 10*6/uL Low 4.70-6.10 [facility] Comment on above: Performed By: #### A 1C, CBCAD #### [address] [address] Ph. [phone] WBC (Bld) [#/Vol] 7.1 10*3/uL Normal 3.7-11.0 [facility] Comment on above: Performed By: #### A 1C, CBCAD #### [place] [address] [place] [address] Ph. [phone] Comprehensive Metabolic Pane edouard 12-14-2023 Albumin [Mass/Vol] 4.5 g/dL 3.5 - 5.0 g/dL [facility] ALP (Bld) [Catalytic activity/Vol] 80 U/L 38 - 126 U/L [facility] ALT [Catalytic activity/Vol] 31 U/L 0 - 50 U/L [facility] AST [Catalytic activity/Vol] 32 U/L 17 - 59 U/L [facility] Bilirubin [Mass/Vol] 1.0 mg/dL 0.2 - 1.3 mg/dL [facility] Calcium [Mass/Vol] 9.1 mg/dL 8.4 - 10. 2 mg/dL [facility] Chloride [Moles/Vol] 103 mmol/L [facility] CO2 [Moles/Vol] 30 mmol/L [facility] Creatinine [Mass/Vol] 0.90 mg/dL 0.66 - 1.25 mg/dL [facility] Est, Glom Filt Rate 92 - PINF [facility] Comment on above: GFR calculated [...] 171 mg/dL High 65 - 100 mg/dL [facility] Potassium [Moles/Vol] 3.8 mmol/L [facility] Protein [Mass/Vol] 7.3 g/dL 6.3 - 8.2 g/dL [facility] Sodium [Moles/Vol] 138 mmol/L [facility] Urea nitrogen (BldV) [Mass/Vol] 21 mg/dL High 9 - 20 mg/dL [facility] Fasting [facility] Albumin [Mass/Vol] 4.5 g/dL Normal 3.5-5.0 [facility] Comment on above: Order Comment: Fasti ng Performed By: #### P SHARDA HORN, CMP #### [place] [id number] Ph. [phone] ALP [Catalytic activity/Vol] 80 U/L Normal 38-126 [facility] Comment on above: Order Comment: Fasti ng Performed By: #### P SA LIPD, CMP #### [place] [address] Ph. [phone] ALT [Catalytic activity/Vol] 31 U/L Normal 0-50 [facility] Comment on above: Order Comment: Fasti ng Performed By: #### P SA LIPD, CMP #### [place] [address] Ph. [phone] AST [Catalytic activity/Vol] 32 U/L Normal 17-59 [facility] Comment on above: Order Comment: Fasti ng Performed By: #### P SA LIPD, CMP #### [place] [address] Ph. [phone] Bilirubin [Mass/Vol] 1.0 mg/dL Normal 0.2-1.3 [facility] Comment on above: Order Comment: Fasti ng Performed By: #### P SA LIPD, CMP #### [place] [address] Ph. [phone] Calcium [Mass/Vol] 9.1 mg/dL Normal 8.4-10.2 [facility] Comment on above: Order Comment: Fasti ng Performed By: #### P SA, LIPD, CMP #### [place] [address] Ph. [phone] Chloride [Moles/Vol] 103 mmol/L Normal 98-107 [facility] Comment on above: Order Comment: Fasti ng Performed By: #### P SACARMELLAD, CMP #### [place] [address] Ph. [phone] CO2 [Moles/Vol] 30 mmol/L Normal 22-32 [facility] Comment on above: Order Comment: Fasti ng Performed By: #### P SA LIPD, CMP #### [place] [address] Ph. [phone] Creatinine [Mass/Vol] 0.90 mg/dL Normal 0.66-1.25 [facility] Comment on above: Order Comment: Fasti ng Performed By: #### P CARMELLA HORND, CMP #### [place] [address] Ph. [phone] GFR/1.73 sq M.predicted among non-blacks MDRD (S/P/Bld) [Vol rate/Area] 92 mL/min/{1.73_m2} Normal >60 [facility] Comment on above: Order Comment: [...] By: #### P SA, CARMELLAD, CMP #### [place] [address] Ph. [phone] Glucose [Mass/Vol] 171 mg/dL High 65-100 [facility] Comment on above: Order Comment: Fasti ng Performed By: #### P SA, LIPD, CMP #### [place] [address] Ph. [phone] Potassium [Moles/Vol] 3.8 mmol/L Normal 3.6-5.0 [facility] Comment on above: Order Comment: Fasti ng Performed By: #### P SHARDA HORN, CMP #### [place] [address] Ph. [phone] Protein [Mass/Vol] 7.3 g/dL Normal 6.3-8.2 [facility] Comment on above: Order Comment: Fasti ng Performed By: #### SHARDA Durán SA, CMP #### [place] [address] Ph. [phone] Sodium [Moles/Vol] 138 mmol/L Normal 135-145 [facility] Comment on above: Order Comment: Fasti ng Performed By: #### SHARDA Durán SA, CMP #### [place] [address] Ph. [phone] Urea nitrogen [Mass/Vol] 21 mg/dL High 9-20 [facility] Comment on above: Order Comment: Fasti ng Performed By: #### SHARDA Durán SA, CMP #### [place] [address] Ph. [phone] Hemoglobin A1Con 12-14-2023 Glucose [Mass/Vol] 128 mg/dL [facility] Comment on above: Estimated Average Glucose is a caluculated value from Hemoglobin A1C and is c s s representative of the average blood glucose level in the last 2-3 month period. HbA1c (Bld) [Mass fraction] 6.1 % High 4.0 - 5.6 % [facility] Comment on above: [place] [employer] guidelines indicate that patients with [...] for these patients. EAG 128 mg/dL Normal [facility] Comment on above: Result Comment: Shannan negro Average Glucose is a caluculated value from Hemoglobin A1C and is c s s representative of the average blood glucose level in the last 2-3 month period. Performed By: #### A 1C, CBCAD #### [place] [id number] Ph. [phone] HbA1c (Bld) [Mass fraction] 6.1 % High 4.0-5.6 [facility] Comment on above: Result Comment: [...] #### A 1C, CBCAD #### [place] [address] Ph. [phone] Lipid Panelon 12-14-2023 Cholesterol [Mass/Vol] 133 mg/dL 100 - 200 mg/dL [facility] Comment on above: <200 mg/dL is recommended cholesterol level. Cholesterol in HDL [Mass/Vol] 40 mg/dL Low 40 - PINF mg/dL [facility] Cholesterol in LDL [Mass/Vol] 67 mg/dL 20 - 100 mg/dL [facility] CHOLESTEROL/HDL RELATIVE RISK 3 [facility] Triglyceride [Mass/Vol] 132 mg/dL 10 - 150 mg/dL [facility] Is Patient Fasting?/ # of Hours->Fasting 8 hrs [facility] Cholesterol [Mass/Vol] 133 mg/dL Normal 100-200 [facility] Comment on above: Order Comment: Is Pa tient Fasting?/# of Hours->Fasting 8 hrs Result Comment: <200 mg/dL is recommended cholesterol level. Performed By: #### P SA LIPD, CMP #### [place] [address] Ph. [phone] Cholesterol in HDL [Mass/Vol] 40 mg/dL Low >40 [facility] Comment on above: Order Comment: Is Pa tient Fasting?/# of Hours->Fasting 8 hrs Performed By: #### P SA, LIPD, CMP #### [place] [address] Ph. [phone] Cholesterol in LDL [Mass/Vol] 67 mg/dL Normal 20-100 [facility] Comment on above: Order Comment: Is Pa tient Fasting?/# of Hours->Fasting 8 hrs Performed By: #### P SA, LIPD, CMP #### [place] [address] Ph. [phone] Cholesterol.total/ Cholesterol in HDL [Mass ratio] 3 {ratio} Normal 1-5 [facility] Comment on above: Order Comment: Is Pa tient Fasting?/# of Hours->Fasting 8 hrs Performed By: #### P SA, LIPD, CMP #### [address] [address] Ph. [phone] Triglyceride [Mass/Vol] 132 mg/dL Normal 10-150 [facility] Comment on above: Order Comment: Is Pa tient Fasting?/# of Hours->Fasting 8 hrs Performed By: #### P SA, LIPD, CMP #### [place] [address] Ph. [phone] No Panel Informationon 12-13 Interpretation and review of laboratory results Abnormal [facility] PSA Screeningon 12-14-2023 [facility] CHEM 6 (LYTES, BUN CREA)on 0 11-05-2023 Anion gap [Moles/Vol] 15 mmol/L 7 - 17 mmol/L [facility] Chloride [Moles/Vol] 101 mmol/L 98 - 108 mmol/L [facility] CO2 [Moles/Vol] 31 mmol/L 21 - 31 mmol/L [facility] Creatinine [Mass/Vol] 0.77 mg/dL 0.70 - 1.30 mg/dL [facility] eGFR, CKD-EPI, Male - PINF [facility] Comment on above: Reported eGFR is bas ed on the CKD-EPI 2020 equation using creatinine, age, and sex. Potassium [Moles/Vol] 3.8 mmol/L 3.5 - 5.0 mmol/L [facility] Sodium [Moles/Vol] 143 mmol/L 135 - 145 mmol/L [facility] Urea nitrogen [Mass/Vol] 17 mg/dL 7 - 25 mg/dL [facility] Urea nitrogen/Creatinin e [Mass ratio] 22 mg/mg [facility] Anion gap [Moles/Vol] 15 mmol/L Normal 7-17 [facility] Comment on above: Performed By: #### C HM6 #### [facility] (DEFAULT) [address] [place] [address] Chloride [Moles/Vol] 101 mmol/L Normal 98-108 [facility] Comment on above: Performed By: #### C HM6 #### [facility] (DEFAULT) [address] [place] [address] CO2 [Moles/Vol] 31 mmol/L Normal 21-31 [facility] Comment on above: Performed By: #### C HM6 #### [facility] (DEFAULT) [address] [place] [address] Creatinine [Mass/Vol] 0.77 mg/dL Normal 0.70-1.30 [facility] Comment on above: Performed By: #### C HM6 #### [facility] (DEFAULT) [address] [place] [address] eGFR, CKD-EPI, Male > Normal >=60 [facility] Comment on above: Result Comment: Repo rted eGFR is based on the CKD-EPI 2020 equation using creatinine, age, and sex. Performed By: #### C HM6 #### [facility] (DEFAULT) [address] [place] [address] Potassium [Moles/Vol] 3.8 mmol/L Normal 3.5-5.0 [facility] Comment on above: Performed By: #### C HM6 #### [facility] (DEFAULT) [address] [place] [address] Sodium [Moles/Vol] 143 mmol/L Normal 135-145 [facility] Comment on above: Performed By: #### C HM6 #### [facility] (DEFAULT) [address] [place] [address] Urea nitrogen [Mass/Vol] 17 mg/dL Normal 7-25 [facility] Comment on above: Performed By: #### C HM6 #### [facility] (DEFAULT) [address] [place] [address] Urea nitrogen/Creatinin e [Mass ratio] 22 mg/mg Normal [facility] Comment on above: Performed By: #### C HM6 #### [facility] (DEFAULT) [address] [place] [address] MAGNESIUMon 11-05-2023 Interpretation and review of laboratory results Normal [facility] Magnesium [Mass/Vol] 1.7 mg/dL 1.6 - 2.6 mg/dL [facility] Magnesium [Mass/Vol] 1.7 mg/dL Normal 1.6-2.6 [facility] Comment on above: Performed By: #### M GO #### [facility] (DEFAULT) [address] [place] [address] No Panel Informationon 11-04 [facility] Podiatry Office/Clinic Noteo n 11-01-2023 Podiatry Office/Clinic [...] to s (more content not included)... Normal [facility] DEVICE EVALUATION (SCANNED)o n 10-29-[address] [facility] Radiology Study observation (narrative) [facility] Family Medicine Office/Clini c Noteon 10-07-2023 Family [...] breakfast, # 30 tabs, 2 Refill(s), Pharmacy: [facility] 2. Prediabetes Continue current medications 3. [...] Daily, 2 refills, before breakfast Potassium Chloride (Yuz-Xhjw-Obs M20) 20 mEq oral tablet, extended release, [...] Alcohol C (more content not included)... Normal [facility] Podiatry Office/Clinic Noteo n 08-30-2023 Podiatry Office/Clinic [...] vs mat (more content not included)... Normal [facility] XR Ankle 3 Views Lefton 08-09 XR [...] Electronically Signed in Other Vendor System) Normal [facility] XR Foot 3 Views Lefton 08-29 XR [...] Electronically Signed in Other Vendor System) Normal [facility] Family Medicine Office/Clini c Noteon 08-27-2023 Family [...] g, 0 Refill(s), 09/03/23 12:43:00 EDT, Pharmacy: [facility] 2. Intertrigo Apply topical cream as [...] g, 0 Refill(s), 09/03/23 12:43:00 EDT, Pharmacy: [facility] Medical Decision Making Chronic conditions NOT [...] Daily, 2 refills, before breakfast Potassium Chloride (Oum-Scrl-Uup M20) 20 mEq oral tablet, extended release, [...] 5 refills, (more content not included)... Normal [facility] US Testicularon 08-18-2023 US Testicular Scrotal ultrasound [...] Electronically Signed in Other Vendor System) Normal [facility] Family Medicine Office/Clini c Noteon 08-17-2023 Family [...] Daily, 2 refills, before breakfast Potassium Chloride (Muv-Aofc-Mbx M20) 20 mEq oral tablet, extended release, [...] condition. Exercise (more content not included)... Normal [facility] Family Medicine Office/Clini c Noteon 07-14-2023 Family [...] breakfast, # 30 tabs, 2 Refill(s), Pharmacy: [facility] 2. Hypertension Well controlled 3. Atrial [...] Daily, 2 refills, before breakfast Potassium Chloride (Zxz-Ivlj-Lqt M20) 20 mEq oral tablet, extended release, [...] cups pe (more content not included)... Normal [facility] Podiatry Office/Clinic Noteo n 06-21-2023 Podiatry Office/Clinic [...] mycotic law (more content not included)... Normal [facility] Family Medicine Office/Clini c Noteon 06-18-2023 Family [...] Daily, # 90 tabs, 1 Refill(s), Pharmacy: [facility] Medical Decision Making Chronic conditions NOT [...] tabs, Oral, Daily, 2 refills Potassium Chloride (Hhp-Lxbg-Uiv M20) 20 mEq oral tablet, extended release, [...] Father. St (more content not included)... Normal [facility] CHEM 6 (LYTES, BUN CREA)on 0 05-11-2023 Anion gap [Moles/Vol] 16 mmol/L Normal 7-17 [facility] Comment on above: Performed By: #### C HM6, MGO #### [facility] (DEFAULT) [address] [place] [address] Chloride [Moles/Vol] 101 mmol/L Normal 98-108 [facility] Comment on above: Performed By: #### C HM6, MGO #### [facility] (DEFAULT) [address] [place] [address] CO2 [Moles/Vol] 28 mmol/L Normal 21-31 [facility] Comment on above: Performed By: #### C HM6, MGO #### [facility] (DEFAULT) [address] [place] [address] Creatinine [Mass/Vol] 0.83 mg/dL Normal 0.70-1.30 [facility] Comment on above: Performed By: #### C HM6, MGO #### [facility] (DEFAULT) [address] [place] [address] eGFR, CKD-EPI, Male > Normal >=60 [facility] Comment on above: Result Comment: Repo rted eGFR is based on the CKD-EPI 2020 equation using creatinine, age, and sex. Performed By: #### C HM6, MGO #### [facility] (DEFAULT) [address] [place] [address] Potassium [Moles/Vol] 4.0 mmol/L Normal 3.5-5.0 [facility] Comment on above: Performed By: #### C HM6, MGO #### [facility] (DEFAULT) [address] [place] [address] Sodium [Moles/Vol] 141 mmol/L Normal 135-145 [facility] Comment on above: Performed By: #### C HM6, MGO #### [facility] (DEFAULT) [address] [place] [address] Urea nitrogen [Mass/Vol] 18 mg/dL Normal 7-25 [facility] Comment on above: Performed By: #### C HM6, MGO #### [facility] (DEFAULT) [address] [place] [address] Urea nitrogen/Creatinin e [Mass ratio] 22 mg/mg Normal [facility] Comment on above: Performed By: #### C HM6, MGO #### [facility] (DEFAULT) [address] [place] [address] MAGNESIUMon 05-11-2023 Magnesium [Mass/Vol] 1.8 mg/dL Normal 1.6-2.6 [facility] Comment on above: Performed By: #### C HM6, MGO #### [facility] (DEFAULT) [address] [place] [address] Family Medicine Office/Clini c Noteon 04-13-2023 Family [...] anyway. Therefore he went back to his [facility]. He would like a refill on [...] tabs, 2 Refill(s), 07/12/23 13:46:00 EDT, Pharmacy: [facility] 2. Hypertension Well controlled 3. Atrial fibrillation Stable 4. ED (erectile dysfunction) Trial 20 mg PRN dose of tadalafil Orders: diclofenac topical, 1 fred, Topical, QID, Apply 1g per application, # 100 g, 11 Refill(s), Pharmacy: [facility] tadalafil, 1 tabs, Oral, Daily, PRN, [...] tabs, Oral, Daily, 2 refills Potassium Chloride (Bak-Yffd-Pjf M20) 20 mEq oral tablet, extended release, [...] Allergies nitr (more content not included)... Normal [facility] Podiatry Office/Clinic Noteo n 04-05-2023 Podiatry Office/Clinic [...] problems including (more content not included)... Normal [facility] No Panel Informationon 02-15 Tobacco smoking status Non-Smoker Invalid Interpretation Code [employer] DEVICE EVALUATION (SCANNED)o n 10-29-2022 [facility] Radiology Study observation (narrative) [facility] DEVICE EVALUATION (SCANNED)o n 10-14-2022 [facility] Radiology Study observation (narrative) [facility] BMP w/ Reflex to MGon 2022 Calcium [...] acute diverticulitis. Additional chronic findings as above. [facility] CONSOLIDATED EXAMINATION: CT ABDOMEN PELVIS WO [...] Report electronically signed by: Dr. Julian Foley [facility] Julian Foley MD - 10/12/2022 EXAMINATION: [...] acute diverticulitis. Additional chronic findings as above. [employer] Work Phone: Radiology Study observation (narrative) [employer] Work Phone: CT ABDOMEN PELVIS WO CONTRAS T Additional Contrast? NoneOrdered By: Julian Foley on 10-12-2022 [employer] Work Phone: Lactic Acidon 10-12-2022 Lactate [Moles/Vol] [...] [facility] RBC, UA 0-2 #/HPF [facility] Specific [place], Urine 1.020 1.005 - 1.030 [facility] Squam Epithel, UA None Seen #/LPF [facility] Urobilinogen, Urine 0.2 E.U./dL NINF [place] WBC, UA 0-5 #/HPF [facility]ICALD[facility]2 DEVICE EVALUATION (SCANNED)o n 07-30-2022 [facility] Radiology Study observation (narrative) [facility] XR WRIST LEFT (MIN 3 VIEWS)o n 06-14-2022 FINDINGS/IMPRESSION: 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 No fracture identified. Normal soft tissues. [facility] CONSOLIDATED EXAM: XR WRIST LEFT (MIN 3 VIEWS) INDICATION: pain, decreased ROM, no injury COMPARISON: None. TECHNIQUE: Radiographs as described above Report electronically signed by: Dr. Darryl Latif [facility] CONSOLIDATED Darryl Latif MD - 06/14/2022 EXAM: XR WRIST LEFT (MIN 3 VIEWS) INDICATION: pain, decreased ROM, no injury COMPARISON: None. TECHNIQUE: Radiographs as described above Report electronically signed by: Dr. 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 No fracture identified. Normal soft tissues. [employer] Work Phone: Radiology Study observation (narrative) [employer] Work Phone: XR WRIST LEFT (MIN 3 VIEWS)O rdered By: Darryl Latif on 06-14-2022 [employer] Work Phone: NOVEL CORONAVIRUS NASOPHARYN GEAL - U SPECIMEN ONLYon 02-04-2021 SARS-CoV-2 (COVID-19) RNA ISAIAS+probe Ql (Unsp spec) Not detected Normal NOT DETECTED [facility] Comment on above: Order Comment: This test was performed using [employer] Mediated Amplification and has been approved as Emergency Use Authorization (EUA) for the qualitative detection of SARS-CoV-2 nucleic acid. Result Comment: [facility] Negative results do not preclude [...] or clinically deteriorating. Performed By: #### L [id number] #### [facility] (DEFAULT) [address] [place] [address] NOVEL CORONAVIRUS NASOPHARYN GEAL - [facility] SPECIMEN ONLYon 01-03-2021 SARS-CoV-2 (COVID-19) RNA ISAIAS+probe Ql (Unsp spec) Not detected Normal NOT DETECTED [facility] Comment on above: Order Comment: This test was performed using real time PCR for the qualitative detection of SARS-CoV-2 nucleic acid. The test has been reviewed by the FDA and given emergency use authorization. This test was developed and its performance characteristics determined by [facility] at [facility]. This test is used for clinical purposes. It should not be regarded as investigational or for research. Result Comment: [facility] Negative results do not preclude [...] or clinically deteriorating. Performed By: #### L [id number] #### [facility] (DEFAULT) [address] [place] [address] Vital Signs Date Time Vital Sign Value Performing Clinician [facility] 01-28-2024 09:07-0500 Body weight 126.1 kg Julian Botello PA-C [facility] 11-05-2023 10: Body mass index (BMI) [Ratio] 38.63 kg/m2 Claude Amos MD Work Phone: [facility] 11-05-2023 10: Body weight 125.65 kg Claude Amos MD Work Phone: [facility] 11-05-2023 09:10-0400 Body height 180.3 cm Claude Amos MD Work Phone: [facility] 11-05-2023 09:10-0400 Diastolic blood pressure 56 mm[Hg] Claude Amos MD Work Phone: [facility] 11-05-2023 09:10-0400 Heart rate 60 /min Claude Amos MD Work Phone: [facility] 11-05-2023 09:10-0400 Respiratory rate 18 /min Claude Amos MD Work Phone: [facility] 11-05-2023 09:10-0400 Systolic blood pressure 119 mm[Hg] Claude Amos MD Work Phone: [facility] 10-12-2022 13:21-0400 SaO2% (BldA) [Mass fraction] 92 % Zuly Bonde DO Work Phone: [facility] 10-12-2022 12:15-0400 Diastolic blood pressure 69 mm[Hg] Zuly Bonde DO Work Phone: [facility] 10-12-2022 12:15-0400 Systolic blood pressure 139 mm[Hg] Zuly Bonde DO Work Phone: [facility] 10-12-2022 10:34-0400 Body height 180.3 cm Zuly Bonde DO Work Phone: [facility] 10-12-2022 10:34-0400 Body mass index (BMI) [Ratio] 40.45 kg/m2 Zuly Bonde DO Work Phone: [facility] 10-12-2022 10:34-0400 Body temperature 98.4 [degF] Zuly Bonde DO Work Phone: [facility] 10-12-2022 10:34-0400 Body weight 131.54 kg Zuly Bonde DO Work Phone: [employer] 10-12-2022 10:34-0400 Heart rate 82 /min Zuly Bonde DO Work Phone: [employer] 10-12-2022 10:34-0400 Respiratory rate 18 /min Zuly Bonde DO Work Phone: [employer] 06-14-2022 10:31-0400 Body height 180.3 cm Мария Baxter MD Work Phone: [employer] 06-14-2022 10:31-0400 Body mass index (BMI) [Ratio] 41.14 kg/m2 Мария Baxter MD Work Phone: [employer] 06-14-2022 10:31-0400 Body temperature 97.81 [degF] Мария Baxter MD Work Phone: [employer] 06-14-2022 10:31-0400 Body weight 133.81 kg Мария Baxter MD Work Phone: [employer] 06-14-2022 10:31-0400 Diastolic blood pressure 74 mm[Hg] Мария Baxter MD Work Phone: [employer] 06-14-2022 10:31-0400 Heart rate 66 /min Мария Baxter MD Work Phone: [employer] 06-14-2022 10:31-0400 Respiratory rate 16 /min Мария Baxter MD Work Phone: [facility] 06-14-2022 10:31-0400 SaO2% (BldA) [Mass fraction] 95 % Мария Baxter MD Work Phone: [facility] 06-14-2022 10:31-0400 Systolic blood pressure 116 mm[Hg] Мария Baxter MD Work Phone: [facility] 11-24-2021 11:25-0400 Body temperature 97.7 [degF] Claude Amos MD Work Phone: [facility] 11-24-2021 11:25-0400 Diastolic blood pressure 58 mm[Hg] Claude Amos MD Work Phone: [facility] 11-24-2021 11:25-0400 Heart rate 55 /min Claude Amos MD Work Phone: [facility] 11-24-2021 11:25-0400 Respiratory rate 20 /min Claude Amos MD Work Phone: [facility] 11-24-2021 11:25-0400 SaO2% (BldA) [Mass fraction] 96 % Claude Amos MD Work Phone: [facility] 11-24-2021 11:25-0400 Systolic blood pressure 125 mm[Hg] Claude Amos MD Work Phone: [facility] Encounters Encounter Date Encounter Type Care Provider Facility Start: 03-27-2024 ambulatory Martín ARCEOM F acility:[facility] Start: 03-03-2024 ambulatory JULIAN FaizaCameron BOTELLO [facility] Start: 03-03-2024 ambulatory [facility] Start: 03-03-2024 End: 03-03-2024 Subsequent hospital visit by physician Aleksandra MARTIN Laboratory Comment on above: Urgency of micturiti on; Benign prostatic hyperplasia with incomplete bladder emptying Start: 03-01-2024 ambulatory [facility] Start: 03-01-2024 End: 03-01-2024 Subsequent hospital visit by physician Aleksandra Villarreal [facility] Start: 02-28-2024 ambulatory [facility] Start: 02-28-2024 End: 02-28-2024 Subsequent hospital visit by physician Marion Whitehead [facility] Start: 02-25-2024 ambulatory [facility] Start: 02-25-2024 End: 02-25-2024 Subsequent hospital visit by physician Aleksandra Villarreal [facility] Start: 2024 ambulatory [facility] Start: 2024 End: 2024 Subsequent hospital visit by physician Tashi Wang [facility] Start: 02-21-2024 ambulatory [facility] Start: 02-21-2024 End: 02-21-2024 Subsequent hospital visit by physician Tashi Wang [facility] Start: 02-17-2024 ambulatory [facility] Start: 02-17-2024 End: 02-17-2024 Subsequent hospital visit by physician Kamini Melendrez PTA [facility] Start: 02-14-2024 End: 02-14-2024 Subsequent hospital visit by physician Tashi Wang [facility] Start: 02-14-2024 ambulatory [facility] Start: 02-08-2024 End: 02-08-2024 ambulatory [facility] Start: 02-08-2024 End: 02-08-2024 Subsequent hospital visit by physician Tashi Wang [facility] Start: 02-07-2024 End: 02-07-2024 [facility] Start: 02-07-2024 End: 02-07-2024 Subsequent hospital visit by physician Tashi Wang [facility] Start: 02-04-2024 End: 02-04-2024 ambulatory [facility] Start: 02-04-2024 End: 02-04-2024 Subsequent hospital visit by physician Marion Whitehead [facility] Start: 01-28-2024 End: 01-28-2024 Office outpatient visit 40 minutes Julian Faiza Ayan Work Phone: [facility] Start: 01-28-2024 ambulatory Julian Botello [facility] Start: 01-27-2024 [facility] Start: 01-27-2024 End: 01-27-2024 Subsequent hospital visit by physician Sandro Moreno DO Work Phone: [facility] Laboratory Comment on above: Urinary incontinence , unspecified type Start: 01-27-2024 End: 01-27-2024 Subsequent hospital visit by physician [facility] Remote Device Check Work Phone: [facility] Start: 01-17-2024 End: 01-17-2024 ambulatory Sandro Moreno DO Facility:[facility] Start: 01-12-2024 ambulatory Sandro Moreno DO Facility:[facility] Start: 12-14-2023 ambulatory SANDRO Feng TIFFANIE [facility] Start: 12-14-2023 End: 12-14-2023 Patient encounter status Sandro Moreno DO Work Phone: [facility] Start: 12-14-2023 End: 12-14-2023 Subsequent hospital visit by physician Sandro Moreno DO Work Phone: [facility] Laboratory Comment on above: Well adult exam; Type 2 diabetes mellitus without complication, without long-term current use of insulin (HCC); HTN (hypertension), benign; Screening for prostate cancer; Mixed hyperlipidemia Start: 11-05-2023 ambulatory CLAUDE S AUGOSTINI Facil ity:[facility] Start: 11-05-2023 End: 11-05-2023 Office outpatient visit 15 minutes Claude Amos MD Work Phone: [facility] Comment on above: Paroxysmal atrial fi brillation (Primary Dx); High risk medication use; Encounter for long-term (current) use of medications Start: 11-05-2023 ambulatory CLAUDE S AUGOSTINI Facil ity:[facility] Start: 11-01-2023 End: 11-01-2023 ambulatory Sandro Moreno DO Facility:[facility] Start: 10-29-2023 ambulatory CLAUDE S AUGOSTINI Facil ity:[facility] Start: 10-29-2023 End: 10-29-2023 Subsequent hospital visit by physician [facility] Pacemaker Remote Device Check Work Phone: [facility] Comment on above: Arrived Start: 10-07-2023 End: 10-07-2023 ambulatory Sandro Moreno DO Facility:[facility] Start: 09-20-2023 End: 09-20-2023 ambulatory Columba Cameron RN [facility] Start: 08-30-2023 End: 08-30-2023 ambulatory Sandro Hernandez Tiffanie DO [facility] Start: 08-27-2023 End: 08-27-2023 ambulatory Jacey Hoover 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 Facility:[facility] Start: 08-18-2023 End: 08-18-2023 ambulatory Sandro Hernandez Tiffanie DO Facility:[facility] Start: 08-17-2023 End: 08-17-2023 ambulatory Sandro Hernandez Tiffanie DO Facility:[facility] Start: 08-02-2023 ambulatory CLAUDE S AUGOSTINI Facil ity:[facility] Start: 08-02-2023 End: 08-02-2023 [facility] Remote Device Check Work Phone: [facility] Comment on above: Arrived Start: 07-14-2023 End: 07-14-2023 ambulatory Sandro Hernandez Tiffanie DO Facility:[facility] Start: 06-21-2023 End: 06-21-2023 ambulatory Sandro Moreno DO Facility:[facility] Start: 06-18-2023 End: 06-18-2023 ambulatory Sandro Hernandez Tiffanie DO Facility:[facility] Start: 05-11-2023 ambulatory SANDRO Jung TIFFANIE Facili ty:[facility] Start: 05-11-2023 ambulatory KRISTEN BANUELOS Facility: [facility] Start: 05-07-2023 ambulatory LETTY GUEVARA [facility] Start: 05-05-2023 ambulatory SANDRO MORENO [facility] Start: 05-05-2023 End: 05-05-2023 Subsequent hospital visit by physician Kamini Melendrez PTA [facility] Start: 05-04-2023 ambulatory CLAUDE S AUGOSTINI Facil ity:[facility] Start: 05-04-2023 End: 05-04-2023 Subsequent hospital visit by physician Sarah Pacemaker Remote Device Check Work Phone: [facility] Comment on above: Arrived Start: 04-20-2023 End: 04-20-2023 Subsequent hospital visit by physician Tashi Wang [facility] Start: 04-20-2023 ambulatory [facility] Start: 04-16-2023 ambulatory [facility] Facility:[facility] Start: 04-15-2023 ambulatory [facility] Start: 04-13-2023 End: 04-13-2023 ambulatory Upson David Tiffanie Facility:[facility] Start: 04-12-2023 ambulatory [facility] Start: 04-08-2023 End: 04-08-2023 Subsequent hospital visit by physician Marion Whitehead [facility] Comment on above: Impingement of left ankle joint (Primary Dx) Start: 04-08-2023 ambulatory [facility] Start: 04-06-2023 ambulatory [facility] Start: 04-05-2023 End: 04-05-2023 ambulatory [facility] Facility[facility] Start: 04-02-2023 End: 04-02-2023 Subsequent hospital visit by physician Marion Whitehead [facility] Comment on above: Ankle impingement sy ndrome, left (Primary Dx); 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, left Start: 04-02-2023 ambulatory LETTY Ad[facility]ay [facility] Start: 03-30-2023 End: 03-30-2023 ambulatory [facility] Start: 03-25-2023 Office outpatient vi sit 15 minutes Kristen Curtis Other [facility] Office Start: 02-15-2023 Office Services Kristen mckeon Other [facility] Office Start: 01-21-2023 ambulatory Markus Ramos MD Facility[facility] Start: 10-29-2022 End: 10-29-2022 Subsequent hospital visit by physician [facility] Pacemaker Remote Device Check Work Phone: [facility] Comment on above: Arrived Start: 10-14-2022 End: 10-14-2022 Subsequent hospital visit by physician [facility] Pacemaker Remote Device Check Work Phone: [facility] Comment on above: Arrived Start: 10-12-2022 End: 10-12-2022 Emergency department patient visit Zuly Fields Work Phone: [facility] Emergency Department Comment on above: Acute cystitis witho ut hematuria (Primary Dx) Start: 10-07-2022 End: 10-07-2022 Subsequent hospital visit by physician Aleksandra Villarreal [facility] Start: 10-05-2022 End: 10-05-2022 Subsequent hospital visit by physician Tashi Wang [facility] Start: 09-21-2022 End: 09-21-2022 Subsequent hospital visit by physician Tone Solo [facility] Start: 09-09-2022 End: 09-09-2022 Subsequent hospital visit by physician Rodrigo Auguste [facility] Start: 08-27-2022 End: 08-27-2022 Office outpatient visit 15 minutes Julian Botello Work Phone: [facility] Start: 07-30-2022 End: 07-30-2022 Subsequent hospital visit by physician [facility] Pacemaker Remote Device Check Work Phone: [facility] Start: 06-14-2022 End: 06-14-2022 Emergency department patient visit Мария Baxter MD Work Phone: [facility] Emergency Department Comment on above: De Quervain's diseas e (tenosynovitis) (Primary Dx) Start: 05-01-2022 End: 05-01-2022 Subsequent hospital visit by physician [facility] Pacemaker Remote Device Check Work Phone: [facility] Start: 04-30-2022 End: 04-30-2022 Subsequent hospital visit by physician [facility] Pacemaker Remote Device Check Work Phone: [facility] Start: 01-29-2022 End: 01-29-2022 Subsequent hospital visit by physician [facility] Pacemaker Remote Device Check Work Phone: [facility] Start: 11-24-2021 End: 11-24-2021 Subsequent hospital visit by physician Claude Amos MD Work Phone: [facility] Comment on above: Paroxysmal atrial fi brillation Start: 11-17-2021 End: 11-17-2021 Subsequent hospital visit by physician [facility] Pacemaker Remote Device Check Work Phone: [facility] Comment on above: Arrived Start: 09-01-2020 End: 09-01-2020 Subsequent hospital visit by physician Claude Amos MD Work Phone: [facility] Comment on above: Arrived Start: 03-18-2020 End: 03-18-2020 Orders Only Aurora Souza Geronimo Work Phone: [facility] Start: 12-19-2019 End: 12-19-2019 Subsequent hospital visit by physician [facility] Start: 06-16-2017 End: 06-16-2017 Ambulatory DEVI FLORES [facility] Start: 05-04-2017 End: 05-04-2017 Ambulatory ELMER JOHNSON [facility] Start: 05-04-2017 Office consultation Elmer hoang Work Phone: [facility] Start: 03-30-2017 End: 03-30-2017 Ambulatory MARIANELA POWELL [facility] Start: 01-30-2017 Ambulatory Dinesh Elizabeth Work Phone: [facility] Start: 01-13-2017 End: 01-14-2017 Ambulatory DINESH ELIZABETH [facility] Ambulatory Start: 01-13-2017 Office outpatient ne w 20 minutes Dinesh Elizabeth Work Phone: [facility] Procedures Date Procedure Procedure Detail [...] Work Phone: Comment on above: Result Comment: [facility] UTILIZES ORTHO VITROS PSA METHODOLOGY. DIFFERENT TEST METHODS CANNOT BE USED INTERCHANGEABLY. PSA RESULTS IN A GIVEN PATIENT SAMPLE DETERMINED WITH DIFFERENT TESTS AND FROM DIFFERENT MANUFACTURERS CAN VARY DUE TO DIFFERENCES IN TEST METHODS AND REAGENTS. Performed By: #### P SA, LIPD, CMP #### [address] [phone] Start: 12-14-2023 Lipid panel Sandro tejeda DO [...] Screening for malign ant neoplasm of colon [facility] Start: 2029 Respiratory Syncytia l Virus (RSV) or age 60 yrs+ (1 - 1-dose 75+ series) Respiratory Syncytial Virus (RSV) or age 60 yrs+ (1 - 1-dose 75+ series) [facility] Start: 12-20-2024 Annual Wellness Visi t (Medicare) Annual Wellness Visit (Medicare) [facility] Start: 12-20-2024 End: 12-20-2024 Patient encounter procedure 12/20/2024 8:40 AM EST Office Visit [facility] [address] [place] [address] Sandro Moreno DO [address] [place] [address] [address] [place] [address] [facility] Start: 12-19-2024 Depression Screen Depression Screen [facility] Start: 12-13-2024 GFR test (Diabetes, CKD 3-4, OR last GFR 15-59) GFR test (Diabetes, CKD 3-4, OR last GFR 15-59) [facility] Start: 12-13-2024 Hemoglobin A1c measurement A1C test (Diabetic or Prediabetic) [facility] Start: 12-13-2024 Lipid panel Lipids [facility] Start: 11-03-2024 End: 11-03-2024 Patient encounter procedure 11/03/2024 10:30 AM EDT Office Visit [facility] [address] [place] [phone] Claude Amos MD [address] [place] [address] [facility] Start: 09-12-2024 End: 09-12-2024 Patient encounter procedure 09/12/2024 8:30 AM EDT Office Visit [facility] [address] [address] Jer Kim MD [address] [place] [id number] 1 year CPAP [facility] Comment on above: 1 year CPAP Start: 06-16-2024 End: 06-16-2024 Patient encounter procedure 06/16/2024 8:00 AM EDT Office Visit [facility] [address] [place] [address] Sandro Moreno DO [address] [place] [address] [address] [place] [address] 6M F/U [facility] Comment on above: 6M F/U Start: 05-05-2024 End: 05-05-2024 Patient encounter procedure 05/05/2024 9:00 AM EDT Office Visit [facility] [address] [id number] Bimal Heart Jr., MD [address] [place] [id number] 2m [facility] Comment on above: 2m Start: 04-10-2024 End: 04-10-2024 Patient encounter procedure 04/10/2024 10:00 AM EST Office Visit [facility] [address] [place] [address] Cydney Morales, 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 [address] [place] [phone] [facility] Start: 03-03-2024 Subsequent hospital visit by physician 03/03/2024 1:00 PM EST Hospital Encounter [facility] [address] [place] [phone] Aleksandra Villarreal [facility] Start: 03-03-2024 End: 03-03-2024 Patient encounter procedure 03/03/2024 9:00 AM EST Office Visit [facility] [address] [address] Bimal Heart Jr., MD [address] [place] [address] R30.0 (ICD-10-CM) - Difficult or painful urination [facility] Comment on above: R30.0 (ICD-10-CM) - Difficult or painful urination Start: 03-01-2024 End: 03-01-2024 Patient encounter procedure 03/01/2024 1:00 PM EST Appointment [facility] [address] [place] [phone] Aleksandra Villarreal [facility] Start: 02-28-2024 End: 02-28-2024 Patient encounter procedure [facility] Start: 02-25-2024 End: 02-25-2024 Patient encounter procedure 02/25/2024 8:40 AM EST Appointment [facility] [address] [place] [address] Marion Whitehead [facility] Start: 2024 Subsequent hospital visit by physician 2024 8:40 AM EST Hospital Encounter [facility] [address] [place] [address] Tashi Wang [facility] Start: 02-21-2024 End: 02-21-2024 Patient encounter procedure 02/21/2024 8:00 AM EST Appointment [facility] [address] [place] [address] Tashi Wang [facility] Start: 02-17-2024 End: 02-17-2024 Patient encounter procedure 02/17/2024 8:40 AM EST Appointment [facility] [address] [place] [address] Tashi Wang [facility] Start: 02-14-2024 End: 02-14-2024 Patient encounter procedure 02/14/2024 8:40 AM EST Appointment [facility] [address] [place] [address] Tashi Wang [facility] Start: 02-11-2024 End: 02-11-2024 Patient encounter procedure 02/11/2024 8:40 AM EST Appointment [facility] [address] [place] [address] Tashi Wang [facility] Start: 02-08-2024 End: 02-08-2024 Patient encounter procedure 02/08/2024 8:40 AM EST Appointment [facility] [address] [place] [address] Tashi Wang [facility] Start: 02-07-2024 End: 02-07-2024 Patient encounter procedure 02/07/2024 8:00 AM EST Appointment [facility] [address] [place] [address] Tashi Wang [facility] Start: 12-20-2023 End: 12-20-2023 Patient encounter procedure 12/20/2023 8:00 AM EST Office Visit [facility] [address], [place] [address] Sandro Moreno DO [address] [facility] [address] [place] [address] wellness [facility] Comment on above: wellness Start: 11-05-2023 End: 11-05-2023 Patient encounter procedure 11/05/2023 9:30 AM EDT Office Visit [facility] [address] [place] [phone] Claude Amos MD [address] [place] [address] [facility] Start: 10-10-2023 COVID-19 Vaccine ( season) COVID-19 Vaccine ( season) [facility] Start: 10-10-2023 COVID-19 VACCINE ( season) COVID-19 VACCINE ( season) [facility] Start: 10-10-2023 COVID-19 VACCINE ( season) COVID-19 VACCINE ( season) [facility] Start: 10-10-2023 Influenza vaccination INFLUENZA VACC INE (#1) [facility] Start: 09-14-2023 End: 09-14-2023 Patient encounter procedure [facility] [place] Comment on above: 1 yr cpap Start: 09-09-2023 Influenza vaccination Flu vaccine (# 1) [facility] Start: 05-11-2023 End: 05-11-2023 Patient encounter procedure [facility] Start: 05-07-2023 End: 05-07-2023 Patient encounter procedure 05/07/2023 8:00 AM EDT Appointment [facility] [address] [place] [address] Tashi Wang [facility] Start: 05-04-2023 End: 05-04-2023 Patient encounter procedure 05/04/2023 Appointment [facility] [address] [place] [address] [facility] Start: 04-20-2023 End: 04-20-2023 Patient encounter procedure 04/20/2023 3:20 PM EDT Appointment [facility] [address] [place] [address] Tashi Wang [facility] Start: 04-15-2023 COVID-19 VACCINE () COVID-19 VACCINE () [facility] Start: 04-15-2023 End: 04-15-2023 Patient encounter procedure 04/15/2023 8:40 AM EST Appointment [facility] [address] [place] [address] Kamini Melendrez, ELECTRICAL ENGINEERING INTERN [facility] Start: 04-12-2023 End: 04-12-2023 Patient encounter procedure 04/12/2023 8:40 AM EST Appointment [facility] [address] [place] [address] Billy Sandhu, PT [facility] Start: 04-08-2023 End: 04-08-2023 Patient encounter procedure 04/08/2023 8:00 AM EST Appointment [facility] [address] [place] [address] Marion Whitehead [facility] Start: 04-06-2023 End: 04-06-2023 Patient encounter procedure 04/06/2023 8:00 AM EST Appointment [facility] [address] [place] [address] Kamini Melendrez, ELECTRICAL ENGINEERING INTERN [facility] Start: 01-04-2023 Annual Wellness Visi t (Medicare) Annual Wellness Visit (Medicare) [facility] Start: 11-06-2022 End: 11-06-2022 Patient encounter procedure [facility] Start: 11-06-2022 End: 11-06-2022 Patient encounter procedure [facility] Start: 10-15-2022 End: 10-15-2022 Patient encounter procedure 10/15/2022 Appointment Physical Therapy Tashi Wang [facility] Start: 10-13-2022 End: 10-13-2022 Patient encounter procedure [facility] Start: 10-09-2022 Influenza vaccination INFLUENZA VACC INE (#1) [facility] Start: 10-07-2022 End: 10-07-2022 Patient encounter procedure 10/07/2022 Appointment Physical Therapy Aleksandra Villarreal [facility] Start: 09-24-2022 End: 09-24-2022 Patient encounter procedure 09/24/2022 Appointment Physical Therapy Aleksandra Villarreal [facility] Start: 09-23-2022 End: 09-23-2022 Patient encounter procedure 09/23/2022 Appointment Physical Therapy Tone Solo [facility] Start: 09-15-2022 End: 09-15-2022 Patient encounter procedure 09/15/2022 Office Visit Pulmonology Jer Kim MD [address] [place] [address] [facility] [place] Start: 09-14-2022 End: 09-14-2022 Patient encounter procedure 09/14/2022 Appointment Physical Therapy Tashi Wang [facility] Start: 09-11-2022 End: 09-11-2022 Patient encounter procedure [facility] Start: 09-08-2022 Influenza vaccination Flu vaccine (# 1) [facility] Start: 04-22-2022 COVID-19 VACCINE (2 - Pfizer series) COVID-19 VACCINE (2 - Pfizer series) [facility] Start: 01-13-2022 COVID-19 VACCINE (2 - Pfizer series) COVID-19 VACCINE (2 - Pfizer series) [facility] Start: 10-09-2021 Influenza vaccination INFLUENZA VACC INE (#1) [facility] Start: 04-06-2021 End: 04-06-2021 Patient encounter procedure 04/06/[address] [facility] Start: 01-15-2021 End: 01-15-2021 Patient encounter procedure 01/15/2021 Office Visit [facility] Brian Vitale [facility] Start: 01-05-2021 End: 01-05-2021 Patient encounter procedure 01/05/2021 Appointment Cardiovascular Medicine [facility] Start: 11-19-2020 Annual Wellness Visi t (AWV) Annual Wellness Visit (AWV) [facility] Start: 10-09-2020 Influenza vaccination INFLUENZA VACC INE (#1) [facility] Start: 10-04-2020 End: 10-04-2020 Patient encounter procedure [facility] Start: 07-23-2020 End: 07-23-2020 Office Visit 07/23/2020 Office Visit Pulmonology Jer Kim MD [address] [place], [place] [id number] [phone] [facility] Start: 10-10-2019 Influenza vaccination Flu vaccine (# 1) [place], [place] Start: 10-10-2019 Influenza vaccinatio n given Sequential Influenza Vaccine (#1) [facility] Start: 2019 Pneumococcal 65+ yea rs Vaccine (1 - PCV) Pneumococcal 65+ years Vaccine (1 - PCV) [facility] Start: 2019 Pneumococcal 65+ yea rs Vaccine (1 of 1 - PCV) Pneumococcal 65+ years Vaccine (1 of 1 - PCV) [facility] Start: 2019 Pneumococcal 65+ yea rs Vaccine (1 of 1 - PPSV23) Pneumococcal 65+ years Vaccine (1 of 1 - PPSV23) [place] Start: 2019 Pneumococcal vaccination [facility] Start: 07-14-2017 CLASS III : OFFICE VISIT CLASS III : OFFICE VISIT [facility] Start: 10-09-2016 Influenza vaccination SEQUENTI AL INFLUENZA VACCINE (#1) [facility] Work Phone: Start: 2014 Respiratory Syncytia l Virus (RSV) or age 60 yrs+ (1 - 1-dose 60+ series) Respiratory Syncytial Virus (RSV) or age 60 yrs+ (1 - 1-dose 60+ series) [facility] Start: 2014 RSV VACCINE (1 - 1-d ose 60+ series) RSV VACCINE (1 - 1-dose 60+ series) [facility] Start: 2014 Zoster vacc, sc ZOSTER VACCINE [facility] Work Phone: Start: 2009 Prostate specific antigen measurement PROSTATE CANCER SCREENING DISCUSSION [facility] Start: 02-24-2004 Administration of herpes zoster vaccine Zoster Vaccines (1 of 2) [facility] Start: 02-24-2004 Prostate specific antigen measurement PROSTATE CANCER SCREENING DISCUSSION [facility] Start: 02-24-2004 Screening for malign ant neoplasm of colon [place], [place] Start: 02-24-2004 Shingles Vaccine (1 of 2) Shingles Vaccine (1 of 2) [facility] Start: 02-24-2004 Zoster vaccine hzv l genaro for subcutaneous use ZOSTER (SHINGLES) VACCINE (1 of 2) [facility] Start: 1999 Colonoscopy COLORECTAL CAN CER SCREENING DISCUSSION [facility] Start: 1999 Screening for malign ant neoplasm of colon [facility] Start: 1994 Fasting lipid profile LIPID SCREENIN G [facility] Start: 1994 Lipid panel [facility] Start: 1989 Diabetes screen Diabetes screen [facility] Start: 1973 DTaP/Tdap/Td vaccine (1 - Tdap) DTaP/Tdap/Td vaccine (1 - Tdap) [facility] Start: 1973 Third diphtheria, tetanus and acellular pertussis (DTaP) vaccination TDAP (ADULT) [facility] Start: 02-24-1972 Glaucoma screening Diabetic retinal exam [facility] Start: 02-24-1972 Hepatitis C antibody , confirmatory test Hepatitis C Screening [facility] Start: 02-24-1972 Hepatitis C screening Hepatitis C sc reen [facility] Start: 02-24-1972 Tetanus vaccination TETANUS [facility] Start: 02-24-1972 Urine screening for protein Diabetic Alb to Cr ratio (uACR) test [facility] Start: 1970 COVID-19 Vaccine (1 of 2) COVID-19 Vaccine (1 of 2) [facility] Start: 1969 HIV screening HIV screen [facility] [place] [place] Start: 1966 Adolescent depressio n screening assessment Depression Screening (PHQ9) [facility] Start: 1966 COVID-19 VACCINE (1) COVID-19 VACCIN E (1) [facility] Start: 1966 Depression Screen Depression Screen [facility] Start: 02-24-1964 Diabetic foot examination (regime/therapy) [facility] Start: 02-24-1964 Lipid panel Lipids [facility] Start: 02-24-1964 Ophthalmic examinati on and evaluation OPHTHALMOLOGY EXAM [facility] Start: 02-24-1964 Urine, microalbumin URINE MICROALBUM IN [facility] Start: 02-24-1960 Pneumococcal 65+ yea rs Vaccine (1 of 2 - PCV) Pneumococcal 65+ years Vaccine (1 of 2 - PCV) [facility] Start: 1957 History and physical examination, annual for health maintenance Wellness Visit [facility] Start: 1954 COVID-19 VACCINE (#1) COVID-19 VACCI NE (#1) [facility] Start: 1954 CLASS III : CREATININE CLASS III : C REATININE [facility] Start: 1954 CLASS III : EKG CLASS III : EKG [facility] Start: 1954 CLASS III : MAGNESIUM CLASS III : MA GNESIUM [facility] Start: 1954 CLASS III : POTASSIUM CLASS III : PO TASSIUM [facility] Start: 1954 Class III: Magnesium Class III: Magn esium [facility] Start: 1954 Fall risk assessment Falls Risk Asse ssment [facility] Start: 1954 HbA1c HEMOGLOBIN A1C [facility] Start: 1955 Hepatitis B vaccination HEP B VACCINE (1 of 3 - 3-dose series) [facility] Start: 1955 Hepatitis C antibody , confirmatory test HEPATITIS C VIRUS SCREENING [facility] Start: 1955 HEPATITIS C SCREENING HEPATITIS C SC AUGUST [facility] Work Phone: Start: 1955 Hepatitis C screening [facility] Start: 1954 Prostate specific antigen measurement PSA Level [facility] Start: 1955 Screening colonoscopy COLONOSCOPY [facility] Work Phone: Start: 1955 Tetanus vaccination [facility] Cardioversion electi ve arrhythmia external CARDIOVERSION (EP LAB) Paroxysmal atrial fibrillation [facility] EP End: 05-05-2018 Comprehensive hearing test Comprehensive hearing test Routine Tinnitus of both ears 1 Occurrences starting 05/04/2017 until 05/05/2018 [facility] End: 12-19-2019 COVID-19 COVID-19 Lab Routine Once for 1 Occurrences starting 12/19/2019 until 12/19/2019 [facility], [place] Comment on above: Once for 1 Occurrenc es starting 12/19/2019 until 12/19/2019 End: 10-12-2022 Culture, Blood 1 [facility] Work Phone: Comment on above: One Time for 1 Occur rences starting 10/12/2022 until 10/12/2022 End: 10-12-2022 Culture, Blood 2 [facility] Work Phone: Comment on above: One Time for 1 Occur rences starting 10/12/2022 until 10/12/2022 End: 01-27-2024 Culture, Urine [facility] Work Phone: Comment on above: 1 Occurrences starti ng 01/27/2024 until 01/27/2024 End: 03-03-2024 Culture, Urine [facility] Work Phone: Comment on above: Once for 1 Occurrenc es starting 03/03/2024 until 03/03/2024 1 Occurrences starti ng 03/03/2024 until 03/03/2024 End: 11-19-2021 External electrode cardioversion EP CARDIOVERSION EXTERNAL Electrophysiology Routine Paroxysmal atrial fibrillation One Time for 1 Occurrences starting 11/19/2021 until 11/19/2021 [facility] Work Phone: Comment on above: One Time for 1 Occur rences starting 11/19/2021 until 11/19/2021 End: 01-13-2018 MR Knee Right Without Contrast MR Knee Right Without Contrast Routine Acute pain of right knee 1 Occurrences starting 01/13/2017 until 01/13/2018 [facility] Work Phone: End: 01-13-2018 MR Lumbar Spine Without Contrast MR Lumbar Spine Without Contrast Routine Acute midline low back pain with right-sided sciatica 1 Occurrences starting 01/13/2017 until 01/13/2018 [facility] Work Phone: End: 11-24-2021 Standard ECG ECG ECG STAT One Time for 1 Occurrences starting 11/24/2021 until 11/24/2021 [facility] Work Phone: Comment on above: One Time for 1 Occur rences starting 11/24/2021 until 11/24/2021 Standard ECG ECG ECG Routine Paroxysmal atrial fibrillation 11/05/2023 9:25 AM EDT [facility] End: 03-03-2024 Urinalysis with Microscopic Urinalysis with Microscopic Lab Routine Urgency of micturition Benign prostatic hyperplasia with incomplete bladder emptying 1 Occurrences starting 03/03/2024 until 03/03/2024 [facility] Work Phone: Comment on above: 1 Occurrences starti ng 03/03/2024 until 03/03/2024 Immunizations Immunization Date Immunization Notes Care Provider Karina colby 12-15-2022 Influenza, FLUZONE H igh Dose (age 65 y+), IM, Quadv, 0.7mL Sandro [place] DO Work Phone: [facility] Work Phone: 12-15-2022 influenza virus vaccine, unspecified formulation Columba Cameron RN [facility] 12-08-2021 Influenza, FLUZONE H igh Dose (age 65 y+), IM, Quadv, 0.7mL Sandro [place] DO Work Phone: [facility] Work Phone: 12-08-2021 influenza virus vaccine, unspecified formulation [facility] Pacemaker Remote Device Check Work Phone: [facility] 11-11-2020 Influenza, FLUZONE H igh Dose (age 65 y+), IM, Quadv, 0.7mL Sandro Moreno DO Work Phone: [facility] Work Phone: 11-11-2020 influenza virus vaccine, unspecified formulation [facility] Pacemaker Remote Device Check Work Phone: [facility] Payers Date Payer Category Payer Medicare MEDICARE MEDICAR E A AND B [id number] 2019-Present [address] [place] [address] [id number] [id number]. [id number] 2019 Medicare [id number]. 1.13.172.2.7.3. [id number] 2019 Unknown GENERIC PAYOR ME DICARE SUPPLEMENT [id number] 2019-Present [phone] [address] [place] [address] [id number] 1.2.840.507916.1.13.172.2.7.3. [id number] 2019 Unknown 1.2.840.206532. 1.13.172.2.7.3. [id number] 2019 Medicare [id number] 1.2.840.903013.1.13.239.2.7.3. [id number] 2019 Unknown [id number] 1.2.840.780373.1.13.239.2.7.3. 397817.315 2010 Unknown [id number] 2.16.840.1.379151.3.249.13 2010 Unknown ANTHEM BCBS OUT OF STATE [facility] [id number] 2010-Present [id number] 1.2.840.606212.1.13.385.2.7.3. 538068.315 1954 Unknown [id number] 2.16.840.1.902619.3.579.2.196 1954 Unknown [id number] 2.16.840.1.043707.3.579.2.196 1954 Unknown [id number] 2.16.840.1.469558.3.579.2.196 1954 Unknown [id number] 2.16.840.1.166535.3.579.2.196 1954 Unknown [id number] 2.16.840.1.686162.3.579.2.196 1954 Unknown [id number] 2.16.840.1.930525.3.579.2.196 1954 Unknown [id number] 2.16.840.1.325499.3.579.2.196 1954 Unknown [id number] 2.16.840.1.791101.3.579.2.196 1954 Unknown [id number] 2.16.840.1.988584.3.579.2.196 1954 Unknown [id number] 2.16.840.1.656303.3.579.2.196 1954 Unknown [id number] 2.16.840.1.947810.3.579.2.196 1954 Unknown [id number] 2.16.840.1.798451.3.579.2.196 1954 Unknown [id number] 2.16.840.1.518644.3.579.2.196 1954 Unknown [id number] 2.16.840.1.896710.3.579.2.196 1954 Unknown [id number] 2.16.840.1.758237.3.579.2.196 1954 Unknown [id number] 2.16.840.1.760055.3.579.2.196 1954 Unknown [id number] 2.16.840.1.195818.3.579.2.196 1954 Unknown [id number] 2.16.840.1.922554.3.579.2.1314 1954 Unknown [id number] 2.16.840.1.516854.3.579.2.594 1954 Unknown [id number] 2.16.840.1.286809.3.579.2.594 1954 Unknown [id number] 2.16.840.1.925007.3.579.2.594 1954 Unknown [id number] 2.16.840.1.011027.3.579.2.594 1954 Unknown [id number] 2.16.840.1.988909.3.579.2.594 1954 Unknown [id number] 2.16.840.1.597516.3.579.2.594 1954 Unknown [id number] 2.16.840.1.525647.3.579.2.594 1954 Unknown [id number] 2.16.840.1.642466.3.579.2.594 1954 Unknown [id number] 2.16.840.1.226658.3.579.2.754 1954 Unknown [id number] 2.16.840.1.185737.3.579.2.754 1954 Unknown [id number] 2.16.840.1.694952.3.579.2.754 1954 Unknown [id number] 2.16.840.1.983558.3.579.2.754 1954 Unknown [id number] 2.16.840.1.475219.3.579.2.754 1954 Unknown [id number] 2.16.840.1.590407.3.579.2.75 1954 Unknown [id number] 2.16.840.1.375914.3.579.2. 1954 Unknown [id number] 2.16.840.1.361815.3.579.2. 1954 Unknown [id number] 2.16.840.1.967435.3.579.2 1954 Unknown [id number] 2.16.840.1.587672.3.579.2. 1954 Unknown [id number] 2..840.1.461094.3.579.2 1954 Unknown [id number] 2..840.1.719737.3.579.2 1954 Unknown [id number] 2.16.840.1.457067.3.579.2 1954 Unknown [id number] 2.16.840.1.650856.3.579.2 1954 Unknown [id number] 2.16.840.1.025432.3.579.2 1954 Unknown [id number] 2.16.840.1.795163.3.579.2 1954 Unknown [id number] 2.16.840.1.367402.3.579.2. 1954 Unknown [id number] 2.16.840.1.084551.3.579.2. 1954 Unknown [id number] 2.16.840.1.467828.3.579.2 1954 Unknown [id number] 2.16.840.1.150007.3.579.2. 1954 Unknown [id number] 2.16.840.1.364542.3.579.2.754 1954 Unknown [id number] 2..840.1.485597.3.579.2.754 1954 Unknown [id number] 2.16.840.1.012064.3.579.2.754 1954 Unknown [id number] 2..840.1.555732.3.579.2.754 Unknown [id number] 2..840.1.914294.3.249.13 Social History Date Type Detail Facility Start: 05-04-2017 End: 09-11-2021 Tobacco smoking status PAIS Never smoker [facility] Start: 1955 Sex Assigned At Not on file [facility] Work Phone: Start: 01-13-2017 End: 01-30-2017 Tobacco smoking status [facility] Unknown if ever smoked [facility] Work Phone: Start: 05-04-2017 End: 09-11-2021 Tobacco use and exposure Never used [facility] Start: 05-04-2017 End: 03-03-2024 Alcohol intake Current drinker of alcohol (finding) [facility] Start: 05-04-2017 Alcohol Comment 3 per week [facility] History of tobacco use Cigar Smoker [facility] Start: 03-15-2020 End: 10-12-2022 Alcohol intake [facility] Start: 12-13-2013 Tobacco Comment occsional ciga r years ago [facility] Start: 12-13-2013 Alcohol Comment occasional [facility] Exposure to SARS-CoV-2 (event) Unable to assess [facility] Start: 11-14-2021 End: 11-24-2021 Exposure to SARS-CoV-2 (event) Not sure [facility] Start: 04-07-2021 End: 10-12-2022 Tobacco use panel [facility] Gender identity Identifies as ma le gender (finding) [facility] Start: 07-23-2020 Alcohol Comment occasionally [facility] Work Phone: Start: 01-28-2024 *Tobacco [facility] Read-Only, Retired: Physical Abuse Denies [facility] (I/We) worried whether (my/our) food would run out before (I/we) got money to buy more. Never true [facility] Work Phone: At any time in the past 12 months, were you homeless or living in chcf [including now]? No [facility] Work Phone: Sex Assigned At Male [facility] Work Phone: Start: 08-30-2020 Sexual Orientation Choose not to disclose [facility] NEGATED: Highlighted rowStart: 01-28-2024 Tobacco smoking status NHIS Never smoker [facility] NEGATED: Highlighted row Alcohol intake Alcohol Use Details [facility] Medical [facility] Procedure Code Equipment Code Equipment Origin al Text Equipment Identifier Dates Icm Reveal Linq - [id number], [id number] FDA Start: 04-02-2017 System Manufacturing Quality Engineer Insertable Reveal Linq - [id number] Start: 01-07-2021 Clinical Notes 11-24-2021 to 02-28-2024 Marion Whitehead, PT - 02/28/2024 8:40 AM Tashi Gonsales, ELECTRICAL ENGINEERING INTERN - 02/14/2024 8:40 AM Marion Lloyd, PT - 02/04/2024 9:00 AM EST Note Date & Type Note Facility 02-28-2024 History of Present illness Narrative Images from the original note were not included. [facility] Physical Therapy Outpatient Daily Note & Discharge Patient: Kana Hadley (69 y.o. male) Examination Date: 02/28/2024 : 1955 CSN: [id number] Insurance: Payor: MEDICARE / Plan: MEDICARE PART [...] 02-28-24: AROM left ankle 0-35 degrees Met SENIOR CARE GOALS Completed by Time Frame for Family Dinner Service Specialist Goals : 4 weeks CURRENT STATUS GOAL STATUS [facility] Goal 1: Pt report decrease anterior right ankle pain 0-2/10 to improve ankle ROM and actiivty tolerance LTG 1 Current Status:: 02-28-24: Pt reports pain 2-3/10 with daily activities: dull ache at all times Partially met [facility] Goal 2: Improve AROM left ankle DF 2-4 degrees and PF 50 degrees (within 2 degrees of right) to normalize gait and improve functional mobility 02-28-24: AROM left ankle 0-35 degrees Not Met (improved) [facility] Goal 3: Pt ambulate with improved heel to toe gait/normal gait pattern for ease with community ambulation 02-28-24: Pt demonstrated improved ankle DF ROM and strength to clear left foot/toes with ambulation and demonsrates improved heel to toe gait pattern. Mild antalgic gait due to ankle pain and stiffness. Partially met [facility] Goal 4: Improve left ankle DF 4+/5/5 [...] Device Manual Therapy Therapeutic Exercise 3 38 ELECTRICAL ENGINEERING INTERN Neuro Re-education Electrical Stimulation, Unattended Mechanical Traction Iontophoresis Ultrasound Therapeutic Activity IDN Gait Training Aquatics Moist Hot Pack Cold Pack Electronically signed by: Tashi Wang, ELECTRICAL ENGINEERING INTERN [id number] Marion Whitehead PT [id number] If you have any questions or concerns, please don't hesitate to call. Thank you for your referral. Physician Signature: Date: _ By signing above, therapist's plan is approved by physician documented in this encounter [facility] Work Phone: 02-14-2024 History of Present illness Narrative Images from the original note were not included. [facility] Physical Therapy Outpatient Daily Note Patient: Kana Hadley (68 y.o. 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 Completed by Time Frame for Family Dinner Service Specialist Goals : 4 weeks CURRENT STATUS GOAL STATUS [facility] Goal 1: Pt report decrease anterior right ankle pain 0-2/10 to improve ankle ROM and actiivty tolerance 02-14-2410 In progress [facility] Goal 2: Improve AROM left ankle DF 2-4 degrees and PF 50 degrees (within 2 degrees of right) to normalize gait and improve functional mobility In progress [facility] Goal 3: Pt ambulate with improved heel to toe gait/normal gait pattern for ease with community ambulation In progress [facility] Service Specialist Goal 4: Improve left ankle DF 4+/5/5 [...] Hot Pack Cold Pack Tashi Carol Wang, ELECTRICAL ENGINEERING INTERN [id number] documented in this encounter [facility] Work Phone: 02-04-2024 History of Present illness Narrative Images from the original note were not included. [facility] Physical Therapy Outpatient Orthopaedic Evaluation Patient: Kana Hadley (68 y.o. 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 Also measeured for new orthotics at Dr Jo office and to get these soon. Pt reports he got custom AFO for left drop foot 1 year ago and he did not like so does not use. 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 [employer] sports, standing and walking aggrevate both knee [...] gait pattern STG Goal 2 Status:: New SENIOR CARE GOALS Completed by Time Frame for [facility] Goals : 4 weeks CURRENT STATUS GOAL STATUS Family Dinner Service Specialist Goal 1: Pt report decrease anterior right ankle pain 0-2/10 to improve ankle ROM and actiivty tolerance LTG Goal 1 Status:: New Family Dinner Service Specialist Goal 2: Improve AROM left ankle DF 2-4 degrees and PF 50 degrees (within 2 degrees of right) to normalize gait and improve functional mobility LTG Goal 2 Status:: New [facility] Goal 3: Pt ambulate with improved heel to toe gait/normal gait pattern for ease with community ambulation LTG Goal 3 Status:: New Family Dinner Service Specialist Goal 4: Improve left ankle DF 4+/5/5 [...] Cold Pack Electronically signed by: Marion Whitehead, [id number] If you have any questions or concerns, please don't hesitate to call. Thank you for your referral. Physician Signature: Date: _ By signing above, therapist's plan is approved by physician documented in this encounter [facility] Work Phone: 02-03-2024 Evaluation note Type assessment assessment assessment assessment assessment [facility] Work Phone: 1(705) 258-601912-20-2024 History of Present illness Narrative* Encounter Date [...] diagnosed by Dr. Martín Benitez, Orthopedic in [place], [place] with a foot drop and has [...] any GLP-1 or GLP-1 agonist. Knee [facility] Work Phone: 1(851) 357-735209-27-2024 History of Present illness Narrative* Aminata Luu RN - 11/05/2023 9:30 AM EDT Patient Education Patient education regarding the following topic(s) was provided on 11/05/2023: diagnostic tesing (labs). Those in attendance for the education included: patient and spouse. Barriers in providing the education included: none. The following methods were used in providing the education: explanation and handout. [facility] handoutsgiven included: After visit summary and labs [...] and artifact. This represents a session summary [id number] to 14-Apr-2023 The presenting rhythm is consistent [...] or problems arise. Sincerely, Claude Amos M.D., [facility], [facility] Margie Yousif Chair in Cardiac Electrophysiology Professor of Internal Medicine [facility] [email or web address] ph [phone] fax [phone] Chief Complaint Patient presents with Follow-up Past Medical History: Diagnosis Date Arrhythmia Diabetes mellitus Family history of premature coronary artery disease GERD (gastroesophageal reflux disease) Hyperlipidemia Hypertension NSVT (nonsustained ventricular tachycardia) ILR 01/2014 Palpitations Paroxysmal ventricular tachycardia Sleep apnea cpap averages 6 hours nightly Past Surgical History: Procedure Laterality Date EGD DIAGNOSTIC N/A 01/08/2021 Laterality: N/A; Surgeon: Sonia Knox MD; Location: [facility] ENDOSCOPY LOOP RECORDER IMPLANTATION 01/15/2014 Surgeon: Claude Amos MD; Location: [facility] ECHOCARDIOGRAM TREADMILL STRESS TEST 12/01/13 [facility] MYOCARDIAL PERFUSION NM 12/01/13 [facility] ECHOCARDIOGRAM (OUTSIDE) 11/30/13 [facility] HOLTER MONITOR (OUTSIDE) 11/29/13 CARDIAC CATH (OUTSIDE) 08/04/00 [facility] APPENDECTOMY KNEE SURGERY Right Family History Problem [...] lesions. Neurologic: Grossly normal [facility] Instructions* Patient Instructions* Aminata Luu RN - 11/05/2023 9:30 AM EDT Continue current medications\ Continue sotalol, need labs if not completed. Rx to pt. Follow-up appointment may be scheduled/determined in 6 months and one year Thank you for choosing [facility] for your Heart Care. [employer] is an available tool to securely access your online medical information. Please ask to enroll during any [facility] appointment. Once enrolled, your MD reviewed test results will be available for you to review at your convenience. [employer] messaging is reserved for non urgent messages and responses may take a few days. Call the [facility] at [phone] option 6, option 3 for urgent EP questions/concerns M-F 8 to 4:00 Call Scheduling for any appointment/procedure verification or changes [phone] If we are sending you an Event monitor and you have not received it when expected, please call the office. For any questions/problems with your monitor please call Danita at [phone]. [facility] testing and procedure patient Instructions may be obtained at: [email or web address] Insurance Concerns: [email or web address]-accept documented [facility] Telephone encounter Note* Telephone Encounter - Columba [...] us know before stopping any other medications. [facility]08-12-2024 Miscellaneous Notes* Telephone Encounter - Columba Cameron [...] to Kalie Webber RN, and EP [facility] [place] [address]. documented [facility] Telephone encounter Note* Telephone Encounter - Columba [...] Kalie Webber, RN, and EP [facility] pool. [facility]02-29-2024 History of Present illness Narrative* Marion Whitehead, PT - 04/08/2023 8:00 AM EST Images from the original note were not included. [facility] Physical Therapy Outpatient Daily Note Patient: Kana Hadley (68 y.o. male) Examination Date: 04/08/2023 : 1955 CSN: [id number] Insurance: Payor: MEDICARE / Plan: MEDICARE PART [...] appropriate activities Exercise CPTs: Therapeutic exercise (CPT 21352) Exercise 1: seated EOB ankle circles 2x [...] eval -10 degrees from neutral In progress SENIOR CARE GOALS Completed by 6 weeks CURRENT STATUS [...] Hot Pack Cold Pack Marion Whitehead PT [id number] documented in [facility] Work Phone: 1([phone]) 177-522402-23-2024 History of Present illness Narrative* Marion Whitehead PT - 04/02/2023 8:00 AM EST Images from the original note were not included. [facility] Physical Therapy Outpatient Daily Note Patient: Kana Hadley (68 y.o. male) Examination Date: 04/02/2023 : 1955 CSN: [id number] Insurance: Payor: MEDICARE / Plan: MEDICARE PART [...] appropriate activities Exercise CPTs: Therapeutic exercise (CPT 65126) Exercise 1: seated EOB ankle circles 2x [...] last visit and noting some improvement-ot using Internet college internation [employer] fred and HEP updated on fred this [...] -5 degrees eval -10 degrees from neutral COMMERCIAL ROOFER GOALS Completed by 6 weeks CURRENT STATUS [...] x 10 Cold Pack Marion Whitehead PT [id number] documented in this [facility] Work Phone: 1([phone]) 942-902909-04-2023 Hospital Discharge instructions* Discharge Instructions* Zuly Fields [...] Everywhere. * UTI (Urinary Tract Infection): Male (Maldivian) documented in [facility] Work Phone: 1(610) 246-334308-30-2023 History of Present illness Narrative* Neha Villarreal, MARCIA - 10/07/2022 9:20 AM EDT Images from the original note were not included. [facility] Physical Therapy Outpatient Daily Note Patient: Kana Hadley (67 y.o. male) Examination Date: 10/07/2022 : 1955 CSN: [id number] Insurance: Payor: MEDICARE / Plan: MEDICARE PART A AND B / Product Type: *No Product type* / - (Medicare) Secondary Insurance (if applicable): [facility] Referring Physician: Julian Botello PCP: Sandro Moreno [...] 2 min MANUAL THERAPY Manual Therapy (CPT 40837) Joint Mobilization: manual patellar mobs infra<>supra, lateral/medial, [...] oon heel at zero degrees In progress COMMERCIAL ROOFER GOALS Completed by 4 weeks CURRENT STATUS [...] Moist Hot Pack Cold Pack Neha Villarreal [id number] documented in this [facility] Work Phone: 1(885) 214-125408-02-2023 History of Present illness Narrative* Rodrigo Auguste, PT - 09/09/2022 9:00 AM EDT Images from the original note were not included. [facility] Physical Therapy Outpatient Daily Note Patient: Kana Hadley (67 y.o. male) Examination Date: 09/09/2022 : 1955 CSN: [id number] Insurance: Payor: MEDICARE / Plan: MEDICARE PART [...] FL pain at end range. In progress SENIOR CARE GOALS Completed by 4 weeks CURRENT STATUS [...] Hot Pack Cold Pack Rodrigo Auguste, PT [id number] documented in this encounterW[facility]OT Work Phone: 1(357) 502-618305-07-2023 Hospital Discharge instructions* Discharge Instructions* Мария Baxter MD - 06/14/2022 12:02 PM EDT Wear the splint as needed to help with pain * Attachments The following attachments cannot be sent through Care Everywhere. * De Quervain's: Tenosynovitis (Maldivian) * Wrist Tendinitis Exercises (Maldivian) * RICE: General Info (Maldivian) documented in this encounterWYANDOT Work Phone: 1(813) 565-501510-17-2022 History of Present illness Narrative* Marisa Cheung [...] clinic as scheduled. [facility] in this encounter[facility] Note* Nursing Notes - Reyna Matthews RN - 11/24/2021 11:21 AM EDT Pt arrives to room 2420 in [facility] for [facility]. ECG completed and shows NSR. Marisa PROPERTY ANALYST notified. Reyna Matthews RN [facility]10-17-2022 Miscellaneous Notes* Nursing Notes - eRyna Matthews RN - 11/24/2021 11:21 AM EDT Pt arrives to room 2420 in [facility] for CVS. ECG completed and shows NSR. Marisa PROPERTY ANALYST notified. 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, left documented in this encounter [facility] Phone: evaluation note* Diagnosis Impingement of left ankle joint- Primary documented in this encounter [facility] Phone: evaluation note* Diagnosis Afib- Primary Atrial [...] of other medications [facility] Diagnosis Well adult exam Routine general medical examination at a health care facility Type 2 diabetes mellitus without complication, without long-term current use of insulin (HCC) HTN (hypertension), benign Essential hypertension, benign Screening for prostate cancer Special screening for malignant neoplasm of prostate Mixed hyperlipidemia documented in this encounter [facility] Work Phone: evaluation note* Diagnosis De Quervain's disease (tenosynovitis)- Primary Radial styloid tenosynovitis documented in this encounter [facility] Work Phone: evaluation note* Diagnosis Urinary incontinence, unspecified type documented in this encounter [facility] Work Phone: evaluation note* Diagnosis Urgency of micturition Benign prostatic hyperplasia with incomplete bladder emptying documented in this encounter [facility] Work Phone: History and physical note* Clinical Note Date No Information [facility] Phone: Instructions* Date Instruction Additional Infor mation No Information [facility] Phone: Progress note* Clinical Note Date No Information [facility] Phone: Reason for referral (narrative)* Reason For Referral No Information [facility] Phone: Reason for visit Narrative* Auth/Cert Specialty Diagnoses / Procedures Referred By José Luis booth Referred To Contact Diagnoses Paroxysmal atrial fibrillation Paroxysmal atrial fibrillation [I48.0] Procedures CT CARDIOVERSION ELECTIVE ARRHYTHMIA EXTERNAL CARDIOVERSION (EP LAB) Claude Amos MD [address] [place] [address] [facility] [address] [place] [address] Referral ID Status Reason Start Date Expiration Date Visits Re quested Visits Authorized [id number] 1 1 [facility] Assessments Diagnosis Tinnitus of both ears Unspecified [...] Referred To Contact Procedures ECG Madhuri Moran, 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 [address] [place] [id number] Referral ID Status Reason Start Date Expiration Date V isits Requested Visits Authorized [id number] New Request 11/24/2021 12/19/2022 1 1 Specialty Diagnoses / Procedures Referred By Contac t Referred To Contact Diagnoses Paroxysmal atrial fibrillation Procedures ECG Claude Amos MD [address] [place] [address] Referral ID Status Reason Start Date Expiration Date V isits Requested Visits Authorized [id number] New Request 11/03/2023 11/27/2024 1 1 Additional Source Comments (unrecognized sect ion and content) No Status Records FoundNo Status Records FoundNo Status Records FoundNo Status Records FoundNo Status Records FoundNo Status Records FoundNo Status Records FoundNo Status Records FoundNo Status Records Found INFORMATION SOURCE (unrecogn ized section and content) DATE CREATED AUTHOR 07/28/2017 [facility] DATE CREATED AUTHOR AUTHOR'S ORGANIZ ATION 08/03/2017 [facility] DATE CREATED AUTHOR AUTHOR'S ORGANIZ ATION 08/12/2017 [facility] DATE CREATED AUTHOR AUTHOR'S ORGANIZ ATION 02/05/2021 [facility] DATE CREATED AUTHOR AUTHOR'S ORGANIZ ATION 01/20/2024 [facility] DATE CREATED AUTHOR AUTHOR'S ORGANIZ ATION 01/31/2024 [facility] DATE CREATED AUTHOR AUTHOR'S ORGANIZ ATION 02/05/2024 [facility] DATE CREATED AUTHOR AUTHOR'S ORGANIZ ATION 03/05/2024 [facility] DATE CREATED AUTHOR AUTHOR'S ORGANIZ ATION 03/08/2024 [facility] Care Teams (unrecognized sec tion and content) Caisson Worker Relationship Specialty Start Date End Date Sandro Moreno DO [address] [place] [address] PCP - General Family Medicine 11/23/19 11/22/21 Caisson Worker Relationship Specialty Start Date End Date Sandro Moreno DO [address] [place] [place] [address] PCP - General Family Medicine 11/23/19 11/22/21 Claude Amos MD [address] [place] [address] PCP - Referring 1 Clinical Cardiac Electrophysiology 12/27/20 Caisson Worker Relationship Specialty Start Date End Date SepClaude conroy MD [address] [place] [address], [place] [address] PCP - Referring 1 Clinical Cardiac Electrophysiology 12/27/20 Caisson Worker Relationship Specialty Start Date End Date SepClaude conroy MD [address] [place] [address], [place] [address] PCP - Referring 1 Clinical Cardiac Electrophysiology 12/27/20 Caisson Worker Relationship Specialty Start Date End Date Claude Amos MD [address] [place] [address], [place] [address] PCP - Referring 1 Clinical Cardiac Electrophysiology 12/27/20 Caisson Worker Relationship Specialty Start Date End Date Sandro Moreno, DO [address] [place] [address] PCP - General Family Medicine 02/04/21 Caisson Worker Relationship Specialty Start Date End Date Sandro Moreno DO [address] [place] [address] PCP - General Family Medicine 02/04/21 Caisson Worker Relationship Specialty Start Date End Date Sandro Moreno DO [address] [place] [address] PCP - General Family Medicine 02/04/21 Caisson Worker Relationship Specialty Start Date End Date Sandro Moreno DO [address] [place] [address] PCP - General Family Medicine 02/04/21 Caisson Worker Relationship Specialty Start Date End Date Claude Amos MD [address] [place] [address], [place] [address] PCP - Referring 1 Clinical Cardiac Electrophysiology 12/27/20 Caisson Worker Relationship Specialty Start Date End Date Sandro Moreno DO [address] [place] [address] PCP - General Family Medicine 02/04/21 Caisson Worker Relationship Specialty Start Date End Date Sandro Moreno DO [address] [place] [address] PCP - General Family Medicine 02/04/21 Caisson Worker Relationship Specialty Start Date End Date Sandro Moreno DO [address] [place] [address] PCP - General Family Medicine 02/04/21 Caisson Worker Relationship Specialty Start Date End Date Sandro Moreno DO [address] [place] [address] PCP - General Family Medicine 02/04/21 Caisson Worker Relationship Specialty Start Date End Date Claude Amos MD [address] [place] [address] PCP - Referring 1 Clinical Cardiac Electrophysiology 12/27/20 Caisson Worker Relationship Specialty Start Date End Date Claude Amos MD [address] [place] [address] PCP - Referring 1 Clinical Cardiac Electrophysiology 12/27/20 Sandro Moreno DO [address] [place] [address] PCP - General Family Medicine 05/11/23 Caisson Worker Relationship Specialty Start Date End Date AugClaude conroy MD [address] [place] [address] PCP - Referring 1 Clinical Cardiac Electrophysiology 12/27/20 Sandro Moreno DO [address] [place] [address] PCP - General Family Medicine 05/11/23 Caisson Worker Relationship Specialty Start Date End Date SepClaude conroy MD [address] [place] [address] PCP - Referring 1 Clinical Cardiac Electrophysiology 12/27/20 Sandro Moreno DO [address] [place] [address] PCP - General Family Medicine 05/11/23 Caisson Worker Relationship Specialty Start Date End Date SepClaude conroy MD [address] [place] [phone] PCP - Referring 1 Clinical Cardiac Electrophysiology 12/27/20 Sandro Moreno DO [address] [place] [address] PCP - General Family Medicine 05/11/23 Caisson Worker Relationship Specialty Start Date End Date Sandro Moreno DO PCP - General Family Medicine 02/04/21 Caisson Worker Relationship Specialty Start Date End Date Sandro Moreno DO [address] [place] [address] PCP - General Family Medicine 02/04/21 Caisson Worker Relationship Specialty Start Date End Date Sandro Moreno DO PCP - General Family Medicine 02/04/21 Caisson Worker Relationship Specialty Start Date End Date Claude Amos MD [address] [place] [address] PCP - Referring 1 Clinical Cardiac Electrophysiology 12/27/20 Sandro Moreno DO [address] [facility] [address] , [place] [id number] PCP - General Family Medicine 05/11/23 Caisson Worker Relationship Specialty Start Date End Date Sandro Moreno DO PCP - General Family Medicine 02/04/21 Name Effective Dates (start - stop) Status Members No Information Caisson Worker Relationship Specialty Start Date End Date Sandro Moreno DO PCP - General Family Medicine 02/04/21 Caisson Worker Relationship Specialty Start Date End Date Sandro Moreno DO PCP - General Family Medicine 02/04/21 Caisson Worker Relationship Specialty Start Date End Date Sandro Moreno DO PCP - General Family Medicine 02/04/21 Caisson Worker Relationship Specialty Start Date End Date Sandro [...] PT EVAL AND TREAT Julian Botello, PA-C [address] [facility] [place] [address] Marion Whitehead Referral ID Status Reason Start Date Expiration Date V isits Requested Visits Authorized [id number] Auth Not Required 02/04/2024 02/28/2024 1 1 [...] BE BASED ON THE PRIMARY CLINICAL RECORDS. [facility]. provides no warranty or guarantee of the accuracy or completeness of information in this document.
[2024-03-21] MEDS: POTASSIUM CHLORIDE 10 MEQ ER TABLET 20 MEQ PO (08:14)
[2024-03-21] MEDS: ATORVASTATIN CALCIUM 40 MG TABLET PO (08:15)
[2024-03-21] MEDS: SITAGLIPTIN PHOSPHATE 50 MG TABLET PO (08:15)
[2024-03-21] MEDS: ALLOPURINOL 300 MG TABLET PO (08:15)
[2024-03-21] MEDS: GLIMEPIRIDE 2 MG TABLET PO (08:15)
[2024-03-21] MEDS: OXYBUTYNIN chloride 5 MG TABLET PO (08:15)
--- NOTE | 2024-03-21 08:31 | CM.NOTE ---
Rounds made with Dr. Cernshaw. Discharge today if no further issues. Encouraged to follow up with family physician regarding his Diabetes. Verbalizes understanding.
--- NOTE | 2024-03-21 08:57 | PM.PN ---
Progress Note: Subjective Subjective Interval history: Patient was admitted after surgery due to postoperative hypotension and hypoxia which has improved overnight. No overnight events. Patient relates that his block is beginning to wear off as he is having some pain to his foot/ankle. He has been out of bed without issue. No other complaints and feels systemically well Exam Narrative Exam Narrative: Dressing is clean dry and intact. He is able to wiggle his toes. Light touch sensation to his toes is altered likely from the nerve block. No calf pain on squeeze Constitutional Vital Signs, click to edit/add: Last Vital Signs Temp 97.9 F 03/21/24 08:00 Pulse 77 03/21/24 08:00 Resp 18 03/21/24 08:00 BP 119/69 03/21/24 08:16 Pulse Ox 93 L 03/21/24 08:38 O2 Del Method Room Air 03/21/24 08:38 O2 Flow Rate 3 03/21/24 01:31 Progress Note: Objective Labs Labs: Short CBC 03/20/24 Range/Units 11:33 WBC 6.9 (4.0-11.0) 10^3/uL Hgb 15.2 (14.0-18.0) g/dL Hct 42.7 (42.0-54.0) % Plt Count 162 (150-450) 10^3/uL BMP 03/21/24 05:11 Sodium 141 Potassium 4.0 Chloride 102 Carbon Dioxide 26.7 BUN 20.0 H Creatinine 1.09 Glucose 225 H Calcium 8.6 Liver Function 03/21/24 Range/Units 05:11 Total Bilirubin 0.7 (0.2-1.0) mg/dL AST 18 (15-37) U/L ALT 31 (16-63) U/L Alkaline Phosphatase 70 (46-116) U/L Albumin 3.2 L (3.4-5.0) g/dL Progress Note: A&P Assessment and Plan (1) GERD (gastroesophageal reflux disease): (2) Atrial flutter: (3) Hypertension: Plan Patient is 1 day status post ankle arthroscopy, plantar fasciotomy and gastroc recession. Patient experienced hypoxia and hypotension which has improved. Patient may weight-bear as tolerated in the cam boot Patient may change surgical bandage every 2 to 3 days Prescriptions sent yesterday are in 's possession Okay to discharge per podiatry. Follow-up in my office next week
[2024-03-21] MEDS: OXYCODONE HCL 5 MG TABLET 10 MG PO (09:46)
--- NOTE | 2024-03-21 10:44 | SWNOTE1 ---
Medicare Outpatient Observation Notice reviewed and discussed with patient. Pt. verbalized understanding and signed the form. Original given to patient and copy placed in patient?s chart.
--- NOTE | 2024-03-21 10:44 | SWNOTE1 ---
SW stopped in to speak with pt. Pt's in room as well. Pt voiced he is feeling well and has had many surgeries in past and voiced he has no needs. Pt has a boot on his left foot at this time. Pt and voiced no needs at discharge.
== END 2024-03-21 12:00 | disposition home or self-care (01) ==
LOC: SURGOUT 03-21 07:17 → MS 03-21 07:17
PROVIDERS: Anesthesiology; Registered Nurse; Admitting Provider Family Medicine; Visit Provider Podiatrist Foot & Ankle Surgery
PROC: (CPT 27687; principal; 2024-03-20 13:00)
DX: M19.072 Primary osteoarthritis, left ankle and foot (principal); M72.2 Plantar fascial fibromatosis; M76.62 Achilles tendinitis, left leg; Z95.818 Presence of other cardiac implants and grafts; Z90.49 Acquired absence of other specified parts of digestive tract; M24.572 Contracture, left ankle; I10 Essential (primary) hypertension; R09.02 Hypoxemia; K21.9 Gastro-esophageal reflux disease without esophagitis; I48.92 Unspecified atrial flutter; I95.81 Postprocedural hypotension; N40.0 Benign prostatic hyperplasia without lower urinary tract symptoms; E66.01 Morbid (severe) obesity due to excess calories; Z68.39 Body mass index [BMI] 39.0-39.9, adult; Z79.84 Long term (current) use of oral hypoglycemic drugs; Z79.01 Long term (current) use of anticoagulants; G47.33 Obstructive sleep apnea (adult) (pediatric); E78.5 Hyperlipidemia, unspecified; E11.9 Type 2 diabetes mellitus without complications
CPT/HCPCS: 27687; 29893; 29898; 36415; 64445; 80053; 82948; 83735; 85025; 94761; 96360; 96361; G0378; J0131; J0702; J0736; J1100; J2250; J2371; J2405; J2704; J2795; J3010

== ENCOUNTER 2024-05-02 15:31 | Emergency (ER) | payer MEDICARE, BC, SELFPAY ==
[2024-05-02 15:53] VITALS: BP 134/78; PULSE 68; TEMP 36.6; O2SAT 95; BMI 39.7
--- NOTE | 2024-05-02 16:57 | ED_ITS ---
HPI - Extremity Problem General Chief complaint: Extremity Problem, Nontraumatic Stated complaint: Extremity Injury, Lower Time Seen by Provider: 05/02/24 16:06 Source: patient Limitations: no limitations History of Present Illness HPI Narrative: Patient is a 69-year-old male who presents to the emergency department for an injury to the left foot 1 week ago. He states 6 weeks ago he had surgery for plantar fasciitis to the left foot and ankle. He states 1 week ago he hit the toes of the left foot while in the boot, he states a tailgate mechanism came down on his toes. He is able to walk. He takes Xarelto daily. He has had continued pain and swelling with bruising to the toes although patient states that the area appears to be healing, it is still painful so he wanted to be checked out. No medications prior to arrival Related Data Home Medications ?Medication ?Instructions ?Recorded ?Confirmed allopurinol 300 mg tablet 300 mg PO DAILY 03/07/24 03/20/24 atorvastatin 40 mg tablet 40 mg PO DAILY 03/07/24 03/20/24 glimepiride 2 mg tablet 2 mg PO DAILY 03/07/24 03/20/24 losartan 100 1 tab PO DAILY 03/07/24 03/20/24 mg-hydrochlorothiazide 25 mg tablet oxybutynin chloride 5 mg tablet 5 mg PO Q12H 03/07/24 03/20/24 phentermine 37.5 mg tablet 37.5 mg PO DAILY 03/07/24 03/20/24 potassium chloride 20 mEq 20 meq PO DAILY 03/07/24 03/20/24 tablet,extended release(part/cryst) rivaroxaban 20 mg tablet (Xarelto) 20 mg PO DAILY 03/07/24 03/20/24 sitagliptin phosphate 50 mg tablet 50 mg PO DAILY 03/07/24 03/20/24 (Januvia) sotalol 160 mg tablet 160 mg PO Q12H 03/07/24 03/20/24 tamsulosin 0.4 mg capsule 0.4 mg PO Q24H 03/07/24 03/20/24 Previous Rx's ?Medication ?Instructions ?Recorded hydrocodone 5 mg-acetaminophen 325 1 tab PO Q6H PRN pain 3 days #12 05/02/24 mg tablet tabs Allergies Allergy/AdvReac Type Severity Reaction Status Date / Time sulfamethoxazole (From Allergy Mild GI upset Verified 05/02/24 15:59 Bactrim) trimethoprim (From Bactrim) Allergy Mild GI upset Verified 05/02/24 15:59 nitroglycerin (From Allergy Hypotension Verified 05/02/24 15:59 Nitro-Bid) Penicillins Allergy Hives Verified 05/02/24 15:59 Review of Systems ROS Constitutional Denies: fever or chills Ears, nose, mouth, and throat Denies: throat pain or nasal congestion Cardiovascular Denies: chest pain Respiratory Denies: shortness of breath Gastrointestinal Denies: nausea or vomiting Musculoskeletal Reports: extremity pain; Denies: back pain or neck pain Integumentary/Breast Denies: rash Neurological Denies: numbness in extremities or weakness in extremities Hematologic/Lymphatic Reports: easy bruising and easy bleeding PFSH [facility] Medical History (Updated 05/02/24 @ 16:54 by ADRI Brown) GERD (gastroesophageal reflux disease) ?K21.9 - Gastro-esophageal reflux disease without esophagitis (ICD-10) NSVT (nonsustained ventricular tachycardia) ?I47.29 - Other ventricular tachycardia (ICD-10) Atrial flutter ?I48.92 - Unspecified atrial flutter (ICD-10) Left ankle pain ?M25.572 - Pain in left ankle and joints of left foot (ICD-10) Achilles tendinitis, left leg ?M76.62 - Achilles tendinitis, left leg (ICD-10) Contracture, left ankle ?M24.572 - Contracture, left ankle (ICD-10) Plantar fascial fibromatosis ?M72.2 - Plantar fascial fibromatosis (ICD-10) Status post placement of implantable loop recorder ?Z95.818 - Presence of other cardiac implants and grafts (ICD-10) BPH (benign prostatic hyperplasia) ?N40.0 - Benign prostatic hyperplasia without lower urinary tract symptoms (ICD-10) Gout ?M10.9 - Gout, unspecified (ICD-10) Arthritis ?M19.90 - Unspecified osteoarthritis, unspecified site (ICD-10) Anticoagulated ?Z79.01 - skilled nursing (current) use of anticoagulants (ICD-10) Sleep apnea ?G47.30 - Sleep apnea, unspecified (ICD-10) High cholesterol ?E78.00 - Pure hypercholesterolemia, unspecified (ICD-10) Hypertension ?I10 - Essential (primary) hypertension (ICD-10) Atrial fibrillation ?I48.91 - Unspecified atrial fibrillation (ICD-10) Diabetes ?E11.9 - Type 2 diabetes mellitus without complications (ICD-10) Surgical History (Updated 03/07/24 @ 11:05 by Marlene Jain NP) History of colonoscopy ?Z98.890 - Other specified postprocedural states (ICD-10) History of appendectomy ?Z90.49 - Acquired absence of other specified parts of digestive tract (ICD- 10) History of carpal tunnel release ?Z98.890 - Other specified postprocedural states (ICD-10) History of cardiac radiofrequency ablation ?Z98.890 - Other specified postprocedural states (ICD-10) History of cardiac catheterization ?Z98.890 - Other specified postprocedural states (ICD-10) History of arthroplasty of knee ?Z96.659 - Presence of unspecified artificial knee joint (ICD-10) Family History (Updated 03/07/24 @ 11:01 by Marlene Jain NP) Other Family history of cancer Family history of diabetes mellitus Family history of hypertension Family history of myocardial infarction Family history of stroke Social History Within the past year, how often did you have a drink containing alcohol: 4 or more times a week Smoking status: Never smoker Non-prescribed substance use: denies use Highest level of school completed/degree received: some college, no degree Little interest or pleasure in doing things: not at all Feeling down, depressed, or hopeless: not at all Exam Narrative Exam Narrative: Gen.: Awake, alert, in no distress Head: Normocephalic, atraumatic ENT: Moist mucous membranes Respiratory: No respiratory distress Extremities: Left foot with healing ecchymosis distally on the foot, no obvious deformity of the left ankle and no bony point tenderness of the proximal left foot or ankle. Left second toe is ecchymotic and swollen compared to the other toes Psych: Normal mood and affect Neuro: No focal neuro deficit Skin: Warm, dry, intact Constitutional Vital Signs, click to edit/add: Last Vital Signs Temp 97.9 F 05/02/24 15:53 Pulse 68 05/02/24 15:53 Resp 16 05/02/24 15:53 BP 134/78 05/02/24 15:53 Pulse Ox 95 05/02/24 15:53 O2 Del Method Room Air 05/02/24 15:53 Course Vital Signs Vital signs: Vital Signs Temperature 97.9 F 05/02/24 15:53 Pulse Rate 68 05/02/24 15:53 Respiratory Rate 16 05/02/24 15:53 Blood Pressure 134/78 05/02/24 15:53 Pulse Oximetry 95 05/02/24 15:53 Oxygen Delivery Method Room Air 05/02/24 15:53 Temperature 97.9 F 05/02/24 15:53 Pulse Rate 68 05/02/24 15:53 Respiratory Rate 16 05/02/24 15:53 Blood Pressure 134/78 05/02/24 15:53 Pulse Oximetry 95 05/02/24 15:53 Oxygen Delivery Method Room Air 05/02/24 15:53 MDM - Extremity (Nontraumatic) MDM Narrative Medical decision making narrative: X-rays reviewed by the radiologist showing a cortical irregularity in the proximal phalanx of the left fourth toe, he was placed in sandeep tape and postop shoe and will be treated for fracture, however clinically the fourth toe is nontender so I suspect these may be arthritic changes. Patient and his were made aware of this. He will be treated for fracture with short course of analgesics and encouraged to follow-up with podiatry. Return to the ER if symptoms change or worsen. He is neurovascularly intact at discharge. SUPERVISED APC VISIT, PHYSICIAN ATTESTATION: Based on the medical record the care appears appropriate. ? Medical Records Attestation: I reviewed the patient's medical records. Imaging Data xr foot/ankle: Attestation: I have reviewed the pertinent imaging results. Discharge Plan Discharge Chief Complaint: Extremity Problem, Nontraumatic Clinical Impression: Contusion of left foot, Closed fracture of proximal phalanx of toe of left foot Patient Disposition: Home, Self-Care Time of Disposition Decision: 16:54 Condition: Good Prescriptions / Home Meds: New hydrocodone-acetaminophen 5-325 mg tablet 1 tab PO Q6H PRN (Reason: pain) 3 Days Qty: 12 0RF Rx Instructions: DX: M79.672 No Action allopurinol 300 mg tablet 300 mg PO DAILY glimepiride 2 mg tablet 2 mg PO DAILY losartan-hydrochlorothiazide 100-25 mg tablet 1 tab PO DAILY Xarelto 20 mg tablet 20 mg PO DAILY Januvia 50 mg tablet 50 mg PO DAILY sotalol 160 mg tablet 160 mg PO Q12H potassium chloride 20 mEq tablet,ER particles/crystals 20 meq PO DAILY tamsulosin 0.4 mg capsule 0.4 mg PO Q24H oxybutynin chloride 5 mg tablet 5 mg PO Q12H atorvastatin 40 mg tablet 40 mg PO DAILY phentermine 37.5 mg tablet 37.5 mg PO DAILY Print Language: Namibian Instructions: Toe Fracture (ED), Foot Contusion (ED) Referrals: Physician,Non-Staff, MD [Primary Care Provider] - 1 week Thomas Vo DPM [Physician] - As soon as possible
== END 2024-05-02 17:08 | disposition home or self-care (01) ==
PROVIDERS: Emergency Provider Emergency Medicine; PCP Family Medicine
DX: S92.512A Displaced fracture of proximal phalanx of left lesser toe(s), initial encounter for closed fracture (principal); S90.32XA Contusion of left foot, initial encounter; Z79.01 Long term (current) use of anticoagulants; Z90.49 Acquired absence of other specified parts of digestive tract; Z96.659 Presence of unspecified artificial knee joint; W22.8XXA Striking against or struck by other objects, initial encounter
CPT/HCPCS: 73610; 73630; 99284